=== PATIENT | male | born 1940 | race Caucasian/White ===

== ENCOUNTER 2022-07-11 15:51 | Emergency (ER) | payer OTHER, SELFPAY ==
[2022-07-11 16:14] VITALS: BP 149/92; PULSE 62; RESP 14; TEMP 36.6; O2SAT 99; BMI 31.0
--- NOTE | 2022-07-11 16:41 | CRLHL7_ITS ---
For Patients: As a result of the Cures Act, medical imaging exams and procedure reports are released immediately into your electronic medical record. You may view this report before your referring provider. If you have questions, please contact your health care provider. Indication: Fall with pain. Technique: Right shoulder 3 views. Comparison: None. Findings/Impression: Bones: Alignment is normal. No fractures or bone lesions. No sign of acute injury. Joint spaces: Arthritis is present in the glenohumeral and AC joints. Soft tissues: Unremarkable. Dictated by Gerhard Kothari MD @ 07/11/2022 5:36:35 PM (Electronically Signed)
--- NOTE | 2022-07-11 16:41 | ED_ITS ---
HPI - Head Injury General Chief complaint: Shoulder Injury/Pain Stated complaint: Fall/Shoulder Pain/Hit head Time Seen by Provider: 07/11/22 16:29 History of Present Illness HPI Narrative: 81-year-old man presentingto the emergency department after a fall where he slammed according to his spouse who accompanies him, in apparently face 1st. He seems to have some poor recollection of this but they do not think he actually passed out. Spouse saw him then slumped down against the wall. he had quite a headache and dizzy when he tried to get up. He has since taken some Tylenol and is better though sharp shoulder pain particular right shoulder remains. seems to radiate from the shoulder down to the elbow. Pain is not otherwise discretely in the elbow. he does also has some left upper arm pain but not nearly as much. Demonstrates pretty good movement of that when I inquire throwing his arm over his head. He has had a left shoulder replacement. Did also scrape his knees but no significant pain here. History of left knee replacement noted on exam. does not think he has any neck pain. he is not nauseated. I note him to sound rather congested in the face; evidently this is chronic. Teeth feel normal; admittedly has top denture plate. Underlying history of Parkinson's and 10 to shuffle about. they think he caught his foot on a rug when got up from a chair causing this fall. Not associated with any chest pain or sense of arrhythmia. Related Data Home Medications Medication Instructions Recorded Confirmed aspirin 325 mg tablet 325 mg PO DAILY 07/11/22 07/11/22 carbidopa 25 mg-levodopa 100 mg 1 tab PO TID 07/11/22 07/11/22 tablet carvedilol 12.5 mg tablet 12.5 mg PO Q12H 07/11/22 07/11/22 duloxetine 20 mg capsule,delayed 40 mg PO ONCE 07/11/22 07/11/22 release losartan 100 mg tablet 100 mg PO ONCE 07/11/22 07/11/22 lovastatin 40 mg tablet 40 mg PO ONCE 07/11/22 07/11/22 Allergies Allergy/AdvReac Type Severity Reaction Status Date / Time No Known Drug Allergies Allergy Verified 07/11/22 16:22 [facility] Medical History (Updated 07/26/22 @ 00:01 by ) Hypertension Parkinsonian syndrome Skin cancer (melanoma) Surgical History (Updated 07/11/22 @ 16:27 by Teodora Canchola RN) No significant past surgical history Social History Smoking Status: Former smoker What tobacco products do you use: cigarettes Smoking quit date/years: >15 years ago Do you use any of these nicotine containing products: None Second hand tobacco smoke exposure: No How often do you have a drink containing alcohol: never How often do you have six or more drinks on one occasion: Never AUDIT-C Alcohol total score: 0 Non-prescribed substance use: denies use Exam Narrative: Exam Narrative: pleasant. NAD. Fully alert with GCS of 15. Cranial nerves 2-12 look to be intact. He is speaking easily Though sounds congested. Breathing easily. head looks to be atraumatic. Oropharynx is with upper denture plate. Dentition looks intact. Neck is supple back is nontender until palpating around the right shoulder area. There is no tenderness to palpation about either clavicle. Surgical scar in the anterior left shoulder consistent with replacement. He has no difficulty with range of motion at this arm. A good deal of pain to palpation and movement of the right shoulder, transitioning. I do not see any sort of erythema or swelling here. Supinates and pronates the right forearm without difficulty. He has good pulses both upper extremities. Cardiovascular RRR abdomen is protuberant soft and nontender with normoactive bowel sounds. Lower extremities with trace dependent edema right maybe a little more than the left. Surgical scar on the left knee consistent with knee replacement. Light abrasions on both knees. No swelling no particular tenderness. Const: Vital Signs, click to edit/add: Vital Signs - 24 hr 07/11/22 16:14 Temperature 97.8 F Pulse Rate [Pulse Oximeter] 62 Respiratory Rate 14 Blood Pressure [Ri ght Upper Arm] 149/92 H Pulse Oximetry 99 Oxygen Delivery Me thod Room Air Documenting provider has reviewed patient's vital signs: yes Course Course Hospital Course: tolerated pain medication well dispensed arm sling Vital Signs Vital signs: Initial Vital Signs Temperature 97.8 F 07/11/22 16:14 Temperature Source Temporal Artery Scan 07/11/22 16:14 Pulse Rate 62 07/11/22 16:14 Respiratory Rate 14 07/11/22 16:14 Blood Pressure 149/92 H 07/11/22 16:14 Blood Pressure Mean 111 07/11/22 16:14 Blood Pressure Position Supine 07/11/22 16:14 Pulse Oximetry 99 07/11/22 16:14 Oxygen Delivery Method 07/11/22 16:14 Vital Signs Temperature 97.8 F 07/11/22 16:14 Pulse Rate 62 07/11/22 16:14 Respiratory Rate 14 07/11/22 16:14 Blood Pressure 149/92 H 07/11/22 16:14 Pulse Oximetry 99 07/11/22 16:14 Oxygen Delivery Method 07/11/22 16:14 Temperature 97.8 F 07/11/22 16:14 Pulse Rate 62 07/11/22 16:14 Respiratory Rate 14 07/11/22 16:14 Blood Pressure 149/92 H 07/11/22 16:14 Pulse Oximetry 99 07/11/22 16:14 Oxygen Delivery Method 07/11/22 16:14 MDM - Head Injury MDM Narrative Medical decision making narrative: by my read head CT and shoulder xray without acute abnormalities. Over-read of head CT IMPRESSION: 1. No CT evidence of acute intracranial abnormality or closed head injury. 2. Paranasal sinus disease, as above. cervical spine and shoulder with chronic changes. No acute abnormality Medical Records Attestation: I reviewed the patient's medical records. Discharge Plan Discharge Clinical Impression: Right shoulder strain, Fall Patient Disposition: Home w/ Parent or Adult Condition: Improved Additional Instructions: wear the arm sling as needed for comfort over the next couple of days. be seen if still having a good deal of discomfort in 7-10 days. The [employer] can be constipating and as discussed, fatiguing. On the days that you might take [employer], take 1-2 doses of a senna - containing product. each tablet of [employer] contains 325 mg of acetaminophen. in general you can take up to 1000 mg of acetaminophen per dose. So each tablet of [employer] can be combined with acetaminophen. in a couple of days begin some range of motion exercises with your shoulders. Prescriptions: No Action carvedilol 12.5 mg tablet 12.5 mg PO Q12H carbidopa-levodopa 25-100 mg tablet 1 tab PO TID Label Comments: TAKE 1 TABLET BY MOUTH THREE TIMES DAILY duloxetine 20 mg capsule,delayed release(DR/EC) 40 mg PO ONCE losartan 100 mg tablet 100 mg PO ONCE Label Comments: TAKE 1 TABLET BY MOUTH DAILY lovastatin 40 mg tablet 40 mg PO ONCE aspirin 325 mg tablet 325 mg PO DAILY Follow Up/Referrals: Provider,Not a Local [Primary Care Provider] - Stand Alone Forms: [facility] Info Instructions
--- NOTE | 2022-07-11 16:41 | CRLHL7_ITS ---
For Patients: As a result of the Century Cures Act, medical imaging exams and procedure reports are released immediately into your electronic medical record. You may view this report before your referring provider. If you have questions, please contact your health care provider. DATE: 07/11/2022. CLINICAL HISTORY: Trauma. TECHNIQUE: Helical CT acquisition of the cervical spine was performed. Coronal and sagittal reformations were performed and interpreted. COMPARISON: None available. FINDINGS: There is no evidence of acute displaced fracture or traumatic malalignment of the cervical spine. The facets are well aligned. No evidence of significant trauma at the craniocervical junction. Advanced cervical spondylosis with mild reversal of cervical lordosis. Multilevel degenerative disc and endplate changes with advanced loss of disc height and endplate osteophytic ridging most pronounced at C3-4 and C6-7. There is mild degenerative retrolisthesis of C3 on C4. No evidence of severe spinal canal stenosis. Uncovertebral hypertrophy and facet arthropathy results in varying degrees of multilevel foraminal narrowing. Chronic appearing compression deformity of the C6 vertebral body with very mild loss of height. The visualized prevertebral soft tissues are unremarkable. The visualized lung apices are unremarkable. IMPRESSION: 1. No acute displaced fracture or traumatic malalignment of the cervical spine. 2. Advanced cervical spondylosis with varying degrees of multilevel foraminal narrowing. Please note that all CT scans at this facility use dose modulation, iterative reconstruction, and/or weight-based dosing when appropriate to reduce radiation dose to as low as reasonably achievable. Dictated by Asif Miguel MD @ 07/11/2022 5:49:12 PM (Electronically Signed)
--- NOTE | 2022-07-11 16:49 | CRLHL7_ITS ---
For Patients: As a result of the Century Cures Act, medical imaging exams and procedure reports are released immediately into your electronic medical record. You may view this report before your referring provider. If you have questions, please contact your health care provider. DATE: 07/11/2022. CLINICAL HISTORY: Fall; struck head. TECHNIQUE: Standard helical CT image acquisition of the brain was performed. COMPARISON: None available. FINDINGS: There is no intracranial hemorrhage. No extra-axial collection, mass effect, or midline shift. Joel-white matter differentiation is preserved. Intracranial atherosclerotic disease. Age-appropriate mild generalized parenchymal volume loss with resulting prominence of cerebral sulci and the ventricular system. No displaced calvarial fracture. Thinning of the ocular lenses. Subtotal opacification of the right frontal sinus, opacification of the inferior left frontal sinus, opacification of the frontal sinus drainage pathways, and partial opacification of the bilateral ethmoid air cells. The mastoid air cells are unremarkable. The soft tissues are unremarkable. IMPRESSION: 1. No CT evidence of acute intracranial abnormality or closed head injury. 2. Paranasal sinus disease, as above. Please note that all CT scans at this facility use dose modulation, iterative reconstruction, and/or weight-based dosing when appropriate to reduce radiation dose to as low as reasonably achievable. Dictated by Asif Miguel MD @ 07/11/2022 5:41:59 PM (Electronically Signed)
[2022-07-11] MEDS: OXYCODONE 5 MG TABLET PO (16:55)
== END 2022-07-11 18:43 | disposition home or self-care (01) ==
PROVIDERS: Emergency Provider Family Medicine
DX: S43.401A Unspecified sprain of right shoulder joint, initial encounter (principal); W01.0XXA Fall on same level from slipping, tripping and stumbling without subsequent striking against object, initial encounter; Y92.019 Unspecified place in single-family (private) house as the place of occurrence of the external cause; Y93.9 Activity, unspecified; Y99.8 Other external cause status
CPT/HCPCS: 70450; 72125; 73030; 99283; 99284; A9270

== ENCOUNTER 2022-09-18 10:00 | Outpatient (RCR) | payer OTHER, SELFPAY | END 2022-11-25 10:38 | disposition home or self-care (01) | PROVIDERS: Visit Provider Psychiatry & Neurology Neurology | DX: G20 Parkinson's disease (principal); Z51.89 Encounter for other specified aftercare | CPT/HCPCS: 97110; 97162 ==

== ENCOUNTER 2022-10-20 11:00 | Outpatient (RCR) | payer OTHER, SELFPAY | END 2022-11-26 13:04 | disposition home or self-care (01) | PROVIDERS: Visit Provider Psychiatry & Neurology Neurology | DX: G20 Parkinson's disease (principal); Z51.89 Encounter for other specified aftercare | CPT/HCPCS: 97110; 97112; 97116; 97162; 97530 ==

== ENCOUNTER 2023-05-29 14:22 | Emergency (ER) | payer MEDICARE, SELFPAY ==
[2023-05-29 14:29] VITALS: BP 146/77; PULSE 61; RESP 18; O2SAT 100; BMI 30.9
--- NOTE | 2023-05-29 14:42 | CRLHL7_ITS ---
For Patients: As a result of the Cures Act, medical imaging exams and procedure reports are released immediately into your electronic medical record. You may view this report before your referring provider. If you have questions, please contact your health care provider. INDICATION: fall, landed on right side, pain in right side of abdomen and back COMPARISON: none TECHNIQUE: PA chest and right ribs. FINDINGS: Mild areas of scarring are present bilaterally. Left shoulder replacement hardware noted. There are vascular calcifications. There is no evidence of pulmonary contusion, pneumothorax or pleural effusion. The heart and pulmonary vessels are of normal size. Oblique detail views of the ribs demonstrate no evidence of fracture or intrinsic bone lesion. There is no evidence of pleural hematoma. IMPRESSION: No acute cardiopulmonary disease. No acute rib fracture. Dictated by Ranjan Lawson MD @ 05/29/2023 3:22:24 PM (Electronically Signed)
--- NOTE | 2023-05-29 15:35 | ED.GENADULT ---
HPI - General Adult General Chief complaint: Fall/Minor Trauma Stated complaint: Fell this am, R side/back pain Time Seen by Provider: 05/29/23 14:34 Source: patient Mode of arrival: ambulatory Limitations: no limitations History of Present Illness HPI narrative: 82-year-old male coming in today after falling on his right side at home several hours ago. He is concerned about right-sided pain he is having since the fall. Patient has history of Parkinson's, tripped earlier today falling onto his right side against a dresser. He is complaining of pain right at the right upper quadrant of the abdomen and lower chest area. He states it hurts to take deep breaths. He is not feeling short of breath however. He denies hitting his head or losing consciousness. He does take a daily aspirin, no other blood thinners. Related Data Home Medications Medication Instructions Recorded Confirmed aspirin 325 mg tablet 325 mg PO DAILY 07/11/22 07/11/22 carbidopa 25 mg-levodopa 100 mg 1 tab PO TID 07/11/22 07/11/22 tablet carvedilol 12.5 mg tablet 12.5 mg PO Q12H 07/11/22 07/11/22 duloxetine 20 mg capsule,delayed 40 mg PO ONCE 07/11/22 07/11/22 release losartan 100 mg tablet 100 mg PO ONCE 07/11/22 07/11/22 lovastatin 40 mg tablet 40 mg PO ONCE 07/11/22 07/11/22 Allergies Allergy/AdvReac Type Severity Reaction Status Date / Time Iodinated Contrast Media Allergy Verified 05/29/23 14:29 [id number] Reductase Allergy Verified 05/29/23 14:29 Inhibitor Review of Systems Status of ROS: Reports: 10 or more systems reviewed and unremarkable except as noted in History and below [facility] Medical History Skin cancer (melanoma) ?C43.9 - Malignant melanoma of skin, unspecified (ICD-10) Parkinsonian syndrome ?G20 - Parkinson's disease (ICD-10) Hypertension ?I10 - Essential (primary) hypertension (ICD-10) Surgical History No significant past surgical history Social History Smoking Status: Former smoker What tobacco products do you use: cigarettes Smoking quit date/years: >15 years ago Do you use any of these nicotine containing products: None Second hand tobacco smoke exposure: No How often do you have a drink containing alcohol: never How often do you have six or more drinks on one occasion: Never AUDIT-C Alcohol total score: 0 Non-prescribed substance use: denies use service: No Exam Narrative: Exam Narrative: Overweight, well-developed patient in no acute distress. Alert and oriented. Answers questions appropriately. Mood and affect are appropriate. Thoughts are goal oriented and rational. No tangential or magical thinking noted. Patient speaks in full sentences without needing to catch his breath. HEENT: Normocephalic atraumatic. Pupils are equally round reactive to light. Extraocular muscles are intact. Conjunctivae are moist without any icterus noted. Moist mucous membranes. Neck is soft. Cardiovascular: Heart is regular rate and rhythm S1 and S2 are present without any murmurs. Lungs: Clear to auscultation bilaterally no wheezes rhonchi or rales are appreciated. It is uncomfortable for him to take a deep breath. He has diffuse tenderness over the right chest lateral wall without any ecchymoses, abrasions or other evidence of trauma. Abdomen: Protuberant and soft. He appears to have some right upper quadrant discomfort with deep palpation. He has normal bowel sounds. Skin: Well perfused without any obvious rashes. Const: Vital Signs, click to edit/add: Vital Signs - 24 hr 05/29/23 14:29 05/29/23 16:22 Pulse Rate [Pulse Oximeter] 61 59 L Respiratory Rate 18 Blood Pressure [Ri ght Upper Arm] 146/77 H 141/77 H Pulse Oximetry 100 100 Oxygen Delivery Me thod Room Air Room Air Course Course Hospital Course: Rib x-ray, read by me, does not show any acute fractures of the right chest wall. Given the amount of tenderness he was having in the right upper quadrant we also did an abdominal CT that had to be done without contrast given his contrast allergy. This was unremarkable. Vital Signs Vital signs: Initial Vital Signs Temperature Source Temporal Artery Scan 05/29/23 14:29 Pulse Rate 61 05/29/23 14:29 Pulse Rhythm Regular 05/29/23 14:29 Respiratory Rate 18 05/29/23 14:29 Blood Pressure 146/77 H 05/29/23 14:29 Blood Pressure Mean 100 05/29/23 14:29 Blood Pressure Position Supine 05/29/23 14:29 Pulse Oximetry 100 05/29/23 14:29 Oxygen Delivery Method Room Air 05/29/23 14:29 Vital Signs Pulse Rate 61 05/29/23 14:29 Respiratory Rate 18 05/29/23 14:29 Blood Pressure 146/77 H 05/29/23 14:29 Pulse Oximetry 100 05/29/23 14:29 Oxygen Delivery Method Room Air 05/29/23 14:29 Pulse Rate 59 L 05/29/23 16:22 Respiratory Rate 18 05/29/23 14:29 Blood Pressure 141/77 H 05/29/23 16:22 Pulse Oximetry 100 05/29/23 16:22 Oxygen Delivery Method Room Air 05/29/23 16:22 Medical Decision Making MDM Narrative Medical decision making narrative: [age] male status post fall with right-sided chest and abdominal pain, from contusion. No findings on imaging today. We discussed symptomatic treatment reasons to return to the ER. Patient and his were in agreement with this. We discussed her living situation which the patient feels comfortable and safe in, his is in agreement with that. Imaging Data CT scan - abdomen: Attestation: I have reviewed the pertinent imaging results. Radiologist's impression: CT abdomen without contrast. COMPARISON: None. FINDINGS: Lower chest: Scattered atelectasis. Tiny hiatal hernia. Liver: Normal in size and attenuation. No suspicious masses. Gallbladder and bile ducts: No stones or inflammation. No biliary dilatation. Pancreas: Unremarkable. No mass or inflammation. Spleen: Normal in size. No masses. Adrenal glands: Normal in size. No nodules. Kidneys: Normal in size. Tiny nonobstructing left renal stone. No suspicious masses, or hydronephrosis. Visualized GI tract: Unremarkable. Normal in caliber. No sign of mass or inflammation. Normal appendix. Vasculature: Severe aortoiliac arterial calcifications. Mild infrarenal abdominal aortic aneurysm measuring up to 3.3 centimeters. Lymph nodes: No lymphadenopathy. Peritoneum/Abdominal Wall: No sign of mass or infiltration. No free air or significant free fluid. Bones: Degenerative changes. IMPRESSION: No acute intra-abdominal abnormality. X-ray ribs: Attestation: I have reviewed the pertinent imaging results. Radiologist's impression: PA chest and right ribs. FINDINGS: Mild areas of scarring are present bilaterally. Left shoulder replacement hardware noted. There are vascular calcifications. There is no evidence of pulmonary contusion, pneumothorax or pleural effusion. The heart and pulmonary vessels are of normal size. Oblique detail views of the ribs demonstrate no evidence of fracture or intrinsic bone lesion. There is no evidence of pleural hematoma. IMPRESSION: No acute cardiopulmonary disease. No acute rib fracture. Discharge Plan Discharge Clinical Impression: Abdominal contusion, Contusion of chest wall Patient Disposition: Home w/ Parent or Adult Condition: Stable Additional Instructions: Okay to use Tylenol as needed for discomfort. Okay to use heat or ice to the areas that are tender, do not apply heat or ice directly to the skin and do not use for more than 20 minutes at a time, can use multiple times per day. Expect the pain to last several days and slowly get better. If your pain is getting worse instead of better, return to the ER. Prescriptions: No Action carvedilol 12.5 mg tablet 12.5 mg PO Q12H carbidopa-levodopa 25-100 mg tablet 1 tab PO TID Patient Comments: TAKE 1 TABLET BY MOUTH THREE TIMES DAILY duloxetine 20 mg capsule,delayed release(DR/EC) 40 mg PO ONCE losartan 100 mg tablet 100 mg PO ONCE Patient Comments: TAKE 1 TABLET BY MOUTH DAILY lovastatin 40 mg tablet 40 mg PO ONCE aspirin 325 mg tablet 325 mg PO DAILY Follow Up/Referrals: Kimani Canada PA-C [Primary Care Provider] - Stand Alone Forms: [facility] Info Instructions
--- NOTE | 2023-05-29 15:37 | CRLHL7_ITS ---
For Patients: As a result of the Century Cures Act, medical imaging exams and procedure reports are released immediately into your electronic medical record. You may view this report before your referring provider. If you have questions, please contact your health care provider. INDICATION: Right upper quadrant pain. TECHNIQUE: CT abdomen without contrast. COMPARISON: None. FINDINGS: Lower chest: Scattered atelectasis. Tiny hiatal hernia. Liver: Normal in size and attenuation. No suspicious masses. Gallbladder and bile ducts: No stones or inflammation. No biliary dilatation. Pancreas: Unremarkable. No mass or inflammation. Spleen: Normal in size. No masses. Adrenal glands: Normal in size. No nodules. Kidneys: Normal in size. Tiny nonobstructing left renal stone. No suspicious masses, or hydronephrosis. Visualized GI tract: Unremarkable. Normal in caliber. No sign of mass or inflammation. Normal appendix. Vasculature: Severe aortoiliac arterial calcifications. Mild infrarenal abdominal aortic aneurysm measuring up to 3.3 centimeters. Lymph nodes: No lymphadenopathy. Peritoneum/Abdominal Wall: No sign of mass or infiltration. No free air or significant free fluid. Bones: Degenerative changes. IMPRESSION: No acute intra-abdominal abnormality. Please note that all CT scans at this facility use dose modulation, iterative reconstruction, and/or weight-based dosing when appropriate to reduce radiation dose to as low as reasonably achievable. Dictated by Peter Godoy MD @ 05/29/2023 5:03:26 PM (Electronically Signed)
--- NOTE | 2023-05-29 15:47 | ED.NURSE ---
MD ladd'melia patient taking home 1000mg Tylenol.
[2023-05-29 16:22] VITALS: BP 141/77; PULSE 59; O2SAT 100
== END 2023-05-29 17:30 | disposition home or self-care (01) ==
PROVIDERS: Emergency Provider Family Medicine; PCP Physician Assistant
DX: S30.1XXA Contusion of abdominal wall, initial encounter (principal); S20.211A Contusion of right front wall of thorax, initial encounter; W01.0XXA Fall on same level from slipping, tripping and stumbling without subsequent striking against object, initial encounter
CPT/HCPCS: 71101; 74150; 80048; 99284

== ENCOUNTER 2024-05-11 09:30 | Outpatient (RCR) | payer MEDICARE, SELFPAY | END 2024-07-29 11:30 | disposition home or self-care (01) | PROVIDERS: PCP Physician Assistant; Visit Provider Nurse Practitioner Family | DX: M54.10 Radiculopathy, site unspecified (principal); M21.371 Foot drop, right foot; Z51.89 Encounter for other specified aftercare | CPT/HCPCS: 97110; 97112; 97116; 97140; 97162 ==

== ENCOUNTER 2024-12-02 12:43 | Emergency (ER) | payer MEDICARE, BC, SELFPAY ==
--- OUTSIDE RECORDS SUMMARY | 2024-12-02 12:46 | XMS_ITS | Data Portability ---
Author Organization [place] - [facility], [employer] Address [address] [address] Assessment Encounter Date Assessment Date Assessment LastModified by Organization Details LastModified Time 10/17/2024 10/17/2024 Discussed medical conditions with patient today. For the ingrown toenail, I derbrided the symptomatic nail borders without performing an incision and drainage. I advised the patient to continue soaking the foot twice daily and to apply antibacterial ointment to the affected area. I instructed the patient to complete the current course of antibiotics (Keflex 500 mg twice daily) and to return for a follow-up in one week to reassess the condition. If there is no improvement, we may consider a more invasive procedure. For the peripheral vascular disease, I confirmed the presence of pulses using a Doppler and noted the patient's history of vascular interventions. I advised the patient to continue monitoring for any changes in swelling and to follow up with their vascular doctor as needed. I told the patient to return in one week for a follow-up appointment to reassess the ingrown toenail and overall foot condition. I also reminded the patient to continue the foot soaks and to monitor for any signs of infection or increased swelling. Patient verbalized understanding and is in agreement with the above treatment plan. Not available 10/17/2024 20:45:00 10/24/2024 10/24/2024 Discussed medical conditions with patient today. For the ingrown toenail of bilateral hallux, I discussed with the patient the option of a more aggressive approach, which involves numbing the toe and removing a portion of the nail border. However, given the improvement, I agree with patient's decision to wait and monitor the condition given clinical appearance today on exam. I advised the patient to keep an eye on the area for any signs of redness, swelling, or increased pain and to call if these symptoms occur. Debrided patient's mycotic nails without incident as documented. Recommended continued use of supportive shoegear and to monitor for injury and infection. Recommended regular follow-up to prevent complications and to manage pain due to thick, elongated nails and any callus formation. All questions answered. The patient was encouraged to call with any questions or concerns. Patient will follow up in 12 weeks for high risk foot care or sooner if needed. Educated patient on signs of systemic infection (e.g. nausea, vomiting, chills, fever, etc) and advised them to seek emergent medical attention should any arise. Patient verbalized understanding. Patient verbalized understanding and is in agreement with the above treatment plan. Not available 10/24/2024 12:12:54 Plan of Treatment Reminders Order Date Submit Date Provider Last Modified By Organization Details Last Modified Time Details Appointments PAL 15 025 10:00AM CASSANDRA FULLER DPM Not available Not available Not available Lab None record ed. Referral None record ed. Procedures None record ed. Surgeries None record ed. Imaging None record ed. Medication Orders None record ed. Patient TargetsNo targets recorded. Patient InstructionsNo instructions recorded. Reason for Referral None Reported. Procedures Surgical History Date Name Laterality Status Provider Name and Address Organization Details Recorded Time [address] Matson completed CASSANDRA FULLER DPM [address] [place], [address], [facility] 10/24/2024 12:11:[address] Huyen FULLER DPM [address] [place], [address], [facility] 10/17/2024 20:41:14 Imaging Results None recorded. Procedure Notes None recorded. Medical Equipment None Reported. Allergies Allergen ID Allergen Name Allergen Category Reaction Reaction Severity Criticality Documentation Date Start Date Code Code System Note Provider Name and Address Organization Details Recorded Time Product containin g 3-hydroxy -3-methyl glutaryl- coenzyme A reductase inhibitor (product) medicatio n Not available Not available Not available 10/17/2024 78916 009 SNOMED Yanira montaño [facility] 12:15:18 Medications Name Sig Start Date Stop Date Status Note LastModified by Organization Details LastModified Time carvedilol 12.5 mg tablet active Not Available Not Available Not Available aspirin 325 mg tablet Take 1 tablet every day by oral route. active Not Available Not Available No t Available hydrocodone 5 mg-acetamin ophen 325 mg tablet TAKE 1 TABLET BY MOUTH EVERY 4 HOURS NEEDED FOR PAIN OR CHRONIC PAIN active Not Available Not Available No t Available methylpredn isolone 32 mg tablet active Not Available Not Available No t Available lovastatin 40 mg tablet active Not Available Not Available Not Available fluorouraci l 5 % topical cream APPLY 1 APPLICATI ON TO BIOPSY SITE ON RIGHT CHURCH TWICE DAILY FOR 3 WEEKS THEN TAKE 1 WEEK BREAK THEN RESUME TWICE DAILY FOR 3 WEEKS 10/17 completed Not Available Not Available Not Available amlodipine 2.5 mg tablet active Not Available Not Available Not Available alprazolam 0.25 mg tablet active Not Available Not Available Not Available ascorbic acid (vitamin C) 500 mg tablet Take by oral route. active Not Available Not Available No t Available tamsulosin 0.4 mg capsule active Not Available Not Available Not Available cephalexin 500 mg capsule active Not Available Not Available Not Available nitroglycer in 0.[address] 1 TABLET UNDER THE TONGUE EVERY 5 MINUTES NEEDED FOR CHEST PAIN active Not Available Not Available No t Available gabapentin 300 mg capsule 10/17 completed Not Available Not Available Not Available Banophen 25 mg capsule TAKE 1 CAPSULE BY MOUTH 1 HOUR PRIOR TO PROCEDURE 10/17 completed Not Available Not Available Not Available budesonide 0.5 mg/2 mL suspension for nebulizatio n ADMINISTE R 2 ML INTO NOSTRILS TWICE DAILY RINSE MOUTH WITH WATER AFTER USE REDUCE AFTERTAST E AND INCIDENCE OF CANDIDIAS IS DO NOT SWALLOW active Not Available Not Available No t Available carbidopa 25 mg-levodopa 100 mg tablet TAKE 1 AND 1/2 TABLETS BY MOUTH THREE TIMES DAILY active Not Available Not Available No t Available losartan 100 mg tablet active Not Available Not Available Not Available pregabalin 75 mg capsule 10/17 completed Not Available Not Available Not Available acetaminoph en active Not Available Not Available Not Available codeine-gua ifenesin active Not Available Not Available Not Available Fish Oil active Not Available Not Avai lable Not Available cholecalcif micheal (vitamin D3) active Not Available Not Available Not Available diphenhydra mine (bulk) active Not Available Not Available Not Available polyethylen e glycol (bulk) active Not Available Not Available Not Available Refresh Digital active Not Available Not Available Not Available Vitals Date Recorded Body height Body mass index (BMI) Body weight Provider Name and Address Organization Details Last Updated DateTime 10/17/2024 170.18 cm 30.9 kg/m2 09777.7 g Yanira Franks [place] - [facility] 10/17/2024 12:13:55 Social History None recorded. Functional Status None recorded. Mental Status None recorded. Family History Nothing Reported. Medical History No medical history recorded. Past Encounters Encounter ID Performer Location Encounter Start Date Encounter Closed Date Diagnosis/Indication Diagnosis SNOMED-CT Code Diagnosis ICD10 Code Diagnosis Note CASSANDRA FULLER [facility] Office [address] [place] [phone] 10/17/2024 12:10:28 10/18/2024 09:38:11 Ingrowing nail 375365078 L60.0 Peripheral vascular disease 233284759 I73.89 KEYSHAWN OCAMPOFormerly [facility] Office [address] [place] [phone] 4 10/24/2024 11:01:14 10/24/2024 16:31:12 Ingrowing nail 853599468 L60.0 Peripheral vascular disease 659368436 I73.89 Onychomycosis 132406805 B35.1 Pain of to e of right foot 9469382443 10014 M79.674 Pain of to e of left foot 0939483817 32685 M79.675 Health Concerns Section Related Observation LastModified by Organization Detai ls LastModified Time None Recorded Concern Status LastModified by Organization Details LastModified Time None Recorded Advance Directives Directive None Recorded Payers Encounter Date Sequence Insurance Name Policy Number Policy Shetty Covered Member ID Shetty Member ID Guarantor Name 10/17/2024 1 [facility] (MEDICARE REPLACEMENT/A DVANTAGE - PPO) [id number] Herbie Argueta [id number] Herbie Argueta 10/24/2024 1 [facility] (MEDICARE REPLACEMENT/A DVANTAGE - PPO) [id number] Herbie Argueta [id number] Herbie Argueta Notes Date Note Type Note Provider Name and Address Organization Details Recorded Time 10/17/2024 text/html The patient presents with a complaint of an ingrown toenail on the right hallux, which started bleeding last Thursday. The patient has been soaking the toe as advised by a previous provider and has been on antibiotics since Thursday. The patient reports that the pain has decreased since the bleeding episode but remains sore. The patient has never had an ingrown toenail before and regularly gets pedicures. The patient also mentions having poor circulation and swelling in the legs, which has been more pronounced since starting the antibiotics. The patient has a history of vascular issues, including two stents in the arm and cleaned arteries in the legs, and also has Parkinson's disease. CASSANDRA FULLER, CASSANDRA [address] [place], [address], [facility] 10/17/2024 20:45:22 10/24/2024 text/html The patient presents today for ongoing management of an ingrown toenail on bilateral great toes. The patient reports that the right toenail feels better and the left inside border continues to improve. The patient notes that the pain is not as severe as before and only hurts when bumped. The patient completed a seven-day course of antibiotics as prescribed. PRIOR HISTORY:The patient presents with a complaint of an ingrown toenail on the right hallux, which started bleeding last Thursday. The patient has been soaking the toe as advised by a previous provider and has been on antibiotics since Thursday. The patient reports that the pain has decreased since the bleeding episode but remains sore. The patient has never had an ingrown toenail before and regularly gets pedicures. The patient also mentions having poor circulation and swelling in the legs, which has been more pronounced since starting the antibiotics. The patient has a history of vascular issues, including two stents in the arm and cleaned arteries in the legs, and also has Parkinson's disease. CASSANDRA FULLER, CASSANDRA [address] [place], [address], [facility] 10/24/2024 12:13:25
--- OUTSIDE RECORDS SUMMARY | 2024-12-02 12:46 | XMS_ITS | Continuity of Care Document ---
Author Organization [place] - [facility], [place] [facility] Address [address] [place] [address] [address] [place] [address] Assessment Encounter Date Assessment Date Assessment LastModified by Organization Details LastModified Time 10/24/2024 10/24/2024 Discussed medical conditions with patient [...] in agreement with the above treatment plan. [email or web address] Not available 10/24/2024 12:12:54 Plan of Treatment [...] [address] Matson completed CASSANDRA FULLER, CASSANDRA [address] [place], [address], [facility] 10/24/2024 12:11:[address] Matson completed CASSANDRA FULLER DPM [address] [place], [address], [facility] 10/17/2024 20:41:14 Imaging Results None recorded. Procedure Notes None recorded. Medical Equipment None Reported. Allergies Allergen ID Allergen Name Allergen Category Reaction Reaction Severity Criticality Documentation Date Start Date Code Code System Note Provider Name and Address Organization Details Recorded Time Product containin g 3-hydroxy -3-methyl glutaryl- coenzyme A reductase inhibitor (product) medicatio n Not available Not available Not available 10/17/2024 32975 009 SNJORGE Franks [facility] 12:15:18 Medications Name Sig Start Date [...] APPLICATI ON TO BIOPSY SITE ON RIGHT LUTHERAN TWICE DAILY FOR 3 WEEKS THEN TAKE [...] Not Available Not Available Not Available Vitals None Recorded Social History None recorded. Functional Status None recorded. Mental Status None recorded. Family History Nothing Reported. Medical History No medical history recorded. Past Encounters Encounter ID Performer Location Encounter Start Date Encounter Closed Date Diagnosis/Indication Diagnosis SNOMED-CT Code Diagnosis ICD10 Code Diagnosis Note CASSANDRA FULLER DPM [place] [facility] [address] [place] [phone] 10/17/2024 12:10:28 10/18/2024 09:38:11 Ingrowing nail 080144705 L60.0 Peripheral vascular disease 643947145 I73.89 CASSANDRA FULLER DPM [place] [facility] [address] [place] [phone] 10/24/2024 11:01:14 10/24/2024 16:31:12 Ingrowing nail 331763642 L60.0 Peripheral vascular disease 863103125 I73.89 Onychomycosis 819133302 B35.1 Pain of to e of right foot 4526805849 49078 M79.674 Pain of to e of left foot 0006544464 83336 M79.675 Health Concerns Section Related Observation LastModified by Organization Detai ls LastModified Time None Recorded Concern Status LastModified by Organization Details LastModified Time None Recorded Payers Encounter Date Sequence Insurance Name Policy Number Policy Shetty Covered Member ID Shetty Member ID Guarantor Name 10/24/2024 1 [facility] (MEDICARE REPLACEMENT/A DVANTAGE - PPO) [id number] Herbie Argueta [id number] Herbie Argueta Notes Date Note Type Note Provider Name and Address Organization Details Recorded Time 10/24/2024 text/html The patient presents today for [...] has Parkinson's disease. CASSANDRA FULLER, CASSANDRA [address] [place], [address], [facility] 10/24/2024 12:13:25
--- OUTSIDE RECORDS SUMMARY | 2024-12-02 12:46 | XMS_ITS | Data Portability ---
Author Organization [facility] - Jose Alejandro Amador, MAIN OFFICE Address [address] [place] [address] Assessment Encounter Date Assessment Date Assessment LastModified by Organization Details LastModified Time 01/08/2016 01/08/2016 Note: Physical therapy services at this facility are also supervised by Ting Perry MD, PA. Time In: 11:45 AM Time Out: 12:35 PM Modalities Start Time: Modalities End Time: Frequency of PT Visits: 3x PT Visit # of: 1 of 3 PT Re-eval due date: 03/08/16 PT Functional Limitations Reporting Section Initial Evaluation (01/08/16): 1) Current Status = R7377-KM-PU; 2) Goal Status = O1037-CU-IX (UEFI, clinical judgment) Reporting Period (date): 1) Current Status = NA; 2) Goal Status = NA Discharge (date): 1) Goal Status = NA; 2) Discharge Status = NA PRIOR LEVEL OF FUNCTION: Independent CURRENT LEVEL OF FUNCTION: Limited Problems List: Pain; Decreased flexibility/ROM ; Weakness; Limited mobility; Tension/tendern ess Assessment: PT eval done. He does have limited motion and limited strength to the LUE, along with occasional pain. Functional reach is limited (eg: reaching up to the top-of head). He can improve with a course of PT. We have read the specific instructions included in the written referral, and we will foow them. Treatment was started today. He said that he will try the PT. PT Plan of Care: Therapeutic exercise; Therapeutic activities; Manual therapy; Pt/Family education; Thermal modalities; Cold modalities; E-stim; Ultrasound; Taping PATIENT SHORT TERM GOALS: 1. Decrease pain level by 2 grades. 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 UEFI to improve to 49/80 or higher 3.Pt to be able to touch the top of his head, with left hand, independently, painfree. 4. MMT 4/5, painfree: sh flexion; sh abduction; sh ER; sh IR; elb flex; elb ext 5. Pt to have 0-2/10 pain levels with ADL's. Not available 01/08/2016 16:26:58 01/11/2016 01/11/2016 Note: Physical therapy services at this facility are also supervised by Ting Perry MD, PA. Time In: 1:00 PM Time Out: 1:55 PM Modalities Start Time: 1:45 PM Modalities End Time: 1:55 PM Frequency of PT Visits: 3x PT Visit # of: 2 of 3 PT Re-eval due date: 03/08/16 PT Functional Limitations Reporting Section Initial Evaluation (01/08/16): 1) Current Status = E6219-EU-OI; 2) Goal Status = B7135-MX-PG (UEFI, clinical judgment) Reporting Period (date): 1) Current Status = NA; 2) Goal Status = NA Discharge (date): 1) Goal Status = NA; 2) Discharge Status = NA PRIOR LEVEL OF FUNCTION: Independent CURRENT LEVEL OF FUNCTION: Limited Problems List: Pain; Decreased flexibility/ROM ; Weakness; Limited mobility; Tension/tendern ess Assessment: PT was continued today. Manual PT, exercises were done within his pain tolerance. I also taught him a HEP. PT Plan of Care: Therapeutic exercise; Therapeutic activities; Manual therapy; Pt/Family education; Thermal modalities; Cold modalities; E-stim; Ultrasound; Taping PATIENT SHORT TERM GOALS: 1. Decrease pain level by 2 grades. 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 UEFI to improve to 49/80 or higher 3.Pt to be able to touch the top of his head, with left hand, independently, painfree. 4. MMT 4/5, painfree: sh flexion; sh abduction; sh ER; sh IR; elb flex; elb ext 5. Pt to have 0-2/10 pain levels with ADL's. Not available 01/11/2016 14:51:16 01/15/2016 01/15/2016 Note: Physical therapy services at this facility are also supervised by Ting Perry MD, PA. Time In: 10:15 AM Time Out: 11:00 AM Modalities Start Time: Modalities End Time: Frequency of PT Visits: 3x PT Visit # of: 3 of 3 PT Re-eval due date: NA PT Functional Limitations Reporting Section Initial Evaluation (01/08/16): 1) Current Status = X4220-IE-CU; 2) Goal Status = K4658-AO-TS (UEFI, clinical judgment) Discharge (01/15/16): 1) Goal Status = C1266-EG-BG; 2) Discharge Status = F1917-WR-BL PRIOR LEVEL OF FUNCTION: Independent CURRENT LEVEL OF FUNCTION: Limited Problems List: Pain; Decreased flexibility/ROM ; Weakness; Limited mobility; Tension/tendern ess Assessment: PT re-eval was done today. AROM for shoulder flexion and sh ER have improved, though there is still a certain amount of limitation. Functional reach also improved. We have followed the ROM limitations, and t he exercise limitations. I have taught patient a home exercise program (HEP). We will now discharge patient from PT. LTGs were met. PT Plan of Care: Discharged from PT at this time Not available 01/15/2016 14:07:56 Plan of Treatment Reminders Order Date Submit Date Provider Last Modified By Organization Details Last Modified Time Details Appointments None recorded. Lab None recorded. Referral plan of care referral - PT plan of care is for all diagnoses listed. Thank you. 2015 016 JEANETTE Not available 6 09:50:23 Procedures None recorded. Surgeries None recorded. Imaging None recorded. Medication Orders None recorded. Patient TargetsNo targets recorded. Patient InstructionsNo instructions recorded. Reason for Referral Plan Of Care Referral for To ace shoulder replacement PT plan of care is for all diagnoses listed. Thank you. Referring Physician: Floyd Woodruff, Physical Therapy, Encounter Date: 01/08/2016 Problems Name Problem SNOMED Code Status Onset Date Resolution Date Notes Provider Name and Address Organization Details Recorded Time Total shoulder replacement Active Floyd BallesterosT. [address], [place], [address], Jose Alejandro Renee 6 14:07:56 Shoulder stiff 447242699 Active Floyd Ranjan BallesterosT. [address], [place], [address], [facility] - Jose Alejandro Borden 6 14:07:56 Muscle weakness 65718718 Active Floyd Ranjan Busch.T. [address], [place], [address], [facility] - Jose Alejandro Borden 6 14:07:56 Problem Notes None recorded. Procedures Surgical History Date Name Laterality Status Provider Name and Address Organization Details Recorded Time 01/15/20 16 [place] [address] completed Floyd BallesterosTAlexandra [address], [place], [address], Jose Alejandro Renee 01/15/2016 12:06:10 01/15/20 16 Therapeutic Procedure/Activ ities, Gait completed Floyd BallesterosTAlexandra [address], [place], [address], Jose Alejandro Renee 01/15/2016 12:06:10 01/11/20 16 [place] [address]106 completed Floyd BallesterosTAlexandra [address], [place], [address], [facility] - Jose Alejandro Borden 01/11/2016 14:46:54 01/11/20 16 Therapeutic Procedure/Activ ities, Gait completed Floyd BallesterosT. [address], [place], [address], Jose Alejandro Renee 01/11/2016 14:46:54 01/08/20 16 Initial Evaluation/Re-E valuation completed Floyd BallesterosTAlexandra [address], [place], [address], [place] [facility] - Jose Alejandro Borden 01/08/2016 13:55:09 01/08/20 16 Therapeutic Procedure/Activ ities, Gait completed Floyd Ranjan Menjivar [address], [place], [address], [place] Jose Alejandro Renee 01/08/2016 13:55:09 Imaging Results None recorded. Procedure Notes None recorded. Medical Equipment None Reported. Allergies Allergen ID Allergen Name Allergen Category Reaction Reaction Severity Criticality Documentation Date Start Date Code Code System Note Provider Name and Address Organization Details Recorded Time [id number] 2824e Zocor medicatio n Not available Not available Not available 01/11/2016 79943 3 RxNorm Sore muscl es Not Available Not Available Not Available Medications Name Sig Start Date Stop Date Status Note LastModified by Organization Details LastModified Time losartan 50 mg tablet active Not Available Not Available Not Available amoxicillin 500 mg capsule active Not Available Not Available Not Available ropinirole 1 mg tablet active Not Available Not Available Not Available felodipine ER 2.5 mg tablet,extended release 24 hr active Not Available Not Availabl e Not Available azithromycin 250 mg tablet active Not Available Not Available Not Available metoprolol tartrate 100 mg tablet active Not Available Not Availabl e Not Available benzonatate 200 mg capsule active Not Available Not Available Not Available hydrocodone 5 mg-acetaminophen 325 mg tablet active Not Available Not Availabl e Not Available lovastatin 40 mg tablet active Not Available Not Available Not Available alprazolam 0.25 mg tablet active Not Available Not Available Not Available Nitrostat 0.4 mg sublingual tablet active Not Available Not Avai lable Not Available lorazepam 1 mg tablet active Not Available Not Available Not Available Viagra 100 mg tablet active Not Available Not Available Not Available levofloxacin 500 mg tablet active Not Available Not Available Not Available methylprednisolone 4 mg tablets in a dose pack active Not Available Not Available No t Available fluticasone propionate 50 mcg/actuation nasal spray,suspension active Not Available Not Avail able Not Available loratadine 10 mg tablet active Not Available Not Available Not Available amoxicillin 875 mg-potassium clavulanate 125 mg tablet active Not Available Not Available Not Available tobramycin 0.3 %-dexamethasone 0.1 % eye drops,suspension active Not Available Not Avail able Not Available oxycodone 5 mg tablet active Not Available Not Available Not Available Senna-S 8.6 mg-50 mg tablet active Not Available Not Available No t Available ProAir HFA 90 mcg/actuation aerosol inhaler active Not Available Not Availa ble Not Available Virtussin AC 10 mg-100 mg/5 mL oral liquid active Not Available Not Available Not Available Vitals None Recorded Social History Question Answer Notes LastModified by Organizat ion Details LastModified Time Tobacco Smoking Status Former Smoker pt said quit 1985 Not Available [employer] 09/25/2020 03:15:50 What Is Your Occupation? Retired [id number] Information not available 09/25/2020 Therapeutic Exercises (1) Stretch L Sh 1) Into Sh Flexion; 2) Into Sh ER (0-15 Deg Abduct) Information not available 01/15/2016 Manual PT (1) Massage/relea se L Pect Brandon; L Pect Minor (Barral); L Posterior Axillary Fold Mm; L Lats Dorsi Information not available 01/08/2016 Physical Therapy Visit/Note Initial Evaluation Information not available 01/08/2016 Sex: Unknown Functional Status None recorded. Mental Status None recorded. Family History Nothing Reported. Medical History Condition Response Previous P.T. for this condition, if so, when. N Past Encounters Encounter ID Performer Location Encounter Start Date Encounter Closed Date Diagnosis/Indication Diagnosis SNOMED-CT Code Diagnosis ICD10 Code Diagnosis Note [id number] Floyd Woodruff P.T. MAIN OFFICE [address] [place] [address] 01/08/2016 12:32:14 01/08/2016 13:35:51 Total shoulder replacement 65707510 Z96.612 Muscle weakness 06073962 M62.81 Shoulder stiff 053390583 M25.612 [id number] Samanta Marcano MAIN OFFICE [address] [place] [address] 01/11/2016 13:51:18 01/11/2016 15:01:44 Total shoulder replacement 25630156 Z96.612 Muscle weakness 97660508 M62.81 Shoulder stiff 474779619 M25.612 [id number] Floyd Woodruff P.T. MAIN OFFICE [address] [place] [address] 01/15/2016 11:19:02 01/15/2016 12:15:07 Total shoulder replacement 81210181 Z96.612 Muscle weakness 95481077 M62.81 Shoulder stiff 710597160 M25.612 Health Concerns Section Related Observation LastModified by Organization Detai ls LastModified Time None Recorded Concern Status LastModified by Organization Details LastModified Time None Recorded Advance Directives Directive None Recorded Payers Encounter Date Sequence Insurance Name Policy Number Policy Shetty Covered Member ID Shetty Member ID Guarantor Name 01/08/2016 1 [place] [employer] Herbie T Argueta [id number] Herbie Argueta 01/08/2016 2 [place] [id number] Herbie Argueta [id number] Herbie Argueta 01/11/2016 1 [place] [employer] Herbie T Argueta [id number] Herbie Melendrezon 01/11/2016 2 [place] [id number] Herbie Argueta [id number] Herbie Argueta 01/15/2016 1 [place] [employer] Herbie T Argueta [id number] Herbie Argueta 01/15/2016 2 [place] [id number] Herbie Argueta [id number] Herbie Argueta Notes Date Note Type Note Provider Name and Address Organization Details Recorded Time 01/08/2016 text/html PT ShoulderRepor richard bypatient.Hand Dominance:right Location:left (GH-upper arm) Quality:ache; occasional Severity:pain level 4/10 (worst-7 days) Context:Pt reported chronic shoulder pain for approx 2 yrs ( before TSA surgery). Pt said that a few days ago he discontinued using the shoulder sling. Aggravating Factors:ROM; reaching up Associated Symptoms:no numbness; no tingling Pt did not c/o more than 4/10 pain (to the L GH jt) during today's exercises and manual PT. Floyd Woodruff P.T. [address], [place], [address], Jose Alejandro Renee 01/08/2016 16:26:59 01/11/2016 text/html Pt comes in toda y with 0/10 pain to L shoulder. He did not c/o pain higher than 3/10 during today's activities and exercises. Floyd Woodruff P.T. [address], [place], [address], Jose Alejandro Renee 01/11/2016 14:51:22 01/15/2016 text/html 1) Pt comes in t alistair with 0/10 pain to the left GH-upper arm area. Pain is intermittent, and the pain happens occasionally only. Worst pain today = 2/10 (during shoulder ROM tests). Floyd Woodruff P.T. [address], [place], [address], Jose Alejandro Renee 01/15/2016 14:08:40
[2024-12-02 13:00] VITALS: BP 169/72; PULSE 80; RESP 18; TEMP 36.7; O2SAT 99; BMI 30.1
[2024-12-02 13:25] LABS: Appearance Urine Cloudy (Clear); Bilirubin Urine 1+ (Negative); Blood Urine 3+ (Negative); Color Urine Red (Yellow); Glucose Urine Negative (Negative); Ketones Urine Negative (Negative); Leukocyte Esterase Urine Negative (Negative); Nitrite Urine Negative (Negative); Protein Urine 2+ (Negative); Specific Gravity Urine 1.015 (1.000-1.030); Urobilinogen Urine 0.2 (0.2-1.0)
[2024-12-02 14:08] LABS: RBC Urine >100 (0-2); WBC Urine 0-2 (0-5)
--- NOTE | 2024-12-02 14:12 | ED_ITS ---
HPI - General Adult General Chief complaint: Urogenital Problems, Male Stated complaint: Blood in catheter Time Seen by Provider: 12/02/24 12:48 History of Present Illness HPI narrative: Patient is a 84-year-old gentleman who comes in today abruptly is urinating blood. He has had a distant history of similar problems but none for many years. Takes a baby aspirin daily. He has no flank pain no nausea no vomiting no fevers no chills. He is otherwise feeling fine. He describes only minimal dysuria. UA shows numerous red cells with no other significant pathology. Related Data Home Medications ?Medication ?Instructions ?Recorded ?Confirmed aspirin 325 mg tablet 325 mg PO DAILY 07/11/22 07/11/22 carbidopa 25 mg-levodopa 100 mg 1 tab PO TID 07/11/22 07/11/22 tablet carvedilol 12.5 mg tablet 12.5 mg PO Q12H 07/11/22 07/11/22 duloxetine 20 mg capsule,delayed 40 mg PO ONCE 07/11/22 07/11/22 release losartan 100 mg tablet 100 mg PO ONCE 07/11/22 07/11/22 lovastatin 40 mg tablet 40 mg PO ONCE 07/11/22 07/11/22 Allergies Allergy/AdvReac Type Severity Reaction Status Date / Time Iodinated Contrast Media Allergy Verified 05/29/23 14:29 Vlcxomh-MAQ-YnE Reductase Allergy Verified 05/29/23 14:29 Inhibitor Review of Systems Status of ROS: Reports: 10 or more systems reviewed and unremarkable except as noted in History and below PFSH PFS Medical History Skin cancer (melanoma) ?C43.9 - Malignant melanoma of skin, unspecified (ICD-10) Parkinsonian syndrome ?G20 - Parkinson's disease (ICD-10) Hypertension ?I10 - Essential (primary) hypertension (ICD-10) Surgical History No significant past surgical history Social History Smoking Status: Former smoker What tobacco products do you use: cigarettes Smok ing quit date/years: >15 years ago Do you use any of these nicotine containing products: None Second hand tobacco smoke exposure: No How often do you have a drink containing alcohol: never How often do you have six or more drinks on one occasion: Never AUDIT-C Alcohol total score: 0 Non-prescribed substance use: denies use service: No Exam Narrative: Exam Narrative: EXAM GENERAL: Patient appears comfortable and well. EYES: No scleral icterus. LYMPH: No supraclavicular or cervical lymphadenopathy. SKIN: Visible skin seen during exam normal or with benign process only. EXT: No dependent lower extremity pedal edema. HEART: Regular rate and rhythm with no murmurs, rubs, or gallops. LUNGS: Clear to auscultation bilaterally with no crackles or wheezes. ABD: Soft, non tender, non distended. PSYCH: Good eye contact, speech is not pressured. Const: Vital Signs, click to edit/add: Vital Signs - 24 hr 12/02/24 13:00 Temperature 98.0 F Pulse Rate [Pulse Oximeter] 80 Respiratory Rate 18 Blood Pressure [Ri ght Upper Arm] 169/72 H Pulse Oximetry 99 Oxygen Delivery Me thod Room Air Course Course ED Course: Patient seen and examined. Urinalysis reviewed. Vital Signs Vital signs: Initial Vital Signs Temperature 98.0 F 12/02/24 13:00 Temperature Source Temporal Artery Scan 12/02/24 13:00 Pulse Rate 80 12/02/24 13:00 Respiratory Rate 18 12/02/24 13:00 Blood Pressure 169/72 H 12/02/24 13:00 Blood Pressure Mean 104 12/02/24 13:00 Blood Pressure Position Sitting 12/02/24 13:00 Pulse Oximetry 99 12/02/24 13:00 Oxygen Delivery Method Room Air 12/02/24 13:00 Vital Signs Temperature 98.0 F 12/02/24 13:00 Pulse Rate 80 12/02/24 13:00 Respiratory Rate 18 12/02/24 13:00 Blood Pressure 169/72 H 12/02/24 13:00 Pulse Oximetry 99 12/02/24 13:00 Oxygen Delivery Method Room Air 12/02/24 13:00 Temperature 98.0 F 12/02/24 13:00 Pulse Rate 80 12/02/24 13:00 Respiratory Rate 18 12/02/24 13:00 Blood Pressure 169/72 H 12/02/24 13:00 Pulse Oximetry 99 12/02/24 13:00 Oxygen Delivery Method Room Air 12/02/24 13:00 Medical Decision Making [facility] Narrative Medical decision making narrative: Patient is a 84-year-old gentleman who comes in urinating blood. Patient has only a distant history of similar situations. He has no other symptoms. His urination is significant for bright red color but no other significant pathology. This time I did elect to treat him with Cipro for the next 5 days. Plenty of rest plenty fluids. Would recommend follow-up with primary care next week for repeat UA possible CT of the abdomen pelvis and cystoscopy. No other changes at this time patient will hold his baby aspirin. Lab Data Labs: Lab Results 12/02/24 Range/Units 13:10 Urine Color Red A (Yellow) Urine Appearance Cloudy A (Clear) Urine pH 7.0 (5.0-8.5) Ur Specific [place] 1.015 (1.000-1.030) Urine Protein 2+ A (Negative) Urine Glucose (UA) Negative (Negative) Urine Ketones Negative (Negative) Urine Blood 3+ A (Negative) Urine Nitrite Negative (Negative) Urine Bilirubin 1+ A (Negative) Urine Urobilinogen 0.2 (0.2-1.0) Ur Leukocyte Esterase Negative (Negative) Urine RBC >100 A (0-2) Urine WBC 0-2 (0-5) Ur Squamous Epith Cells None (None-Few) Urine Bacteria None (None) Discharge Plan Discharge Clinical Impression: Hematuria Patient Disposition: Home, Self-Care Condition: Stable Instructions: Hematuria (ED) Additional Instructions: Drink plenty fluids Cipro as directed for 5 days. Follow-up with your doctor early next week to repeat urine and consider Urology consultation and CT of the abdomen and pelvis. Activity Level: No Restrictions Discharge Diet: Regular Prescriptions: No Action carvedilol 12.5 mg tablet 12.5 mg PO Q12H carbidopa-levodopa 25-100 mg tablet 1 tab PO TID Patient Comments: TAKE 1 TABLET BY MOUTH THREE TIMES DAILY duloxetine 20 mg capsule,delayed release(DR/EC) 40 mg PO ONCE losartan 100 mg tablet 100 mg PO ONCE Patient Comments: TAKE 1 TABLET BY MOUTH DAILY lovastatin 40 mg tablet 40 mg PO ONCE aspirin 325 mg tablet 325 mg PO DAILY Follow Up/Referrals: Kimani Canada PA-C [Primary Care Provider] - [facility]one [facility]
== END 2024-12-02 14:25 | disposition home or self-care (01) ==
PROVIDERS: Emergency Provider Internal Medicine; PCP Physician Assistant
DX: R31.9 Hematuria, unspecified (principal)
CPT/HCPCS: 81001; 87086; 99283; 99284

== ENCOUNTER 2025-01-14 01:49 | Emergency (ER) | payer MEDICARE, BC, SELFPAY ==
[2025-01-14 01:51] VITALS: BP 163/82; PULSE 90; RESP 18; TEMP 36.1; O2SAT 99; BMI 29.0
--- NOTE | 2025-01-14 02:37 | ED_ITS ---
HPI - General Adult General Chief complaint: Urogenital Problems, Male Stated complaint: Pain post catheter removal Time Seen by Provider: 01/14/25 02:26 Source: patient and family Mode of arrival: ambulatory Limitations: no limitations History of Present Illness HPI narrative: 84-year-old male presents the emergency department with feeling acute urinary retention. Has not been able to void except for ?a couple of dribbles? for the past few hours. Did have a Tong catheter removed about 18 hours ago at his urology follow-up. 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 Still has a stent in place. The catheter was removed without complication but he has not been able to fully empty his bladder since. He also reports he was feeling a little constipated and took a laxative and had did have a bowel movement earlier tonight, is feeling a little better with that. No fever, no blood in his urine noted, no vomiting. His legs have been a little more swollen than usual but he attributes to this to the fact that he cannot elevate his legs per recommendations from the urologist as it would make the catheter struggled to drain. Patient is bladder scanned in triage, 650 noted. Tong catheter is placed and at the time of my initial interview, about 800 mL has drained and he is feeling much better. Past medical history notable for Parkinson's disease, hypertension, hyperlipidemia. Home meds are reviewed, accurate per patient. Allergies are to contrast and statins. ROS is notable for the urinary symptoms only, otherwise denies times 12 systems today. Does have a urology follow-up already scheduled for which is 5 days from now. Related Data Home Medications ?Medication ?Instructions ?Recorded ?Confirmed aspirin 325 mg tablet 325 mg PO DAILY 07/11/22 07/11/22 carbidopa 25 mg-levodopa 100 mg 1 tab PO TID 07/11/22 07/11/22 tablet carvedilol 12.5 mg tablet 12.5 mg PO Q12H 07/11/22 07/11/22 duloxetine 20 mg capsule,delayed 40 mg PO ONCE 07/11/22 07/11/22 release losartan 100 mg tablet 100 mg PO ONCE 07/11/22 07/11/22 lovastatin 40 mg tablet 40 mg PO ONCE 07/11/22 07/11/22 Allergies Allergy/AdvReac Type Severity Reaction Status Date / Time Iodinated Contrast Media Allergy Verified 05/29/23 14:29 [id number] Reductase Allergy Verified 05/29/23 14:29 Inhibitor PFSH [facility] Medical History Skin cancer (melanoma) ?C43.9 - Malignant melanoma of skin, unspecified (ICD-10) Parkinsonian syndrome ?G20 - Parkinson's disease (ICD-10) Hypertension ?I10 - Essential (primary) hypertension (ICD-10) Surgical History No significant past surgical history Social History Smoking Status: Former smoker What tobacco products do you use: cigarettes Smoking quit date/years: >15 years ago Do you use any of these nicotine containing products: None Second hand tobacco smoke exposure: No How often do you have a drink containing alcohol: never How often do you have six or more drinks on one occasion: Never AUDIT-C Alcohol total score: 0 Non-prescribed substance use: denies use service: No Exam Const: Vital Signs, click to edit/add: Vital Signs - 24 hr 01/14/25 01:51 Temperature 97.0 F L Pulse Rate [Left P ulse Oximeter] 90 Respiratory Rate 18 Blood Pressure [Ri ght Upper Arm] 163/82 H Pulse Oximetry 99 Oxygen Delivery Me thod Room Air Documenting provider has reviewed patient's vital signs: yes Common normals: no apparent distress and alert General appearance: cooperative, co mfortable and well kempt Other: Much more comfortable by the time of my interview, after catheter patient. Was restless in triage. HENMT: Common normals: normocephalic and moist oral mucous membranes Head and scalp: normocephalic Face and sinus: normal facial exam Eye: Common normals: conjunctivae normal General eye: normal appearance of both eyes Conjunctiva: conjunctiva(e) normal Resp: Common normals: normal respiratory effort and no use of accessory muscles Effort & inspection: able to speak in complete sentences Cardio: Common normals: regular rate, regular rhythm, S1 normal heart sound, S2 normal heart sound and no murmurs Rate: regular rate Rhythm: regular rhythm Heart sounds: S1 normal and S2 normal GI: Common normals: Normal to inspection, nondistended, normoactive bowel sounds present, soft to palpation, non-tender, no hepatosplenomegaly and no masses Palpation: soft and no hepatosplenomegaly Extremity: Other: 1+ bilateral symmetric edema with no sig ns of stasis, redness or open sores Neuro: Sensorium/orientation: alert Speech: speech normal Psych: Appearance: well kempt Attitude: engaged Insight: insight good Judgement: judgment good Skin: Common normals: no rashes or lesions noted General skin exam: no rashes or lesions noted Course Course ED Course: 84-year-old male with acute urinary retention following urological surgery. F samson catheter removal trial. Tong catheter is inserted and patient has relief of symptoms. Draining well. Urinalysis sent to lab for review. Would expect blood, concern for possible infection, lab is pending. Patient counseled on care of the Tong catheter. He already has a follow-up scheduled for . Will plan to keep this appointment. Alarm symptoms reviewed like high fever, poorly draining catheter, other indications for return to the ED. patient verbalizes understanding and agreement. Written instructions provided. Vital Signs Vital signs: Initial Vital Signs Temperature 97.0 F L 01/14/25 01:51 Temperature Source Temporal Artery Scan 01/14/25 01:51 Pulse Rate 90 01/14/25 01:51 Pulse Rhythm Regular 01/14/25 01:51 Respiratory Rate 18 01/14/25 01:51 Blood Pressure 163/82 H 01/14/25 01:51 Blood Pressure Mean 109 H 01/14/25 01:51 Blood Pressure Position Sitting 01/14/25 01:51 Pulse Oximetry 99 01/14/25 01:51 Oxygen Delivery Method Room Air 01/14/25 01:51 Vital Signs Temperature 97.0 F L 01/14/25 01:51 Pulse Rate 90 01/14/25 01:51 Respiratory Rate 18 01/14/25 01:51 Blood Pressure 163/82 H 01/14/25 01:51 Pulse Oximetry 99 01/14/25 01:51 Oxygen Delivery Method Room Air 01/14/25 01:51 Temperature 97.0 F L 01/14/25 01:51 Pulse Rate 90 01/14/25 01:51 Respiratory Rate 18 01/14/25 01:51 Blood Pressure 163/82 H 01/14/25 01:51 Pulse Oximetry 99 01/14/25 01:51 Oxygen Delivery Method Room Air 01/14/25 01:51 Medical Decision Making Lab Data Lab results reviewed: Yes I reviewed the patient's lab results Lab results narrative: Urinalysis containing blood which is expected post surgery. No obvious signs of infection, but will culture urine. Labs: Lab Results 01/14/25 Range/Units 02:30 Urine Color Red A (Yellow) Urine Appearance Cloudy A (Clear) Urine pH 6.5 (5.0-8.5) Ur Specific [place] 1.015 (1.000-1.030) Urine Protein 2+ A (Negative) Urine Glucose (UA) Negative (Negative) Urine Ketones Negative (Negative) Urine Blood 3+ A (Negative) Urine Nitrite Negative (Negative) Urine Bilirubin Negative (Negative) Urine Urobilinogen 0.2 (0.2-1.0) Ur Leukocyte Esterase Trace A (Negative) Urine RBC 25-50 A (0-2) Urine WBC 5-10 A (0-5) Ur Squamous Epith Cells None (None-Few) Urine Bacteria Few A (None) Fine Granular Casts Few A (None) Discharge Plan Discharge Clinical Impression: Acute urinary retention Patient Disposition: Home w/ Parent or Adult Condition: Improved Instructions: Tong Catheter Placement and Care (ED) Additional Instructions: As we discussed, this is a common problem in men, especially after surgery. Keep your appointment for for catheter recheck and likely removal. As we reviewed, it is not ideal to sit back in a recliner with her legs up as it is difficult for the bladder to drain. You can do it for short periods of time but you need to get up and walk around for at least 10 minutes after doing so to allow the catheter to continue to drain. If you start having high fevers, difficulty with the catheter again or other alarming symptoms, please return to the emergency department or contact your urology team. Your urine does not look infected today. It does have some blood which is of course expected after surgery. We will culture the urine and call if it does grow infection. Prescriptions: No Action carvedilol 12.5 mg tablet 12.5 mg PO Q12H carbidopa-levodopa 25-100 mg tablet 1 tab PO TID Patient Comments: TAKE 1 TABLET BY MOUTH THREE TIMES DAILY duloxetine 20 mg capsule,delayed release(DR/EC) 40 mg PO ONCE losartan 100 mg tablet 100 mg PO ONCE Patient Comments: TAKE 1 TABLET BY MOUTH DAILY lovastatin 40 mg tablet 40 mg PO ONCE aspirin 325 mg tablet 325 mg PO DAILY Follow Up/Referrals: Kimani Canada PA-C [Primary Care Provider] - Stand Alone Forms: [employer] Info Instructions
[2025-01-14 02:40] LABS: Appearance Urine Cloudy (Clear); Bilirubin Urine Negative (Negative); Blood Urine 3+ (Negative); Color Urine Red (Yellow); Glucose Urine Negative (Negative); Ketones Urine Negative (Negative); Leukocyte Esterase Urine Trace (Negative); Nitrite Urine Negative (Negative); Protein Urine 2+ (Negative); Specific Gravity Urine 1.015 (1.000-1.030); Urobilinogen Urine 0.2 (0.2-1.0); pH Urine 6.5 (5.0-8.5)
[2025-01-14 02:44] LABS: Bacteria Urine Few; Fine Granular Casts Urine Few; RBC Urine 25-50 (0-2)
--- OUTSIDE RECORDS SUMMARY | 2025-01-14 02:59 | XMS_ITS | Continuity of Care Document ---
Author Organization [facility] Address [address] [place] [id number] Care Team Providers Care Clipper Operator Name Role Phone Kimani Canada P.A.-C. Primary Care Provider Source Comments Patient records contain information from all sites at [facility]. For routine questions regarding patient records, call [phone] during business hours, M-F 8:00 AM - 5:00 PM Central Time. Record requests for emergency care only can be directed to [phone] at any time.[facility] Encounters Date Type Department Care Team Description 01/14/20 25 Clinical Communication Department of Urology in [place], [place] [address] [place] [address] Marga Green M.D., M.S. 01/13/20 25 11:00 AM SPIRAL WINDER Procedure visit Department of Urology in [place], [place] [address] [place] [phone] Marques Reynolds M.D. Badger, Kelly, R.N. Mass Bladder 01/13/20 25 9:00 AM SPIRAL WINDER Procedure visit Department of Urology in [place], [place] [address] [place] [phone] Laurence Wilkins M.D. Badger, Kelly, R.N. Mass Bladder 01/11/20 25 Clinical Communication Department of Urology in [place], [place] [address] [place] [phone] Ya Sahu D.O. Med Question 01/11/20 25 11:30 AM SPIRAL WINDER Virtual Visit Division of Pain Medicine in [place], [place] [address] [place] [phone] Cooper Arevalo APRN, C.NAnh, M.S. Stenosis Spinal (Primary Dx); Spondylosis Lumbar Without Myelopathy 01/10/20 25 Refill Outpatient Procedure Center in [place], [place] [address] [place] [phone] Laurence Wilkins M.D. Med Refill 01/10/20 25 6:20 AM SPIRAL WINDER Ancillary Procedure Department of General Surgery 01/10/20 25 7:30 AM SPIRAL WINDER - 01/10/20 25 9:47 AM SPIRAL WINDER Surgery Outpatient Procedure Center in [place], [place] [address] [place] [phone] Ya Sahu D.O. CYSTOSCOPY WITH TRANSURETHRAL RESECTION LESION BLADDER 01/10/20 25 7:49 AM SPIRAL WINDER Anesthesia Event Outpatient Procedure Center in [place], [place] [address] [place] [phone] Bakari Wang APRN, [place] [place], DNAP Christofer Fall M.D. 01/10/20 25 6:16 AM SPIRAL WINDER - 01/10/20 25 11:31 AM SPIRAL WINDER Hospital Encounter Outpatient Procedure Center in [place], [place] [address] [place] [phone] Ya Sahu D.O. Mass Bladder (Primary Dx); Hematuria Discharge Disposition: Home or Self Care 01/09/20 25 Clinical Communication Division of Pain Medicine in [address] [address] Cooper Arevalo APRN, C.N.P., M.S. 01/06/20 25 Refill Division of Pain Medicine in [address] [address] Cooper Arevalo APRN, C.N.PAlexandra, M.S. Med Refill 01/05/20 25 Clinical Communication Department of Urology in [address] [address] Lorene Ramsay uro opc proc 12/29/19 2:15 PM SPIRAL WINDER Comprehensive Visit Preoperative Evaluation Center in [place], [place] [address] [place] [phone] Tylor Campa M.D., M.P.H. Harman Ratliff M.D. 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 Hematuria Discharge Disposition: Home or Self Care 12/20/19 Clinical Communication Department of Family Medicine, [facility], in [address] [phone] Kimani Canada, PMelissa. Communication (Insurance ) 12/13/19 9:30 AM SPIRAL WINDER Office Visit Division of Pain Medicine in [address] [phone] Cooper Arevalo, NAEEM, C.N.P., M.S. Stenosis Spinal (Primary Dx); Spondylosis Lumbar Without Myelopathy; Radiculopathy 12/09/19 1:00 PM SPIRAL WINDER Comprehensive Visit Department of Urology in [place], [place] [address] [place] [phone] Tylor Campa M.D., M.P.H. Mass Bladder (Primary Dx); Hematuria 12/08/19 12:45 PM SPIRAL WINDER Clinical Communication Virtual Review in [place], [place] 200 [place] [address] Pre-visit Intake 12/07/19 25 12:11 PM SPIRAL WINDER - 12/07/19 11:59 PM SPIRAL WINDER Hospital Encounter Department of Radiology in [place], [place] [address] [place] [address] Kimani Canada P.A.-C. Hematuria Discharge Disposition: Home or Self Care 12/06/19 25 Refill Department of [facility], [facility], in [place], [place] [address] [place] [address] Kimani Canada P.A.-Mookie Med Refill 12/05/19 2:59 PM SPIRAL WINDER - 12/05/19 11:59 PM SPIRAL WINDER Hospital Encounter Department of Laboratory Medicine in [address] [phone] Kimani Canada P.A.-CAlexandra Hematuria Discharge Disposition: Home or Self Care 12/05/19 2:58 PM SPIRAL WINDER Hospital Encounter Department of Laboratory Medicine in [address] [phone] Kimani Canada P.A.-CAlexandra Hematuria Discharge Disposition: Home or Self Care 12/05/19 2:30 PM SPIRAL WINDER Office Visit Department of [facility], [facility], in [address] [phone] Kimani Canada P.A.-CAlexandra Hematuria (Primary Dx); Parkinson's Disease Without Dyskinesia, Without Mention Of Fluctuations (HCC); 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); Peripheral Arterial Disease (HCC) 12/02/19 25 Clinical Communication Department of [facility], [facility], in [place], [place] [address] [place] [address] Kimani Canada P.A.-CAlexandra Rx Prior Authorization (budesonide (Pulmicort) 0.5 mg/2 mL nebulizer solution) 12/02/19 25 Nurse Triage Department of [facility], [facility], in [address] [phone] Arleth Orta M.S., R.N. Urinary Problem 11/28/19 25 Clinical Communication Pharmacy [facility] [phone] Aurora Adrian I. 11/24/19 25 Refill Department of Family Medicine, [facility], in [place], [place] [address] [place] [address] Kimani Canada P.A.-C. Med Refill 11/21/20 24 Refill Department of Family Medicine, [facility], in [place], [place] [address] [place] [address] Kimani Canada P.A.-C. Med Refill 11/21/20 24 Clinical Communication Division of Pain Medicine in [place], [place] [address] [place] [address] Cooper Arevalo APRN C.N.P., M.S. 11/18/20 24 4:00 PM SPIRAL WINDER Clinical Support [facility] in [place], [place] [address] [place] [address] Roberto Marie L.Ac. Spondylosis Lumbar Without Myelopathy; Pain Low Back Mechanical; Radiculopathy Lumbar 11/07/20 24 1:45 PM SPIRAL WINDER Clinical Support [facility] in [place], [place] [address] [place] [address] Michele Domingo, L.Ac. Spondylosis Lumbar Without Myelopathy; Pain Low Back Mechanical; Radiculopathy Lumbar 10/31/20 24 Clinical Communication Division of Pain Medicine in [place], [place] [address] [place] [address] Cooper Arevalo APRN C.N.P., M.S. 10/27/20 24 11:00 AM SPIRAL WINDER Comprehensive Visit Department of Neurology in [place], [place] [address] [place] [address] Reece Ba M.D. Parkinson's Disease Without Dyskinesia, Without Mention Of Fluctuations (HCC) 10/26/20 24 1:01 PM SPIRAL WINDER - 10/26/20 24 11:59 PM SPIRAL WINDER Hospital Encounter Department of Radiology, [facility], in [place], [place] [address] [place] [address] Cooper Arevalo APRN, C.N.P., M.S. Radiculopathy; Pain Low Back Mechanical Discharge Disposition: Home or Self Care 10/26/20 24 12:08 PM SPIRAL WINDER - 10/26/20 24 1:00 PM SPIRAL WINDER Hospital Encounter Department of Radiology, [facility], in [place], [place] [address] [place] [address] Cooper Arevalo APRN C.N.P., M.S. Radiculopathy; Pain Low Back Mechanical Discharge Disposition: Home or Self Care 10/26/20 24 11:00 AM SPIRAL WINDER Clinical Support [facility] in [place], [place] [address] [place] [address] Cooper Arevalo APRN, C.N.P., M.S. Alejo Bolden L.Ac. Pain Low Back Mechanical (Primary Dx); Spondylosis Lumbar Without Myelopathy; Radiculopathy Lumbar 10/14/20 24 2:30 PM SPIRAL WINDER Office Visit Department of Family Medicine, [facility], in [place], [place] [address] [place] [address] Marlon Perez M.D. Ingrown Nail Infected (Primary Dx) 10/14/20 24 Nurse Triage Department of Family Medicine, [facility], in [place], [place] [address] [place] [address] Aurora Rosales R.N. Toe Pain 10/12/20 24 Orders Only Division of Pain Medicine in [place], [place] [address] [place] [phone] Cooper Arevalo APRN C.N.P., M.S. Radiculopathy (Primary Dx); Pain Low Back Mechanical 10/10/20 24 7:30 AM SPIRAL WINDER Internal E-Consult Department of Neurologic Surgery in [place], [place] [address] [place] [phone] Lalit Deshpande M.D. Spinal Stenosis Lumbosacral Region (Primary Dx); Spondylosis Lumbar Without Myelopathy; Radiculopathy Lumbar 10/03/20 24 11:00 AM SPIRAL WINDER Virtual Visit Division of Pain Medicine in [place], [place] [address] [place] [phone] Cooper Arevalo APRN, C.N.P., M.S. Spinal Stenosis Lumbosacral Region (Primary Dx); Spondylosis Lumbar Without Myelopathy; Pain Low Back Mechanical; Radiculopathy Lumbar 09/29/20 24 Clinical Communication Division of Pain Medicine in [place], [place] [address] [place] [phone] Cooper Arevalo APRN, C.N.P., M.S. 09/28/20 24 3:24 PM SPIRAL WINDER - 09/28/20 24 11:59 PM SPIRAL WINDER Hospital Encounter Department of Radiology, [facility] in [place], [place] [address] [place] [phone] Cooper Arevalo APRN, C.N.P., M.S. Radiculopathy Lumbar Discharge Disposition: Home or Self Care 09/28/20 24 Orders Only Division of Pain Medicine in [place], [place] [address] [place] [phone] Cooper Arevalo APRN, C.N.P., M.S. Radiculopathy Lumbar (Primary Dx) 09/28/20 24 9:21 AM SPIRAL WINDER - 09/28/20 24 3:23 PM SPIRAL WINDER Hospital Encounter Division of Pain Medicine in [place], [place] [address] [place] [phone] Cooper Arevalo APRN, C.N.P., M.S. Radiculopathy; Spondylosis Lumbar Without Myelopathy Discharge Disposition: Home or Self Care 09/27/20 24 8:15 AM SPIRAL WINDER Office Visit Division of Pain Medicine in [place], [place] [address] [place] [phone] Cooper Arevalo APRN, C.N.P., M.S. Radiculopathy (Primary Dx); Spondylosis Lumbar Without Myelopathy; Parkinson's Disease Without Dyskinesia, Without Mention Of Fluctuations (HCC); Neuropathy Peripheral 09/05/20 Clinical Communication Division of Pain Medicine in [place], [place] [address] [place] [address] Cooper Arevalo APRN, C.Em.Jo-Ann., M.S. 08/10/20 11:41 AM CDT - 08/10/20 11:59 PM CDT Hospital Encounter Department of Laboratory Medicine in [place], [place] [address] [place] [phone] Kimani Canada P.A.-C. Palpitations Discharge Disposition: Home or Self Care 08/10/20 24 11:00 AM CDT Office Visit Department of Family Medicine, [facility], in [place], [place] [address] [place] [phone] Kimani Canada P.A.-CAlexandra Palpitations (Primary Dx); Frequency Urinary; Edema Leg; Parkinson's Disease Without Dyskinesia, Without Mention Of Fluctuations (HCC); Beat Premature Ventricular 08/03/20 24 11:00 AM CDT Office Visit Department of Urology in [place], [place] [address] [place] [phone] Nicki Bui P.A.-C. Benign Prostatic Hyperplasia Without Obstruction (Primary Dx) 08/03/20 24 10:15 AM CDT Procedure visit Department of Urology in [place], [place] [address] [place] [address] Nicki Bui P.A.-C. Michelle Mar, R.N. Benign Prostatic Hyperplasia Hypertrophy With Obstruction (Primary Dx); Benign Prostatic Hyperplasia Without Obstruction 07/29/20 24 Orders Only Department of Family Medicine, [facility], in [place], [place] [address] [place] [address] Jaquan Ann P.A.-C., P.A. 09/04/20 24 1:54 PM CDT - 07/27/20 24 11:59 PM CDT Hospital Encounter Department of Laboratory Medicine in [place], [place] [facility] [address] [place] [address] Edith Gomez APRN, C.N.P. Frequency Urinary Discharge Disposition: Home or Self Care 07/27/20 24 4:00 PM CDT Office Visit Department of Family Medicine, [facility], in [place], [place] [address] [place] [address] Edith Gomez APRN, C.N.P. Frequency Urinary (Primary Dx) 07/27/20 24 Nurse Triage Department of [facility], [facility], in [address] [phone] Violet Bone RChristy Urinary Frequency; Leg Swelling 07/07/20 24 8:00 AM CDT Virtual Visit Division of Pain Medicine in [address] [address] Cooper Arevalo APRN, C.N.P., M.S. Radiculopathy (Primary Dx) 07/06/20 24 3:30 PM CDT Clinical Communication Virtual Review in [place], [place] 200 [place] [address] Pre-visit Intake 07/05/20 24 Refill Department of [facility], in [address] [address] Kimani Canada PAlexandraA.-C. Med Refill 06/30/20 24 Orders Only Department of [facility], [facility], in [address] [address] Kimani Canada P.A.-C. 06/29/20 24 Orders Only Department of [facility], [facility], in [address] [address] Kimani Canada P.A.-C. 06/22/20 11:15 AM CDT Nurse Only Department of Family Medicine, [facility], in [place], [place] [address] [place] [address] Kimani Canada P.A.-C. Johnson, Clair J, R.N. Medicare Annual Wellness Visit Subsequent 06/22/20 11:00 AM CDT Comprehensive Visit Department of Family Medicine, [facility], in [place], [place] [address] [place] [address] Kimani Canada P.A.-C. 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); Encounter For Screening For Cardiovascular Disorders Discharge Disposition: Home or Self Care 06/15/20 10:22 AM CDT - 06/15/20 11:59 PM CDT Hospital Encounter Division of Pain Medicine in [place], [place] [address] [place] [address] Cooper Arevalo APRN C.N.P., M.S. Radiculopathy Discharge Disposition: Home or Self Care 06/13/20 8:00 AM CDT Virtual Visit Division of Pain Medicine in [place], [place] [address] [place] [address] Cooper Arevalo APRN, C.N.P., M.S. Radiculopathy (Primary Dx) 06/07/20 24 11:40 AM CDT Comprehensive Visit Division of Vascular and Endovascular Surgery in [place], [place] [address] [place] [phone] Malik Lopez M.D., M.S. Pain Hip Bilateral 06/02/20 24 Clinical Communication Department of Vascular Medicine in [place], [place] [address] [place] [phone] Hiro Platt P.A.-C. Results 05/31/20 24 1:52 PM CDT - 05/31/20 24 11:59 PM CDT Hospital Encounter Department of Vascular Medicine in [place], [place] [address] [place] [phone] Hiro Platt P.A.-C. Pain Hip Bilateral Discharge Disposition: Home or Self Care 05/25/20 24 Refill Department of Family Medicine, [facility], in [address] [phone] Kimani Canada P.A.-C. Med Refill 05/24/20 24 1:00 PM CDT Office Visit Department of Vascular Medicine in [address] [address] Hiro Platt P.A.-C. Pain Hip Bilateral (Primary Dx); Peripheral Arterial Disease (HCC) 05/17/20 24 Documentation Department of Vascular Medicine in [address] [address] Ranjan Rock M.D. 05/17/20 24 Clinical Communication Department of Vascular Medicine in [place], [place] [address] [place] [phone] Hiro Platt P.A.-C. Appt Request 05/17/20 24 Clinical Communication Division of Pain Medicine in [place], [place] [address] [place] [phone] Cooper Arevalo, NAEEM, C.N.P., M.S. 05/17/20 24 Orders Only Division of Pain Medicine in [place], [place] [address] [place] [phone] Cooper Arevalo APRN, C.N.P., M.S. 05/17/20 24 1:00 PM CDT Office Visit Department of Dermatology in [place], [place] [address] [place] [phone] Ailyn López P.A.-C., M.S. Squamous Cell Carcinoma In Situ Discharge Disposition: Home or Self Care 05/16/20 24 2:53 PM CDT - 05/16/20 24 11:59 PM CDT Hospital Encounter Department of Radiology, [facility], in [place], [place] [address] [place] [phone] Cooper Arevalo APRN, C.N.P., M.S. Pain Sacral; Pain Hip Bilateral Discharge Disposition: Home or Self Care 05/16/20 24 2:00 PM CDT Office Visit Division of Pain Medicine in [place], [place] [address] [place] [phone] Cooper Arevalo APRN, C.N.P., M.S. Pain Sacral (Primary Dx); Pain Hip Bilateral 05/06/20 Clinical Communication Department of Dermatology in [place], [place] [address] [place] [phone] Denisha Fritz R.N. 05/04/20 24 Orders Only Department of Dermatology in [place], [place] [address] [place] [phone] Mindy Sidhu M.D. Squamous Cell Carcinoma In Situ (Primary Dx) 04/29/20 24 Ancillary Procedure Department of Dermatology 04/29/20 24 1:40 PM CDT Office Visit Department of Dermatology in [place], [place] [address] [place] [phone] Mindy Sidhu M.D. Dermatoheliosis (Primary Dx); Personal History Of Other Malignant Neoplasm Of Skin; Tumor Skin Uncertain Behavior; Keratosis Actinic Discharge Disposition: Home or Self Care 04/11/20 24 Nurse Triage Department of Family Medicine, [facility], in [address] [address] Loyda Saravia R.N. Med Question 04/11/20 24 Clinical Communication Department of Family Medicine, [facility], in [address] [address] Kimani Canada P.A.-C. Med Question (Magnesium Supplements) 03/28/20 24 2:30 PM CDT Office Visit Department of Sleep Medicine in [place], [place] [address] [place] [address] Adelina Meraz APRN, C.N.P., D.N.P., M.S.N. Apnea Sleep Obstructive (Primary Dx); Obesity Body Mass Index 30-39.9 Adult; 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) 03/24/20 24 2:17 PM CDT - 03/24/20 24 11:59 PM CDT Hospital Encounter Division of Pain Medicine in [address] [address] Cooper Arevalo APRN, C.N.P., M.S. Pain Sacral Discharge Disposition: Home or Self Care 03/18/20 24 Refill Department of Family Medicine, [facility], in [address] [address] Kimani Canada P.A.-CAlexandra Med Refill 03/11/20 24 Clinical Communication Division of Pain Medicine in [place], [place] [address] [place] [phone] Cooper Arevalo APRN C.N.P., M.S. [facility] 03/07/20 24 8:00 AM CDT Virtual Visit Division of Pain Medicine in [place], [place] [address] [place] [phone] Cooper Arevalo APRN, C.N.P., M.S. Spondylosis Lumbar Without Myelopathy (Primary Dx); Radiculopathy; Pain Sacral 02/12/20 24 4:45 PM CDT - 02/12/20 24 11:59 PM CDT Hospital Encounter Department of Radiology in [place], [place] [facility] [place] [phone] Victorina Lainez APRN, C.NAnh, D.N.P. Constipation Discharge Disposition: Home or Self Care 02/12/20 24 4:30 PM CDT Office Visit Department of Family Medicine, [facility], in [place], [place] [address] [place] [phone] Victorina Lainez APRN, C.N.Favian, D.N.P. Bowel Habit Change (Primary Dx); Incontinence Fecal 02/12/20 Nurse Triage Department of Family Medicine, [facility], in [place], [place] [address] [place] [address] Mitchell Beverly RDivya. Fecal Incontinence 01/14/20 24 9:26 AM SPIRAL WINDER - 01/14/20 24 11:59 PM SPIRAL WINDER Hospital Encounter Division of Pain Medicine in [place], [place] [address] [place] [phone] Cooper Arevalo APRN, C.N.P., M.S. Spondylosis Lumbar Without Myelopathy Discharge Disposition: Home or Self Care 01/11/20 24 8:30 AM SPIRAL WINDER Clinical Communication Division of Pain Medicine in [place], [place] [address] [place] [phone] 01/09/20 24 Refill Department of Neurology in [place], [place] [address] [place] [address] Reece Ba M.D. Med Refill 01/08/20 24 12:18 PM SPIRAL WINDER - 01/08/20 24 11:59 PM SPIRAL WINDER Hospital Encounter Division of Pain Medicine in [place], [place] [address] [place] [phone] Cooper Arevalo APRN C.N.P., M.S. Spondylosis Lumbar Without Myelopathy Discharge Disposition: Home or Self Care 01/07/20 24 10:00 AM SPIRAL WINDER Clinical Communication Division of Pain Medicine in [place], [place] [address] [place] [address] 01/06/20 24 7:23 AM SPIRAL WINDER - 01/06/20 24 11:59 PM SPIRAL WINDER Hospital Encounter Division of Pain Medicine in [place], [place] [address] [place] [phone] Cooper Arevalo APRN, C.N.P., M.S. Spondylosis Lumbar Without Myelopathy Discharge Disposition: Home or Self Care 01/04/20 24 Clinical Communication Division of Pain Medicine in [place], [place] [address] [place] [address] Cooper Arevalo APRN, C.N.P., M.S. 12/31/19 24 12:45 PM SPIRAL WINDER Virtual Visit Division of Pain Medicine in [place], [place] [address] [place] [phone] Cooper Arevalo APRN, C.N.P., M.S. Spondylosis Lumbar Without Myelopathy (Primary Dx); Radiculopathy 12/24/19 24 10:24 AM SPIRAL WINDER - 12/24/19 24 11:59 PM SPIRAL WINDER Hospital Encounter Department of Laboratory Medicine in [address] [address] Kimani Canada P.A.-C. Diarrhea Discharge Disposition: Home or Self Care 12/24/19 24 10:23 AM SPIRAL WINDER Hospital Encounter Department of Laboratory Medicine in [address] [phone] Kimani Canada, P.A.-C. 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); Diarrhea Discharge Disposition: Home or Self Care 12/24/19 24 10:00 AM SPIRAL WINDER Office Visit Department of Family Medicine, [facility], in [address] [address] Kimani Canada, P.A.-C. Parkinson's Disease Without Dyskinesia, Without Mention Of Fluctuations (HCC) (Primary Dx); 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); Peripheral Arterial Disease (HCC); Diarrhea 12/22/19 24 Clinical Communication Division of Pain Medicine in [address] [phone] Cooper Arevalo APRN, C.NAnh, M.S. Plan of Care 12/22/19 24 Clinical Communication Division of Pain Medicine in [address] [phone] Cooper Arevalo APRN, C.N.P., M.S. 12/09/19 24 12:27 PM SPIRAL WINDER - 12/09/19 24 11:59 PM SPIRAL WINDER Hospital Encounter Division of Pain Medicine in [address] [phone] Cooper Arevalo APRN, C.N.Jo-Ann., M.S. Radiculopathy Discharge Disposition: Home or Self Care 12/09/19 24 9:00 AM SPIRAL WINDER Office Visit Division of Pain Medicine in [address] [phone] Cooper Arevalo APRN, C.N.P., M.S. Foot Drop Right (Primary Dx); Radiculopathy 12/08/19 24 12:15 PM SPIRAL WINDER Clinical Communication Virtual Review in [address] [phone] Pre-visit Intake 12/07/19 Clinical Communication Department of Family Medicine, [facility], in [address] [phone] Adelina Meraz APRN, C.N.P., D.N.P., M.S.N. DME (CP[employer] SUPPLIES) 12/03/19 24 Clinical Communication Division of Pain Medicine in [address] [phone] Cooper Arevalo APRN, C.N.P., M.S. 12/01/19 24 Clinical Communication Division of Pain Medicine in [address] [phone] Cooper Arevalo APRN C.N.P., M.S. 11/27/19 24 1:45 PM SPIRAL WINDER Education Department of Urology in [address] [phone] Mica Hernandes P.A.-C. Badger, Kelly, R.N. Dysfunction Erectile 11/09/20 23 Orders Only Department of Urology in [address] [phone] Mica Hernandes P.A.-C. Dysfunction Erectile (Primary Dx) 11/09/20 23 Clinical Communication Department of Urology in [address] [phone] Mica Hernandes P.A.-C. 11/04/20 23 1:00 PM SPIRAL WINDER Comprehensive Visit Department of Urology in [address] [phone] Mica Hernandes P.A.-C. Dysfunction Erectile 10/28/20 23 7:58 AM SPIRAL WINDER - 10/28/20 23 11:59 PM SPIRAL WINDER Hospital Encounter Department of Laboratory Medicine and Pathology, [facility] in [address] [phone] Nicki Bui P.A.-C. Dysfunction Erectile Discharge Disposition: Home or Self Care 10/28/20 23 11:20 AM SPIRAL WINDER Office Visit Department of Dermatology in [address] [phone] Pratik Haro M.D. Keratosis Actinic (Primary Dx); Screening Examination Skin Cancer Discharge Disposition: Home or Self Care 10/27/20 23 8:00 AM SPIRAL WINDER Clinical Communication Virtual Review in [address] [phone] 10/13/20 23 3:00 PM SPIRAL WINDER Virtual Visit Division of Pain Medicine in [address] [phone] Cooper Arevalo APRN, C.N.P., M.S. Spondylosis Lumbar Without Myelopathy (Primary Dx); Pain Sacral; Numbness Lower Extremity; Foot Drop Right 10/12/20 23 Refill Division of Pain Medicine in [place], [place] [address] [place] [phone] Cooper Arevalo APRN, C.N.P., M.S. Med Refill 10/08/20 23 1:30 PM SPIRAL WINDER Clinical Communication Virtual Review in [place], [place] 200 [place] [address] Pre-visit Intake 09/30/20 Orders Only Division of Pain Medicine in [place], [place] [address] [place] [phone] Cooper Arevalo APRN, C.N.P., M.S. 09/30/20 23 Refill Department of Neurology in [place], [place] [address] [place] [phone] Reece Ba M.D. Med Refill 09/30/20 23 12:24 PM SPIRAL WINDER - 09/30/20 23 11:59 PM SPIRAL WINDER Hospital Encounter Department of Laboratory Medicine in [address] [address] Kimani Canada P.A.-C. Hyponatremia Discharge Disposition: Home or Self Care 09/30/20 23 8:00 AM SPIRAL WINDER Office Visit Department of Neurology in [place], [place] [address] [place] [phone] Reece Ba M.D. Parkinsonism Unspecified (HCC) (Primary Dx) 09/29/20 23 8:58 AM SPIRAL WINDER - 09/29/20 23 11:59 PM SPIRAL WINDER Hospital Encounter Department of Radiology, [facility], in [address] [phone] Hiro Platt P.A.-C. Follow Up Examination Status Post Surgery; Peripheral Arterial Disease (HCC) Discharge Disposition: Home or Self Care 09/29/20 23 1:00 PM SPIRAL WINDER Office Visit Department of Vascular Medicine in [place], [place] [address] [place] [address] Hiro Platt P.A.-C. Follow Up Examination Status Post Surgery (Primary Dx); Peripheral Arterial Disease (HCC) 09/29/20 23 7:43 AM SPIRAL WINDER - 09/29/20 23 8:57 AM SPIRAL WINDER Hospital Encounter Department of Vascular Medicine in [place], [place] [address] [place] [address] Hiro Platt P.A.-C. Follow Up Examination Status Post Surgery; Peripheral Arterial Disease (HCC) Discharge Disposition: Home or Self Care 09/24/20 23 Orders Only Department of Vascular Medicine in [place], [place] [address] [place] [address] Hiro Platt P.A.-C. Follow Up Examination Status Post Surgery (Primary Dx); Peripheral Arterial Disease (HCC) 09/23/20 23 Orders Only Department of Family Medicine, [facility], in [address] [phone] Kimani Canada P.A.-C. Hyponatremia (Primary Dx) 09/23/20 23 2:06 PM CDT - 09/23/20 23 11:59 PM CDT Hospital Encounter Department of Laboratory Medicine in [address] [phone] Kimani Canada P.A.-C. Cramp Leg; Screening Examination For Thyroid Disorder Discharge Disposition: Home or Self Care 09/23/20 23 Clinical Communication Department of [facility], [facility], in [address] [phone] Kimani Canada P.A.-C. 09/23/20 23 1:30 PM CDT Office Visit Department of [facility], in [address] [phone] Kimani Canada P.A.-C. Cramp Leg (Primary Dx); Peripheral Arterial Disease (HCC); Screening Examination For Thyroid Disorder 09/11/20 23 10:50 AM CDT Immunization Department of Family Medicine, [facility], in [place], [place] [address] [place] [address] 09/04/20 2:30 PM CDT Procedure visit Division of Pain Medicine in [place], [place] [address] [place] [phone] Tere Hernandez M.D. Spondylosis Lumbar Without Myelopathy; Pain Sacral 08/28/20 23 Refill Division of Pain Medicine in [place], [place] [address] [place] [phone] Cooper Arevalo APRN C.N.P., M.S. Med Refill 08/04/20 8:30 AM CDT Office Visit Division of Pain Medicine in [place], [place] [address] [place] [phone] Cooper Arevalo APRN, C.N.P., M.S. 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 07/31/20 Clinical Communication Department of Neurology in [place], [place] [address] [place] [phone] Reece Ba M.D. 07/30/20 23 11:04 AM CDT - 07/30/20 11:59 PM CDT Hospital Encounter Department of Radiology, [facility], in [place], [place] [address] [place] [phone] Cooper Arevalo APRN C.N.P., M.S. Radiculopathy; Spondylosis Lumbar Without Myelopathy Discharge Disposition: Home or Self Care 07/30/20 10:40 AM CDT Comprehensive Visit Department of Dermatology in [place], [place] [address] [place] [phone] Natalia, Mitchell E, M.D. Keratosis Actinic (Primary Dx); Personal History Of Other Malignant Neoplasm Of Skin; Dermatoheliosis Discharge Disposition: Home or Self Care 07/30/20 23 9:30 AM CDT Comprehensive Visit Department of Urology in [address] [address] Nicki Bui P.A.-C. Dysfunction Erectile (Primary Dx); Keratosis Actinic; Benign Prostatic Hyperplasia Without Obstruction 07/25/20 23 Refill Division of Pain Medicine in [address] [address] Cooper Arevalo APRN C.N.P., M.S. Med Refill 07/25/20 23 Refill Division of Pain Medicine in [address] [address] Cooper Arevalo APRN, C.N.P., M.S. Med Refill 07/21/20 23 Clinical Communication Division of Pain Medicine in [address] [address] Cooper Arevalo APRN, C.N.P., M.S. 07/13/20 23 10:00 AM CDT Virtual Visit Division of Pain Medicine in [address] [address] Cooper Arevalo APRN, C.N.P., M.S. 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 Radiculopathy (Primary Dx); Spondylosis Lumbar Without Myelopathy 06/19/20 23 Clinical Communication Department of [facility], [facility], in [address] [address] Kimani Canada P.A.-C. 06/19/20 11:42 AM CDT - 06/19/20 11:59 PM CDT Hospital Encounter Department of Laboratory Medicine in [address] [address] Kimani Canada P.A.-CAlexandra 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); Encounter For Screening For Cardiovascular Disorders; Other Polyuria; Screening Examination Prostate Cancer Discharge Disposition: Home or Self Care 06/19/20 11:42 AM CDT - 06/19/20 11:59 PM CDT Hospital Encounter Department of Laboratory Medicine in [address] [address] Kimani Canada P.A.-C. 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 Radiculopathy (Primary Dx) 06/03/20 Clinical Communication Division of Pain Medicine in [place], [place] [address] [place] [address] Cooper Arevalo APRN, C.N.P., M.S. Pre-visit Intake 07/06/20 23 Refill Department of Family Medicine, [facility], in [place], [place] [address] [place] [address] Kimani Canada P.A.-C. Med Refill 05/28/20 4:00 PM CDT Office Visit Department of Vascular Medicine in [place], [place] [address] [place] [phone] Hiro Platt P.A.-C. Follow Up Examination Status Post Surgery (Primary Dx); Peripheral Arterial Disease (HCC) 05/28/20 12:44 PM CDT - 05/28/20 11:59 PM CDT Hospital Encounter Department of Vascular Medicine in [place], [place] [address] [place] [phone] Arleth Bullock APRN, C.N.PAlexandra, M.S. Peripheral Arterial Disease (HCC); Follow Up Exam Discharge Disposition: Home or Self Care 05/28/20 10:55 AM CDT - 05/28/20 12:43 PM CDT Hospital Encounter Department of Radiology, [facility], in [place], [place] [address] [place] [phone] Arleth Bullock APRN, C.NAnh, M.S. Peripheral Arterial Disease (HCC); Follow Up Exam Discharge Disposition: Home or Self Care 05/28/20 10:54 AM CDT Hospital Encounter Department of Radiology, [facility], in [place], [place] [address] [place] [phone] Arleth Bullock APRN, C.N.P., M.S. Peripheral Arterial Disease (HCC); Follow Up Exam Discharge Disposition: Home or Self Care 05/21/20 23 12:43 PM CDT - 05/21/20 11:59 PM CDT Hospital Encounter Division of Pain Medicine in [place], [place] [address] [place] [phone] Cooper Arevalo APRN C.N.P., M.S. Radiculopathy Discharge Disposition: Home or Self Care 05/14/20 23 11:00 AM CDT Office Visit Department of Neurology in [place], [place] [address] [place] [address] Alka Mathias M.D., M.P.H. Parkinson Disease (HCC) (Primary Dx) 05/11/20 Clinical Communication Division of Pain Medicine in [place], [place] [address] [place] [address] Cooper Arevalo APRN C.N.P., M.S. 05/06/20 2:00 PM CDT Office Visit Department of Family [facility], [facility], in [place], [place] [address] [place] [address] Kimani Canada, PMelissa. Dayami Clinton R.N. Annual Medicare Examination Return (Primary Dx) 05/01/20 9:11 AM CDT - 05/01/20 11:59 PM CDT Hospital Encounter Department of Neurology in [place], [place] [address] [place] [phone] Cooper Arevalo APRN C.N.P., M.S. Radiculopathy Lumbosacral; Pain Low Back Unspecified Discharge Disposition: Home or Self Care 05/01/20 23 7:38 AM CDT - 05/01/20 23 9:10 AM CDT Hospital Encounter Department of Radiology, [facility] in [place], [place] [address] [place] [address] Cooper Arevalo APRN, C.N.P., M.S. Pain Low Back Unspecified Discharge Disposition: Home or Self Care 04/08/20 23 Orders Only [facility] Kimani Canada P.A.-C. 03/31/20 Clinical Communication Division of Pain Medicine in [place], [place] [address] [place] [address] Cooper Arevalo APRN, C.N.P., M.S. 03/30/20 23 Refill Department of Family Medicine, [facility], in [address] [address] Marlon Perez M.D. Med Refill 03/30/20 23 Refill Department of Neurology in [address] [address] Reece Ba M.D. Med Refill 03/24/20 23 10:30 AM CDT Office Visit Division of Pain Medicine in [address] [address] Cooper Arevalo APRN C.N.P., M.S. Radiculopathy Lumbosacral (Primary Dx); Pain Low Back Unspecified; Numbness Lower Extremity 03/23/20 23 8:15 AM CDT Clinical Communication Virtual Review in [address] [phone] Pre-visit Intake 11/06/20 Refill Department of Family Medicine, [facility], in [address] [address] Kimani Canada P.A.-C. Med Refill 11/06/20 22 1:00 PM SPIRAL WINDER Office Visit Department of Neurology in [address] [address] Alka Mathias M.D., M.P.H. Apnea Sleep Obstructive (Primary Dx) 10/21/20 22 1:00 PM SPIRAL WINDER Ancillary Procedure Department of Gastroenterology 10/21/20 22 11:37 AM SPIRAL WINDER - 10/21/20 22 11:59 PM SPIRAL WINDER Hospital Encounter Division of Gastroenterology in [address] [address] Kimani Canada P.A.-C. Polyp Colon Discharge Disposition: Home or Self Care 10/14/20 22 Refill Division of Pain Medicine in [address] [address] Cooper Arevalo APRN, C.N.P., M.S. Med Refill 10/10/20 22 Clinical Communication Department of Sleep Medicine in [place], [place] [address] [place] [address] Alka Mathias M.D., M.P.H. 10/06/20 22 10:15 AM SPIRAL WINDER Office Visit Department of Neurology in [address] [address] Alka Mathias M.D., M.P.H. Tremor Parkinson's (HCC) (Primary Dx); Apnea Sleep Obstructive 10/03/20 Clinical Communication Department of [facility], [facility], in [address] [address] Kimani Canada P.A.-C. 09/24/20 22 Refill Department of [facility], [facility], in [address] [phone] Luiza Marie M.H.S.A., R.N. Med Refill 09/19/20 22 10:50 AM CDT Immunization Department of [facility], [facility], in [address] [address] Kimani Canada P.A.-C. 09/05/20 Clinical Communication Department of [facility], [facility], in [address] [phone] Kimani Canada P.A.-C. Colonoscopy order 09/03/20 22 1:30 PM CDT Office Visit Division of Pain Medicine in [place], [place] [address] [place] [address] Cooper Arevalo APRN, Taya.N.Jo-Ann., M.S. Radiculopathy Lumbosacral (Primary Dx) 08/21/20 22 2:30 PM CDT Office Visit Department of Cardiovascular Diseases in [place], [place] [address] [address] Óscar Danielson, NAEEM, C.N.P. Atherosclerotic Heart Disease Of [place] Coronary Artery Without Angina Pectoris (Primary Dx); Beat Premature Ventricular; Apnea Sleep Obstructive; 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); Peripheral Arterial Disease (HCC); Parkinson Disease (HCC) 08/18/20 22 2:15 PM CDT - 08/18/20 22 11:59 PM CDT Hospital Encounter Department of Laboratory Medicine in [place], [place] [address] [place] [phone] Miguel Burrell M.D. Cardiomyopathy Ischemic Discharge Disposition: Home or Self Care 07/21/20 Clinical Communication Department of General Surgery in [place], [place] [address] [place] [phone] Robert Ibrahim M.D. 07/15/20 22 2:48 PM CDT - 07/15/20 22 11:59 PM CDT Hospital Encounter Department of Laboratory Medicine in [address] [address] Marlon Perez M.D. Hypernatremia Discharge Disposition: Home or Self Care 07/15/20 22 3:45 PM CDT Comprehensive Visit Department of Neurology in [address] [address] Alka Mathias M.D., M.P.H. Stenosis Spinal (Primary Dx); Disturbance Sleep; Tremor Parkinson's (HCC); Tremor; Apnea Sleep Obstructive; Radiculopathy 07/10/20 22 Refill Department of [facility], [facility], in [address] [address] Kimani Canada P.A.-C. Med Refill 07/09/20 22 Clinical Communication Department of Family [facility], [facility], in [address] [address] Kimani Canada P.A.-CAlexandra 07/07/20 22 3:00 PM CDT Virtual Visit Division of Pain Medicine in [place], [place] [address] [place] [address] Cooper Arevalo APRN, C.N.P., M.S. Spondylosis Lumbar Without Myelopathy; Radiculopathy 07/04/20 Refill Department of Family Medicine, [facility], in [address] [address] Kimani Canada P.A.-CAlexandra Med Refill 07/04/20 22 Orders Only [facility] Kimani Canada P.A.-C. 07/02/20 Refill Department of Neurology in [address] [address] Alka Mathias M.D., M.P.H. Med Refill 07/01/20 10:28 AM CDT - 07/01/20 11:59 PM CDT Hospital Encounter Department of Laboratory Medicine in [address] [address] Marlon Perez M.D. Fatigue Discharge Disposition: Home or Self Care 07/01/20 10:00 AM CDT Office Visit Department of Family [facility], [facility], in [address] [address] Marlon Perez M.D. Fatigue (Primary Dx); Disturbance Sleep; Parkinson Disease (HCC); Hypertensive Heart Disease Without Heart Failure; Hypernatremia 06/30/20 Refill Department of Neurology in [address] [address] Alka Mathias M.D., M.P.H. Med Refill 06/19/20 22 Clinical Communication Department of General Surgery in [place], [place] [address] [place] [address] Robert Ibrahim M.D. 06/16/20 22 Clinical Communication Division of Pain Medicine in [place], [place] [address] [place] [phone] Cooper Arevalo APRN, C.N.P., M.S. Treatment Questions 06/04/20 Orders Only Division of Community Internal Medicine, [facility] in [place], [place] [address] [place] [phone] Gerhard Orosco M.D. 06/04/20 22 Clinical Communication Department of Family Medicine, [facility], in [address] [address] Kimani Canada P.A.-C. Medication Problem 06/03/20 Clinical Communication Department of Spine in [address] [address] Adry Duong, Photo Tube Assembler reminder phone call (Patient contacted for a reminder call to complete 3-month follow-up PROMIS-CAT questionnaires. This is to collect Spine PROs prior to questionnaires expiring off their [facility] Patient Portal.) 05/27/20 11:00 AM CDT Virtual Visit Division of Pain Medicine in [place], [place] [address] [place] [phone] Cooper Arevalo APRN, C.N.P., M.S. Radiculopathy 05/16/20 22 11:00 AM CDT Hospital Encounter Department of Radiology, [facility] in [place], [place] [address] [place] [phone] Hiro Platt P.A.-C. Follow Up Examination Status Post Surgery; Peripheral Arterial Disease (HCC) Discharge Disposition: Home or Self Care 05/16/20 22 11:00 AM CDT - 05/16/20 22 11:59 PM CDT Hospital Encounter Department of Radiology, [facility], in [place], [place] [address] [place] [phone] Hiro Platt P.A.-C. Follow Up Examination Status Post Surgery; Peripheral Arterial Disease (HCC) Discharge Disposition: Home or Self Care 05/16/20 22 9:31 AM CDT - 05/16/20 22 10:59 AM CDT Hospital Encounter Department of Vascular Medicine in [place], [place] [address] [place] [phone] Hiro Platt P.A.-C. Follow Up Examination Status Post Surgery; Peripheral Arterial Disease (HCC) Discharge Disposition: Home or Self Care 05/16/20 22 2:30 PM CDT Office Visit Department of Vascular Medicine in [place], [place] [address] [place] [phone] Arleth Bullock APRN, C.N.P., M.S. Peripheral Arterial Disease (HCC) (Primary Dx); Follow Up Exam 05/14/20 22 1:00 PM CDT Comprehensive Visit Department of Neurology in [address] [address] Alka Mathias M.D., M.P.H. Apnea Sleep Obstructive (Primary Dx) 05/13/20 22 11:00 AM CDT Virtual Visit Division of Pain Medicine in [address] [address] Cooper Arevalo APRN, C.N.P., M.S. Radiculopathy 05/05/20 22 8:45 AM CDT Office Visit Department of Neurology in [address] [address] Alka Mathias M.D., M.P.H. Tremor (Primary Dx); Tremor Parkinson's (HCC); Apnea Sleep Obstructive 04/23/20 22 12:15 AM CDT Ancillary Procedure Department of Dermatology 04/23/20 22 12:10 AM CDT Ancillary Procedure Department of Dermatology 04/23/20 22 12:05 AM CDT Ancillary Procedure Department of Dermatology 04/23/20 22 Ancillary Procedure Department of Dermatology 04/23/20 22 8:00 AM CDT Procedure visit Department of Dermatology in [place], [place] [address] [place] [phone] Medhat Ray M.D. 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 Encounter For Preprocedural Laboratory Examination (COVID-19); Contact With And (Suspected) Exposure To COVID-19 04/18/20 10:30 AM CDT Office Visit Department of Family Medicine, [facility], in [place], [place] [address] [place] [address] Kimani Canada, P.A.-CAlexandra Beat Premature Ventricular (Primary Dx); Hyponatremia 04/17/20 Clinical Communication Department of Dermatology in [place], [place] [address] [place] [address] Eden Ballard, Raquel 04/16/20 9:15 AM CDT Office Visit Department of Cardiovascular Diseases in [place], [place] [address] [place] [address] Miguel Burrell M.D. Beat Premature Ventricular (Primary Dx); Cardiomyopathy Ischemic 04/16/20 22 7:33 AM CDT - 04/16/20 22 11:59 PM CDT Hospital Encounter Department of Cardiovascular Diseases in [place], [place] [address] [place] [address] Miguel Burrell M.D. Cardiomyopathy Ischemic Discharge Disposition: Home or Self Care 04/15/20 22 7:45 AM CDT - 04/15/20 22 11:59 PM CDT Hospital Encounter Department of Laboratory Medicine in [place], [place] [address] [place] [address] Kimani Canada, P.A.-C. 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); Hyponatremia; Hypercholesterolemia Discharge Disposition: Home or Self Care 04/14/20 22 2:30 PM CDT Virtual Visit Division of Pain Medicine in [place], [place] [address] [place] [address] Cooper Arevalo APRN, C.N.P., M.S. Pain Low Back Mechanical 03/31/20 22 Refill Department of Family Medicine, [facility], in [place], [place] [address] [place] [address] Kimani Canada P.A.AureliaC. Med Refill 03/27/20 22 1:30 PM CDT Virtual Visit Division of Pain Medicine in [place], [place] [address] [place] [address] Cooper Arevalo APRN, C.N.P., M.S. Pain Low Back Mechanical 03/19/20 22 Orders Only Department of Family Medicine, [facility], in [place], [place] [address] [place] [phone] Wes Mathias M.D. 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 Tumor Ear Skin Uncertain Behavior (Primary Dx); Lesion Skin; Cancer Skin Squamous Cell Personal History 03/03/20 22 10:00 AM CDT Office Visit Department of Family Medicine, [facility], in [place], [place] [address] [place] [address] RoethKimani falcon P.A.-C. Lesion Skin (Primary Dx); Tremor Parkinson's (HCC); 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); Peripheral Arterial Disease (HCC); Beat Premature Ventricular; Rhinitis Allergic 02/29/20 Clinical Communication Department of Cardiovascular Diseases in [address] [address] Miguel Burrell M.D. 02/29/20 Clinical Communication Department of Family Medicine, [facility], in [address] [address] Kimani Canada P.A.-C. Post Hospital Follow-up 02/27/20 22 2:23 PM CDT - 02/27/20 22 6:50 PM CDT Emergency [facility] [place] [facility] [address] [place] [phone] Ranjan Cheema M.D. Abnormal Electrocardiogram (Primary Dx) Discharge Disposition: Home or Self Care 02/27/20 22 Intake [facility] 02/27/20 22 12:22 PM CDT - 02/27/20 22 2:22 PM CDT Hospital Encounter Division of Pain Medicine in [address] [address] Cooper Arevalo APRN C.N.P., M.S. Pain Low Back Unspecified Discharge Disposition: Home or Self Care 02/27/20 22 11:00 AM CDT Office Visit Division of Pain Medicine in [address] [address] Cooper Arevalo APRN, C.N.P., M.S. Stenosis Spinal; Spondylosis Lumbar Without Myelopathy; Radiculopathy 10/28/20 21 9:21 AM SPIRAL WINDER - 10/28/20 21 1:21 PM SPIRAL WINDER Hospital Encounter Department of Laboratory Medicine in [address] [address] Gerhard Orosco M.D. Hyponatremia Discharge Disposition: Home or Self Care 10/28/20 21 1:22 PM SPIRAL WINDER - 10/28/20 21 11:59 PM SPIRAL WINDER Hospital Encounter Division of Pain Medicine in [place], [place] [address] [place] [address] Raffi Britton P.A.-C., M.S. Pain Low Back Unspecified Discharge Disposition: Home or Self Care 10/25/20 21 Orders Only Division of [facility] Internal Medicine, [facility] in [place], [place] [address] [place] [address] Gerhard Orosco M.D. Hyponatremia (Primary Dx) 10/25/20 21 7:44 AM SPIRAL WINDER - 10/25/20 21 11:59 PM SPIRAL WINDER Hospital Encounter Department of Laboratory Medicine in [address] [address] Gerhard Orosco M.D. Hyponatremia Discharge Disposition: Home or Self Care 10/25/20 21 7:43 AM SPIRAL WINDER Hospital Encounter Department of Laboratory Medicine in [address] [address] Gerhard Orosco M.D. Hyponatremia Discharge Disposition: Home or Self Care 10/24/20 21 1:40 PM SPIRAL WINDER - 10/24/20 21 11:59 PM SPIRAL WINDER Hospital Encounter Department of Laboratory Medicine in [address] [address] Gerhard Orosco M.D. Hyponatremia Discharge Disposition: Home or Self Care 10/24/20 21 12:45 PM SPIRAL WINDER Telemedicine Video Medicine Department in [address] [address] Gerhard Orosco M.D. Apnea Sleep Obstructive (Primary Dx); Hyponatremia; 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); Tremor Parkinson's (HCC) 10/22/20 21 Refill Department of Family Medicine, [facility], in [address] [address] Kimani Canada P.A.-C. Med Refill 10/18/20 21 Refill Department of Family Medicine, [facility], in [place], [place] [address] [place] [address] Kimani Canada P.A.-C. Med Refill 10/16/20 11:00 AM SPIRAL WINDER Office Visit Department of Family Medicine, [facility], in [place], [place] [address] [place] [address] Kimani Canada P.A.-C. 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 Hypertensive Heart Disease Without Heart Failure Discharge Disposition: Home or Self Care 10/10/20 10:26 AM SPIRAL WINDER - 10/10/20 11:59 PM SPIRAL WINDER Hospital Encounter Division of Pain Medicine in [place], [place] [address] [place] [address] Bambi Britton P.A.-C., M.S. Radiculopathy Lumbosacral Discharge Disposition: Home or Self Care 10/10/20 9:00 AM SPIRAL WINDER Office Visit Division of Pain Medicine in [place], [place] [address] [place] [phone] Raffi Britton P.A.-C., M.S. Pain Low Back Unspecified (Primary Dx); Radiculopathy Lumbosacral; Stenosis Spinal; Tremor Parkinson's (HCC); Pain Buttock 10/04/20 Clinical Communication Division of Pain Medicine in [place], [place] [address] [place] [phone] Raffi Britton P.A.-C., M.S. upcoming JANNET 09/26/20 21 9:30 AM CDT Immunization Department of Family Medicine, [facility], in [place], [place] [address] [place] [phone] 08/27/20 21 External Outreach Department of Family [facility], [facility] in [place], [place] [address] [place] [phone] Elie Crain D.O. Contact With And (Suspected) Exposure To COVID-19 (Primary Dx) Discharge Disposition: Home or Self Care 08/27/20 21 2:50 PM CDT Admin Visit Department of Family [facility], [facility] in [place], [place] [address] [place] [phone] 08/27/20 21 Clinical Communication Division of [facility] Internal Medicine, [facility] in [place], [place] [address] [place] [address] Veronica Avila R.N. COVID Nurse Line 08/19/20 21 Orders Only [facility] Josey Amaro M.D. 08/12/20 21 11:00 AM CDT Virtual Visit Division of Pain Medicine in [place], [place] [address] [place] [address] Cooper Arevalo APRN, C.N.P., M.S. Pain Low Back Mechanical 08/09/20 21 Clinical Communication Division of Pain Medicine in [place], [place] [address] [place] [address] Cooper Arevalo APRN C.N.P., M.S. 07/31/20 21 7:45 AM CDT Office Visit Department of Cardiovascular Diseases in [place], [place] [address] [place] [address] Miguel Burrell M.D. Cardiomyopathy Ischemic (Primary Dx) 07/30/20 21 Clinical Communication Department of Otorhinolaryngology in [place], [place] [address] [place] [address] Marcio Rodriguez M.D. 07/24/20 21 9:27 AM CDT - 07/24/20 21 11:59 PM CDT Hospital Encounter Department of Cardiovascular Diseases in [address] [address] Miguel Burrell M.D. Hypertensive Heart Disease Without Heart Failure; Dyspnea On Exertion Discharge Disposition: Home or Self Care 07/18/20 21 Orders Only Department of Neurology in [address] [address] Alka Mathias M.D., M.P.H. Apnea Sleep Obstructive (Primary Dx) 07/18/20 21 12:30 PM CDT - 07/18/20 21 11:59 PM CDT Hospital Encounter Division of Pain Medicine in [place], [place] [address] [place] [phone] Cooper Arevalo APRN, C.N.P., M.S. Pain Low Back Mechanical Discharge Disposition: Home or Self Care 07/17/20 21 1:30 PM CDT Office Visit Division of Pain Medicine in [place], [place] [address] [place] [address] Cooper Arevalo APRN C.N.P., M.S. Pain Low Back Mechanical 07/02/20 21 Refill Department of Otorhinolaryngology in [place], [place] [address] [place] [address] Sari Whiting M.D. Med Refill 07/02/20 21 Refill Department of Otorhinolaryngology in [place], [place] [address] [place] [address] Marcio Rodriguez M.D. Med Refill 07/01/20 21 Refill Department of Family Medicine, [facility], in [address] [address] Gill Wise R.N. Med Refill 06/24/20 21 Clinical Communication Division of Pain Medicine in [place], [place] [address] [place] [phone] Raffi Britton P.A.-C., M.S. 06/04/20 10:15 AM CDT Office Visit Department of Neurology in [place], [place] [address] [place] [address] Alka Mathias M.D., M.P.H. Tremor Parkinson's (HCC) (Primary Dx) 05/16/20 9:12 AM CDT - 05/16/20 11:59 PM CDT Hospital Encounter Department of Radiology, [place], [place] [address] [place] [address] Hiro Platt P.A.-C. Follow Up Examination Status Post Surgery; Peripheral Arterial Disease (HCC) Discharge Disposition: Home or Self Care 05/16/20 9:12 AM CDT - 05/16/20 11:59 PM CDT Hospital Encounter Department of Radiology, [facility] in [place], [place] [address] [place] [phone] Hiro Platt P.A.-Mookie Follow Up Examination Status Post Surgery; Peripheral Arterial Disease (HCC) Discharge Disposition: Home or Self Care 05/16/20 1:00 PM CDT Office Visit Department of Vascular Medicine in [place], [place] [address] [place] [phone] Hiro Platt P.A.-CAlexandra Follow Up Examination Status Post Surgery (Primary Dx); Peripheral Arterial Disease (HCC) 05/14/20 21 10:14 AM CDT - 05/14/20 21 3:00 PM CDT Hospital Encounter Department of Vascular Medicine in [place], [place] [address] [place] [phone] Hiro Platt P.A.-Mookie Follow Up Examination Status Post Surgery; Peripheral Arterial Disease (HCC) Discharge Disposition: Home or Self Care 05/14/20 21 3:01 PM CDT - 05/14/20 21 11:59 PM CDT Hospital Encounter Division of Pain Medicine in [place], [place] [address] [place] [phone] Cooper Arevalo APRN CAlexandraN.P., M.S. Stenosis Spinal Discharge Disposition: Home or Self Care 05/14/20 1:00 PM CDT Office Visit Division of Pain Medicine in [place], [place] [address] [place] [address] Raffi Britton P.A.-C., M.S. Radiculopathy Lumbosacral (Primary Dx); Stenosis Spinal; Peripheral Arterial Disease (HCC); Tremor Parkinson's (HCC); Anxiety 05/03/20 Clinical Communication Department of [facility], [facility], in [place], [place] [address] [place] [address] Gill Wise R.N. Results 05/01/20 11:00 AM CDT Office Visit Department of [facility], [place], [place] [address] [place] [address] Kimani Canada P.A.-C. 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 COVID Inquiry 04/18/20 21 Refill Department of [facility] Medicine, [facility], in [address] [address] Gill Wise R.N. Med Refill 04/17/20 21 Refill Department of Cardiovascular Diseases in [address] [address] Miguel Burrell M.D. Med Refill 04/17/20 21 10:30 AM CDT Comprehensive Visit Department of Cardiovascular Diseases in [address] [address] Miguel Burrell M.D. 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 04/15/20 1:25 PM CDT - 04/15/20 11:59 PM CDT Hospital Encounter Department of Radiology in [address] [address] Gill Wise, R.N. 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 Injections 04/10/20 21 10:45 AM CDT Nurse Only Department of Family Medicine, [facility], in [address] [address] Gill Wise R.N. Walker, Lori A L.P.N. Nurse Visit (BP check) 04/05/20 21 10:45 AM CDT Nurse Only Department of Family Medicine, [facility], in [address] [place] [address] Gill Wise R.N. Bailey, Jennifer L LAlexandraP.N. Nurse Visit (BP check) 04/01/20 21 1:00 PM CDT Nurse Only Department of [facility], in [address] [place] [address] Yariel Teresa L.P.N. Nurse Visit (B/P check, states medications was changed two weeks ago.) 03/28/20 21 Clinical Communication Department of [facility], in [address] [place] [address] Gill Wise R.N. BP Checks 03/27/20 21 4:00 PM CDT Nurse Only Department of [facility], in [address] [place] [address] Kimani Canada, PAlexandraALaura Guerra, R.NAlexandra 03/27/20 21 Clinical Communication Department of [facility], in [address] [address] Gill Wise, R.N. Medication Problem (high blood pressure) 03/25/20 21 2:00 PM CDT Office Visit Department of [facility], in [address] [place] [address] Gill Wise, R.N. 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 COVID Inquiry 03/07/20 21 Refill Department of [facility], in [place], [place] [address] [place] [address] Gill Wise R.N. Med Refill 03/07/20 21 Clinical Communication Department of [facility], in [place], [place] [address] [place] [address] Gill Wise R.N. Med Refill 03/06/20 21 10:30 AM CDT Nurse Only Department of [facility], in [place], [place] [address] [place] [address] Gill Wise R.N. Hunt, Susan K, L.P.N. Blood Pressure Check 02/27/20 21 Clinical Communication Department of [facility], in [address] [place] [address] Kimani Canada P.A.-C. COVID Inquiry 02/27/20 21 Refill Department of [facility], in [address] [place] [address] Gill Wise R.N. Med Refill 02/27/20 21 Clinical Communication Department of [facility], in [address] [place] [address] Gill Wise R.N. 02/27/20 21 Clinical Communication Department of Sleep Medicine in [place], [place] [address] [place] [address] Alka Mathias M.D., M.P.H. 02/27/20 21 Refill Department of Neurology in [place], [place] [address] [place] [address] Alka Mathias M.D., M.P.H. Med Refill 02/27/20 21 8:30 AM CDT Comprehensive Visit Department of Neurology in [address] [address] Alka Mathias M.D., M.P.H. Tremor Parkinson's (HCC) (Primary Dx); Tremor Resting; History Of Falling 02/26/20 21 2:03 PM CDT - 02/26/20 21 11:59 PM CDT Hospital Encounter Department of Laboratory Medicine in [address] [address] Gill Wise, R.N. 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 COVID Inquiry 02/26/20 21 1:30 PM CDT Office Visit Department of [facility], in [address] [address] Gill Wise, R.N. 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 02/14/20 21 10:30 AM CDT Nurse Only Department of [facility], in [address] [address] Tracy Santiago APRN, C.N.P., R.N. Yariel Teresa, L.P.N. Nurse Visit (B/P recheck.) 02/07/20 21 Refill Department of Family Medicine, [facility], in [place], [place] [address] [place] [phone] Tracy Santiago APRN, C.N.PAlexandra, R.N. Med Refill 02/07/20 2:00 PM CDT Office Visit Department of [facility], in [place], [place] [address] [place] [address] Tracy Santiago APRN, C.N.P., R.N. Hypertensive Heart Disease Without Heart Failure (Primary Dx); Edema Lower Extremity 02/07/20 Nurse Triage Department of Family Medicine, [facility], in [place], [place] [address] [place] [address] Carlene Newell, RAlexandraN. Leg Swelling; COVID Nurse Line 01/30/20 Ancillary Procedure Department of Dermatology 01/30/20 11:20 AM SPIRAL WINDER Comprehensive Visit Department of Dermatology in [place], [place] [address] [place] [address] Siena Cho APRN, C.N.P., D.N.P. Lesion Skin Face (Primary Dx); Keratosis Actinic 01/29/20 Clinical Communication Division of Pain Medicine in [place], [place] [address] [place] [address] Cooper Arevalo APRN C.N.PAlexandra, M.S. Injections (Follow-up) 01/25/20 21 10:50 AM SPIRAL WINDER Ancillary Procedure Department of Family Medicine 01/25/20 10:40 AM SPIRAL WINDER Ancillary Procedure Department of Family Medicine 01/25/20 21 Clinical Communication Department of Family [facility], [facility], in [place], [place] [address] [place] [phone] Kimani Canada P.A.-C. COVID Inquiry 01/25/20 21 10:30 AM SPIRAL WINDER Office Visit Department of Family [facility], [facility], in [place], [place] [address] [place] [address] Gill Wise R.N. Lesion Skin Face (Primary Dx); Keratosis Actinic; Tremor Resting 01/14/20 21 Clinical Communication Department of [facility], [facility], in [address] [place] [address] Gill Wise R.N. Med Question 01/10/20 21 Orders Only Department of [facility], [facility], in [address] [place] [address] Gill Wise R.NAlexandra Cellulitis Face (Primary Dx) 01/10/20 21 Clinical Communication Department of [facility], [facility], in [address] [place] [address] Gill Wise R.N. Communication 01/10/20 21 Clinical Communication Department of [facility], [facility], in [address] [place] [address] Kimani Canada P.A.-C. Communication 01/07/20 21 Orders Only [facility] Josey Peña M.D. 12/28/19 21 Clinical Communication Department of [facility], [facility], in [address] [address] Gill Wise RAlexandraN. 12/28/19 21 12:08 PM SPIRAL WINDER - 12/28/19 21 11:59 PM SPIRAL WINDER Hospital Encounter Department of Laboratory Medicine in [address] [address] Gill Wise, R.N. Hypertensive Heart Disease Without Heart Failure Discharge Disposition: Home or Self Care 12/28/19 21 11:00 AM SPIRAL WINDER Office Visit Department of [facility], in [address] [address] Gill Wise R.N. Cellulitis Face (Primary Dx); Hypertensive Heart Disease Without Heart Failure 12/14/19 Clinical Communication Department of Family [facility], [facility], in [place], [place] [address] [place] [address] rTacy Santiago APRN, C.N.P., R.N. 12/13/19 Documentation Division of Pain Medicine in [place], [place] [address] [place] [address] Pretty Benson M.D. 12/13/19 Orders Only Division of Pain Medicine in [place], [place] [address] [place] [address] Pretty Benson M.D. Radiculopathy Lumbar (Primary Dx); Pain Low Back 12/13/19 12:28 PM SPIRAL WINDER - 12/13/19 11:59 PM SPIRAL WINDER Hospital Encounter Division of Pain Medicine in [place], [place] [address] [place] [address] Cooper Arevalo APRN, C.N.P., M.S. Radiculopathy Lumbar; Pain Low Back Discharge Disposition: Home or Self Care 12/13/19 11:00 AM SPIRAL WINDER Internal E-Consult Division of Allergic Diseases in [place], [place] [address] [place] [phone] Nando Deras M.D. Allergy Drug Personal History 12/05/19 3:30 PM SPIRAL WINDER Virtual Visit Division of Pain Medicine in [place], [place] [address] [place] [address] Cooper Arevalo APRN, C.N.P., M.S. Stenosis Spinal; Pain Low Back 12/04/19 9:30 AM SPIRAL WINDER Office Visit Department of [facility], [facility], in [place], [place] [address] [place] [address] Tracy Santiago APRN, C.N.P., R.N. Infection Staphylococcus Aureus (Primary Dx) 12/04/19 Nurse Triage Department of Family Medicine, [facility], in [place], [place] [address] [place] [address] Monica Martin R.N. Triage; COVID Nurse Line; Rash 12/03/19 12:45 PM SPIRAL WINDER - 12/03/19 11:59 PM SPIRAL WINDER Hospital Encounter Department of Radiology, [facility] in [place], [place] [address] [place] [address] Cooper Arevalo APRN, C.N.P., M.S. Pain Low Back Discharge Disposition: Home or Self Care 12/03/19 9:00 AM SPIRAL WINDER Comprehensive Visit Division of Pain Medicine in [place], [place] [address] [place] [address] Cooper Arevalo APRN, C.N.P., M.S. 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; Pain Low Back; Stenosis Spinal 11/07/20 3:00 PM SPIRAL WINDER Office Visit Department of Vascular Medicine in [place], [place] [address] [place] [address] Hiro Platt P.A.-CAlexandra Follow Up Examination Status Post Surgery (Primary Dx); Peripheral Arterial Disease (HCC) 11/07/20 12:14 PM SPIRAL WINDER - 11/07/20 11:59 PM SPIRAL WINDER Hospital Encounter Department of Radiology, [facility] in [place], [place] [address] [place] [address] Hiro Platt P.A.-CAlexandra Follow Up Examination Status Post Surgery; 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); Peripheral Vascular Disease (HCC) Discharge Disposition: Home or Self Care 11/01/20 Clinical Communication Division of Pain Medicine in [place], [place] [address] [place] [address] Prescheduling, Provider COVID Inquiry 10/29/20 8:52 AM SPIRAL WINDER - 10/29/20 11:59 PM SPIRAL WINDER Hospital Encounter Department of Radiology in [place], [place] [address] [place] [address] Kimani Canada P.A.-C. Discharge Disposition: Home or Self Care 10/29/20 8:00 AM SPIRAL WINDER Comprehensive Visit Department of [facility], [facility], in [address] [address] Kimani Canada P.A.-C. 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 Hypertensive Heart Disease Without Heart Failure; Beat Premature Ventricular Discharge Disposition: Home or Self Care 10/22/20 Refill Department of [facility], in [address] [address] Kimani Canada P.A.-C. Med Refill 10/22/20 Clinical Communication Department of [facility], [facility], in [address] [address] Kimani Canada P.A.-C. 10/17/20 8:39 AM SPIRAL WINDER - 10/17/20 11:59 PM SPIRAL WINDER Hospital Encounter Department of Cardiovascular Diseases in [address] [address] Kimani Canada P.A.-C. Hypertensive Heart Disease Without Heart Failure; Beat Premature Ventricular Discharge Disposition: Home or Self Care 10/10/20 10:00 AM SPIRAL WINDER Ancillary Procedure Department of [facility] [facility], in [address] [address] Kimani Canada P.A.-C. Hypertensive Heart Disease Without Heart Failure; Beat Premature Ventricular 10/10/20 8:30 AM SPIRAL WINDER Office Visit Department of [facility], [facility], in [address] [address] Kimani Canada P.A.-C. Hypertensive Heart Disease Without Heart Failure (Primary Dx); Beat Premature Ventricular 10/05/20 Clinical Communication Department of [facility], [facility], in [address] [address] Kimani Canada P.A.-C. COVID Inquiry 10/04/20 3:00 PM SPIRAL WINDER Office Visit Department of [facility], in [address] [address] Esteban Rincon P.A.-C., P.AAlexandra Hypertensive Heart Disease Without Heart Failure (Primary Dx); Irregular Heartbeat 10/04/20 Nurse Triage Department of [facility], in [address] [address] Khari Clinton Jr., R.N. Triage; COVID Nurse Line; Hypertension 09/25/20 Refill Department of [facility], in [address] [address] Kimani Canada P.A.-C. Med Refill 09/24/20 8:00 AM SPIRAL WINDER Office Visit Department of [facility], in [address] [address] Kimani Canada P.A.-C. Peripheral Arterial Disease (HCC) (Primary Dx); Neuropathy; Hypertensive Heart Disease Without Heart Failure 09/13/20 Clinical Communication Department of Vascular Medicine in [place], [place] [address] [place] [address] Hiro Platt P.A.-C. Appointment 09/06/20 11:20 AM CDT Immunization Department of [facility], in [place], [place] [address] [place] [address] Need Vaccine Immunization Influenza 08/09/20 10:05 AM CDT Ancillary Procedure Department of Otorhinolaryngology 08/09/20 10:00 AM CDT Office Visit Department of Otorhinolaryngology in [place], [place] [address] [place] [phone] Marcio Rodriguez M.D. Rhinosinusitis Chronic (Primary Dx); Drip Post Nasal 07/17/20 Refill Department of [facility], in [place], [place] [address] [place] [address] Chanel Osorio M.D. Med Refill 07/13/20 Clinical Communication Department of Otorhinolaryngology in [place], [place] [address] [place] [phone] Marcio Rodriguez M.D. 06/05/20 2:15 PM CDT Ancillary Procedure Department of Otorhinolaryngology 06/05/20 2:15 PM CDT Comprehensive Visit Department of Otorhinolaryngology in [place], [place] [address] [place] [phone] Marcio Rodriguez M.D. Apnea Sleep Obstructive (Primary Dx); Rhinosinusitis Chronic; Peripheral Arterial Disease (HCC); Coronary Artery Disease Without Angina Pectoris; Drip Post Nasal 06/04/20 Clinical Communication Department of Otorhinolaryngology in [place], [place] [address] [place] [phone] Marcio Rodriguez M.D. 06/01/20 9:29 AM CDT - 06/01/20 11:59 PM CDT Hospital Encounter Department of Radiology, [facility], in [place], [place] [address] [place] [phone] Edith Ramos M.B.BAlexandraS. Rhinosinusitis Chronic Discharge Disposition: Home or Self Care 05/31/20 10:30 AM CDT Office Visit Department of Family Medicine, [facility], in [address] [address] Kimani Canada P.A.-C. 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 05/09/20 12:06 PM CDT - 05/09/20 11:59 PM CDT Hospital Encounter Department of Radiology, [facility] in [address] [address] Edith Ramos M.B.B.S. Abnormal Computed Tomography Chest Discharge Disposition: Home or Self Care 05/09/20 3:00 PM CDT Office Visit Division of Pulmonary Medicine in [address] [address] Edith Ramos M.B.B.S. Mass Lung (Primary Dx); Rhinosinusitis Chronic 05/08/20 4:00 PM CDT Office Visit Department of Vascular Medicine in [place], [place] [address] [place] [phone] Hiro Platt P.A.-C. Follow Up Examination Status Post Surgery (Primary Dx); 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); Peripheral Vascular Disease (HCC); Endarterectomy Carotid Status Post 05/08/20 12:30 PM CDT - 05/08/20 11:59 PM CDT Hospital Encounter Department of Vascular Medicine in [place], [place] [address] [place] [phone] Hiro Platt P.A.-C. Endarterectomy Carotid Status Post; Follow Up Examination Status Post Surgery; 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); Peripheral Vascular Disease (HCC) Discharge Disposition: Home or Self Care 05/08/20 10:23 AM CDT - 05/08/20 12:29 PM CDT Hospital Encounter Department of Radiology, [facility], in [place], [place] [address] [place] [phone] Hiro Platt P.A.-C. Endarterectomy Carotid Status Post; Follow Up Examination Status Post Surgery; 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); Peripheral Vascular Disease (HCC) Discharge Disposition: Home or Self Care 04/30/20 Orders Only Division of Pulmonary Medicine in [place], [place] [address] [place] [phone] Edith Ramos M.B.B.S. Abnormal Computed Tomography Chest (Primary Dx); Cough Chronic 04/30/20 Clinical Communication Division of Pulmonary Medicine in [place], [place] [address] [place] [phone] Edith Ramos M.B.B.S. Pre-visit Testing Orders (orders) 04/27/20 Clinical Communication Division of Pulmonary Medicine in [place], [place] [address] [place] [phone] Edith Ramos M.B.B.S. COVID Nurse Line 04/20/20 Clinical Communication Department of [facility], [facility], in [place], [place] [address] [place] [address] Chanel Osorio M.D. 04/19/20 Clinical Communication Department of Vascular Medicine in [place], [place] [address] [place] [phone] Hiro Platt P.A.-C. COVID screening 04/19/20 Clinical Communication Department of [facility], [facility], in [place], [place] [address] [place] [address] Chanel Osorio M.D. Cpap Follow-up (needs new order, leaking and not working correctly) 04/13/20 Refill Department of Family Medicine, [facility], in [place], [place] [address] [place] [address] Chanel Osorio M.D. Med Refill 12/23/19 Clinical Communication Division of Pulmonary Medicine in [place], [place] [address] [place] [phone] Edith Ramos M.B.B.S. Previsit Preparation 11/29/19 Documentation [facility] [address] [place] [phone] Edith Ramos M.B.B.S. 11/29/[address] [facility] [address] [place] [phone] Edith Ramos M.B.B.S. Nodule Pulmonary (Primary Dx) 11/29/19 Clinical Communication Division of Pulmonary Medicine in [place], [place] [address] [place] [phone] Edith Ramos M.B.B.S. 11/28/19 20 2:21 PM SPIRAL WINDER - 11/28/19 20 4:19 PM SPIRAL WINDER Hospital Encounter Department of Radiology, [facility] in [place], [place] [address] [place] [phone] Edith Ramos M.B.B.S. Swelling Leg Discharge Disposition: Home or Self Care 11/28/19 20 4:20 PM SPIRAL WINDER - 11/28/19 20 11:59 PM SPIRAL WINDER Hospital Encounter Department of Radiology, [facility], in [place], [place] [address] [place] [phone] Edith Ramos M.B.B.S. Abnormal Computed Tomography Chest Discharge Disposition: Home or Self Care 11/25/19 20 2:35 PM SPIRAL WINDER Ancillary Procedure Department of Radiology in [place], [place] [address] [place] [phone] Edith Ramos M.B.B.SAlexandra Abnormal Computed Tomography Chest 11/25/19 20 2:30 PM SPIRAL WINDER Comprehensive Visit Division of Pulmonary Medicine in [place], [place] [address] [place] [address] Edith Ramos M.B.B.SAlexandra Abnormal Computed Tomography Chest (Primary Dx); Cough Chronic; Swelling Leg 11/11/20 19 Orders Only Department of Otorhinolaryngology in [address] [address] Danielle Christianson P.A.-C. 11/09/20 19 Clinical Communication Department of Otorhinolaryngology in [place], [place] [address] [place] [phone] Danielle Christianson P.A.-C. Med Question 10/26/20 19 8:00 AM SPIRAL WINDER Office Visit Department of Family Medicine, [facility], in [address] [address] Chanel Osorio M.D. Cough (Primary Dx) 10/23/20 19 Refill Department of Family Medicine, [facility], in [place], [place] [address] [place] [address] Chanel Osorio M.D. Med Refill 10/21/20 19 Clinical Communication Department of Family Medicine, [facility], in [place], [place] [address] [place] [address] Chanel Osorio M.D. 10/21/20 19 Clinical Communication Department of Otorhinolaryngology in [place], [place] [address] [address] Danielle Christianson P.A.-CAlexandra 10/21/20 19 7:00 AM SPIRAL WINDER Internal E-Consult Division of Pulmonary Medicine in [place], [place] [address] [place] [address] Zach Pearl M.D. Cough Chronic; Abnormal Computed Tomography Chest 10/19/20 19 Orders Only Department of Family Medicine, [facility], in [place], [place] [address] [place] [address] Chanel Osorio M.D. Cough Chronic (Primary Dx); Abnormal Computed Tomography Chest 10/19/20 19 9:30 AM SPIRAL WINDER Diagnostic Division of Pulmonary Medicine in [place], [place] [address] [place] [address] Chanel Osorio M.D. Cough Chronic 10/17/20 19 Clinical Communication Department of [facility], [facility], in [place], [place] [address] [place] [address] Chanel Osorio M.D. 10/17/20 19 9:09 AM SPIRAL WINDER - 10/17/20 19 11:59 PM SPIRAL WINDER Hospital Encounter Department of Radiology in [place], [place] [address] [place] [address] Chanel Osorio M.D. Cough Chronic Discharge Disposition: Home or Self Care 10/14/20 19 Orders Only Department of [facility], [facility], in [place], [place] [address] [place] [address] Chanel Osorio M.D. Cough Chronic (Primary Dx) 10/13/20 19 Orders Only Department of Family Medicine, [facility], in [place], [place] [address] [place] [address] Chanel Osorio M.D. Cough Chronic (Primary Dx); Abnormal Computed Tomography Chest 10/13/20 19 Clinical Communication Department of [facility], [facility], in [place], [place] [address] [place] [address] Chanel Osorio M.D. test questions 10/13/20 19 Orders Only Department of [facility], in [address] [place] [address] Chanel Osorio M.D. Cough Chronic (Primary Dx); Abnormal Computed Tomography Chest 10/10/20 19 Orders Only Department of [facility], in [address] [place] [address] Chanel Osorio M.D. Cough (Primary Dx); Abnormal Computed Tomography Chest 09/28/20 19 12:30 PM SPIRAL WINDER Office Visit Department of Otorhinolaryngology in [address] [place] [address] Danielle Christianson, P.A.-CAlexandra Cough Chronic (Primary Dx); Drip Post Nasal; Sinusitis Chronic 09/27/20 19 Clinical Communication Department of [facility], in [address] [place] [address] Results 09/26/20 Clinical Communication Department of Otorhinolaryngology in [place] [address] [place] [address] Danielle Christianson, P.A.-C. 09/20/20 19 Orders Only Department of [facility], in [address] [place] [address] Chanel Osorio M.D. Cough Chronic (Primary Dx) 09/20/20 19 Clinical Communication Department of [facility], in [address] [place] [address] Chanel Osorio M.D. creatine lab order needed today before CT tomorrow 09/19/20 19 Clinical Communication Department of Family Medicine, [facility], in [place], [place] [address] [place] [address] Chanel Osorio M.D. FYI Only 09/19/20 Clinical Communication Department of [facility], [facility], in [place], [place] [address] [place] [address] Danielle Christianson P.A.-C. Diagnosis 09/19/20 9:30 AM CDT Comprehensive Visit Department of Otorhinolaryngology in [address] [address] Danielle Christianson P.A.-C. Drip Post Nasal (Primary Dx); Cough Chronic 09/07/20 Clinical Communication Department of [facility], in [place], [place] [address] [place] [address] Chanel Osorio M.D. 09/05/20 19 Clinical Communication Department of [facility], in [address] [address] Chanel Osorio M.D. 09/05/20 19 10:00 AM CDT Office Visit Department of [facility], in [address] [address] Chanel Osorio M.D. Cough Chronic (Primary Dx) 08/25/20 19 2:00 PM CDT Office Visit Department of [facility], in [address] [place] [address] Chanel Osorio M.D. Dizziness (Primary Dx); Drip Post Nasal 08/22/20 19 Clinical Communication Department of [facility], in [address] [place] [address] Chanel Osorio M.D. 07/27/20 19 Refill Department of [facility], [facility], in [address] [place] [address] Chanel Osorio M.D. Med Refill 07/06/20 19 Orders Only Department of [facility], [facility], in [address] [place] [address] Chanel Osorio M.D. 06/28/20 19 Clinical Communication Department of [facility], [facility], in [place], [place] [address] [place] [address] Chanel Osorio M.D. Medication questions 06/23/20 19 Clinical Communication Department of [facility], [facility], in [address] [place] [address] Chanel Osorio M.D. Med Question 06/22/20 19 9:45 AM CDT Office Visit Department of [facility], in [address] [place] [address] Chanel Osorio M.D. Cough Chronic (Primary Dx) 05/31/20 19 Clinical Communication Department of [facility], [facility], in [place], [place] [address] [place] [address] Chanel Osorio M.D. 05/31/20 19 9:51 AM CDT - 05/31/20 19 11:59 PM CDT Hospital Encounter Department of Radiology in [address] [place] [address] Chanel Osorio M.D. Cough Discharge Disposition: Home or Self Care 05/31/20 19 9:15 AM CDT Office Visit Department of [facility], [facility], [place], [place] [address] [place] [address] Chanel Osorio M.D. Cough (Primary Dx) 05/09/20 19 3:00 PM CDT Office Visit Department of Family Medicine, [facility], [place], [place] [address] [place] [address] Edwin Prajapati M.B.B.S., M.D. Sinusitis (Primary Dx) 05/04/20 19 Nurse Triage Department of [facility], [facility], in [place], [place] [address] [place] [address] Tere Herman R.N. 04/26/20 19 Refill Department of [facility], [facility], [place], [place] [address] [place] [address] Chanel Osorio M.D. Med Refill 02/26/20 19 10:15 AM CDT Ancillary Procedure Department of Vascular 02/26/20 19 7:48 AM CDT - 02/26/20 19 8:59 AM CDT Hospital Encounter Department of Radiology, [place], [place] [address] [place] [address] Hiro Platt P.A.-CAlexandra Follow Up Surgery Exam; Endarterectomy Carotid Status Post; Peripheral Arterial Disease (HCC); 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) Discharge Disposition: Home or Self Care 02/26/20 19 7:48 AM CDT - 02/26/20 19 8:59 AM CDT Hospital Encounter Department of Radiology, [place], [place] [address] [place] [address] Hiro Platt P.A.-C. Endarterectomy Carotid Status Post; 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); Peripheral Arterial Disease (HCC); Follow Up Surgery Exam Discharge Disposition: Home or Self Care 02/26/20 19 9:00 AM CDT - 02/26/20 11:59 PM CDT Hospital Encounter Department of Vascular Medicine in [place], [place] [address] [place] [phone] Malik Lopez M.D., M.S. Peripheral Arterial Disease (HCC); Follow Up Surgery Exam Discharge Disposition: Home or Self Care 02/26/20 19 3:00 PM CDT Office Visit Department of Vascular Medicine in [place], [place] [address] [place] [address] Hiro Platt P.A.-Taya. Endarterectomy Carotid Status Post (Primary Dx); Follow Up Examination Status Post Surgery; 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); Peripheral Vascular Disease (HCC) 02/26/20 6:58 AM CDT - 02/26/20 7:47 AM CDT Hospital Encounter Department of Laboratory Medicine and Pathology, [facility] in [place], [place] [address] [place] [phone] Hiro Platt P.A.-C. Other Specified Postprocedural States; 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); Encounter For Follow Up Examination After Completed Treatment For Conditions Other Than Malignant Neoplasm; Peripheral Vascular Disease (HCC) Discharge Disposition: Home or Self Care 02/23/20 Clinical Communication Department of Internal Medicine in [place], [place] [address] [place] [phone] Adelina Meraz APRN, C.N.P., D.N.P., M.S.N. 02/16/20 Clinical Communication Department of Family Medicine, [facility], in [place], [place] [address] [phone] Chanel Osorio M.D. 02/15/20 19 Refill Department of Family Medicine, [facility], in [address] [address] Chanel Osorio M.D. Med Refill 01/19/20 19 Clinical Communication Department of Vascular Medicine in [place], [place] [address] [place] [address] Hiro Platt P.A.-C. [place] 11/19/20 18 Refill Department of Family Medicine, [facility], in [place], [place] [address] [place] [address] Chanel Osorio M.D. Med Refill 11/17/20 18 9:15 AM SPIRAL WINDER Comprehensive Visit Department of Family Medicine, [facility], in [place], [place] [address] [place] [address] Chanel Osorio M.D. Hypertension Essential Primary (Primary Dx); Screening Examination Diabetes Mellitus; Hyperlipidemia; 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); Abrasion Foot Initial Left; Anxiety; General Medical Examination Adult 10/05/20 18 Abstract Department of Family Medicine in [place], [place] [address] [place] [phone] Provider, Historical 09/15/20 18 10:45 AM CDT Office Visit Department of Family Medicine, [facility], in [address] [address] Shannon Araiza, RChristy Annual Medicare Examination Return (Primary Dx) 09/14/20 18 Clinical Communication Department of [facility] in [address] [address] Laura Martinez, R.N. Medicare Annual Wellness Visit 09/14/20 18 10:30 AM CDT Office Visit Department of Otorhinolaryngology in [place], [place] [address] [place] [address] Brayan Gregorio M.D. Lesion Skin Ear (Primary Dx); Mass Ear Right; Follow Up Examination Postoperative Visit 09/07/20 18 Clinical Communication Department of Internal Medicine in [place], [place] [address] [address] Brayan Gregorio M.D. 09/07/20 18 Clinical Communication Department of Vascular Medicine in [place], [place] [address] [place] [address] Hiro Platt P.A.-C. return appt 09/01/20 18 Clinical Communication Department of Otorhinolaryngology in [place], [place] [address] [place] [address] Brayan Gregorio M.D. SURGERY DATE 09/01/20 18 11:50 AM CDT Ancillary Procedure Department of Otorhinolaryngology 09/01/20 18 1:45 PM CDT Comprehensive Visit Department of Otorhinolaryngology in [place], [place] [address] [place] [phone] Brayan Gregorio M.D. Mass Ear Right (Primary Dx); Lesion Skin Ear 08/27/20 18 2:30 PM CDT Office Visit Department of Family Medicine, [facility], in [place], [place] [address] [place] [address] Chanel Osorio M.D. Lesion Skin Ear (Primary Dx); Need Vaccine Immunization Influenza 08/05/20 18 Clinical Communication Department of Internal Medicine in [place], [place] [address] [place] [phone] Chanel Osorio M.D. 08/04/20 18 Clinical Communication Department of Family Medicine, [facility], in [place], [place] [address] [address] Chanel Osorio M.D. Med Question 07/28/20 18 Orders Only Department of Spine in [place], [place] [address] [place] [address] Rell Flores M.D. 07/23/20 18 Orders Only Department of Family Medicine, [facility], in [place], [place] [address] [facility] [place] [address] Chanel Osorio M.D. Radiculopathy Cervical (Primary Dx); Abnormal Findings On Diagnostic Imaging Of Other Parts Of Musculoskeletal System 07/23/20 18 Clinical Communication Department of Family Medicine, [facility], in [place], [place] [address] [address] Chanel Osorio M.D. 07/19/20 18 Nurse Triage Department of Family Medicine, [facility], in [place], [place] [address] [place] [phone] Dia Barrera, R.NAlexandra 07/08/20 18 Orders Only Department of Family Medicine, [facility], in [place], [place] [address] [place] [address] Chanel Osorio M.D. 07/08/20 18 Clinical Communication Department of Family [facility], [facility], in [place], [place] [address] [address] Chanel Osorio M.D. Pain Control 07/08/20 18 Nurse Triage Department of Family Medicine in [place], [place] [address] [place] [address] Irasema Forte, R.N. 07/06/20 18 10:28 AM CDT - 07/06/20 18 11:59 PM CDT Hospital Encounter Department of Radiology in [place], [place] [address] [facility] [place] [address] Chanel Osorio M.D. Pain Neck Discharge Disposition: Home or Self Care 07/06/20 18 9:15 AM CDT Office Visit Department of Family Medicine, [facility], in [place], [place] [address] [facility] [place] [address] Chanel Osorio M.D. Pain Neck (Primary Dx) 06/28/20 18 Clinical Communication Division of Pain Medicine in [place], [place] [address] [place] [address] Cooper Arevalo APRN C.NConnie., M.S. 05/11/20 18 11:39 AM CDT - 05/11/20 18 11:59 PM CDT Hospital Encounter Department of Radiology in [address] [address] Chanel Osorio M.D. Pain Ankle Left Discharge Disposition: Home or Self Care 05/11/20 18 10:30 AM CDT Office Visit Department of Family Medicine, [facility], in [address] [address] Chanel Osorio M.D. Pain Ankle Left (Primary Dx); Follow Up Exam 04/29/20 18 Orders Only Department of Family Medicine, [facility], in [place], [place] [address] [place] [address] Chanel Osorio M.D. 04/29/20 18 Orders Only Department of Family Medicine, [facility], in [address] [address] Chanel Osorio M.D. 04/29/20 18 Clinical Communication Department of Pediatrics in [place], [place] [address] [place] [address] Flor Negron CAlexandraMAlexandraAAlexandra 04/29/20 18 Clinical Communication Department of Family Medicine, [facility], in [address] [address] Chanel Osorio M.D. 04/29/20 18 Refill Department of Family Medicine, [facility], in [place], [place] [address] [place] [address] Chanel Osorio M.D. Med Refill 04/27/20 18 11:15 AM CDT Office Visit Department of [facility], in [place], [place] [address] [place] [address] Chanel Osorio M.D. Insufficiency Venous (Primary Dx); Keratosis Actinic 03/17/20 18 - 03/17/20 18 11:59 PM CDT Hospital Encounter HX NO MAPPING 03/12/20 18 Orders Only Division of Vascular and Endovascular Surgery in [address] [phone] Malik Lopez M.D., M.S. Other Specified Postprocedural States; 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); Encounter For Follow Up Examination After Completed Treatment For Conditions Other Than Malignant Neoplasm; Peripheral Vascular Disease (HCC) 01/29/20 18 Refill Department of [facility], in [address] [phone] Chanel Osorio M.D. Med Refill 12/03/19 18 - 12/03/19 18 11:59 PM SPIRAL WINDER Hospital Encounter HX NO MAPPING 12/03/19 18 10:35 AM SPIRAL WINDER Telemedicine Department of Anesthesiology 11/30/19 18 Clinical Communication Department of [facility], in [address] [phone] Emma Beck LAlexandraP.N. Communication 11/29/19 18 Orders Only Department of [facility], in [address] [phone] Chanel Osorio M.D. 11/26/19 18 Orders Only Department of [facility], in [address] [phone] Chanel Osorio M.D. Lumbago With Sciatica Left Side (Primary Dx) 11/25/19 18 Clinical Communication Department of Family Medicine, [facility], in [place], [place] [address] [place] [address], [place] [phone] Chanel Osorio M.D. Communication 11/20/20 17 1:45 PM SPIRAL WINDER Office Visit Department of Family Medicine, [facility], in [place], [place] [address] [place] [address] Chanel Osorio M.D. Pain Back Lumbar (Primary Dx); Anxiety; Coronary Artery Disease [place] 11/19/20 17 Clinical Communication Department of [facility], [facility], in [address] [place] [address] Chanel Osorio M.D. Hip & leg pain 11/17/20 17 4:30 PM SPIRAL WINDER Office Visit Department of [facility], in [address] [place] [address] Tracy Santiago, NAEEM, C.N.P., R.N. Lumbago With Sciatica Left Side (Primary Dx) 10/28/20 17 9:10 AM SPIRAL WINDER Telemedicine Department of Vascular 10/26/20 17 11:30 AM SPIRAL WINDER Office Visit Department of Family [facility], in [address] [place] [address] Edwin Prajapati M.B.B.S., Riley. Neuroma Baker's Left (Primary Dx) 10/20/20 17 Orders Only Department of Urology in [place], [place] [address] [place] [address], [place] [address] Violet Marie L.P.N. 10/20/20 17 2:00 PM SPIRAL WINDER Office Visit Department of Urology in [place], [place] [address] [place] [phone] Laverne Kaiser APRN, C.N.P. Urgency Urinary (Primary Dx); Balanitis Klarissa 10/13/20 17 Abstract Department of Family Medicine, [facility], in [place], [place] [address] [place] [phone] Provider, Historical 09/21/20 17 Orders Only Department of [facility] in [place], [place] [address] [place] [address] Rogelio-Chanel Duke M.D. Hypercholesterolemia Familial 09/11/20 17 9:40 AM CDT - 09/11/20 17 11:59 PM CDT Hospital Encounter HX [facility]BCV FAMILYPRA ehisabel-Chanel Duke M.D. 07/17/20 17 9:35 AM CDT - 07/17/20 17 11:59 PM CDT Hospital Encounter HX [facility]BCV FAMILYPRA ehbrodt-Chanel Duke M.D. 07/09/20 17 6:06 AM CDT - 07/10/20 17 4:56 PM CDT Hospital Encounter HX RST VERONICA LEAHY 5E 07/08/20 17 11:02 AM CDT - 07/08/20 17 11:59 PM CDT Hospital Encounter HX NO MAPPING Dee Smith APRN, C.N.P. 07/08/20 17 - 07/08/20 17 11:59 PM CDT Hospital Encounter HX NO MAPPING 06/25/20 17 12:13 PM CDT - 06/25/20 17 11:59 PM CDT Hospital Encounter HX [facility] HOLLISINA FBOP Timothy Garcia M.D. 06/17/20 17 12:52 PM CDT - 06/17/20 17 11:59 PM CDT Hospital Encounter [facility]X [facility] Laverne Kaiser APRN, C.N.P. 05/25/20 17 12:30 PM CDT Telemedicine Department of Vascular 05/21/20 17 1:32 PM CDT - 05/21/20 17 11:59 PM CDT Hospital Encounter HX [facility] SURGEON Timothy Garcia M.D. 05/19/20 17 1:00 PM CDT - 05/19/20 17 11:59 PM CDT Hospital Encounter [facility]X [facility] Shay Carreon M.D. 05/15/20 17 3:53 AM CDT - 05/15/20 17 11:59 PM CDT Hospital Encounter HX NO MAPPING Timothy Garcia M.D. 05/15/20 17 10:48 AM CDT - 05/15/20 17 11:59 PM CDT Hospital Encounter HX [facility] SURGEON Timothy Garcai M.D. 05/04/20 17 1:20 PM CDT - 05/04/20 17 11:59 PM CDT Hospital Encounter HX [facility] SURGEON Timothy Garcia M.D. 04/22/20 17 10:19 AM CDT - 04/22/20 17 11:59 PM CDT Hospital Encounter HX FBCV FAMILYPRA [place] Chanel marlow M.D. 04/16/20 17 2:01 PM CDT - 04/16/20 17 11:59 PM CDT Hospital Encounter HX [facility] FBCV SURGEON Timothy Garcia M.D. 04/08/20 17 11:06 AM CDT - 04/08/20 17 11:59 PM CDT Hospital Encounter HX FBCV FAMILYPRA ehbrodt-Gle Chanel marlow M.D. 04/06/20 17 10:00 AM CDT - 04/06/20 17 11:59 PM CDT Hospital Encounter HX [facility] HSP-CT OP Rogelio-Chanel Duke M.D. 04/02/20 17 12:32 PM CDT - 04/02/20 17 11:59 PM CDT Hospital Encounter HX [facility] FBCV SURGEON Timothy Garcia M.D. 04/02/20 17 11:04 AM CDT - 04/02/20 17 11:59 PM CDT Hospital Encounter HX NO MAPPING Timothy Garcia M.D. 03/30/20 17 9:03 AM CDT - 03/30/20 17 11:59 PM CDT Hospital Encounter HX FBCV FAMILYPRA [place] Chanel marlow M.D. 03/26/20 17 9:36 AM CDT - 03/26/20 17 11:59 PM CDT Hospital Encounter HX FBCV FAMILYPRA [place] Chanel marlow M.D. 03/16/20 17 3:43 PM CDT - 03/16/20 17 11:59 PM CDT Hospital Encounter HX FBCV FAMILYPRA [place] Chanel marlow M.D. 09/12/20 16 12:51 PM CDT - 09/12/20 16 11:59 PM CDT Hospital Encounter HX [facility] FBHB FAMILYPRA [place] Chanel marlow M.D. 07/31/20 16 12:02 PM CDT - 07/31/20 16 11:59 PM CDT Hospital Encounter HX [facility] INTERNMED Adelina Meraz APRN, C.N.P., D.N.P., M.S.N. 07/08/20 16 - 07/08/20 16 11:59 PM CDT Hospital Encounter HX NO MAPPING 06/30/20 16 11:00 AM CDT - 06/30/20 16 11:59 PM CDT Hospital Encounter HX [facility] UROLOGY Laverne Kaiser APRN, C.N.P. 06/26/20 16 9:51 AM CDT - 06/26/20 16 11:59 PM CDT Hospital Encounter HX [facility] FBHB FAMILYPRA [place] Chanel marlow M.D. 06/24/20 16 8:05 AM CDT - 06/24/20 16 11:59 PM CDT Hospital Encounter HX [facility] FBHB LAB ehbrodt-Chanel Duke M.D. 06/13/20 16 9:04 AM CDT - 06/13/20 16 11:59 PM CDT Hospital Encounter HX [facility] FBHB FAMILYPRA Fruehbrodt-Chanel Duke M.D. 05/30/20 16 - 05/30/20 16 11:59 PM CDT Hospital Encounter HX NO MAPPING 05/09/20 16 - 05/09/20 16 11:59 PM CDT Hospital Encounter HX NO MAPPING 11/27/19 16 5:31 AM SPIRAL WINDER - 11/28/19 16 2:01 PM SPIRAL WINDER Hospital Encounter HX RST UNIT 8-2 ORTHOPEDICS 11/26/19 16 8:40 PM SPIRAL WINDER - 11/26/19 16 11:59 PM SPIRAL WINDER Hospital Encounter HX NO MAPPING Edwin Chen P 10/22/20 15 9:26 AM SPIRAL WINDER - 10/22/20 15 11:59 PM SPIRAL WINDER Hospital Encounter HX [facility] FB[facility] FAMILYPRA MyrTracy hickman, PALLIATIVE CARE COORDINATOR, C.N.P., R.N. 10/05/20 15 11:45 AM SPIRAL WINDER - 10/05/20 15 11:59 PM SPIRAL WINDER Hospital Encounter [facility]X [facility] URGENTCAR Sukhwinder Akbar M.D. 07/05/20 15 - 07/05/20 15 11:59 PM CDT Hospital Encounter HX NO MAPPING 07/04/20 15 9:01 AM CDT - 07/04/20 15 11:59 PM CDT Hospital Encounter HX [facility] FBHB FAMILYPRA ehbrodt-Gle Chanel marlow M.D. 05/17/20 15 8:22 AM CDT - 05/17/20 15 11:59 PM CDT Hospital Encounter HX [facility] FB[facility] LAB Alka Cervantes M.D. 05/16/20 15 9:33 AM CDT - 05/16/20 15 11:59 PM CDT Hospital Encounter HX [facility] CARDIOLOG Alka Cervantes M.D. 05/01/20 15 - 05/01/20 15 11:59 PM CDT Hospital Encounter HX NO MAPPING 04/10/20 15 1:37 PM CDT - 04/10/20 15 11:59 PM CDT Hospital Encounter HX [facility] FB[facility] FAMILYPRA [place] Chanel marlow M.D. 04/06/20 15 10:28 AM CDT - 04/06/20 15 11:59 PM CDT Hospital Encounter HX [facility] MRI Rogelio-Chanel Duke M.D. 03/26/20 15 11:26 AM CDT - 03/26/20 15 11:59 PM CDT Hospital Encounter HX [facility] FBHB FAMILYPRA [place] Chanel marlow M.D. 03/20/20 15 8:11 AM CDT - 03/20/20 15 11:59 PM CDT Hospital Encounter HX [facility] ULTRASOUN ehbrodt-Gle Chanel marlow M.D. 02/27/20 15 10:46 AM CDT - 02/27/20 15 11:59 PM CDT Hospital Encounter HX [facility] FBHB FAMILYPRA [place] Chanel marlow M.D. 02/17/20 15 10:19 AM CDT - 02/17/20 15 11:59 PM CDT Hospital Encounter HX [facility] FAMILYPRA Alvaro Begum M.D. 11/03/20 14 9:40 AM SPIRAL WINDER - 11/03/20 14 11:59 PM SPIRAL WINDER Hospital Encounter HX [facility] F[facility]V Desean Moffett M.D. 11/01/20 14 1:33 PM SPIRAL WINDER - 11/01/20 14 11:59 PM SPIRAL WINDER Hospital Encounter HX [facility] FBHB FAMILYPRA [place] Chanel marlow M.D. 08/29/20 14 11:49 AM CDT - 08/29/20 14 11:59 PM CDT Hospital Encounter HX [facility] SPEC NURS Rogelio-Chanel Duke M.D. 06/29/20 14 2:53 PM CDT - 06/29/20 14 11:59 PM CDT Hospital Encounter HX [facility] FBCV PMTDesean Valle M.D. 06/14/20 14 9:11 AM CDT - 06/14/20 14 11:59 PM CDT Hospital Encounter HX [facility] FAMILYPRA Tracy Santiago, NAEEM, C.N.P., R.N. 06/14/20 14 6:58 AM CDT - 06/14/20 14 11:59 PM CDT Hospital Encounter HX [facility] FBHB LAB ehbrodt-Gle Chanel marlow M.D. 06/02/20 14 10:12 AM CDT - 06/02/20 14 11:59 PM CDT Hospital Encounter HX [facility]HB FAMILYPRA [place] Chanel marlow M.D. 05/01/20 14 1:59 PM CDT - 05/01/20 14 11:59 PM CDT Hospital Encounter HX [facility] SURGEON Timothy Garcia M.D. 04/26/20 14 1:48 PM CDT - 04/26/20 14 11:59 PM CDT Hospital Encounter HX NO MAPPING Timothy Garcia M.D. 04/21/20 14 10:14 AM CDT - 04/21/20 14 11:59 PM CDT Hospital Encounter HX [facility] FBCV SURGEON Timothy Garcia M.D. 04/11/20 14 1:14 PM CDT - 04/11/20 14 11:59 PM CDT Hospital Encounter HX [facility] FBCV SURGEON Timothy Garcia M.D. 03/13/20 14 2:02 PM CDT - 03/13/20 14 11:59 PM CDT Hospital Encounter HX [facility] FAMILYPRA [place] Chanel marlow M.D. 02/28/20 14 6:53 AM CDT - 02/28/20 14 11:59 PM CDT Hospital Encounter HX [facility] ULTRASOUN Provider, Historical 02/28/20 14 10:53 AM CDT - 02/28/20 14 11:59 PM CDT Hospital Encounter [facility]X [facility] PULM Timmy Horowitz M.D., Ph.D. 02/28/20 14 8:45 AM CDT - 02/28/20 14 11:59 PM CDT Hospital Encounter HX [facility] SURGERY Reece Paige M.D. 10/31/20 13 11:08 AM SPIRAL WINDER - 10/31/20 13 11:59 PM SPIRAL WINDER Hospital Encounter HX [facility] FBHB FAMILYPRA [place] Chanel marlow M.D. 10/24/20 13 10:03 AM SPIRAL WINDER - 10/24/20 13 11:59 PM SPIRAL WINDER Hospital Encounter HX [facility]HB FAMILYPRA [place] Chanel marlow M.D. 10/18/20 13 11:23 AM SPIRAL WINDER - 10/18/20 13 11:59 PM SPIRAL WINDER Hospital Encounter HX [facility] FAMILYPRA Fr[place]dt[place] kotainski, Chanel, M.D. 10/11/20 13 6:16 AM SPIRAL WINDER - 10/13/20 13 11:25 AM SPIRAL WINDER Hospital Encounter HX RST VERONICA LEAHY 5E 10/06/20 13 3:45 PM SPIRAL WINDER - 10/06/20 13 11:59 PM SPIRAL WINDER Hospital Encounter HX [facility] NURSE ONL Chanel Osorio M.D. 09/08/20 13 9:30 AM CDT - 09/08/20 13 11:59 PM CDT Hospital Encounter HX [facility] CARDIOLOG Alka Cervantes M.D. 08/22/20 13 8:13 AM CDT - 08/22/20 13 11:59 PM CDT Hospital Encounter HX [facility] FBHB FRANCISCO Mercado-Chanel Duke M.D. 05/05/20 13 10:55 AM CDT - 05/05/20 13 11:59 PM CDT Hospital Encounter HX [facility] Nando Natarajan M.D. 04/28/20 13 7:04 AM CDT - 04/28/20 13 11:59 PM CDT Hospital Encounter HX [facility] LAB 1 Nando Quinones M.D. 03/29/20 13 9:05 AM CDT - 03/29/20 13 11:59 PM CDT Hospital Encounter HX [facility] LACC FAMILY NC Nando Sargent M.D. 03/07/20 13 9:53 AM CDT - 03/07/20 13 11:59 PM CDT Hospital Encounter HX [facility] ULTRASOUN Provider, Historical 03/07/20 13 10:48 AM CDT - 03/07/20 13 11:59 PM CDT Hospital Encounter HX [facility] Reece Ruth M.D. 03/01/20 13 8:54 AM CDT - 03/01/20 13 11:59 PM CDT Hospital Encounter HX [facility] Nando Natarajan M.D. 01/27/20 13 10:14 AM SPIRAL WINDER - 01/27/20 13 11:59 PM SPIRAL WINDER Hospital Encounter HX [facility] L[facility] Timmy Briceño M.D., Ph.D. 11/01/20 12 9:10 AM SPIRAL WINDER - 11/01/20 12 11:59 PM SPIRAL WINDER Hospital Encounter HX [facility] FAMHLTHCL Nando Quinones M.D. 10/12/20 12 3:17 AM SPIRAL WINDER - 10/12/20 12 7:57 AM SPIRAL WINDER Hospital Encounter HX [facility] EUCC Alex Lemos M.D. 09/06/20 12 10:30 AM CDT - 09/06/20 12 11:59 PM CDT Hospital Encounter [facility]X [facility] SURGERY Reece Paige M.D. 09/06/20 12 9:31 AM CDT - 09/06/20 12 11:59 PM CDT Hospital Encounter HX [facility] ULTRASOUN Provider, Historical 09/06/20 12 8:55 AM CDT - 09/06/20 12 11:59 PM CDT Hospital Encounter HX [facility] CARDIOLOG Tiffany Florez, C.N.P., A.P.N.P. 07/22/20 12 2:10 PM CDT - 07/22/20 12 11:59 PM CDT Hospital Encounter HX [facility] LASK SURGERY Reece Paige M.D. 07/13/20 12 5:51 AM CDT - 07/14/20 12 11:20 AM CDT Hospital Encounter HX [facility] ICU/CCU Reece Paige M.D. 06/28/20 12 2:38 PM CDT - 06/28/20 12 11:59 PM CDT Hospital Encounter HX [facility] LASK SURGERY Reece Paige M.D. 06/10/20 12 11:00 AM CDT - 06/10/20 12 11:59 PM CDT Hospital Encounter HX [facility] LASF CT Provider, Historical 06/08/20 12 4:21 AM CDT - 06/08/20 12 5:35 AM CDT Hospital Encounter HX [facility] EUCC Jw Calvillo M.D. 06/02/20 12 8:19 AM CDT - 06/02/20 12 11:59 PM CDT Hospital Encounter HX [facility] LASK SURGERY Reece Paige M.D. 05/24/20 12 10:30 AM CDT - 05/24/20 12 11:59 PM CDT Hospital Encounter HX [facility] L[facility] FAMHLTHCL Merfeld, Nando, M.D. 05/21/20 12 10:35 AM CDT - 05/21/20 12 11:59 PM CDT Hospital Encounter HX [facility] Nando Natarajan M.D. 05/17/20 12 6:47 AM CDT - 05/17/20 12 11:59 PM CDT Hospital Encounter HX [facility] ULTRASOUN Nando Quinones M.D. 05/04/20 12 2:35 PM CDT - 05/04/20 12 11:59 PM CDT Hospital Encounter HX [facility] ARINAMark Nando Mims M.D. 04/28/20 12 7:42 AM CDT - 04/28/20 12 11:59 PM CDT Hospital Encounter HX [facility] Nando Hardwick M.D. 04/15/20 12 10:03 AM CDT - 04/15/20 12 11:59 PM CDT Hospital Encounter HX [facility] LACC FAMILY ME Nando Sargent M.D. 04/02/20 12 10:14 AM CDT - 04/02/20 12 11:59 PM CDT Hospital Encounter HX [facility] PT Chikis Reid P.TAlexandra, MPT 03/26/20 12 9:49 AM CDT - 03/26/20 12 11:59 PM CDT Hospital Encounter HX [facility] PT Chikis Reid P.TAlexandra, MPT 03/10/20 12 7:46 AM CDT - 03/10/20 12 11:59 PM CDT Hospital Encounter HX [facility] SERENITY Nando iMms M.D. 02/09/20 12 12:40 PM CDT - 02/09/20 12 11:59 PM CDT Hospital Encounter HX [facility] Ronn Ventura, P.A.-Taya. 02/09/20 12 10:12 AM CDT - 02/09/20 12 11:59 PM CDT Hospital Encounter HX [facility] L[facility] Vasu Galvez M.D. 02/06/20 12 11:12 AM CDT - 02/06/20 12 11:59 PM CDT Hospital Encounter HX [facility] MELISAR Vasu Galloway M.D. 02/06/20 12 10:07 AM CDT - 02/06/20 12 11:59 PM CDT Hospital Encounter HX [facility] PMTR Elmira Villegas, PARKING LOT LABORER, A.P.N.P., M.S.N. 02/06/20 12 11:06 AM CDT - 02/06/20 12 11:59 PM CDT Hospital Encounter HX [facility] XRAY Vasu Galloway M.D. 02/05/20 12 7:05 AM CDT - 02/05/20 12 11:59 PM CDT Hospital Encounter [facility]X [facility] MRI Nando Quinones M.D. 02/03/20 12 2:21 PM CDT - 02/03/20 12 11:59 PM CDT Hospital Encounter HX [facility] MALGORZATAMOSHECL Nando Quinones M.D. 11/11/20 11 2:31 PM SPIRAL WINDER - 11/11/20 11 11:59 PM SPIRAL WINDER Hospital Encounter HX [facility] Timmy Briceño M.D., Ph.D. 11/10/20 11 10:06 AM SPIRAL WINDER - 11/10/20 11 11:59 PM SPIRAL WINDER Hospital Encounter HX [facility] FAMHLTHCL Lul Soni M.D. 10/09/20 11 9:04 AM SPIRAL WINDER - 10/09/20 11 11:59 PM SPIRAL WINDER Hospital Encounter HX [facility] LACC FAMILY ME Nando Sargent M.D. 09/09/20 11 2:41 PM CDT Hospital Encounter HX [facility] CARDIOLOG Tiffany Florez C.N.PAlexandra, A.P.N.P. 07/21/20 11 9:06 AM CDT - 07/21/20 11 11:59 PM CDT Hospital Encounter HX [facility] Nando Mims M.D. 07/18/20 11 8:19 AM CDT - 07/18/20 11 11:59 PM CDT Hospital Encounter HX [facility] LAB 2 Tiffany Florez C.N.Jo-Ann., A.P.N.P. 05/30/20 11 8:19 AM CDT - 05/30/20 11 11:59 PM CDT Hospital Encounter HX [facility] CARDCATH Cagin, Alvaro R, D.O. 05/28/20 11 2:58 PM CDT - 05/28/20 11 11:59 PM CDT Hospital Encounter HX [facility] Tiffany Hernández C.N.P., A.P.N.P. 05/28/20 11 1:14 PM CDT - 05/28/20 11 11:59 PM CDT Hospital Encounter HX [facility] CARDIOLOG Tiffany Florez C.N.P., A.P.N.P. 05/27/20 11 7:16 AM CDT - 05/27/20 11 11:59 PM CDT Hospital Encounter HX [facility] Nando Santiago M.D. 05/21/20 11 3:37 PM CDT - 05/21/20 11 11:59 PM CDT Hospital Encounter HX [facility] Nando Natarajan M.D. 05/19/20 11 9:35 AM CDT - 05/19/20 11 11:59 PM CDT Hospital Encounter HX [facility] Nando Mims M.D. 05/19/20 11 8:37 AM CDT - 05/19/20 11 11:59 PM CDT Hospital Encounter [facility]X [facility] Peggy Vidales M.D. 02/22/20 11 9:04 PM CDT - 02/22/20 11 11:44 PM CDT Hospital Encounter HX [facility] Jw Layton M.D. 01/25/20 11 1:59 PM SPIRAL WINDER - 01/25/20 11 11:59 PM SPIRAL WINDER Hospital Encounter HX [facility] Angelica Sanchez M.D. 01/24/20 11 2:18 PM SPIRAL WINDER - 01/24/20 11 11:59 PM SPIRAL WINDER Hospital Encounter HX [facility] MARTITAJigna Mcdowell PT, P.T. 01/22/20 11 11:49 AM SPIRAL WINDER - 01/22/20 11 11:59 PM SPIRAL WINDER Hospital Encounter HX [facility] Ade Rudolph M.D. 01/20/20 11 9:40 AM SPIRAL WINDER - 01/20/20 11 11:59 PM SPIRAL WINDER Hospital Encounter HX [facility] VIKTOR Angelica Chen M.D. 11/11/20 10 10:44 AM SPIRAL WINDER - 11/11/20 10 11:59 PM SPIRAL WINDER Hospital Encounter HX [facility] Chantal Pradhan M.D. 11/06/20 10 1:37 PM SPIRAL WINDER - 11/06/20 10 11:59 PM SPIRAL WINDER Hospital Encounter HX [facility] XRAY Nando Quinones M.D. 11/06/20 10 12:55 PM SPIRAL WINDER - 11/06/20 10 11:59 PM SPIRAL WINDER Hospital Encounter HX [facility] L[facility] MALGORZATAANTONIONando Eubanks M.D. 10/30/20 10 9:05 AM SPIRAL WINDER - 10/30/20 10 11:59 PM SPIRAL WINDER Hospital Encounter HX [facility] LAB 2 Nando Quinones M.D. 10/21/20 10 10:38 AM SPIRAL WINDER - 10/21/20 10 11:59 PM SPIRAL WINDER Hospital Encounter HX [facility] Nando Mims M.D. 09/16/20 10 12:10 PM CDT - 09/16/20 10 8:15 PM CDT Hospital Encounter HX [facility] LASF 3 SURGICAL Peter Willis M.D. 09/13/20 10 10:40 AM CDT - 09/13/20 10 11:59 PM CDT Hospital Encounter HX [facility] Chantal Pradhan M.D. 09/04/20 10 9:48 AM CDT - 09/04/20 10 11:59 PM CDT Hospital Encounter HX [facility] SURGERY Peter Willis M.D. 08/19/20 10 10:09 AM CDT - 08/19/20 10 11:59 PM CDT Hospital Encounter HX [facility] Nando Mims M.D. 07/24/20 10 10:04 AM CDT - 07/24/20 10 11:59 PM CDT Hospital Encounter HX [facility] SURGERY Peter Willis M.D. 07/17/20 10 9:24 AM CDT - 07/17/20 10 11:59 PM CDT Hospital Encounter HX [facility] LAB 2 Nando Quinones M.D. 07/16/20 10 8:50 AM CDT - 07/16/20 10 11:59 PM CDT Hospital Encounter HX [facility] LACC FAMILY ME Nando Sargent M.D. 07/16/20 10 8:13 PM CDT - 07/16/20 10 11:59 PM CDT Hospital Encounter [facility]X [facility] SLEEP LAB Chantal Sun M.D. 07/11/20 10 9:24 AM CDT - 07/11/20 10 11:59 PM CDT Hospital Encounter HX [facility] PULM Chantal Sun M.D. 07/08/20 10 11:04 AM CDT - 07/08/20 10 11:59 PM CDT Hospital Encounter HX [facility] Nando Mims M.D. 06/03/20 10 12:39 PM CDT - 06/03/20 10 11:59 PM CDT Hospital Encounter HX [facility] CVSERVICE Nando Quinones M.D. 05/29/20 10 1:05 PM CDT - 05/29/20 10 11:59 PM CDT Hospital Encounter HX [facility] Nando Mims M.D. 02/14/20 10 9:16 AM CDT - 02/14/20 10 11:59 PM CDT Hospital Encounter [facility]X [facility] SURGERY Peter Willis M.D. 01/18/20 10 10:21 AM SPIRAL WINDER - 01/18/20 10 11:59 PM SPIRAL WINDER Hospital Encounter HX [facility] ULTRASOUN Peter Willis M.D. 01/02/20 10 9:51 AM SPIRAL WINDER - 01/02/20 10 11:59 PM SPIRAL WINDER Hospital Encounter [facility]X [facility] CARDIOLOG Seven Reinoso M.D. 01/02/20 10 10:37 AM SPIRAL WINDER - 01/02/20 10 11:59 PM SPIRAL WINDER Hospital Encounter HX [facility] L[facility] SURGERY Peter Willis M.D. 12/24/19 10 10:27 AM SPIRAL WINDER - 12/24/19 10 11:59 PM SPIRAL WINDER Hospital Encounter HX [facility] LASK Nando Berry M.D. 11/08/20 09 10:54 AM SPIRAL WINDER - 11/08/20 09 11:59 PM SPIRAL WINDER Hospital Encounter HX [facility] MRI Nando Quinones M.D. 11/05/20 09 9:03 AM SPIRAL WINDER - 11/05/20 09 11:59 PM SPIRAL WINDER Hospital Encounter HX [facility] Nando Natarajan M.D. 10/24/20 09 9:11 AM SPIRAL WINDER - 10/24/20 09 11:59 PM SPIRAL WINDER Hospital Encounter HX [facility] LAB 2 Nando Quinones M.D. 10/05/20 09 9:14 AM SPIRAL WINDER - 10/05/20 09 11:59 PM SPIRAL WINDER Hospital Encounter HX [facility] Nando Natarajan M.D. 08/13/20 09 9:33 AM CDT - 08/13/20 09 11:59 PM CDT Hospital Encounter HX [facility] Reece Cano M.D. 08/09/20 09 11:08 AM CDT - 08/09/20 09 11:59 PM CDT Hospital Encounter [facility] Nando Natarajan M.D. 08/02/20 09 9:05 AM CDT - 08/02/20 09 11:59 PM CDT Hospital Encounter [facility] Reece Cano M.D. 08/02/20 09 7:36 AM CDT - 08/02/20 09 11:59 PM CDT Hospital Encounter [facility] Colt Gutierrez M.D. 07/10/20 09 10:20 AM CDT - 07/10/20 09 11:59 PM CDT Hospital Encounter [facility] Nando Natarajan M.D. 06/21/20 09 10:28 AM CDT - 06/21/20 09 11:59 PM CDT Hospital Encounter [facility] Tommy Mulligan, FavianTMunira 06/20/20 09 1:58 PM CDT - 06/20/20 09 11:59 PM CDT Hospital Encounter [facility] Nando Berry M.D. 06/18/20 09 8:40 AM CDT - 06/18/20 09 11:59 PM CDT Hospital Encounter [facility] Reece Cano M.D. 06/18/20 09 10:37 AM CDT - 06/18/20 09 11:59 PM CDT Hospital Encounter [facility] Tommy Sidhu, P.T.A. 06/15/20 09 10:37 AM CDT - 06/15/20 09 11:59 PM CDT Hospital Encounter [facility] Tommy Sidhu, P.T.A. 06/12/20 09 10:07 AM CDT - 06/12/20 09 11:59 PM CDT Hospital Encounter [facility] Tommy Sidhu, P.T.A. 06/06/20 09 9:50 AM CDT - 06/06/20 09 11:59 PM CDT Hospital Encounter [facility] Michele Parham, P.T. 06/04/20 09 11:16 AM CDT - 06/04/20 09 11:59 PM CDT Hospital Encounter [facility] Nando Mims M.D. 06/04/20 09 9:45 AM CDT - 06/04/20 09 11:59 PM CDT Hospital Encounter [facility] Tommy Sidhu, P.T.A. 05/30/20 09 10:49 AM CDT - 05/30/20 09 11:59 PM CDT Hospital Encounter [facility] Michele Parham, P.T. 05/28/20 09 10:47 AM CDT - 05/28/20 09 11:59 PM CDT Hospital Encounter [facility]X [facility] LASMichele West PT, P.T. 05/25/20 09 9:52 AM CDT - 05/25/20 09 11:59 PM CDT Hospital Encounter [facility] Michele Schmitz, P.T. 05/22/20 09 11:15 AM CDT - 05/22/20 09 11:59 PM CDT Hospital Encounter [facility]X [facility] LASTommy Rodrigues PT, P.T.A. 05/21/20 09 11:08 AM CDT - 05/21/20 09 11:59 PM CDT Hospital Encounter [facility] Nando Berry M.D. 05/21/20 09 3:46 PM CDT - 05/21/20 09 11:59 PM CDT Hospital Encounter [facility] FAMHLTHCL Leela Guthrie M.D. 05/17/20 09 11:43 AM CDT - 05/17/20 09 11:59 PM CDT Hospital Encounter [facility] Tommy Sidhu P.T.A. 05/15/20 09 9:10 AM CDT - 05/15/20 09 11:59 PM CDT Hospital Encounter [facility] Ijeoma Lazo P.T. 05/08/20 09 8:30 AM CDT - 05/12/20 09 10:00 AM CDT Hospital Encounter [facility] SURGICAL Nando Collins M.D. 04/30/20 09 8:03 AM CDT - 04/30/20 09 9:53 AM CDT Hospital Encounter [facility] EUCC Ranjan Montes M.D. 04/24/20 09 9:02 AM CDT - 04/24/20 09 11:59 PM CDT Hospital Encounter HX NO MAPPING Nando uQinones M.D. 04/23/20 09 9:17 AM CDT - 04/23/20 09 11:59 PM CDT Hospital Encounter [facility] Nando Mims M.D. 04/23/20 09 11:07 AM CDT - 04/23/20 09 11:59 PM CDT Hospital Encounter [facility] Nando Hermosillo M.D. 03/14/20 09 Hospital Encounter [facility] ORTHO Nando Collins M.D. 02/29/20 09 12:54 PM CDT Hospital Encounter [facility] ENDOSCOPY Ranjan Platt M.D. 02/21/20 09 10:19 AM CDT Hospital Encounter [facility] Nando Hermosillo M.D. 02/21/20 09 Hospital Encounter [facility] Nando Mims M.D. 12/01/19 09 Hospital Encounter [facility] C[facility] Tiffany Florez, C.N.P., A.P.N.P. 12/01/19 09 Hospital Encounter [facility] VIKTOR Nando Quinones M.D. 10/03/20 08 Hospital Encounter [facility] PODIATRY Pratik Plaza D.P.M. 10/02/20 08 Hospital Encounter [facility] FAMHLTHCL Nando Quinones M.D. 09/06/20 08 Hospital Encounter [facility] SURGERY Peter Willis M.D. 09/05/20 08 9:38 AM CDT Hospital Encounter [facility] XRPeter Ordonez M.D. 04/18/20 08 Hospital Encounter [facility] FAMHLTHCL Nando Quinones M.D. 04/05/20 08 Hospital Encounter [facility] Peter Willis M.D. 03/27/20 08 9:59 AM CDT Hospital Encounter [facility] XRNando Jnasen M.D. 03/16/20 08 Hospital Encounter [facility] FAMJONNYTHCL Nando Quinones M.D. 02/14/20 08 Hospital Encounter [facility] FAMHLTHCL Nando Quinones M.D. 01/12/20 08 Hospital Encounter [facility] ENT Kiley Smith, P.A. 12/28/19 08 Hospital Encounter [facility] FAMHLTHCL Nando Quinones M.D. 12/10/19 08 Hospital Encounter [facility] Tiffany Florez C.N.PAlexandra, A.P.N.P. 12/03/19 08 Hospital Encounter [facility] Ranjan Mcdermott M.D. 12/01/19 08 Hospital Encounter [facility] Shashank Sandoval M.D. 11/09/20 07 7:21 AM SPIRAL [facility]INDER - 11/09/20 07 5:10 PM SPIRAL WINDER Hospital Encounter [facility]/CCU Seven Reinoso M.D. 11/02/20 07 Hospital Encounter [facility] Tiffany Florez C.N.P., A.P.N.P. 10/25/20 07 7:16 AM SPIRAL WINDER Hospital Encounter [facility] CVSERVNando Martinez, M.D. 10/22/20 07 9:56 AM SPIRAL WINDER Hospital Encounter [facility] CVSERVNando Martinez M.D. 09/07/20 07 Hospital Encounter [facility] Nando Quinones M.D. 09/07/20 07 Hospital Encounter [facility] Peter Willis M.D. 09/03/20 07 10:16 AM CDT Hospital Encounter [facility] XRAY Peter Willis M.D. 08/18/20 07 Hospital Encounter [facility] Gladys Duong APRN C.N.PAlexandra 08/13/20 07 Hospital Encounter [facility] Carlene Guo C.N.P., A.P.N.P., F.N.P., R.N. 06/30/20 07 Hospital Encounter [facility] Peter Willis M.D. 06/02/20 07 7:27 AM CDT - 06/02/20 07 5:45 PM CDT Hospital Encounter [facility] 7 MEDICAL Peter Willis M.D. 05/19/20 07 Hospital Encounter [facility] Ade Herrera M.D. 05/14/20 07 5:13 PM CDT Hospital Encounter [facility] EUC Cuba Mcintosh M.D. 05/05/20 07 Hospital Encounter [facility] Peter Willis M.D. 05/03/20 07 4:17 PM CDT Hospital Encounter [facility] XRAY Peter Willis M.D. 03/02/20 07 10:08 AM CDT Hospital Encounter [facility] XRAY Peter Willis M.D. 02/18/20 07 Hospital Encounter [facility] Peter Willis M.D. 02/06/20 07 Hospital Encounter [facility] Rosario Doherty M.D. 01/06/20 07 Hospital Encounter [facility] Shashank Sandoval M.D. 11/27/19 07 Hospital Encounter [facility] Nando Quinones M.D. 11/20/20 06 Hospital Encounter [facility] Cuba Mayes M.D. 11/09/20 06 Hospital Encounter [facility] Ranjan Mcdermott M.D. 11/05/20 06 Hospital Encounter [facility] Ranjan Mcdermott M.D. 09/15/20 06 Hospital Encounter [facility] Shashank Sandoval M.D. 08/26/20 06 Hospital Encounter [facility] Ade Herrera M.D. 06/10/20 06 Hospital Encounter [facility] Torie-Ting Gao D.P.M. 05/22/20 06 Hospital Encounter [facility] Cuba Mayes M.D. 05/06/20 06 Hospital Encounter [facility] SkPeter krueger M.D. 05/04/20 06 Hospital Encounter [facility] Ade Herrera M.D. 04/30/20 06 8:26 AM CDT Hospital Encounter [facility] Alvaro Del Rosario D.O. 03/30/20 06 Hospital Encounter [facility] Shashank Sandoval M.D. 03/23/20 06 7:00 AM CDT Hospital Encounter [facility] CVSERVICE Provider, Historical 01/22/20 06 7:00 AM SPIRAL WINDER - 03/16/20 06 7:00 AM CDT Hospital Encounter [facility] CVSERVICE Provider, Historical 03/04/20 06 Hospital Encounter [facility] Shashank Sandoval M.D. 01/19/20 06 9:00 AM SP[facility]ER Hospital Encounter [facility] CVSERVICE Xuan Meraz M.D. 01/16/20 06 Hospital Encounter [facility] Ranjan Mcdermott M.D. 11/28/19 06 9:22 AM SPIRAL WINDER - 01/16/20 06 9:22 AM SPIRAL WINDER Hospital Encounter [facility] CVSERVICE Provider, Historical 12/29/19 06 Hospital Encounter [facility] Alvaro Ruiz D.O. 12/19/19 06 Hospital Encounter [facility] SUR[facility] Provider, Historical 12/11/19 06 9:47 AM SP[facility]AL [facility]ER Hospital Encounter [facility] Xuan Duarte M.D. 12/03/19 06 Hospital Encounter [facility] MENTALMoses Schrader Psy.D., L.P. 11/28/19 06 Hospital Encounter [facility] Ranjan Mcdermott M.D. 11/20/20 05 11:09 PM SPIRAL WINDER - 11/22/20 05 12:36 PM SP[facility]AL WINDER Hospital Encounter [facility]/CCU Ade Herrera M.D. 11/11/20 05 Hospital Encounter [facility] Roya Tran P.Emily.-C., P.A. 10/13/20 05 Hospital Encounter HX NO MAPPING Jared Hobson M.D. 07/20/20 05 - 07/20/20 05 11:59 PM CDT Hospital Encounter HX NO MAPPING 05/19/20 05 Hospital Encounter [facility]X [facility] Roya Tran P.Emily.-C., P.A. 01/31/20 05 - 01/31/20 05 11:59 PM SPIRAL WINDER Hospital Encounter HX NO MAPPING 11/29/19 04 Hospital Encounter [facility]X [facility] Roya Tran, P.A.-C., P.A. 05/09/20 03 Hospital Encounter [facility]X [facility] Roya Tran P.A.-C., P.A. 10/15/20 02 5:05 PM SPIRAL WINDER - 10/18/20 02 12:42 PM SPIRAL WINDER Hospital Encounter HX RST GRANT 4C 10/15/20 02 - 10/15/20 02 11:59 PM SPIRAL WINDER Hospital Encounter HX NO MAPPING 03/08/20 02 Hospital Encounter [facility]X [facility] Roya Tran P.Emily.-C., P.A. 01/07/20 02 Hospital Encounter [facility]X [facility] Roya Tran P.A.-C., P.A. 03/23/20 8:32 PM CDT - 03/24/20 11:59 AM CDT Hospital Encounter HX RST EMERGENCY TRAUMA UNI 11/30/19 Hospital Encounter [facility]X [facility] N[facility] Orellana M.D. Allergies Active Allergy Reactions Criticality Noted Date Comments Atorvastatin Other (see comments) 05/08/2009 Lisinopril Other (see comments) 05/08/2009 Simvastatin Other (see comments),Myalgia 05/08/2009 Iodinated Contrast Media Rash 07/07/2017 on face- been doing medrol before use Fcssswy-Tci-Rev Reductase Inhibitors Myalgia 10/26/2013 Statins-muscle aches Adhesive Tape-Silicones Rash 09/02/2018 Pollen Extracts Other (see comments) High 02/26/2022 Cough, plugged nose, watery eyes from seasonal allergies per patient report Medications acetaminophen (for_TYLENOL) 500 mg tablet Take 1,000 mg by mouth as needed. 04/18/20 [address] Active aspirin [address] tablet Take 1 tablet by mouth daily with breakfast. 07/27/20 13 Active multivitamin capsule Take 1 tablet by mouth daily. 07/13/20 17 Active omega-3 fatty acids 300 mg capsule Take by mouth daily. Active ascorbic acid, vitamin C, (VITAMIN C) 500 mg tablet Take 500 mg by mouth daily. Active cholecalcifero l, vitamin D3, 25 mcg (1,000 Unit) tablet Take 25 mcg by mouth daily. Active DME CPAPIndication s:Apnea Sleep Obstructive DME Order 1 each 11 07/18/20 21 Active polyethylene glycol (MIRALAX) 17 gram powder packet Take 17 g by mouth as needed for constipation. Dissolve each 17 g dose in 240 mLs (8 ounces) of beverage. Active codeine-guaiFE Nesin (ROBITUSSIN-AC ) 10-100 mg/5 mL liquid As needed Active carboxymethylc i-buxduqjb-gaq ysorbate 80 (Refresh Digital) 0.5-1-0.5 % ophthalmic solution Administer 1 drop into both eyes 2 (two) times a day as needed. Active ALPRAZolam (XANAX) 0.25 mg tablet Take 1 tablet (0.25 mg total) by mouth 2 (two) times a day as needed for anxiety. 15 tablet 03/18/20 24 Active nitroglycerin (Nitrostat) 0.[address] 1 tablet (0.4 mg total) under the tongue every 5 (five) minutes as needed for chest pain. 25 tablet 06/22/20 24 Active amLODIPine (Norvasc) 2.5 mg tablet Take 1 tablet (2.5 mg total) by mouth daily. 90 tablet 3 06/22/20 24 Active losartan (Cozaar) 100 mg tablet Take 1 tablet (100 mg total) by mouth daily. 90 tablet 3 06/22/20 24 025 Active carvediloL (Coreg) 12.5 mg tablet Take 1 tablet (12.5 mg total) by mouth 2 (two) times a day with meals. 180 tablet 3 06/22/20 24 Active lovastatin (Mevacor) 40 mg tablet Take 1 tablet (40 mg total) by mouth daily. 90 tablet 3 06/22/20 24 025 Active tamsulosin (Flomax) 0.4 mg 24 hr capsule Take 1 capsule (0.4 mg total) by mouth daily. 90 capsule 3 06/22/20 24 Active diphenhydrAMIN E (BenadryL) 25 mg capsule 1 hour prior to pain procedure 1 capsule 09/27/20 24 Active carbidopa-levo dopa (Sinemet) 25-100 mg per tablet Take 1 tablet by mouth 3 (three) times a day. 270 tablet 3 10/27/20 24 Active ciprofloxacin (Cipro) 500 mg tablet Take 500 mg by mouth 2 (two) times a day before morning and evening meals. Active budesonide (Pulmicort) 0.5 mg/2 mL nebulizer solution ADMINISTER 2 ML INTO NOSTRILS TWICE DAILY RINSE MOUTH WITH WATER AFTER USE REDUCE AFTERTASTE AND INCIDENCE OF CANDIDIASIS DO NOT SWALLOW. Code R09.81 nasal congestion and R05.9 cough 360 mL 12/05/19 25 Active fluticasone propionate (Flonase) 50 mcg/actuation nasal spray Administer 2 sprays into each nostril daily. 16 g 11 12/28/19 25 Active trospium (Sanctura) 20 mg tablet TAKE 1 TABLET(20 MG) BY MOUTH TWICE DAILY NEEDED FOR BLADDER SPASMS 180 tablet 2 01/11/20 25 Active oxyCODONE (Roxicodone) 5 mg immediate release tabletIndicati ons:Chronic Pain/Nonacute Pain Take 1 tablet (5 mg total) by mouth at bedtime as needed for pain Indication: Chronic Pain/Nonacute Pain. 30 tablet 01/16/20 25 025 Active HYDROcodone-ac etaminophen ([place]) 5-325 mg per tabletIndicati ons:Chronic Pain/Nonacute Pain Take 1 tablet by mouth every 4 (four) hours as needed for pain Indication: Chronic Pain/Nonacute Pain. 30 tablet 09/27/20 24 025 Discontinued oxyCODONE (Roxicodone) 5 mg immediate release tabletIndicati ons:Chronic Pain/Nonacute Pain Take 0.5-1 tablets (2.5-5 mg total) by mouth at bedtime as needed for pain Indication: Chronic Pain/Nonacute Pain. 15 tablet 12/13/19 25 025 Discontinued(R eorder) oxyCODONE (Roxicodone) 5 mg immediate release tabletIndicati ons:Chronic Pain/Nonacute Pain Take 0.5-1 tablets (2.5-5 mg total) by mouth at bedtime as needed for pain Indication: Chronic Pain/Nonacute Pain. 7 tablet 12/28/19 25 025 Discontinued(R eorder) oxyCODONE (Roxicodone) 5 mg immediate release tabletIndicati ons:Chronic Pain/Nonacute Pain Take 0.5-1 tablets (2.5-5 mg total) by mouth at bedtime as needed for pain for up to 8 days Indication: Chronic Pain/Nonacute Pain. 8 tablet 01/09/20 25 025 Discontinued(R eorder) trospium (Sanctura) 20 mg tablet Take 1 tablet (20 mg total) by mouth 2 (two) times a day as needed (As needed for bladder spasms). 60 tablet 01/10/20 25 025 Discontinued Hospital, Clinic, or Other Facility Administered Medication Ordered Dose Route Frequency Start Date End Date Status Lactated Ringer'sIndications:Spondylo sis Lumbar Without Myelopathy 20 mL/hr IV Continuous 01/14/2024 Active Active Problems Patient Care Coordination No te Formatting of this note migh t be different from the original. JUANA on file for: spouse malissa herrera Cell #: [phone] JUANA good for life time unless patients revokes Problem Noted Date Diagnosed Date Stenosis Spinal 12/13/2024 Hematuria 12/09/2024 Mass Bladder 12/09/2024 Obesity Body Mass Index 30-39.9 Adult 03/28/2024 Parkinson's Disease Without Dyskinesia, Without Mention Of Fluctuations 12/24/2023 Tremor 05/05/2022 Beat Premature Ventricular 04/18/2022 Spondylosis Lumbar Without Myelopathy 02/26/2022 Pain Low Back Mechanical 10/10/2021 Radiculopathy 05/14/2021 Hypercholesterolemia 06/13/2016 Apnea Sleep Obstructive 06/13/2016 Overview (10/24/2021): -CPAP Peripheral Arterial Disease 04/12/2015 Spinal Stenosis Lumbosacral Region 04/10/2015 Anxiety 10/16/2014 Cancer Skin Squamous Cell Personal History 04/21 Overview (03/12/2022): Invasive SCC (Squamous Cell Carcinoma), left scalp. Wide excision performed with negative margins on frozen section by Dr. Timothy Garcia in [place], [place]. 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 09/28/2013 DJD (OA) Knee NOS 05/08/2009 Atherosclerotic Heart Diseas e Of [place] Coronary Artery Without Angina Pectoris 04/23/2009 Hypertensive Heart Disease With Heart Failure Resolved Problems Problem Noted Date Diagnosed Date Resolved Date Pain Buttock 10/10/2021 10/16/2021 Parkinsonism Unspecified 02/26/202111/2023 History Of Falling 02/06/2021 Follow Up Examination Status Post Surgery 02/25/2019 03/28/2024 Pain Back Lumbar 11/23/2017 05/31/2020 Endarterectomy Carotid Status Post 05/25/2017 05/31/2020 Urinary Tract Infection (UTI)/Bacteriuria NOS 03/30/20 17 10/29/2020 Overview (12/22/2022): Diagnosis Maintenance Updates Drug Induced Erectile Dysfunction 06/30/2016 05/31/2020 Abdominal Aortic Aneurysm Wi thout Rupture Unspecified 04/12/2015 05/31/2020 Malignant Neoplasm Of Scalp Squamous Cell 04/21/2014 05/31/2020 Appendectomy Status Post 04/11/201407/2020 Stenosis Carotid Artery 06/30/2012 1205/2020 Arthroplasty Total Knee Repl acement Status Post 12/22/2009 05/31/2020 Arthroplasty Total Knee Repl acement Status Post Left 10/10/2009 05/31/2020 Restless Leg Syndrome 06/05/20092019 Peripheral Vascular Disease 04/23/2009 05/31/2020 Overview (04/14/2017): Peripheral vascular disease NOS Osteoarthritis 04/23/2009 05/31/2020 Hypertension 10/23/2003 05/31/2020 Coronary Artery Disease With out Angina Pectoris 10/23/2003 10/29/2020 Immunizations Immunization Administration Dates Next Due H1N1 All Forms 11/05/2009 HZV (ZOSTAVAX) 05/04/2012 HepB Adult 04/03/2005,12/17/2004,10/31/2004 Influenza Split 10/22/2015, 4,09/23/2003,2000 Influenza high dose QV(65 ye ars or older) (PF) 09/11/2023,09/19/2022,09/26/2021,2019 Influenza, Seasonal, Injectable 10/01/20 12,09/15/2011,09/10/2009,2007,09/07/2007,09/15/2006,09/23/2004,1 11/23/2002,08/23/2001 Influenza, Unspecified 09/11/2017,2015,08/29/2014,2012,10/01/2012,09/15/2011,10/21/2010,1 ,10/02/2008,09/07/2007, 006 PCV13 07/04/2015 PPSV23 09/15/2006,10/23/2003 RSV: respiratory syncytial v irus (AREXVY) recombinant vaccine 09/20/2024 RZV (SHINGRIX) 10/11/2022, 1,04/01/2021(Deferr ed: Patient Refused) SARS-COV-2 (COVID-19) - PFIZ ER (Discontinued)(12 years or older) 01/19/2021,12/29/2020 SARS-COV-2 (COVID-19) - PFIZ ER BIVALENT TS(Discontinued)(12 YEARS OR OLDER) 05/06/2023(Deferred: Patient decision),09/19/2022 SARS-COV-2 (COVID-19) - PFIZ ER TS(Discontinued)(12 years or older) 03/03/2022 SARS-COV-2 (COVID-19),NON-US,Unspecified(HISTORI JO) 08/05/2024,09/11/2023 Td (Adult), adsorbed 10/23/2003,08/16/1992 Td, (Adult) Unspecified 08/16/1992 Tdap 05/06/2023(Deferred: Patient decision),05/04/2012,10/23/2003 influenza trivalent high dos e (HD)(PF) 08/05/2024,09/05/2019,08/27/2018,2016 Family History Medical History Relation Name Comments Obesity, Unspecified Daughter Shelia Coronary artery disease Father Abhay Peripheral vascular disease Father Abhay Brain cancer Half-Brother Sukhdeep Cancer Half-Brother Sukhdeep Colon cancer Half-Sister Christy Coronary artery disease Mother Angela Foley hardening of the arteries Paternal Grandmother Stroke Sister Violet Heart disease Son 1 Eusebio Heart valve disorder Son 1 Eusebio Hypertension Son 2 Elroy No Known Problems Son 3 Milo Relation Name Status Comments Daughter Gerrisamantha Alive Father Abhay Half-Brother Sukhdeep Half-Sister Christy Alive Mother Bhumi Paternal Grandmother Sister Violet Alive Son 1 Eusebio Alive Son 2 Elroy Alive Son 3 Milo Alive Social History Smoking Status as of 01/14/2025 Tobacco Use Types Packs/Day Years Used Date Smoking Tobacco: Never Assessed [facility] Utilities Answer Date Recorded In the past 12 months has e electric, gas, oil, or water [employer] threatened to shut off services in your home? No 03/26/2024 Humiliation, Afraid, Rape, and Kick questionnair e Answer Date Recorded Within the last year, have y ou been afraid of your partner or ex-partner? No 05/06/2023 Within the last year, have y ou been humiliated or emotionally abused in other ways by your partner or ex-partner? No Within the last year, have y ou been kicked, hit, slapped, or otherwise physically hurt by your partner or ex-partner? No 05/06/2023 Within the last year, have y ou been raped or forced to have any kind of sexual activity by your partner or ex-partner? No 05/06/2023 Social Connection and Isolat ion Panel [NHANES] Answer Date Recorded In a typical week, how many times do you talk on the phone with family, friends, or neighbors? More than three times a week 03/20/2023 How often do you get togethe r with friends or relatives? More than three times a week 03/20/2023 How often do you attend chur or latter day services? More than 4 times per year 03/20/2023 Do you belong to any clubs o r organizations such as samaritan groups, unions, fraternal or athletic groups, or school groups? Yes 03/20/2023 How often do you attend meet ings of the clubs or organizations you belong to? 1 to 4 times per year 03/20/2023 Are you , , di vorced, , never , or living with a partner? 03/20/2023 AUDIT-C Answer Date Recorded Q1: How often do you have a drink containing alc ohol? Never 03/20/2023 Average Number of Drinks Not on file 023 Frequency of Binge Drinking Not on file 02/22 Overall Financial Resource Strain (CARDIA) Answe r Date Recorded How hard is it for you to pa y for the very basics like food, housing, medical care, and heating? Not hard at all 05/06/2023 PHQ-2 Answer Date Recorded PHQ-2 Score 0 06/22/2024 [facility] - Occupational Stress Questionnaire Answer Date Recorded Do you feel stress - tense, restless, nervous, or anxious, or unable to sleep at night because your mind is troubled all the time - these days? To some extent 03/20/2023 Exercise Vital Sign Answer Date Recorde d On average, how many days pe r week do you engage in moderate to strenuous exercise (like a brisk walk)? 0 days 03/26/2024 On average, how many minutes do you engage in exercise at this level? 0 min 03/26/2024 Hunger Vital Sign Answer Date Recorded Within the past 12 months, y ou worried that your food would run out before you got the money to buy more. Never true 03/26/20 24 Within the past 12 months, t he food you bought just didn't last and you didn't have money to get more. Never true 03/26/2024 PRAPARE - Transportation Answer Date Re corded In the past 12 months, has l ack of transportation kept you from medical appointments or from getting medications? No 02/2024 In the past 12 months, has l ack of transportation kept you from meetings, work, or from getting things needed for daily living? No 03/26/2024 Nutrition Answer Date Recorded On average, how many serving s of fruits and vegetables do you eat per day (serving size is equal to 1 cup or approximately the size of a tennis ball)? 3-5 03/26/2024 Dental Answer Date Recorded Dental: Regular Dentist Yes 11/22/20 Employment Answer Date Recorded Employment status Retired 03/26/2024 Housing Stability Answer Date Recorded What is your living situation today? I have a [facility] place to live 03/26/2024 Education Answer Date Recorded What is the highest level of school you have completed or the highest degree you have received? 11th grade 05/01/2021 Sex and Gender Information Value Date Recorded Sex Assigned at Male 08/20/2021 9:04 AM CDT Legal Sex Male 12:46 AM SPIRAL W[facility]ER Gender Identity Not on file Sexual Orientation Not on file Last Filed Vital Signs Vital Sign Reading Time Taken Comments Blood Pressure 141/59 01/10/2025 11:00 AM SPIRAL WINDER Pulse 94 01/10/2025 11:10 AM SPIRAL WINDER Temperature 36.5 C (97.7 F) 01/10/2025 9:37 AM SPIRAL WINDER Respiratory Rate 14 01/10/2025 11:10 AM SPIRAL WINDER Oxygen Saturation 60% 01/10/2025 11:10 AM SPIRAL WINDER Inhaled Oxygen Concentration - - Weight 86.2 kg (190 lb) 12/29/2024 2:08 PM SPIRAL WINDER Height 172.7 cm (5' 8) 12/29/2024 2:08 PM SPIRAL WINDER Body Mass Index 28.89 12/29/2024 2:08 PM SPIRAL WINDER Plan of Treatment Upcoming Encounters Date Type Department Care Team (Late st Contact Info) Description 01/19/2025 9:00 AM SPIRAL WINDER Procedure visit Department of Urology in [place], [place] [address] [place] [phone] Laurence Wilkins M.D. [address] [place] [phone] 02/14/2025 10:00 AM CDT Comprehensive Visit Department of Neurologic Surgery in [place], [place] [address] [place] [address] [phone] Lalit Deshpande M.D. [address] [place] [phone] 02/14/2025 11:00 AM CDT Office Visit Division of Pain Medicine in [place], [place] [address] [place] [address] [phone] Cooper Arevalo, NAEEM, C.N.P., M.S. [address] [place] [phone] 06/23/2025 8:10 AM CDT Appointment Department of Laboratory Medicine in [place], [place] [address] [place] [phone] Kimani Canada, P.A.-C. [address] [place] [phone] 06/26/2025 10:00 AM CDT Office Visit Department of Family Medicine, [facility], in [place], [place] [address] [place] [phone] Kimani Canada, P.A.-C. [address] [place] [phone] Medical Devices Implanted Type Area Meter Reading Clerk Device Identifier Shelf Expiration Date Model / Serial / Lot Conversions - Default Historical Implant Device Implanted:12/2014 (Quantity not on file) Cardiac Stent Description:Device Status Te xt - Cardiac. Conversions - Default Historical Implant Device Implanted:12/2014 (Quantity not on file) Knee Implant Left: Knee Description:Body Location - Knee L. Device Status Text - Knee Imp. Patch Pericardial Supple 8x14 - [place] [id number] Implanted:Qty: 1 on 10/11/2013 Mesh or Patch Other/Legacy - See Implant Description Synovis Description:Device Manufactu rer - Synovis. Body Location - Vascular. Device Status Text - [id number]. Patch Vasc Bovine.08cm X 8cm - [place] [id number] Implanted:Qty: 1 on 07/09/2017 Mesh or Patch Other/Legacy - See Implant Description Synovis Description:Device Manufactu rer - Synovis. Body Location - Other. Vascular. Device Status Text - [id number]. Cement Bone Small - [place] [id number] Implanted:Qty: 1 on 11/27/2015 Misc Other [place] Description:Device Manufactu rer - [place] Radha.. Device Status Text - [id number]. Ocular (Eye) Implant- 015 Implanted:12/2014 (Quantity not on file) Ocular (Eye) Implant Bilateral: Eye Description:cataract Bio Versadial Taper Adptr - [place] [id number] Implanted:Qty: 1 on 11/27/2015 Shoulder Implant Other/Legacy - See Implant Description BioMet Description:Device Manufactu rer - [employer]omet [employer]. Body Location - Other. Left. Device Status Text - [id number]. Bio. Comp Micro Stem 12mm - [place] [id number] Implanted:Qty: 1 on 11/27/2015 Shoulder Implant Other/Legacy - See Implant Description BioMet Description:Device Manufactu rer - [employer]. Body Location - Other. Left. Device Status Text - [id number]. Biomet-Glenoid Hybrid 4mm Large - [place] [id number] Implanted:Qty: 1 on 11/27/2015 Shoulder Implant Other/Legacy - See Implant Description BioMet Description:Device Manufactu rer - Biomet Inc. Body Location - Other. Left. Device Status Text - [id number]. Bio Versadial [id number] Hh - [place] [id number] Implanted:Qty: 1 on 11/27/2015 Shoulder Implant Other/Legacy - See Implant Description BioMet Description:Device Manufactu rer - [employer]. Body Location - Other. Left. Device Status Text - [id number]. Biomet-Post Glenoid Hybrid - [place] [id number] Implanted:Qty: 1 on 11/27/2015 Shoulder Implant Other/Legacy - See Implant Description BioMet Description:Device Manufactu rer - Biomet Inc. Body Location - Other. Left. Device Status Text - [id number]. Stnt Uret 2pigtl Prc 4.8fx24 - [id number] Implanted:Qty: 1 on 01/10/2025 by Lluvia Melissa M.B., B.Ch. at [facility] Ureteral Stent Left: Ureter [employer] [id number] 07/04/2027 [id number] / / [id number] Conversions - Default Historical Implant Device Implanted:12/2014 (Quantity not on file) Vascular Graft Description:Device Status Te xt - VascGraft. Stent Protege Gps 10 X 60 X120 - [place] [id number] Implanted:Qty: 1 on 07/09/2017 Vascular Graft Other/Legacy - See Implant Description ev3 Description:Device Manufactu rer - EV3. Body Location - Other. Vascular. Device Status Text - [id number]. Conversions - Default Historical Implant Device Implanted:12/2014 (Quantity not on file) Vascular Stent Other/Legacy - See Implant Description Description:Device Status Te xt - Vascular. Procedures Procedure Name Priority Date/Time Associated Diagnosis Comments FL FLUORO LESS THAN 1 HOUR RAD - Routine (most inpatients and all outpatients) 01/10/2025 9:25 AM [facility]AL [facility]ER SURGICAL PATHOLOGY Routine 01/10/2025 8:15 AM SP[facility]AL [facility]ER Hematuria LDA ANE ENDOTRACHEAL AIRWAY Routine 01/10/2025 7:59 AM SP[facility]AL W[facility]ER CYSTOURETHROSCOPY WITH PLACEMENT URETERAL STENT 01/10/2025 7:33 AM SP[facility]AL WINDER Hematuria Special Needs Katheryn primary. RETROGRADE PYELOGRAM 01/10/2025 7:33 AM SPIRAL WINDER Hematuria Special Needs Katheryn primary. CYSTOSCOPY WITH TRANSURETHRAL RESECTION LESION BLADDER 01/10/2025 7:33 AM SPIRAL WINDER Hematuria Special Needs [facility]atheryn primary. SURGERY IMAGE EXAM Routine 01/10/2025 6:20 AM SPIRAL [employer]ER URINALYSIS WITH MICROSCOPIC Routine 12/27/2024 10:00 AM SPIRAL W[employer]ER Hematuria BACTERIAL CULTURE, AEROBIC + SUSC, URINE Routine 12/27/2024 10:00 AM SPIRAL [employer]ER Hematuria MR ABDOMEN PELVIS UROGRAM WITHOUT AND WITH IV CONTRAST RAD - Routine (most inpatients and all outpatients) 12/07/2024 1:50 PM SP[employer]AL [employer]ER Hematuria CREATININE WITH EGFR, S/P Routine 12/05/2024 3:14 PM SP[employer]AL W[employer]ER Hematuria CYTOLOGY NON-WARD MAID (SCHEDULED) Routine 12/05/2024 3:00 PM SP[employer]AL [employer]ER Hematuria URINALYSIS WITH MICROSCOPIC Routine 12/05/2024 3:00 PM SP[employer]AL [employer]ER Hematuria BACTERIAL CULTURE, AEROBIC + SUSC, URINE Routine 12/05/2024 3:00 PM [employer] Hematuria BMD BONE DENSITY SPINE HIPS RAD - Routine (most inpatients and all outpatients) 10/26/2024 1:58 PM [employer]ER Radiculopathy Pain Low Back Mechanical DX LUMBAR SPINE 4+ VIEWS RAD - Routine (most inpatients and all outpatients) 10/26/2024 12:48 PM [employer]ER Radiculopathy Pain Low Back Mechanical MR LUMBAR SPINE WITHOUT IV CONTRAST RAD - Routine (most inpatients and all outpatients) 09/28/2024 4:27 PM [employer]AL [employer]ER Radiculopathy Lumbar ECG Routine 08/10/2024 11:50 AM CDT Palpitations URO UROFLOW Routine 08/03/2024 10:15 AM CDT Benign Prostatic Hyperplasia Without Obstruction NT-PRO B-TYPE NATRIURETIC PEPTIDE (BNP), S Routine 07/27/2024 2:03 PM CDT Frequency Urinary HEMOGLOBIN A1C, B Routine 07/27/2024 2:03 PM CDT Frequency Urinary BASIC METABOLIC PANEL, S/P Routine 07/27/2024 2:03 PM CDT Frequency Urinary URINALYSIS WITH MICROSCOPIC Routine 07/27/2024 1:06 PM CDT Frequency Urinary BACTERIAL CULTURE, AEROBIC + SUSC, URINE Routine 07/27/2024 1:06 PM CDT Frequency Urinary COMPREHENSIVE METABOLIC PANEL, S/P Routine 06/22/2024 8:00 AM CDT 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) Encounter For Screening For Cardiovascular Disorders LIPID PANEL, S Routine 06/22/2024 8:00 AM CDT 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) Encounter For Screening For Cardiovascular Disorders FL LUMBAR SPINE INTERLAMINAR EPIDURAL INJECTION RAD - Routine (most inpatients and all outpatients) 06/15/2024 11:40 AM CDT Radiculopathy LOWER EXTREMITY ARTERIAL (VARGAS) - TCPO2 (WOUND) Routine 05/31/2024 4:09 PM CDT Pain Hip Bilateral DX HIPS AND PELVIS BILATERAL 3-4 VIEWS RAD - Routine (most inpatients and all outpatients) 05/16/2024 3:28 PM CDT Pain Sacral Pain Hip Bilateral DERMATOPATHOLOGY Routine 04/29/2024 1:46 PM CDT DERMATOLOGY IMAGE EXAM Routine 12:00 AM CDT FL SACROILIAC JOINT INJECTION BILATERAL RAD - Routine (most inpatients and all outpatients) 03/24/2024 3:14 PM CDT Pain Sacral DX ABDOMEN 1 VIEW RAD - Routine (most inpatients and all outpatients) 02/12/2024 5:34 PM CDT Constipation FL LUMBAR SPINE RADIOFREQUENCY DENERVATION Routine 01/14/2024 11:04 AM [employer] Spondylosis Lumbar Without Myelopathy FL LUMBAR SPINE MEDIAL BRANCH NERVE BLOCK INJECTION Routine 01/08/2024 1:33 PM [employer] Spondylosis Lumbar Without Myelopathy FL LUMBAR SPINE MEDIAL BRANCH NERVE BLOCK INJECTION Routine 01/06/2024 8:58 AM [employer] Spondylosis Lumbar Without Myelopathy GI PATHOGEN PANEL, PCR, F Routine 12/24/2023 1:15 PM [employer]ER Diarrhea CBC WITH DIFFERENTIAL, B Routine 024 10:43 AM [employer] 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) Diarrhea BASIC METABOLIC PANEL, S/P Routine 12/24/2023 10:43 AM [employer] 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) Diarrhea FL LUMBAR SPINE INTERLAMINAR EPIDURAL INJECTION RAD - Routine (most inpatients and all outpatients) 12/09/2023 3:02 PM SP[employer]ER Radiculopathy GLUCOSE, FASTING, S/P Routine 10/28/2023 8:23 AM [employer] Dysfunction Erectile LIPID PANEL, S Routine 10/28/2023 8:22 AM [employer] Dysfunction Erectile TESTOSTERONE, TOT AND FR, S Routine 10/28/2023 8:22 AM [employer] Dysfunction Erectile CBC WITHOUT DIFFERENTIAL, B Routine 10/28/2023 8:22 AM [employer] Dysfunction Erectile BASIC METABOLIC PANEL, S/P Routine 09/30/2023 12:33 PM SPIRAL [employer]ER Hyponatremia CT ABD PELVIS ANGIO AND LOWER EXT RUNOFF BILAT WITH IV CONTRAST RAD - Routine (most inpatients and all outpatients) 09/29/2023 11:14 AM [employer]AL [employer]ER Follow Up Examination Status Post Surgery Peripheral Arterial Disease (HCC) LOWER EXTREMITY ARTERIAL - STANDARD PROTOCOL Routine 09/29/2023 8:55 AM [employer]AL [employer]ER Follow Up Examination Status Post Surgery Peripheral Arterial Disease (HCC) [place] ORGANIC ACID 1 QUANT 2 Routine 09/23/2023 2:17 PM CDT THYROID-STIMULATING HORMONE-SENSITIVE (S-TSH) Routine 09/23/2023 2:17 PM CDT Screening Examination For Thyroid Disorder PERNICIOUS ANEMIA CASCADE, S Routine 09/23/2023 2:17 PM CDT Cramp Leg BASIC METABOLIC PANEL, S/P Routine 09/23/2023 2:17 PM CDT Cramp Leg CBC WITH DIFFERENTIAL, B Routine 023 2:17 PM CDT Cramp Leg PM SOFT TISSUE INJECTION Routine 023 2:30 PM CDT Spondylosis Lumbar Without Myelopathy Pain Sacral DX LUMBAR SPINE 2-3 VIEWS RAD - Routine (most inpatients and all outpatients) 07/30/2023 11:35 AM CDT Radiculopathy Spondylosis Lumbar Without Myelopathy PROSTATE-SPECIFIC AG (PSA) DIAGNOSTIC, S Routine 06/19/2023 12:12 PM CDT Other Polyuria Screening Examination Prostate Cancer LIPID PANEL, S Routine 06/19/2023 12:12 PM CDT 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) Encounter For Screening For Cardiovascular Disorders COMPREHENSIVE METABOLIC PANEL, S/P Routine 06/19/2023 12:12 PM CDT 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) Encounter For Screening For Cardiovascular Disorders URINALYSIS WITH MICROSCOPIC IF INDICATED, U Routine 06/19/2023 12:06 PM CDT Other Polyuria Screening Examination Prostate Cancer BACTERIAL CULTURE, AEROBIC + SUSC, URINE Routine 06/19/2023 12:06 PM CDT Other Polyuria Screening Examination Prostate Cancer LOWER EXTREMITY ARTERIAL (VARGAS) - EXERCISE (CLAUDICATION) Routine 05/28/2023 2:44 PM CDT Peripheral Arterial Disease (HCC) Follow Up Exam US LOWER EXTREMITY ARTERIES BILATERAL RAD - Routine (most inpatients and all outpatients) 05/28/2023 12:37 PM CDT Peripheral Arterial Disease (HCC) Follow Up Exam US AORTA ILIAC ARTERIES BILATERAL WITH DOPPLER RAD - Routine (most inpatients and all outpatients) 05/28/2023 12:06 PM CDT Peripheral Arterial Disease (HCC) Follow Up Exam FL LUMBAR SPINE INTERLAMINAR EPIDURAL INJECTION RAD - Routine (most inpatients and all outpatients) 05/21/2023 1:29 PM CDT Radiculopathy EMG Routine 05/01/2023 9:11 AM CDT Radiculopathy Lumbosacral Pain Low Back Unspecified MR LUMBAR SPINE WITHOUT IV CONTRAST RAD - Routine (most inpatients and all outpatients) 05/01/2023 8:49 AM CDT Pain Low Back Unspecified GASTROENTEROLOGY IMAGE EXAM Routine 10/21/2022 1:00 PM [employer] COLONOSCOPY Routine 10/21/2022 12:57 PM [employer] Polyp Colon COLONOSCOPY Routine 10/21/2022 12:57 PM [employer] Polyp Colon ECG Routine 08/18/2022 2:36 PM CDT Cardiomyopathy Ischemic BASIC METABOLIC PANEL, S/P Routine 07/15/2022 2:52 PM CDT Hypernatremia THYROID-STIMULATING HORMONE-SENSITIVE (S-TSH) Routine 07/01/2022 10:45 AM CDT Fatigue COMPREHENSIVE METABOLIC PANEL, S/P Routine 07/01/2022 10:45 AM CDT Fatigue CBC WITH DIFFERENTIAL, B Routine 022 10:45 AM CDT Fatigue US AORTA ILIAC ARTERIES BILATERAL WITH DOPPLER RAD - Routine (most inpatients and all outpatients) 05/16/2022 1:11 PM CDT Follow Up Examination Status Post Surgery Peripheral Arterial Disease (HCC) US LOWER EXTREMITY ARTERY GRAFT BILATERAL RAD - Routine (most inpatients and all outpatients) 05/16/2022 1:05 PM CDT Follow Up Examination Status Post Surgery Peripheral Arterial Disease (HCC) LOWER EXTREMITY ARTERIAL (VARGAS) - EXERCISE (CLAUDICATION) Routine 05/16/2022 11:32 AM CDT Follow Up Examination Status Post Surgery Peripheral Arterial Disease (HCC) ECG Routine 05/16/2022 9:26 AM CDT Follow Up Examination Status Post Surgery Peripheral Arterial Disease (HCC) DERMATOLOGY IMAGE EXAM Routine 2 12:15 AM CDT DERMATOLOGY IMAGE EXAM Routine 2 12:10 AM CDT DERMATOLOGY IMAGE EXAM Routine 2 12:05 AM CDT DERMATOLOGY IMAGE EXAM Routine 2 12:00 AM CDT SARS CORONAVIRUS-2 RNA, V STAT 04/18/2022 12:32 PM CDT Encounter For Preprocedural Laboratory Examination (COVID-19) Contact With And (Suspected) Exposure To COVID-19 (TTE) 2D ECHO DOPPLER COLOR Routine 04/16/2022 8:16 AM CDT Cardiomyopathy Ischemic LIPID PANEL, S Routine 04/15/2022 7:58 AM CDT 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) Hyponatremia Hypercholesterolemia COMPREHENSIVE METABOLIC PANEL, S/P Routine 04/15/2022 7:58 AM CDT 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) Hyponatremia Hypercholesterolemia HOLTER MONITOR - IN CLINIC ASSOCIATE PROFESSOR OF LITERACY Routine 03/19/2022 8:53 AM CDT Beat Premature Ventricular DERMATOPATHOLOGY CONSULT Routine 022 4:00 PM CDT Tumor Ear Skin Uncertain Behavior DERMATOLOGY IMAGE EXAM Routine 3:45 PM CDT TROPONIN T, 2H/6H, 5TH GEN, P Timed 02/26/2022 6:00 PM CDT DX CHEST PORTABLE 1 VIEW RAD - Semiurgent (Fast; most ED patients; some inpatients) 02/26/2022 3:14 PM CDT TROPONIN T, BASELINE, 5TH GEN, P STAT 02/26/2022 3:10 PM CDT BASIC METABOLIC PANEL, S/P STAT 02/26/2022 3:10 PM CDT CBC WITH DIFFERENTIAL, B STAT 022 3:10 PM CDT NT-PRO B-TYPE NATRIURETIC PEPTIDE (BNP), S STAT 02/26/2022 3:10 PM CDT PROTHROMBIN TIME (PT), P STAT 022 3:10 PM CDT ECG STAT 02/26/2022 2:29 PM CDT FL SACROILIAC JOINT INJECTION BILATERAL RAD - Routine (most inpatients and all outpatients) 02/26/2022 1:28 PM CDT Pain Low Back Unspecified FL SACROILIAC JOINT INJECTION BILATERAL RAD - Routine (most inpatients and all outpatients) 10/28/2021 2:42 PM [employer] Pain Low Back Unspecified CORTISOL, S Routine 10/28/2021 9:37 AM [employer]ER Hyponatremia THYROID FUNCTION CASCADE, S Routine 10/28/2021 9:37 AM [employer] Hyponatremia GLUCOSE, FASTING, S/P Routine 10/25/2021 7:52 AM [employer] Hyponatremia LIPID PANEL, S Routine 10/25/2021 7:52 AM [employer] Hyponatremia SODIUM, S/P Routine 10/25/2021 7:52 AM [employer] Hyponatremia SODIUM, RANDOM, U Routine 10/25/2021 7:50 AM [employer]ER Hyponatremia OSMOLALITY, U Routine 10/25/2021 7:50 AM [employer] Hyponatremia ECG Routine 10/24/2021 1:49 PM [employer] Hyponatremia BASIC METABOLIC PANEL, S/P Routine 10/15/2021 10:45 AM [employer] Hypertensive Heart Disease Without Heart Failure FL LUMBAR SPINE INTERLAMINAR EPIDURAL INJECTION RAD - Routine (most inpatients and all outpatients) 10/10/2021 11:51 AM [employer] Radiculopathy Lumbosacral SARS CORONAVIRUS-2 RNA, V Routine 08/27/2021 2:27 PM CDT Contact With And (Suspected) Exposure To COVID-19 (TTE) 2D LIMITED WITH COLOR AND LIMITED DOPPLER Routine 07/24/2021 10:37 AM CDT Hypertensive Heart Disease Without Heart Failure Dyspnea On Exertion FL SACROILIAC JOINT INJECTION BILATERAL RAD - Routine (most inpatients and all outpatients) 07/18/2021 1:52 PM CDT Pain Low Back Mechanical US AORTA ILIAC ARTERIES BILATERAL WITH DOPPLER RAD - Routine (most inpatients and all outpatients) 05/16/2021 10:55 AM CDT Follow Up Examination Status Post Surgery Peripheral Arterial Disease (HCC) US CAROTID BILATERAL RAD - Routine (most inpatients and all outpatients) 05/16/2021 10:55 AM CDT Follow Up Examination Status Post Surgery Peripheral Arterial Disease (HCC) ECG Routine 05/16/2021 9:02 AM CDT Follow Up Examination Status Post Surgery Peripheral Arterial Disease (HCC) FL LUMBAR SPINE INTERLAMINAR EPIDURAL INJECTION RAD - Routine (most inpatients and all outpatients) 05/14/2021 3:44 PM CDT 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 Routine 05/14/2021 12:17 PM CDT Follow Up Examination Status Post Surgery Peripheral Arterial Disease (HCC) RENIN ACTIVITY, P Routine 04/29/2021 8:28 AM CDT Hypertensive Heart Disease Without Heart Failure ALDOSTERONE, P Routine 04/29/2021 8:28 AM CDT 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 HEMOGLOBIN A1C, B Routine 04/29/2021 8:28 AM CDT Hyponatremia Hypercholesterolemia Hypertensive Heart Disease Without Heart Failure Screening Examination Diabetes Mellitus Screening Examination Prostate Cancer PROSTATE-SPECIFIC AG (PSA) DIAGNOSTIC, S Routine 04/29/2021 8:28 AM CDT Hyponatremia Hypercholesterolemia Hypertensive Heart Disease Without Heart Failure Screening Examination Diabetes Mellitus Screening Examination Prostate Cancer LIPID PANEL, S Routine 04/29/2021 8:28 AM CDT Hyponatremia Hypercholesterolemia Hypertensive Heart Disease Without Heart Failure Screening Examination Diabetes Mellitus Screening Examination Prostate Cancer COMPREHENSIVE METABOLIC PANEL, S/P Routine 04/29/2021 8:28 AM CDT Hyponatremia Hypercholesterolemia Hypertensive Heart Disease Without Heart Failure Screening Examination Diabetes Mellitus Screening Examination Prostate Cancer US KIDNEYS WITH RENAL ARTERY DOPPLER RAD - Routine (most inpatients and all outpatients) 04/15/2021 2:10 PM CDT 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 Hypertensive Heart Disease Without Heart Failure BASIC METABOLIC PANEL, S/P Routine 02/25/2021 2:11 PM CDT 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 Edema Lower Extremity DERMATOLOGY IMAGE EXAM Routine 12:00 AM [employer] FAMILY MEDICINE IMAGE EXAM Routine 01/24/2021 10:50 AM [employer] FAMILY MEDICINE IMAGE EXAM Routine 01/24/2021 10:38 AM [employer]AL [employer]ER ECG Routine 12/28/2020 12:17 PM [employer]ER Hypertensive Heart Disease Without Heart Failure FL LUMBAR SPINE INTERLAMINAR EPIDURAL INJECTION RAD - Routine (most inpatients and all outpatients) 12/13/2020 1:42 PM SP[employer]ER Radiculopathy Lumbar Pain Low Back MR LUMBAR SPINE WITHOUT IV CONTRAST RAD - Routine (most inpatients and all outpatients) 12/03/2020 2:54 PM [employer]ER Pain Low Back US AORTA ILIAC ARTERIES BILATERAL WITH DOPPLER RAD - Routine (most inpatients and all outpatients) 11/07/2020 1:24 PM SP[employer]AL [employer]ER Follow Up Examination Status Post Surgery 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) Peripheral Vascular Disease (HCC) DX CHEST AP OR PA AND LATERAL 2 VIEWS RAD - Routine (most inpatients and all outpatients) 10/29/2020 9:06 AM SP[employer]ER Nodule Pulmonary BASIC METABOLIC PANEL, S/P Routine 10/24/2020 9:19 AM [employer]ER Hypertensive Heart Disease Without Heart Failure Beat Premature Ventricular (TTE) 2D ECHO DOPPLER COLOR Routine 10/17/2020 9:37 AM [employer]ER Hypertensive Heart Disease Without Heart Failure Beat Premature Ventricular HOLTER MONITOR - IN CLINIC ASSOCIATE PROFESSOR OF LITERACY Routine 10/10/2020 9:59 AM [employer]ER Hypertensive Heart Disease Without Heart Failure Beat Premature Ventricular ECG Routine 10/04/2020 3:56 PM SP[employer]AL W[employer]ER Irregular Heartbeat T4 (THYROXINE), FREE, S Routine 10/04/20 3:52 PM SP[employer]AL W[employer]ER Hypertensive Heart Disease Without Heart Failure THYROID-STIMULATING HORMONE-SENSITIVE (S-TSH) Routine 10/04/2020 3:52 PM SP[employer]AL W[employer]ER Hypertensive Heart Disease Without Heart Failure BASIC METABOLIC PANEL, S/P Routine 10/04/2020 3:52 PM SP[employer]AL W[employer]ER Hypertensive Heart Disease Without Heart Failure CBC WITH DIFFERENTIAL, B Routine 020 3:52 PM [employer]AL W[employer]ER Hypertensive Heart Disease Without Heart Failure OTORHINOLARYNGOLOGY IMAGE EXAM Routine 08/09/2020 10:05 AM CDT SARS CORONAVIRUS-2, PCR Routine 08/07/20 12:37 PM CDT Encounter For Screening For Other Viral Diseases (COVID-19) OTORHINOLARYNGOLOGY IMAGE EXAM Routine 06/05/2020 2:15 PM CDT SARS CORONAVIRUS-2, PCR Routine 06/01/20 11:09 AM CDT Rhinosinusitis Chronic CT SINUSES WITHOUT IV CONTRAST RAD - Routine (most inpatients and all outpatients) 06/01/2020 9:43 AM CDT Rhinosinusitis Chronic SARS-COV-2 IGG AB, SERUM Routine 9:14 AM CDT Rhinosinusitis Chronic PROSTATE-SPECIFIC AG (PSA) DIAGNOSTIC, S Routine 05/31/2020 11:29 AM CDT Screening Examination Diabetes Mellitus 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) Hypercholesterolemia Screening Examination Prostate Cancer LIPID PANEL, S Routine 05/31/2020 11:29 AM CDT Screening Examination Diabetes Mellitus 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) Hypercholesterolemia Screening Examination Prostate Cancer HEMOGLOBIN A1C, B Routine 05/31/2020 11:29 AM CDT Screening Examination Diabetes Mellitus 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) Hypercholesterolemia Screening Examination Prostate Cancer COMPREHENSIVE METABOLIC PANEL, S/P Routine 05/31/2020 11:29 AM CDT Screening Examination Diabetes Mellitus 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) Hypercholesterolemia Screening Examination Prostate Cancer PULMONARY FUNCTION TESTS Routine 020 1:[address] Cough Chronic [address] CHEST WITHOUT IV CONTRAST RAD - Routine (most inpatients and all outpatients) 05/09/2020 12:51 PM CDT Abnormal Computed Tomography Chest LOWER EXTREMITY ARTERIAL (VARGAS) - EXERCISE (CLAUDICATION) Routine 05/08/2020 2:07 PM CDT Endarterectomy Carotid Status Post Follow Up Examination Status Post Surgery 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) Peripheral Vascular Disease (HCC) US AORTA ILIAC ARTERIES BILATERAL WITH DOPPLER RAD - Routine (most inpatients and all outpatients) 05/08/2020 12:36 PM CDT Endarterectomy Carotid Status Post Follow Up Examination Status Post Surgery 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) Peripheral Vascular Disease (HCC) ECG Routine 05/08/2020 9:38 AM CDT Endarterectomy Carotid Status Post Follow Up Examination Status Post Surgery 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) Peripheral Vascular Disease (HCC) SARS CORONAVIRUS-2, PCR Routine 05/07/20 20 3:25 PM CDT Encounter For Screening For Other Viral Diseases (COVID-19) SARS-COV-2 IGG AB, SERUM Routine 020 3:04 PM CDT Encounter For Screening For Other Viral Diseases (COVID-19) CT CHEST WITHOUT IV CONTRAST RAD - Routine (most inpatients and all outpatients) 11/28/2019 4:39 PM [employer]AL W[employer]ER Abnormal Computed Tomography Chest US LOWER EXTREMITY VEINS BILATERAL RAD - Routine (most inpatients and all outpatients) 11/28/2019 4:00 PM [employer]ER Swelling Leg INTERPRETATION OF OUTSIDE CT CHEST RAD - Routine (most inpatients and all outpatients) 11/25/2019 2:34 PM SP[employer]AL W[employer]ER Abnormal Computed Tomography Chest COCCIDIOIDES AB SCREEN W/REFLEX, S Routine 10/26/2019 9:07 AM SPIRAL W[employer]ER Cough HISTOPLASMA AB Routine 10/26/2019 9:07 AM SP[employer]AL W[employer]ER Cough BLASTOMYCES AB, EIA Routine 10/26/2019 9:07 AM SPIRAL W[employer]ER Cough EXHALED NITRIC OXIDE Routine 10/19/2019 9:12 AM [employer]AL W[employer]ER Cough Chronic DX CHEST AP OR PA AND LATERAL 2 VIEWS RAD - Routine (most inpatients and all outpatients) 10/17/2019 9:27 AM SP[employer]AL W[employer]ER Cough Chronic OUTSIDE NM PET Routine 10/06/2019 10:05 AM SPIR[employer] W[employer]ER OUTSIDE CT BODY Routine 09/21/2019 10:[address] NEURO Routine 09/21/2019 9:50 AM CDT DX CHEST AP OR PA AND LATERAL 2 VIEWS RAD - Routine (most inpatients and all outpatients) 05/31/2019 12:23 PM CDT Cough LOWER EXTREMITY ARTERIAL (VARGAS) - EXERCISE (CLAUDICATION) Routine 02/25/2019 11:02 AM CDT Peripheral Arterial Disease (HCC) Follow Up Surgery Exam VASCULAR IMAGE EXAM Routine 02/25/2019 10:15 AM CDT US CAROTID BILATERAL RAD - Routine (most inpatients and all outpatients) 02/25/2019 9:25 AM CDT Endarterectomy Carotid Status Post 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) Peripheral Arterial Disease (HCC) Follow Up Surgery Exam US AORTA ILIAC ARTERIES BILATERAL WITH DOPPLER RAD - Routine (most inpatients and all outpatients) 02/25/2019 9:25 AM CDT Follow Up Surgery Exam Endarterectomy Carotid Status Post Peripheral Arterial Disease (HCC) 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) LIPID PANEL, S Routine 02/25/2019 7:41 AM CDT Encounter For Follow Up Examination After Completed Treatment For Conditions Other Than Malignant Neoplasm Other Specified Postprocedural States Peripheral Vascular Disease (HCC) 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) GLUCOSE, FASTING, S/P Routine 02/25/2019 7:41 AM CDT 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) Encounter For Follow Up Examination After Completed Treatment For Conditions Other Than Malignant Neoplasm Peripheral Vascular Disease (HCC) Other Specified Postprocedural States ASPARTATE AMINOTRANSFERASE (AST), S/P Routine 02/25/2019 7:41 AM CDT 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) Encounter For Follow Up Examination After Completed Treatment For Conditions Other Than Malignant Neoplasm Peripheral Vascular Disease (HCC) Other Specified Postprocedural States CREATININE WITH EGFR, S/P Routine 02/25/2019 7:41 AM CDT Peripheral Vascular Disease (HCC) Other Specified Postprocedural States 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) Encounter For Follow Up Examination After Completed Treatment For Conditions Other Than Malignant Neoplasm SODIUM, S/P Routine 02/25/2019 7:41 AM CDT Encounter For Follow Up Examination After Completed Treatment For Conditions Other Than Malignant Neoplasm Peripheral Vascular Disease (HCC) Other Specified Postprocedural States 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) POTASSIUM, S/P Routine 02/25/2019 7:41 AM CDT Other Specified Postprocedural States 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) Encounter For Follow Up Examination After Completed Treatment For Conditions Other Than Malignant Neoplasm Peripheral Vascular Disease (HCC) BASIC METABOLIC PANEL, S/P Routine 11/17/2018 10:18 AM [employer]ER Hypertension Essential Primary Screening Examination Diabetes Mellitus LIPID PANEL, S Routine 11/17/2018 10:18 AM [employer]AL [employer]ER Hyperlipidemia 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) OTORHINOLARYNGOLOGY IMAGE EXAM Routine 09/01/2018 11:50 AM CDT DX CERVICAL SPINE 2-3 VIEWS RAD - Routine (most inpatients and all outpatients) 07/06/2018 10:48 AM CDT Pain Neck DX ANKLE LEFT 3+ VIEWS RAD - Routine (most inpatients and all outpatients) 05/11/2018 11:54 AM CDT Pain Ankle Left ANESTHESIOLOGY IMAGE EXAM Routine 12/03/2017 10:35 AM [employer]AL W[employer]ER MR LUMBAR SPINE WITHOUT IV CONTRAST Routine 12/02/2017 1:55 PM [employer] W[employer]ER DX SHOULDER UNILATERAL 2+ VIEWS Routine 11/11/2017 8:55 AM [employer] W[employer]ER VASCULAR IMAGE EXAM Routine 10/28/2017 9:10 AM [employer]ER ARTERIAL LOWER EXTREMITY Routine 017 9:08 AM SP[employer]AL W[employer]ER US AORTA Routine 10/28/2017 8:51 AM [employer]ER URINALYSIS WITH MICROSCOPIC IF INDICATED, U Routine 10/20/2017 2:27 PM SP[employer]AL W[employer]ER Urgency Urinary BACTERIAL CULTURE, AEROBIC + SUSC, URINE Routine 10/20/2017 2:27 PM [employer]AL W[employer]ER Urgency Urinary ELECTROLYTE (CHEM 4) PANEL, S/P Routine 07/10/2017 4:45 AM CDT CBC WITHOUT DIFFERENTIAL, B Routine 07/10/2017 4:45 AM CDT V&IRAD VASCULAR & INTERVENTION Routine 07/09/2017 2:20 PM CDT ECG Routine 07/09/2017 12:46 PM CDT CARDIAC BIOMARKER PANEL, S Routine 07/09/2017 12:42 PM CDT GLUCOSE POCT, B Routine 07/09/2017 12:34 PM CDT ACT, POCT, B Routine 07/09/2017 11:08 AM CDT ACT, POCT, B Routine 07/09/2017 10:31 AM CDT ACT, POCT, B Routine 07/09/2017 9:57 AM CDT ACT, POCT, B Routine 07/09/2017 9:49 AM CDT ACT, POCT, B Routine 07/09/2017 9:44 AM CDT ACT, POCT, B Routine 07/09/2017 9:39 AM CDT ANTIBODY SCREEN, B Routine 07/09/2017 7:05 AM CDT ABORH, RBC Routine 07/09/2017 7:05 AM CDT ECHOCARDIOLOGY IMAGE EXAM Routine 07/08/2017 12:48 PM CDT ECHO STRESS Routine 07/08/2017 12:32 PM CDT ECG Routine 07/07/2017 7:50 AM CDT SODIUM, S/P Routine 07/07/2017 6:58 AM CDT ASPARTATE AMINOTRANSFERASE (AST), S/P Routine 07/07/2017 6:58 AM CDT CREATININE WITH EGFR, S/P Routine 07/07/2017 6:58 AM CDT POTASSIUM, S/P Routine 07/07/2017 6:58 AM CDT LIPID PANEL, S Routine 07/07/2017 6:58 AM CDT GLUCOSE, FASTING, S/P Routine 07/07/2017 6:58 AM CDT CBC WITH DIFFERENTIAL, B Routine 6:58 AM CDT SURGICAL PATHOLOGY Routine 06/25/2017 12:[address] ABD PELVIS ANGIO AND LOWER EXT RUNOFF BILAT WITH IV CONTRAST Routine 05/29/2017 10:58 AM CDT CREATININE WITH EGFR, S/P Routine 05/29/2017 8:01 AM CDT VASCULAR IMAGE EXAM Routine 05/25/2017 12:30 PM CDT ARTERIAL LOWER EXTREMITY Routine 017 12:27 PM CDT US AORTA Routine 05/25/2017 11:10 AM CDT US CAROTID Routine 05/25/2017 11:04 AM CDT OUTSIDE PHOTO Routine 05/19/2017 12:00 AM CDT SURGICAL PATHOLOGY Routine 05/15/2017 1:11 PM CDT BASIC METABOLIC PANEL, S/P Routine 04/22/2017 11:[address] UROGRAM WITH IV CONTRAST Routine 04/06/2017 10:55 AM CDT SURGICAL PATHOLOGY Routine 04/02/2017 3:15 PM CDT HEMOGLOBIN A1C, B Routine 03/26/2017 11:32 AM CDT GLUCOSE, P Routine 03/26/2017 11:32 AM CDT ANESTHESIOLOGY IMAGE EXAM Routine 07/08/2016 11:15 AM CDT PROSTATE-SPECIFIC AG (PSA) SCRN, S Routine 06/24/2016 8:13 AM CDT ASPARTATE AMINOTRANSFERASE (AST), S/P Routine 06/24/2016 8:13 AM CDT LIPID PANEL, S Routine 06/24/2016 8:13 AM CDT BASIC METABOLIC PANEL, S/P Routine 06/24/2016 8:13 AM CDT ANESTHESIOLOGY IMAGE EXAM Routine 05/30/2016 2:30 PM CDT ANESTHESIOLOGY IMAGE EXAM Routine 05/09/2016 2:50 PM CDT ARTERIAL LOWER EXTREMITY Routine 016 2:31 PM CDT VASCULAR IMAGE EXAM Routine 04/11/2016 2:31 PM CDT US AORTA Routine 04/11/2016 12:28 PM CDT US CAROTID Routine 04/11/2016 11:50 AM CDT CBC WITHOUT DIFFERENTIAL, B Routine 11/28/2015 4:39 AM SP[facility]AL [facility]INDER DX SHOULDER UNILATERAL 1 VIEW Routine 11/27/2015 9:42 AM SP[facility]AL [facility]ER ECG Routine 11/26/2015 1:[address] UPPER EXTREMITY WITHOUT IV CONTRAST Routine 11/26/2015 11:[address] 3D REQUIRING INDEPENDENT WORKSTATION Routine 11/26/2015 10:59 AM SPIRAL WINDER ABORH, RBC Routine 11/26/2015 10:43 AM SP[facility]AL [facility]ER ANTIBODY SCREEN, B Routine 11/26/2015 10:43 AM SPIRAL [facility]ER CBC WITH DIFFERENTIAL, B Routine 016 9:53 AM SPIRAL [facility]ER CREATININE WITH EGFR, S/P Routine 11/26/2015 9:53 AM SPIRAL [facility]INDER DX SHOULDER UNILATERAL 2+ VIEWS Routine 11/26/2015 7:32 AM SPIRAL WINDER DX RIBS LEFT 2 VIEWS WITH CHEST POSTEROANTERIOR 1 VIEW Routine 10/05/2015 12:24 PM SPIRAL W[facility]ER DX SHOULDER UNILATERAL 2+ VIEWS Routine 09/24/2015 8:23 AM SP[facility]AL [facility]ER ANESTHESIOLOGY IMAGE EXAM Routine 07/05/2015 9:50 AM CDT PHYSICAL MEDICINE AND REHAB IMAGE EXAM Routine 05/28/2015 2:21 PM CDT DX HIP UNILATERAL 2+ VIEWS Routine 05/28/2015 12:26 PM CDT CBC WITHOUT DIFFERENTIAL, B Routine 05/17/2015 8:27 AM CDT GLUCOSE, P Routine 05/17/2015 8:27 AM CDT THYROID-STIMULATING HORMONE-SENSITIVE (S-TSH) Routine 05/17/2015 8:27 AM CDT LIPID PANEL, S Routine 05/17/2015 8:27 AM CDT HEMOGLOBIN A1C, B Routine 05/17/2015 8:27 AM CDT CREATININE WITH EGFR, S/P Routine 05/17/2015 8:27 AM CDT ASPARTATE AMINOTRANSFERASE (AST), S/P Routine 05/17/2015 8:27 AM CDT POTASSIUM, S/P Routine 05/17/2015 8:27 AM CDT SODIUM, S/P Routine 05/17/2015 8:27 AM CDT TFE INJECTION PROCEDURE LUMBAR Routine 05/01/2015 2:40 PM CDT ARTERIAL LOWER EXTREMITY Routine 015 10:40 AM CDT VASCULAR IMAGE EXAM Routine 04/11/2015 10:40 AM CDT MR LUMBAR SPINE WITHOUT IV CONTRAST Routine 04/06/2015 11:07 AM CDT OUTSIDE US NEURO Routine 03/20/2015 8:20 AM CDT US CAROTID BILATERAL Routine 03/20/2015 8:20 AM CDT ARTERIAL LOWER EXTREMITY Routine 014 1:01 PM CDT VASCULAR IMAGE EXAM Routine 06/27/2014 12:59 PM CDT ECG Routine 06/27/2014 9:49 AM CDT AUTOMATED DIFFERENTIAL, B Routine 06/14/2014 6:59 AM CDT CBC WITH DIFFERENTIAL, B Routine 014 6:59 AM CDT PROSTATE-SPECIFIC AG (PSA) SCRN, S Routine 06/14/2014 6:59 AM CDT ASPARTATE AMINOTRANSFERASE (AST), S/P Routine 06/14/2014 6:59 AM CDT LIPID PANEL, S Routine 06/14/2014 6:59 AM CDT BASIC METABOLIC PANEL, S/P Routine 06/14/2014 6:59 AM CDT DX SHOULDER LEFT 2+ VIEWS Routine 06/02/2014 11:17 AM CDT SURGICAL PATHOLOGY Routine 04/26/2014 12:00 AM CDT DERMATOPATHOLOGY CONSULT Routine 014 2:20 PM CDT LAB SURG PATH,LEVEL IV PRO AND TECH Routine 04/11/2014 2:20 PM CDT SURGICAL PATHOLOGY Routine 04/11/2014 12:00 AM CDT US CAROTID BILATERAL Routine 02/27/2014 7:13 AM CDT VASCULAR IMAGE EXAM Routine 11/17/2013 8:31 AM [facility]ER ARTERIAL LOWER EXTREMITY Routine 013 8:27 AM [facility]AL [facility]ER BACTERIAL CULTURE, AEROBIC Routine 10/24/2013 11:38 AM [facility]AL [facility]ER MICROSCOPIC MANUAL Routine 10/12/2013 9:00 PM [facility]ER URINALYSIS WITH MICROSCOPIC Routine 10/12/2013 9:00 [address] [facility] GR[address] ST, U Routine 10/12/2013 9:00 PM SPIRAL [facility]ER ARTERIAL LOWER EXTREMITY Routine 013 12:31 PM SP[facility]AL [facility]ER VASCULAR IMAGE EXAM Routine 10/12/2013 11:15 AM SP[facility]AL [facility]ER MAGNESIUM, S Routine 10/12/2013 4:16 AM [facility]ER ELECTROLYTE (CHEM 4) PANEL, S/P Routine 10/12/2013 4:16 AM SPIRAL [facility]ER CBC WITHOUT DIFFERENTIAL, B Routine 10/12/2013 4:16 AM SPIRAL [facility]ER CREATININE WITH EGFR, S/P Routine 10/11/2013 5:27 PM SP[facility]AL [facility]ER POTASSIUM, S/P Routine 10/11/2013 5:27 PM SPIRAL [facility]ER CBC WITH DIFFERENTIAL, B Routine 013 5:27 PM SP[facility]AL [facility]ER ECG Routine 10/11/2013 1:51 PM SP[facility]AL [facility]ER CARDIAC BIOMARKER PANEL, S Routine 10/11/2013 1:50 PM SPIRAL W[facility]ER ACT, POCT, B Routine 10/11/2013 11:58 AM SPIRAL [facility]ER ACT, POCT, B Routine 10/11/2013 11:38 AM SPIRAL [facility]ER ACT, POCT, B Routine 10/11/2013 11:12 AM SPIRAL [facility]ER ACT, POCT, B Routine 10/11/2013 10:47 AM SPIRAL [facility]ER ACT, POCT, B Routine 10/11/2013 10:17 AM SPIRAL [facility]ER GLUCOSE POCT, B Routine 10/11/2013 10:17 AM SPIRAL [facility]ER ACT, POCT, B Routine 10/11/2013 9:25 AM SPIRAL W[facility]ER DX CHEST AP OR PA AND LATERAL 2 VIEWS Routine 10/03/2013 5:35 PM SPIRAL [facility]ER SODIUM, S/P Routine 10/03/2013 5:26 PM SPIRAL [facility]ER POTASSIUM, S/P Routine 10/03/2013 5:26 PM SPIRAL [facility]ER CBC WITH DIFFERENTIAL, B Routine 5:[address] ABD PELVIS ANGIO AND LOWER EXT RUNOFF BILAT WITH IV CONTRAST Routine 10/03/2013 9:01 AM SPIRAL [facility]ER CREATININE WITH EGFR, S/P Routine 10/03/2013 7:41 AM SPIRAL [facility]ER ARTERIAL LOWER EXTREMITY Routine 9:50 AM SP[facility]ER VASCULAR IMAGE EXAM Routine 09/28/2013 9:47 AM SPIRAL [facility]ER ECG Routine 09/28/2013 8:48 AM [facility]AL [facility]ER LIPID PANEL, S Routine 04/28/2013 7:14 AM CDT COMPREHENSIVE METABOLIC PANEL, S/P Routine 04/28/2013 7:14 AM CDT US CAROTID BILATERAL Routine 03/07/2013 10:09 AM CDT TROPONIN T, 5TH GEN, P Routine 2 6:58 AM [facility]AL [facility]ER DX CHEST AP OR PA AND LATERAL 2 VIEWS Routine 10/12/2012 4:03 AM SP[facility]AL [facility]ER BASIC METABOLIC PANEL (BMP), POCT, B Routine 10/12/2012 3:33 AM SPIRAL [facility]ER TROPONIN I CTNL, POCT, B Routine 012 3:31 AM SPIRAL [facility]ER CBC WITH DIFFERENTIAL, B Routine 012 3:30 AM SP[facility]AL [facility]ER CREATINE KINASE (CK), S Routine 10/12/20 12 3:30 AM SPIRAL [facility]ER CREATINE KINASE (CK) MB ISOENZYME, S Routine 10/12/2012 3:30 AM SPIRAL [facility]ER TROPONIN T, 5TH GEN, P Routine 2 3:30 AM [facility]AL [facility]ER COMPREHENSIVE METABOLIC PANEL, S/P Routine 10/12/2012 3:30 AM SPIRAL [facility]ER ECG Routine 10/12/2012 3:25 AM SPIRAL [facility]ER US CAROTID BILATERAL Routine 09/06/2012 9:54 AM CDT CBC WITH DIFFERENTIAL, B Routine 012 4:17 AM CDT BASIC METABOLIC PANEL, S/P Routine 07/14/2012 4:17 AM CDT MRSA/STAPHYLOCOCCUS AUREUS, NASAL, BY PCR Routine 07/13/2012 1:55 PM CDT SURGICAL PATHOLOGY Routine 07/13/2012 10:16 AM CDT HX [facility] Routine 07/13/2012 9:53 AM CDT ACTIVATED CLOTTING TIME, B Routine 07/13/2012 9:29 AM CDT US CAROTID LIMITED INTRAOPERATIVE Routine 07/13/2012 8:58 AM CDT ACTIVATED CLOTTING TIME, B Routine 07/13/2012 8:51 AM CDT ACTIVATED CLOTTING TIME, B Routine 07/13/2012 8:22 AM CDT ACTIVATED CLOTTING TIME, B Routine 07/13/2012 7:[address] NECK ANGIOGRAM WITH IV CONTRAST Routine 06/10/2012 11:20 AM CDT DX ABDOMEN SUPINE WITH UPRIGHT OR DECUBITUS 2 VIEWS Routine 06/08/2012 5:00 AM CDT DX CHEST 1 VIEW Routine 06/08/2012 4:47 AM CDT TROPONIN I CTNL, POCT, B Routine 012 4:34 AM CDT CBC WITH DIFFERENTIAL, B Routine 012 4:31 AM CDT ACTIVATED PARTIAL THROMBOPLASTIN TIME (APTT), P Routine 06/08/2012 4:31 AM CDT PROTHROMBIN TIME (PT), P Routine 012 4:31 AM CDT CREATINE KINASE (CK), S Routine 06/08/20 12 4:31 AM CDT COMPREHENSIVE METABOLIC PANEL, S/P Routine 06/08/2012 4:31 AM CDT CREATINE KINASE (CK) MB ISOENZYME, S Routine 06/08/2012 4:31 AM CDT TROPONIN T, 5TH GEN, P Routine 2 4:31 AM CDT ECG Routine 06/08/2012 4:30 AM CDT CREATININE WITH EGFR, S/P Routine 06/02/2012 9:25 AM CDT BUN (BLOOD UREA NITROGEN), S/P Routine 06/02/2012 9:25 AM CDT US CAROTID BILATERAL Routine 05/17/2012 7:47 AM CDT US AORTA Routine 05/17/2012 7:18 AM CDT LIPID PANEL, S Routine 04/28/2012 7:50 AM CDT COMPREHENSIVE METABOLIC PANEL, S/P Routine 04/28/2012 7:50 AM CDT PROSTATE-SPECIFIC AG (PSA) SCRN, S Routine 04/28/2012 7:50 AM CDT URINALYSIS, ROUTINE Routine 04/15/2012 10:20 AM CDT DX LUMBAR SPINE 2-3 VIEWS Routine 02/09/2012 1:46 PM CDT RADIOLOGY IMAGE EXAM Routine 02/09/2012 10:38 AM CDT RADIOLOGY IMAGE EXAM Routine 02/06/2012 11:29 AM CDT MR LUMBAR SPINE WITHOUT IV CONTRAST Routine 02/05/2012 7:40 AM CDT RADIOLOGY IMAGE EXAM Routine 05/30/2011 9:37 AM CDT CARDIAC CATHETERIZATION Routine 05/30/20 11 12:00 AM CDT ECG Routine 05/28/2011 3:02 PM CDT ECHOCARDIOGRAM Routine 05/27/2011 8:47 AM CDT ECHO STRESS Routine 05/27/2011 8:47 AM CDT RADIOLOGY IMAGE EXAM Routine 05/27/2011 8:12 AM CDT ECHO STRESS Routine 05/27/2011 8:08 AM CDT US GALLBLADDER AND OR BILIARY DUCTS Routine 02/21/2011 10:40 PM CDT DX ABDOMEN SUPINE AND UPRIGHT 2 VIEWS Routine 02/21/2011 9:55 PM CDT ECG Routine 02/21/2011 9:48 PM CDT US CAROTID BILATERAL Routine 01/21/2011 12:03 PM [facility]AL [facility]ER ECG Routine 01/20/2011 10:39 AM [facility]AL [facility]ER DX FOOT RIGHT 3+ VIEWS Routine 0 1:24 PM SPIRAL [facility]ER V&IRAD ART LOWER EXT Routine 09/16/2010 3:29 PM CDT OUTSIDE US Routine 01/18/2010 10:28 AM SPIRAL [facility]ER US LOWER EXTREMITY ARTERIES BILATERAL Routine 01/18/2010 10:28 AM SPIRAL [facility]ER DX KNEE LEFT 1 VIEW Routine 12/24/2009 10:35 AM SPIRAL [facility]ER MR LUMBAR SPINE WITHOUT IV CONTRAST Routine 11/08/2009 11:21 AM SP[facility]AL [facility]ER SURGICAL PATHOLOGY Routine 08/02/2009 10:56 AM CDT SURGICAL PATHOLOGY Routine 08/02/2009 12:00 AM CDT SURGICAL PATHOLOGY Routine 08/02/2009 12:00 AM CDT DX KNEE LEFT 1 VIEW Routine 06/20/2009 2:15 PM CDT DX CHEST AP OR PA AND LATERAL 2 VIEWS Routine 05/10/2009 6:55 PM CDT SURGICAL PATHOLOGY Routine 05/08/2009 2:20 PM CDT DX KNEE LEFT 1 VIEW Routine 05/08/2009 1:48 PM CDT ABORH, RBC Routine 05/08/2009 8:45 AM CDT ANTIBODY SCREEN, B Routine 05/08/2009 8:45 AM CDT DX CHEST AP OR PA AND LATERAL 2 VIEWS Routine 04/23/2009 11:01 AM CDT ECG Routine 04/23/2009 9:40 AM CDT SURGICAL PATHOLOGY Routine 02/28/2009 9:06 AM CDT DX KNEE LEFT 1 VIEW Routine 02/20/2009 9:31 AM CDT OUTSIDE US Routine 09/05/2008 11:20 AM CDT US LOWER EXTREMITY ARTERIES BILATERAL Routine 09/05/2008 11:20 AM CDT US CAROTID BILATERAL Routine 03/27/2008 10:09 AM CDT RADIOLOGY IMAGE EXAM Routine 11/09/2007 9:32 AM [facility]AL [facility]ER DX CHEST AP OR PA AND LATERAL 2 VIEWS Routine 11/03/2007 10:49 AM SPIRAL [facility]ER NM CARDIAC PERFUSION REST AND STRESS SPECT Routine 10/25/2007 7:22 AM SP[facility]AL [facility]ER OUTSIDE US Routine 09/03/2007 11:26 AM CDT US LOWER EXTREMITY ARTERIES BILATERAL Routine 09/03/2007 11:26 AM CDT DX SHOULDER RIGHT 2+ VIEWS Routine 08/16/2007 10:09 AM CDT IR STENT PLACEMENT Routine 06/02/2007 12:29 PM CDT OUTSIDE IR VASCULAR Routine 06/02/2007 9:09 AM CDT IR ANGIOGRAM EXTREMITY BILATERAL Routine 06/02/2007 9:09 AM CDT RADIOLOGY IMAGE EXAM Routine 05/14/2007 5:55 PM CDT DX SPINE 1 VIEW Routine 05/14/2007 5:[address] HEAD WITHOUT IV CONTRAST Routine 05/14/2007 5:39 PM CDT DX ANKLE LEFT 3+ VIEWS Routine 7 5:31 PM CDT DX CERVICAL SPINE 2-3 VIEWS Routine 05/14/2007 5:[address] PELVIS ANGIOGRAM AND LOWER EXT RUNOFF BILAT WITH IV CONTRAST Routine 05/03/2007 6:28 PM CDT MR LUMBAR SPINE WITHOUT IV CONTRAST Routine 05/03/2007 5:15 PM CDT OUTSIDE US Routine 03/02/2007 11:25 AM CDT US UPPER EXTREMITY ARTERIES BILATERAL Routine 03/02/2007 11:25 AM CDT RADIOLOGY IMAGE EXAM Routine 04/30/2006 9:24 AM CDT RADIOLOGY IMAGE EXAM Routine 11/20/2005 8:53 PM [facility]ER ECG Routine 07/20/2005 7:39 PM CDT DX CHEST AP OR PA AND LATERAL 2 VIEWS Routine 07/20/2005 6:36 PM CDT US ABDOMEN LIMITED Routine 02/11/2005 8:59 AM SP[facility]AL [facility]ER FL COLON SINGLE CONTRAST Routine 005 2:[address] HEAD WITHOUT IV CONTRAST Routine 01/28/2005 10:43 AM SP[facility]AL [facility]ER ECG Routine 01/28/2005 9:45 AM SP[facility]AL [facility]ER DX LUMBAR SPINE 2-3 VIEWS Routine 05/09/2004 2:26 PM CDT DX SHOULDER UNILATERAL 2+ VIEWS Routine 12/22/2003 12:54 PM SP[facility]AL [facility]ER DX CERVICAL SPINE 2-3 VIEWS Routine 12/22/2003 12:53 PM SP[facility]AL [facility]ER DX CHEST AP OR PA AND LATERAL 2 VIEWS Routine 10/23/2003 1:26 PM SPIRAL [facility]ER ECG Routine 10/23/2003 1:14 PM SP[facility]AL [facility]ER DX SHOULDER UNILATERAL 2+ VIEWS Routine 09/14/2003 1:37 PM CDT CARDIOLOGY IMAGE EXAM Routine 10/17/2002 2:40 PM SP[facility]AL [facility]ER ECG Routine 10/17/2002 6:53 AM [facility]AL [facility]ER CARDIAC CATHETERIZATION REPORT TEXT Routine 10/17/2002 12:00 AM SP[facility]AL [facility]ER ECG Routine 10/16/2002 8:46 AM SP[facility]AL [facility]ER ECG Routine 10/15/2002 11:25 PM SPIRAL [facility]ER ECG Routine 10/15/2002 3:47 PM SPIRAL WINDER DX CHEST AP OR PA AND LATERAL 2 VIEWS Routine 10/15/2002 9:51 AM SPIRAL [facility]ER ECG Routine 10/15/2002 9:23 AM SP[facility]AL [facility]ER HXGENERAL PATHOLOGY REPORT Routine 07/12/2002 9:17 AM CDT CYTOLOGY Routine 07/06/2002 8:33 AM CDT DX PEDIATRIC EXCRETORY UROGRAM Routine 06/28/2002 10:27 AM CDT DX CHEST AP OR PA AND LATERAL 2 VIEWS Routine 06/16/2002 11:12 AM CDT ECG Routine 06/16/2002 11:08 AM CDT CARDIOLOGY IMAGE EXAM Routine 07/13/2001 9:26 AM CDT CARDIAC CATHETERIZATION REPORT TEXT Routine 07/13/2001 12:00 AM CDT NM CARDIAC PERFUSION REST AND STRESS SPECT Routine 07/08/2001 1:32 PM CDT DX CHEST AP OR PA AND LATERAL 2 VIEWS Routine 07/08/2001 7:28 AM CDT ECG Routine 07/01/2001 3:18 PM CDT DX CERVICAL SPINE 2-3 VIEWS Routine 07/01/2001 3:16 PM CDT PULMONARY FUNCTION TESTS Routine 001 8:29 AM CDT ECG Routine 03/24/2001 6:36 AM CDT DX CHEST PORTABLE 1 VIEW Routine 001 7:58 PM CDT ECG Routine 03/23/2001 7:28 PM CDT DX CHEST AP OR PA AND LATERAL 2 VIEWS Routine 03/10/2001 1:44 PM CDT US PROSTATE TRANSRECTAL Routine 01/28/20 00 9:36 AM SP[facility]AL W[facility]ER FL COLON SINGLE CONTRAST Routine 000 1:16 PM SPIRAL [facility]ER US ABDOMEN LIMITED Routine 01/03/2000 2:47 PM SPIRAL [facility]ER DX CHEST AP OR PA AND LATERAL 2 VIEWS Routine 01/03/2000 1:15 PM SPIRAL [facility]ER ECG Routine 01/03/2000 1:14 PM SPIRAL [facility]ER Results * FL Fluoro Less Than 1 Hour (01/10/2025 9:25 AM SPIRAL [facility]INDER) Narrative [id number] - 01/10/2025 9:26 AM SPIRAL [facility]INDER This exam does not require a radiologist review or interpretation. Please refer to the patient's medical record on this date for clinical details. Ya NIETO FLUOROSCOPY PROCEDURES Final Result Performing Organization Address City/State/[facility] Co de Phone Number [id number] NA * Surgical Pathology (01/10/2025 8:15 AM SPIRAL WINDER) Only the most recent of12 resultswithin the time period is included. 01/11/2025 11:39 AM SPIRAL WINDER DTL Report electronically signed by Malorie Haro M.D., Ph.D. I verify that I have examined all relevant slides/materials for the specimen(s) and rendered or confirmed the diagnosis. 01/11/2025 11:39 AM SPIRAL WINDER DTL Gross Description Received in formalin, labeled with the patient's name, medical record number, and designated bladder tumor is an 11.8 gram, 5 x 4.7 x 0.9 cm aggregate of pink-aly papillary soft tissue admixed with yellow-aly fibrous material, submitted entirely in cassettes A1-A5. Grossed by [email or web address]. 01/11/2025 11:39 AM SPIRAL WINDER DTL Interpretation FINAL DIAGNOSIS Urinary bladder, tumor, transurethral resection: Noninvasive high-grade papillary urothelial carcinoma. Muscularis propria is present and uninvolved. Digital imaging was used in the diagnostic assessment of this case. 01/11/2025 11:39 AM SPIRAL WINDER DTL Tissue (Bladder) 01/10/2025 8:15 AM SPIRAL WINDER Ya Sahu D.O. LAB SURG PATH ORDERABLES Fi nal Result Performing Organization Address [facility] de Phone Number [facility] [address] [place] [address], [facility] DTL [address] [place] [address] * LDA ANE ENDOTRACHEAL AIRWAY (01/10/2025 7:59 AM SPIRAL WINDER) Narrative Bakari Wang, PALLIATIVE CARE COORDINATOR, STATE GAME WARDEN, DNAP - 01/10/2025 7:59 AM SPIRAL WINDER Bakari Wang, PALLIATIVE CARE COORDINATOR, STATE GAME WARDEN, DNAP 01/10/2025 8:03 AM Airway Date/Time: 01/10/2025 7:59 AM Performed by: Bakari Wang, PALLIATIVE CARE COORDINATOR, STATE GAME WARDEN, DNAP Authorized by: Bakari Wang APRN, THU, DNAP Patient location during procedure: OR / Procedure Area PROCEDURE DETAILS: Mask difficulty assessment: easy mask Final airway type: video laryngoscope Laryngeal Manipulation: no Final best view of glottic structures - Cormack/Lehane Score: grade 1 ETT location: oral VL device: glide scope Harper scope blade size: 4 Tube size: 7.5 ETT distance at teeth/gum: 24 Oral tube type: standard ETT Cuffed: yes Leak Test Performed: no Airway confirmation: bilateral breath sounds, positive ETCO2 and bilateral chest rise Other previous techniques attempted: none PRE PROCEDURE DETAILS: Pre evaluation for airway management: procedure Urgency: elective Preoxygenation: bag valve mask SEDATION / ANESTHESIA Anesthesia method: anesthesia POST PROCEDURE DETAILS: Procedure outcome: successful Bakari Wang APRN, THU, DNAP ANESTHESIA OR DERABLES Final Result * Urol-Surgery Image Exam (01/10/2025 6:20 AM SPIRAL WINDER) 01/10/2025 6:20 AM SPIRAL WINDER Narrative IIMS - 01/10/2025 9:39 AM SPIRAL WINDER This order has been created and auto-finalized to support the import of images acquired without order. The clinical documentation to support these images can be found on the encounter that produced images. Provider Not In System IMG NON RAD IMAGING PROCE DURES Final Result Performing Organization Address [facility] de Phone Number IIOH NA * Bacterial Culture, Aerobic + Susceptibility, Urine (12/27/2024 10:00 AM SPIRAL WINDER) Only the most recent of5 resultswithin the time period is included. Urine Culture No growth after 1 day of incubation. 12/28/2024 12:27 PM SPIRAL WINDER MKTO Urine (Urine, Midstream) 12/27/2024 10:00 AM SPIRAL WINDER 12/27/2024 6:56 PM SPIRAL WINDER Comment:Specimen Source Site : Urine Tylor Campa M.D., M.P.H. LAB MICROBIOLOGY - GENERA L ORDERABLES Final Result Performing Organization Address City/[facility] Co de Phone Number [facility] [address] [place] [address], [place] MKTO [facility] [place] [address] [place] [address] * (ABNORMAL) Urinalysis, with Microscopic: Urine, Midstream (12/27/2024 10:00 AM SPIRAL WINDER) Only the most recent of4 resultswithin the time period is included. Source Urine, Urine, Midstream 12/27/2024 10:08 AM SPIRAL WINDER FB60 Clarity Clear Clear 12/27/2024 10:10 AM SPIRAL WINDER FB60 Color Yellow 12/27/2024 10:10 AM SPIRAL WINDER FB60 Comment: ----REFERENCE VALUE---- Colorless Yellow Urvashi Blood Trace(A) Negative 12/27/2024 10:10 AM SPIRAL WINDER FB60 Nitrite Negative Negative 12/27/2024 10:10 AM SPIRAL WINDER FB60 Leukocyte Esterase Negative Negative 12/27/2024 10:10 AM SPIRAL WINDER FB60 Protein 100(A) mg/dL 12/27/2024 10:10 AM SPIRAL WINDER FB60 Comment: ----REFERENCE VALUE---- Negative Trace Glucose Negative Negative mg/dL 12/27/2024 10:10 AM SPIRAL WINDER FB60 Ketones, QI(U) Negative Negative mg/dL 12/27/2024 10:10 AM SPIRAL WINDER FB60 Bilirubin Negative Negative 12/27/2024 10:10 AM SPIRAL WINDER FB60 pH 6.5 5.0 - 8.0 12/27/2024 10:10 AM SPIRAL WINDER FB60 Specific [place] 1.020 1.001 - 1.035 12/27/2024 10:10 AM SPIRAL WINDER FB60 Urobilinogen 0.2 0.2 - 1.0 mg/dL 12/27/2024 10:10 AM SPIRAL WINDER FB60 White Blood Cells Occ-3 /hpf 12/27/2024 10:44 AM SPIRAL WINDER FB60 Comment: ----REFERENCE VALUE---- Males: 0-3 Females: 0-10 Unknown: 0-10 Red Blood Cells Occ-2 0 - 2 /hpf 10:44 AM SPIRAL WINDER FB60 Squamous Cells Occ-3 /hpf 12/27/2024 10:44 AM SPIRAL WINDER FB60 Urine (Urine, Midstream) 12/27/2024 10:00 AM SPIRAL WINDER 12/27/2024 10:07 AM SPIRAL WINDER us Tylor Campa M.D., M.P.H. LAB URINE ORDERABLES Merlyn hook Result [facility] [address] [place] [address], [facility] FB60 [facility] [place] [address] [place] [address] * MR Abdomen Pelvis Urogram without and with IV Contrast (12/07/2024 1:50 PM SPIRAL WINDER) Anatomical Region Laterality Modality Abdomen, Pelvis, Abdominal R ST LOS, Abdominal ARZ LOS, Abdominal FLA LOS N/A Magnetic Resonance Impressions 12/07/2024 3:09 PM SPIRAL WINDER 1. Exophytic enhancing mass along the left posterior bladder wall measuring up to 3.3 cm compatible with urothelial carcinoma. The mass abuts the left ureterovesicular junction without hydronephrosis or evidence of extension along the left distal ureter. Enhancement of the adjacent left lateral wall suggest bladder wall invasion. 2. No evidence of metastatic disease in the abdomen or pelvis. 3. No suspicious urothelial finding in the upper tracts. 4. No suspicious renal lesion. Narrative 12/07/2024 3:09 PM SPIRAL WINDER EXAM: MR ABDOMEN PELVIS UROGRAM WITHOUT AND WITH IV CONTRAST COMPARISON:CT abdomen pelvis 09/29/2023 FINDINGS: No suspicious renal or ureteral lesion. No hydronephrosis. Endophytic enhancing mass along the left posterior bladder measures approximately 2.5 cm AP by 2.9 cm transverse by 3.3 cm craniocaudal. The mass abuts the left ureterovesicular junction. No left hydronephrosis or extension along the distal left ureter. There is enhancement of the adjacent left bladder wall (series 13 image 95). No pelvic lymphadenopathy. Small large bowel normal in caliber. Lumbar spondylosis better demonstrated on prior lumbar spine MRI. Colonic diverticulosis without diverticulitis. No abdominal or pelvic lymphadenopathy. Susceptibility from iliac arterial stents noted. Callus at atherosclerosis and ectasia of the abdominal aorta measuring up to 2.9 cm. Procedure Note Juice Garcia M.D. - 12/07/2024 EXAM: MR ABDOMEN PELVIS UROGRAM WITHOUT AND WITH IV CONTRAST COMPARISON:CT abdomen pelvis 09/29/2023 FINDINGS: No suspicious renal or ureteral lesion. No hydronephrosis. Endophytic enhancing mass along the left posterior bladder measuresapproximately 2.5 cm AP by 2.9 cm transverse by 3.3 cm craniocaudal. Themass abuts the left ureterovesicular junction. No left hydronephrosis orextension along the distal left ureter. There is enhancement of the adjacent left bladder wall (series 13 image95). No pelvic lymphadenopathy. Small large bowel normal in caliber. Lumbar spondylosis betterdemonstrated on prior lumbar spine MRI. Colonic diverticulosis withoutdiverticulitis. No abdominal or pelvic lymphadenopathy. Susceptibilityfrom iliac arterial stents noted. Callus at atherosclerosis and ectasia of the abdominal aorta measuring up to 2.9cm. IMPRESSION: 1. Exophytic enhancing mass along the left posterior bladder wallmeasuring up to 3.3 cm compatible with urothelial carcinoma. The massabuts the left ureterovesicular junction without hydronephrosis orevidence of extension along the left distal ureter. Enhancement of the adjacent left lateral wall suggest bladder wallinvasion. 2. No evidence of metastatic disease in the abdomen or pelvis. 3. No suspicious urothelial finding in the upper tracts. 4. No suspicious renal lesion. us Kimani BallesterosAYumiC. IMG MRI PROCEDURES Fin al Result * Creatinine with Estimated GFR (12/05/2024 3:14 PM [facility]) Only the most recent of9 resultswithin the time period is included. Creatinine 0.75 0.74 - 1.35 mg/dL 12/05/2024 6:12 PM [facility] Estimated GFR (eGFR) 90 >=60 mL/min/BSA 12/05/2024 6:12 PM [facility] Comment: Estimated GFR calculated using the 2020 CKD_EPI creatinine equation. Blood (Blood, Venous) 12/05/2024 3:14 PM [facility] 12/05/2024 5:51 PM [facility] us Kimani L Nancie P.A.-C. LAB BLOOD ADD-ON Final Result [facility] [address] [place] [address], [place] [facility] [place] [address] [place] [address] * Cytology Non-[facility] (Scheduled) (12/05/2024 3:00 PM [facility]) 12/06/2024 9:49 AM [facility] Fixative yes 12/06/2024 9:49 AM [facility] Report electronically signed by Jayson Whipple MD I verify that I have examined all relevant slides/materi als for the specimen(s) and rendered or confirmed the diagnosis. 12/06/2024 9:49 AM [facility] Gross Description Received 60 ml of clear, hutchinson yellow alcohol fixed fluid. 12/06/2024 9:49 AM SPIRAL WINDER [facility] Collection Procedure voided 12/06/2024 9:49 AM SPIRAL WINDER [facility] Source A. Urine, Midstream, voided 12/06/2024 9:49 AM SP[facility]AL [facility]ER [facility] Clinical History hematuria 12/06/19 9:49 AM SPIRAL W[facility]ER [facility] Interpretation A. Urine, Midstream, voided (cytospin): Negative for High-Grade Urothelial Carcinoma. 12/06/2024 9:49 AM SPIRAL WINDER [facility] Urine 12/05/2024 3:00 PM SPIRAL WINDER 12/06/2024 7:14 AM SPIRAL WINDER us Kimani Canada P.A.-C. LAB SURG PATH ORDERABL ES Final Result [facility] [address] [place] [address], [place] [facility] [address] [address] * BMD Bone Density Spine Hips (10/26/2024 1:58 PM SPIRAL WINDER) Anatomical Region Laterality Modality Hip, Lumbar Spine, Nuclear M edicine RST LOS, Musculoskeletal ARZ LOS, Muskuloskeletal FLA LOS N/A Radio graphic Imaging Impressions 10/26/2024 2:01 PM SPIRAL WINDER Normal bone mineral density. Narrative 10/26/2024 2:01 PM SPIRAL WINDER EXAM: BMD BONE DENSITY SPINE HIPS Bone Mineral Density (BMD) analysis performed on Connexity iDXA with serial number [id number]. FINDINGS: Left Hip: Femur Neck: BMD = 1.042 g/cm2 T-score = 0.0 Z-score = 1.1 Total Hip: BMD = 1.085 g/cm2 T-score = 0.6 Z-score = 0.9 Right Hip: Femur Neck: BMD = 1.011 g/cm2 T-score = -0.2 Z-score = 0.9 Total Hip: BMD = 1.070 g/cm2 T-score = 0.5 Z-score = 0.8 Please note: A more comprehensive DXA report, including images and graphs, is available in QREADS. In the absence of other causes of low BMD or demonstrated skeletal fragility, osteoporosis may be diagnosed in post-menopausal women and men at or above age 50 when the T-score is at or below -2.5 as defined by the WHO. Low bone density is present at T-scores between -1 and -2.5. The diagnosis in pre-menopausal women and men < age 50 can be based on low bone density or evidence of skeletal fragility in the appropriate clinical setting. Today's spine scan is considered non-diagnostic according to ISCD Guidelines. Patient does not meet ISCD guidelines for FRAX calculations. (T-score) Procedure Note Jaquan Pablo M.D. - 10/26/2024 EXAM: BMD BONE DENSITY SPINE HIPS Bone Mineral Density (BMD) analysis performed on Connexity iDXA with serialnumber [id number]. FINDINGS: Left Hip: Femur Neck: BMD = 1.042 g/cm2 T-score = 0.0 Z-score = 1.1 Total Hip: BMD = 1.085 g/cm2 T-score = 0.6 Z-score = 0.9 Right Hip: Femur Neck: BMD = 1.011 g/cm2 T-score = -0.2 Z-score = 0.9 Total Hip: BMD = 1.070 g/cm2 T-score = 0.5 Z-score = 0.8 Please note: A more comprehensive DXA report, including images and graphs,is available in QREADS. In the absence of other causes of low BMD or demonstrated skeletalfragility, osteoporosis may be diagnosed in post-menopausal women and menat or above age 50 when the T-score is at or below -2.5 as defined by theWHO. Low bone density is present at T-scores between -1 and -2.5. The diagnosis in pre-menopausal women andmen < age 50 can be based on low bone density or evidence of skeletalfragility in the appropriate clinical setting. Today's spine scan is considered non-diagnostic according to ISCDGuidelines. Patient does not meet ISCD guidelines for FRAX calculations. (T-score) IMPRESSION: Normal bone mineral density. Cooper Arevalo APRN, C.N.P., M.S. IMG DXA PROCEDURE S Final Result * DX Lumbar Spine 4+ Views (10/26/2024 12:48 PM SPIRAL WINDER) Anatomical Region Laterality Modality Lumbar Spine, Musculoskeleta l RST LOS, Neuroradiology ARZ LOS, Muskuloskeletal FLA LOS N/A Digital Radiography Impressions 10/26/2024 1:05 PM SPIRAL WINDER Thoracolumbar curve. Multilevel lumbar degenerative disk disease with associated hypertrophic changes, facet arthropathy and low grade subluxations. No instability on flexion and extension. Degenerative changes both sacroiliac joints. Vascular calcification and ectasia. Bilateral iliac stents. Narrative 10/26/2024 1:05 PM SPIRAL WINDER EXAM: DX LUMBAR SPINE 4+ VIEWS Procedure Note Emerson Barrera M.D. - 10/26/2024 EXAM: DX LUMBAR SPINE 4+ VIEWS IMPRESSION: Thoracolumbar curve. Multilevel lumbar degenerative disk disease withassociated hypertrophic changes, facet arthropathy and low gradesubluxations. No instability on flexion and extension. Degenerativechanges both sacroiliac joints. Vascular calcification and ectasia. Bilateral iliac stents. CooperMookie Craft APRNN.Favian, M.S. IMG DIAGNOSTIC IM AGING PROCEDURES Final Result * MR Lumbar Spine without IV Contrast (09/28/2024 4:27 PM SPIRAL WINDER) Only the most recent of8 resultswithin the time period is included. Anatomical Region Laterality Modality Lumbar Spine, Neuroradiology RST LOS, Neuroradiology ARZ LOS, Neuroradiology FLA LOS N/A Magnetic Resonance Impressions 09/29/2024 8:10 AM SPIRAL WINDER 1. New presumed gas and fluid/saline within the intrathecal sac at lower lumbar levels as described, presumably related to recent procedure. 2. Interval progression of spinal canal narrowing at L4-L5, now moderate to advanced, although evaluation at this level is mildly limited due to the intrathecal fluid/gas; this may overestimate the appearance of cauda equina clumping. 3. Multilevel neural foraminal narrowing, most marked at L3-L4 on the right, L4- L5 on the right, and L5-S1 bilaterally as described. Narrative 09/29/2024 8:10 AM SPIRAL WINDER EXAM: MR LUMBAR SPINE WITHOUT IV CONTRAST COMPARISON: MRI lumbar spine 05/01/2023. Standing plain films lumbar spine 07/30/2023. FINDINGS: Patient underwent an attempted lumbar transforaminal and interlaminar injection on 09/28/2024 without satisfactory access of the epidural space per report. 5 lumbar type vertebral bodies. Congenitally narrow lumbar spinal canal. Mild left convex lumbar curve. Grade 1 anterolisthesis L3 on L4 and L4 on L5. Slight retrolisthesis L1 on L2. Since the prior exam, multiple new areas of low signal within the thecal sac at the L3-L5 levels, most compatible with gas introduced from the recent attempted epidural injection. Focal clumping of cauda equina nerve roots at L4- L5 and L5-S1 likely represents displacement due to fluid/saline introduced during the attempted procedure earlier today. Conus medullaris is unremarkable. Level by level findings are as follows: L1-L2: Disc bulge and facet arthropathy result in mild spinal canal narrowing, moderate left neural foraminal narrowing, and mild right neural foraminal narrowing. L2-L3: Disc bulge and facet arthropathy result in moderate spinal canal narrowing and moderate bilateral neural foraminal narrowing. L3-L4: Disc bulge with a small superimposed right paracentral disc extrusion and facet arthropathy result in moderate spinal canal narrowing and bilateral subarticular narrowing. These findings in conjunction with disc height loss result in moderate to advanced right and moderate left neural foraminal narrowing. L4-L5: Disc bulge and facet arthropathy result in moderate to advanced spinal canal narrowing, which has progressed since the prior exam. Displacement of cauda equina nerve roots with intrathecal fluid. Right facet joint effusion has mildly increased. A disc bulge, facet arthropathy, disc height loss result in advanced right and moderate left neural foraminal narrowing. L5-S1: Disc bulge and facet arthropathy result in mild spinal canal narrowing. Displacement of cauda equina nerve roots with intrathecal fluid. Advanced left and moderate to advanced right neural foraminal narrowing. Bilateral facet joint effusions have increased. Type I degenerative endplate change. Procedure Note Lm Garcia M.D. - 09/29/2024 EXAM: MR LUMBAR SPINE WITHOUT IV CONTRAST COMPARISON: MRI lumbar spine 05/01/2023. Standing plain films lumbar spine07/30/2023. FINDINGS: Patient underwent an attempted lumbar transforaminal andinterlaminar injection on 09/28/2024 without satisfactory access of theepidural space per report. 5 lumbar type vertebral bodies. Congenitally narrow lumbar spinal canal.Mild left convex lumbar curve. Grade 1 anterolisthesis L3 on L4 and L4 onL5. Slight retrolisthesis L1 on L2. Since the prior exam, multiple newareas of low signal within the thecal sac at the L3-L5 levels, most compatible with gas introduced fromthe recent attempted epidural injection. Focal clumping of cauda equinanerve roots at L4-L5 and L5-S1 likely represents displacement due tofluid/saline introduced during the attempted procedure earlier today. Conus medullaris is unremarkable. Level by level findings are as follows: L1-L2: Disc bulge and facet arthropathy result in mild spinal canalnarrowing, moderate left neural foraminal narrowing, and mild right neuralforaminal narrowing. L2-L3: Disc bulge and facet arthropathy result in moderate spinal canalnarrowing and moderate bilateral neural foraminal narrowing. L3-L4: Disc bulge with a small superimposed right paracentral discextrusion and facet arthropathy result in moderate spinal canal narrowingand bilateral subarticular narrowing. These findings in conjunction withdisc height loss result in moderate to advanced right and moderate left neural foraminal narrowing. L4-L5: Disc bulge and facet arthropathy result in moderate to advancedspinal canal narrowing, which has progressed since the prior exam.Displacement of cauda equina nerve roots with intrathecal fluid. Rightfacet joint effusion has mildly increased. A disc bulge, facet arthropathy, disc height loss result in advanced rightand moderate left neural foraminal narrowing. L5-S1: Disc bulge and facet arthropathy result in mild spinal canalnarrowing. Displacement of cauda equina nerve roots with intrathecalfluid. Advanced left and moderate to advanced right neural foraminalnarrowing. Bilateral facet joint effusions have increased. Type I degenerative endplate change. IMPRESSION: 1. New presumed gas and fluid/saline within the intrathecal sac at lowerlumbar levels as described, presumably related to recent procedure. 2. Interval progression of spinal canal narrowing at L4-L5, now moderateto advanced, although evaluation at this level is mildly limited due tothe intrathecal fluid/gas; this may overestimate the appearance of caudaequina clumping. 3. Multilevel neural foraminal narrowing, most marked at L3-L4 on theright, L4- L5 on the right, and L5-S1 bilaterally as described. Cooper Arevalo APRN, C.N.P., M.S. IMG MRI PROCEDURE S Final Result * FL Lumbar Spine Interlaminar Epidural Injection (09/28/2024 10:49 AM SPIRAL WINDER) Only the most recent of7 resultswithin the time period is included. Cooper Arevalo APRN, C.N.P., M.S. IMG FLUOROSCOPY P ROCEDURES Final Result * ECG 12 Lead (08/10/2024 11:50 AM CDT) Only the most recent of34 resultswithin the time period is included. Ventricular Rate ECG/Min 66 BPM MUSE W[place] Interval 180 ms MUSE QRSD Interval 100 ms MUSE QT Interval 400 ms MUSE QTC Interval 419 ms MUSE P [place] 63 degrees MUSE R [place] 60 degrees MUSE T Wave [place] -56 degrees MUSE 08/10/2024 11:5 0 AM CDT 08/10/2024 12:43 PM CDT Impressions MUSE - 08/10/2024 12:43 PM CDT Sinus rhythm Premature ventricular complexes T wave abnormality, consider inferior ischemia Cannot rule out Inferior infarct When compared with ECG of 18-Aug-2022 14:36, Premature ventricular complexes are now present Criteria for Inferior infarct is now present Reviewed by DIPIKA Mccallum Narrative Procedure Note Gilberto Polk M.B.B.S. - 08/10/2024 IMPRESSION: Sinus rhythm Premature ventricular complexes T wave abnormality, consider inferior ischemia Cannot rule out Inferior infarct When compared with ECG of 18-Aug-2022 14:36, Premature ventricular complexes are now present Criteria for Inferior infarct is now present Reviewed by DIPIKA Mccallum us Kimani Canada P.A.-C. ECG ORDERABLES Final Result MUSE NA * URO Uroflow (08/03/2024 10:15 AM CDT) Narrative Edwin Nickerson M.D. - 08/03/2024 10:15 AM CDT Edwin Nickerson M.D. 08/04/2024 8:36 AM Reason for visit: UROFLOW The patient is here for a complex uroflow via calibrated electronic equipment and residual urine checked by ultrasound. 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 us Nicki Bui P.A.-C. UROLOGY ORDERABLES Final Result * NT-Pro B-Type Natriuretic Peptide (BNP) (07/27/2024 2:03 PM CDT) Only the most recent of2 resultswithin the time period is included. NT-Pro BNP 160 <=540 pg/mL 07/27/2024 3:03 PM CDT [facility] Comment: NT-proBNP values less than 300 pg/mL have a 99% negative predictive value for excluding acute congestive heart failure. A cutoff of 1200 pg/mL for patients with an eGFR<60 yields a diagnostic sensitivity and specificity of 89% and 72% for acute congestive heart failure. A diagnostic NT-proBNP cutoff of 1800 pg/mL has been suggested in adults over 75 years of age in the absence of renal failure. Blood (Blood, Venous) 07/27/2024 2:03 PM CDT 07/27/2024 2:22 PM CDT Edith Gomez APRN, C.N.P. LAB BLOOD ADD-ON Merlyn l Result [facility] [address] [place] [address], [facility] [place] [address] [place] [address] * (ABNORMAL) Hemoglobin A1c (07/27/2024 2:03 PM CDT) Only the most recent of5 resultswithin the time period is included. Hemoglobin A1c, B 6.2(H) 4.2 - 5.6 % 07/27/2024 2:40 PM CDT [facility] Comment: Hemoglobin A1c values of 5.7-6.4 percent indicate an increased risk for developing diabetes mellitus. In diabetic patients, HbA1c goals should be discussed with healthcare provider. Blood (Blood, Venous) 07/27/2024 2:03 PM CDT 07/27/2024 2:22 PM CDT us Edith Gomez APRN, C.N.P. LAB BLOOD ADD-ON Merlyn l Result [facility] [address] [place] [address], [place] [facility] [place] [address] [place] [address] * (ABNORMAL) Basic Metabolic Panel (07/27/2024 2:03 PM CDT) Only the most recent of15 resultswithin the time period is included. Potassium, P 4.6 3.6 - 5.2 mmol/L 07/27/2024 2:55 PM CDT [facility] Sodium, P 134(L) 135 - 145 mmol/L 07/27/2024 2:55 PM CDT [facility] Chloride, P 97(L) 98 - 107 mmol/L 07/27/2024 2:55 PM CDT [facility] Bicarbonate, P 25 22 - 29 mmol/L 07/27/2024 2:55 PM CDT [facility] Anion Gap, P 12 7 - 15 07/27/2024 2:55 PM CDT [facility] BUN (Blood Urea Nitrogen), P 16 8 - 24 mg/dL 07/27/2024 2:55 PM CDT [facility] Creatinine 0.83 0.74 - 1.35 mg/dL 07/27/2024 2:55 PM CDT [facility] Estimated GFR (eGFR) 87 >=60 mL/min/BSA 07/27/2024 2:55 PM CDT [facility] Comment: Estimated GFR calculated using the 2020 CKD_EPI creatinine equation. Calcium, Total, P 9.9 8.8 - 10.2 mg/dL 07/27/2024 2:55 PM CDT [facility] Glucose, P 94 70 - 140 mg/dL 07/27/2024 2:55 PM CDT [facility] Blood (Blood, Venous) 07/27/2024 2:03 PM CDT 07/27/2024 2:22 PM CDT us Edith Gomez APRN, C.N.P. LAB BLOOD ADD-ON Merlyn hook Result [facility] [address] [place] [address], [place] [facility] [place] [address] [place] [address] * Lipid Panel (06/22/2024 8:00 AM CDT) Only the most recent of15 resultswithin the time period is included. Triglycerides 105 mg/dL 06/22/2024 1:37 PM CDT [facility] Comment: ----REFERENCE VALUE---- Normal: <150 mg/dL Borderline High: 150-199 mg/dL High: 200-499 mg/dL Very High: > or =500 mg/dL Cholesterol, Total 118 mg/dL 2023 1:37 PM CDT [facility] Comment: ----REFERENCE VALUE---- Desirable: < 200 mg/dL Borderline High: 200 - 239 mg/dL High: > or = 240 mg/dL Cholesterol, LDL, Calculated 47 mg/dL 06/22/2024 1:37 PM CDT [facility] Comment: ----REFERENCE VALUE---- Desirable: <100 mg/dL Above Desirable: 100-129 mg/dL Borderline High: 130-159 mg/dL High: 160-189 mg/dL Very High: >=190 mg/dL ----ADDITIONAL INFORMATION---- LDL cholesterol calculated using the Thomas/NIH equation. Cholesterol, HDL 52 >=40 mg/dL 06/22/20 1:37 PM CDT [facility] Cholesterol, Non-HDL, Calculated 66 mg/dL 06/22/2024 1:37 PM CDT [facility] Comment: ----REFERENCE VALUE---- Desirable: <130 mg/dL Above Desirable: 130-159 mg/dL Borderline High: 160-189 mg/dL High: 190-219 mg/dL Very High: > or =220 mg/dL Fasting (8 HR or more) Yes 06/22/2024 8:00 AM CDT [facility] Blood (Blood, Venous) 06/22/2024 8:00 AM CDT 06/22/2024 1:01 PM CDT us Kimani Canada P.A.-C. LAB BLOOD ADD-ON Final Result [facility] [address] [place] [address], [facility] [place] [address] [place] [address] * (ABNORMAL) Comprehensive Metabolic Panel (06/22/2024 8:00 AM CDT) Only the most recent of10 resultswithin the time period is included. Potassium, P 4.4 3.6 - 5.2 mmol/L 06/22/2024 1:37 PM CDT [facility] Sodium, P 136 135 - 145 mmol/L 06/22/2024 1:37 PM CDT [facility] Chloride, P 102 98 - 107 mmol/L 06/22/2024 1:37 PM CDT [facility] Bicarbonate, P 24 22 - 29 mmol/L 06/22/2024 1:37 PM CDT [facility] Anion Gap, P 10 7 - 15 06/22/2024 1:37 PM CDT [facility] BUN (Blood Urea Nitrogen), P 14 8 - 24 mg/dL 06/22/2024 1:37 PM CDT [facility] Creatinine 0.82 0.74 - 1.35 mg/dL 06/22/2024 1:37 PM CDT [facility] Estimated GFR (eGFR) 88 >=60 mL/min/BS A 06/22/2024 1:37 PM CDT [facility] Comment: Estimated GFR calculated using the 2020 CKD_EPI creatinine equation. Calcium, Total, P 8.7(L) 8.8 - 10.2 mg/dL 06/22/2024 1:37 PM CDT [facility] Glucose, P 131 70 - 140 mg/dL 06/22/2024 1:37 PM CDT [facility] Protein, Total, P 6.3 6.3 - 7.9 g/dL 06/22/2024 1:37 PM CDT [facility] Albumin, P 3.9 3.5 - 5.0 g/dL 06/22/2024 1:37 PM CDT [facility] Aspartate Aminotransferase (AST), P 24 8 - 48 U/L 06/22/2024 1:37 PM CDT [facility] Alkaline Phosphatase, P 40 40 - 129 U/L 06/22/2024 1:37 PM CDT [facility] Alanine Aminotransferase (ALT), P 7 7 - 55 U/L 06/22/2024 1:37 PM CDT [facility] Bilirubin, Total, P 1.2 0.0 - 1.2 mg/dL 06/22/2024 1:37 PM CDT [facility] Blood (Blood, Venous) 06/22/2024 8:00 AM CDT 06/22/2024 1:01 PM CDT us Kimani Canada P.A.-C. LAB BLOOD ADD-ON Final Result [facility] [address] [place] [address], [facility] [place] [address] [place] [address] * Lower Extremity Arterial (VARGAS) - TCPO2 (Wound) (05/31/2024 4:09 PM CDT) Anatomical Region Laterality Modality Other 05/31/2024 2:15 PM CDT Narrative 05/31/2024 4:23 PM CDT Bilateral: TcPO2: Values as noted. General: Patient exercised at reduced speed of 1.0 mph (10% grade) for 3'21 (94 yards). Onset of symptoms at 1'45 (47 yards). TcP02 Exercise Study terminated due to lower extremity symptoms. Conclusions: Buttock-calf TcPO2s exercise study No lower extremity reduction in TcPO2s with exercise. No evidence of exercise-induced ischemia in either limb. See study of 05/28/2023 for arterial hemodynamics. Procedure Note Austin Swift M.D. - 05/31/2024 Bilateral: TcPO2: Values as noted. General: Patient exercised at reduced speed of 1.0 mph (10% grade) for3'21 (94 yards). Onset of symptoms at 1'45 (47 yards). [id number] Study terminated due to lower extremity symptoms. Conclusions: Buttock-calf TcPO2s exercise study No lower extremityreduction in TcPO2s with exercise. No evidence of exercise-inducedischemia in either limb. See study of 05/28/2023 for arterialhemodynamics. us Hiro Platt P.A.-C. 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 Vascular stents. Vascular calcifications. Narrative 05/16/2024 4:02 PM CDT EXAM: DX HIPS AND PELVIS BILATERAL 3-4 VIEWS Procedure Note Pratik Coleman M.D. - 05/16/2024 EXAM: DX HIPS AND PELVIS BILATERAL 3-4 VIEWS IMPRESSION: Mild degenerative arthritis bilateral hip joints. Advanced degenerativearthritis of the lumbar spine. Moderate degenerative arthritis bilateralSI joints. Vascular stents. Vascular calcifications. Cooper Arevalo APRN C.N.P., M.S. IMG DIAGNOSTIC IM AGING PROCEDURES Final Result * Dermatopathology (04/29/2024 1:46 PM CDT) 05/04/2024 9:07 AM CDT CHANTAL Participated in the Interpretation Tushar Henderson M.D.-Pathology Fellow 05/04/2024 9:07 AM CDT CHANTAL Report electronically signed by Pratik Swann M.D. 05/04/2024 9:07 AM CDT JENNIFER Gross Description Received in formalin labeled with patient's name, medical record number, and right jainism is a 1.0 x 1.0 x 0.1 cm pale aly skin shavebiopsy. There is a 0.8 x 0.8 x 0.3 cm aly-brown, firm, raised, keratotic lesion irregular borders encompassing nearly the entire skinsurface. The specimen is trisected and submitted entirely in cassette A1. Grossed by LMB. 05/04/2024 9:07 AM CDT PDRM Interpretation FINAL DIAGNOSIS A. 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 Digital imaging was used in the diagnostic assessment of this case. 05/04/2024 9:07 AM CDT PDRM Skin (Right Mandaen) 04/29/2024 1:45 PM CDT us Mindy Sidhu M.D. LAB PATH DERM ORDERABLES Final Result Performing Organization Address [facility] Co de Phone Number [facility] [address] [place] [address], [facility] PDRM [address] [place] [address] * scalp, right temporal 6-Dermatology Image Exam (04/29/2024 12:00 AM CDT) Only the most recent of7 resultswithin the time period is included. Narrative [facility] - 04/29/2024 3:27 PM CDT This order has been created and auto-finalized to support the import of images acquired without order. The clinical documentation to support these images can be found on the encounter that produced images. us Provider Not In System IMG NON RAD IMAGING PROCE DURES Final Result Performing Organization Address [facility] Co de Phone Number IIMS NA * FL SACROILIAC JOINT INJECTION BILATERAL (03/24/2024 3:14 PM CDT) Only the most recent of4 resultswithin the time period is included. Narrative Nigel Geiger M.D. - 03/24/2024 3:30 PM CDT Nigel Geiger M.D. 03/24/2024 3:16 PM FL Sacroiliac Joint Injection Bilateral Performed by: Nigel Geiger M.D. Authorized by: Cooper Arevalo APRN, C.N.P., M.S. Care team members present 1. Cary Cho L.P.N. 2. Nando Mota D.O. 3. Ranjan Garcia M.D. PROCEDURE SUMMARY Indications: Sacroiliac Joint Pain Pre-procedural pain: 4/10 Post-procedural pain: 0/10 Site: sacral Sacral: sacroiliac joint Sacroiliac joint: bilateral Needle or RF cannula: Spinal Needle size: 22 G Needle length: 3.5 in Patient position: prone IMAGING Fluoroscopic image guidance used to localize target, identify at risk structures, and dynamically used to direct therapy to the target. Image(s) acquired and saved. INJECTED MEDICATIONS The injected medication(s) listed was divided equally between the identified injection location(s) Total volume of injectate (mL): 6 Total steroid in injectate (mg): 6 5 mL ROPivacaine (PF) 5 mg/mL (0.5 %) 6 mg betamethasone acetate & sodium phosphate 6 mg/mL 0.2 mL gadobutrol 10 mmol/10 mL (1 mmol/mL) PROCEDURE DETAILS Sacroiliac joint - sacral: Using fluoroscopy, the inferior portion of the sacroiliac joint(s) was identified and marked on the skin. Using fluoroscopic guidance, a spinal needle was advanced into the joint. Proper needle positioning was confirmed using multiple fluoroscopic views. After negative aspiration, contrast was injected, showing intraarticular spread of contrast without any evidence of intravascular uptake. A injectate was injected slowly and incrementally into the aforementioned joint(s). Following each injection, the needle was withdrawn slightly and flushed with local anesthetic as it was withdrawn from the skin. The patient tolerated the procedure well and there were no apparent complications. After appropriate observation, the patient was dismissed in good condition under their own power. CONSENT Consent obtained: written (Risks, benefits and alternatives were discussed and a written Informed Consent was obtained. Please see Informed Consent form for further details.) [employer]IV[employer]AL [employer] All relevant documentation and testing were reviewed and available. All required blood products, implants, devices and or special equipment were made available as applicable. Pre-procedure verification was conducted and the correct site was marked if required. A fire risk assessment was done as applicable. The procedural time-out to verify correct patient, correct side/site, and procedure was conducted prior to performing the procedure and confirmed in a procedural pause. PRE-PROCEDURE DETAILS Procedure purpose: therapeutic Appropriate hand hygiene, gown, cap, mask, protective eyewear, sterile gloves, skin preparation, sterile drape, and strict aseptic technique were utilized as applicable for the procedure: yes Site preparation: chlorhexidine SEDATION / ANESTHESIA Anesthesia method: local infiltration Local infiltrate type: lidocaine ATTESTATION STATEMENT A resident or fellow participated in the procedure, and the specialty sales consultant was present for the entire procedure. OPERATIVE NOTE INFORMATION Specimens: 0 Drains: 0 Estimated blood loss: 0 Implants: 0 us Cooper Arevalo APRN, C.N.P., M.S. IMG FLUOROSCOPY P ROCEDURES Final Result * DX Abdomen 1 View (02/12/2024 5:34 PM CDT) Anatomical Region Laterality Modality Abdomen, Abdominal RST LOS, Abdominal ARZ LOS, Abdominal FLA LOS N/A Digital Radiography Impressions 02/12/2024 5:39 PM CDT Small to moderate amount of stool in nondistended colon and rectum. No small bowel dilatation. No bowel displacement. Mild left lumbar curve and moderate multilevel degenerative changes in the lumbar spine. Bilateral iliac artery wall stents. Narrative 02/12/2024 5:39 PM CDT EXAM: DX ABDOMEN 1 VIEW Procedure Note Kamran Donahue M.D. - 02/12/2024 EXAM: DX ABDOMEN 1 VIEW IMPRESSION: Small to moderate amount of stool in nondistended colon and rectum. Nosmall bowel dilatation. No bowel displacement. Mild left lumbar curve andmoderate multilevel degenerative changes in the lumbar spine. Bilateraliliac artery wall stents. Victorina Lainez NAEEM, C.N.P., D.N.P. IMG DIAGNOSTI C IMAGING PROCEDURES Final Result * FL Lumbar Spine Radiofrequency Denervation (01/14/2024 11:04 AM SPIRAL WINDER) Narrative [facility] - 01/14/2024 11:00 AM SPIRAL WINDER Kandice Bautista M.D. 01/14/2024 11:07 AM FL Lumbar Spine Radiofrequency Denervation Performed by: Kandice Bautista M.D. Authorized by: Cooper Arevalo APRN, C.N.P., M.S. Care team members present 1. Cortney Clinton L.P.N. 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 Image(s) acquired and saved. SEDATION MEDICATIONS Midazolam (mg): 0.5. Fentanyl (mcg): 75. INJECTED MEDICATIONS The injected medication(s) listed was divided equally between the identified injection location(s) Total volume of injectate (mL): 18 Total steroid in injectate (mg): 0 12 mL BUPivacaine 0.5 % (5 mg/mL) 6 mL lidocaine 10 mg/mL (1 %) PROCEDURE DETAILS Radiofrequency ablation - lumbar (see below): Radiofrequency ablation - lumbar: Using fluoroscopy, the junction of the transverse process and superior articulating process of the appropriate levels were identified and marked. Using fluoroscopic guidance, the curved RF cannula was advanced to each target. This was confirmed using PA, lateral and oblique fluoroscopic views. Motor testing was performed at 2Hz up to 2.0 volts, and the measured tissue impedances were satisfactory. With final needle positioning, there was no evidence of radicular stimulation. Prior to lesioning, 1 ml of 2% lidocaine was injected at each site. Lesioning was performed at 85 degrees Celsius for 105 seconds. After RF treatment, each site received local anesthetic as the needles were withdrawn from the skin. The patient tolerated the procedure well and there were no apparent complications. After appropriate observation, the patient was dismissed from the clinic in good condition under their own power. ADDITIONAL PROCEDURE COMMENTS The patient tolerated the procedure well. CONSENT Consent obtained: written (Risks, benefits and alternatives were discussed and a written Informed Consent was obtained. Please see Informed Consent form for further details.) [employer] All relevant documentation and testing were reviewed and available. All required blood products, implants, devices and or special equipment were made available as applicable. Pre-procedure verification was conducted and the correct site was marked if required. A fire risk assessment was done as applicable. The procedural time-out to verify correct patient, correct side/site, and procedure was conducted prior to performing the procedure and confirmed in a procedural pause. PRE-PROCEDURE DETAILS Procedure purpose: therapeutic Appropriate hand hygiene, gown, cap, mask, protective eyewear, sterile gloves, skin preparation, sterile drape, and strict aseptic technique were utilized as applicable for the procedure: yes Site preparation: chlorhexidine SEDATION / ANESTHESIA Anesthesia method: local infiltration and moderate sedation Local infiltrate type: lidocaine I completed the presedation assessment form and supervised the sedation. Planned sedation level achieved: yes Present during sedation (intra-service time). A trained independent observer (e.g. RN) assisted with monitoring the patient's level of consciousness and physiological status throughout the procedure (see nursing documentation). ATTESTATION STATEMENT The teaching physician rule is not applicable. OPERATIVE NOTE INFORMATION Specimens: 0 Drains: 0 Estimated blood loss: 0 Implants: 0 Cooper Arevalo APRN, C.N.P., M.S. FLUORO GUIDED LOVELY N PROCEDURES Final Result [facility] NA * FL Lumbar Spine Medial Branch Nerve Block (01/08/2024 1:33 PM SPIRAL WINDER) Only the most recent of2 resultswithin the time period is included. Narrative Devon De Luna M.D., Ph.D. - 01/08/2024 1:30 PM SPIRAL WINDER Devon De Luna M.D., Ph.D. 01/08/2024 1:32 PM FL Lumbar Spine Medial Branch Nerve Block Performed by: Devon De Luna M.D., Ph.D. Authorized by: Cooper Arevalo APRN, C.N.P., M.S. Care team members present 1. Cary Cho L.P.N. 2. Kierra Mace M.D. 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 Image(s) acquired and saved. INJECTED MEDICATIONS The injected medication(s) listed was divided equally between the identified injection location(s) Total volume of injectate (mL): 3 Total steroid in injectate (mg): 0 3 mL BUPivacaine 0.5 % (5 mg/mL) 0.2 mL gadobutrol 10 mmol/10 mL (1 mmol/mL) PROCEDURE DETAILS Medial branch block - lumbar: Using fluoroscopy, the junction of the transverse process and superior articulating process of the appropriate levels were identified and marked. Using fluoroscopic guidance, a spinal needle was advanced to each target. After negative aspiration, the contrast was injected at each site. Spread of contrast approximated the region of the medial branches/dorsal ramus and there was no evidence of intravascular uptake. The patient tolerated the procedure well and there were no apparent complications. After appropriate observation, the patient was dismissed in good condition under their own power. The patient was instructed to keep a pain diary and report the results of the injection. CONSENT Consent obtained: written (Risks, benefits and alternatives were discussed and a written Informed Consent was obtained. Please see Informed Consent form for further details.) [employer] All relevant documentation and testing were reviewed and available. All required blood products, implants, devices and or special equipment were made available as applicable. Pre-procedure verification was conducted and the correct site was marked if required. A fire risk assessment was done as applicable. The procedural time-out to verify correct patient, correct side/site, and procedure was conducted prior to performing the procedure and confirmed in a procedural pause. PRE-PROCEDURE DETAILS Procedure purpose: diagnostic Appropriate hand hygiene, gown, cap, mask, protective eyewear, sterile gloves, skin preparation, sterile drape, and strict aseptic technique were utilized as applicable for the procedure: yes Site preparation: chlorhexidine SEDATION / ANESTHESIA Anesthesia method: local infiltration Local infiltrate type: lidocaine ATTESTATION STATEMENT A resident or fellow participated in the procedure, and the specialty sales consultant was present for the entire procedure. OPERATIVE NOTE INFORMATION Specimens: 0 Drains: 0 Estimated blood loss: 0 Implants: 0 Cooper Arevalo APRN, C.N.P., M.S. FLUORO GUIDED LOVELY N PROCEDURES Final Result * GI Pathogen Panel, PCR, Feces (12/24/2023 1:15 PM SPIRAL WINDER) Specimen Source STOOL 11:24 PM SPIRAL WINDER AUST Campylobacter species Negative Negative 12/24/2023 11:24 PM SPIRAL WINDER A[facility] C. difficile toxin Negative Negative 2023 11:24 PM SPIRAL WINDER [facility] Plesiomonas shigelloides Negative Negative 12/24/2023 11:24 PM SPIRAL WINDER [facility] Salmonella species Negative Negative 2023 11:24 PM SPIRAL WINDER [facility] Vibrio species Negative Negative 12/24/2023 11:24 PM SPIRAL WINDER A[facility] Vibrio cholerae Negative Negative 11:24 PM SPIRAL WINDER [facility] Yersinia species Negative Negative 12/24/19 11:24 PM SPIRAL WINDER [facility] Enteroaggregative E. coli (EAEC) Negative Negative 12/24/2023 11:24 PM SPIRAL WINDER [facility] Enteropathogenic E. coli (EPEC) Negative Negative 12/24/2023 11:24 PM SPIRAL WINDER [facility] Enterotoxigenic E. coli (ETEC) Negative Negative 12/24/2023 11:24 PM SPIRAL WINDER [facility] Shiga toxin producing E. coli Negative Negative 12/24/2023 11:24 PM SPIRAL WINDER [facility] Shigella/Enteroinvas jennifer E. coli Negative Negative 12/24/2023 11:24 PM SPIRAL WINDER [facility] Cryptosporidium species Negative Negative 12/24/2023 11:24 PM SPIRAL WINDER [facility] Cyclospora cayetanensis Negative Negative 12/24/2023 11:24 PM SPIRAL WINDER [facility] Entamoeba histolytica Negative Negative 12/24/2023 11:24 PM SPIRAL WINDER [facility] Giardia Negative Negative 12/24/2023 11:24 PM SPIRAL W[facility]ER [facility] Adenovirus F40/41 Negative Negative 024 11:24 PM SPIRAL WINDER [facility] Astrovirus Negative Negative 12/24/2023 11:24 PM SPIRAL WINDER [facility] Norovirus GI/GII Negative Negative 12/24/19 11:24 PM SPIRAL WINDER [facility] Rotavirus Ag, F Negative Negative 11:24 PM SPIRAL WINDER [facility] Sapovirus Negative Negative 12/24/2023 11:24 PM SPIRAL WINDER [facility] Comment: ----ADDITIONAL INFORMATION---- This assay is performed using the FDA-cleared FilmArray GI Panel ([employer] Stool (Stool) 12/24/2023 1:1 5 PM SPIRAL WINDER 12/24/2023 9:31 PM SPIRAL WINDER us Kimani Canada P.A.-C. LAB MICROBIOLOGY - GEN ERAL ORDERABLES Final Result [facility] [address] [place] [address], [facility] AUST [address] [place] [address] * (ABNORMAL) CBC with Differential, Blood (12/24/2023 10:43 AM SPIRAL WINDER) Only the most recent of13 resultswithin the time period is included. Hemoglobin 12.3(L) 13.2 - 16.6 g/dL 12/24/2023 11:07 AM SPIRAL WINDER FB60 Hematocrit 37.3(L) 38.3 - 48.6 % 12/24/2023 11:07 AM SPIRAL WINDER FB60 Erythrocytes 3.70(L) 4.35 - 5.65 x10(12)/L 12/24/2023 11:07 AM SPIRAL WINDER FB60 MCV 100.8(H) 78.2 - 97.9 fL 12/24/2023 11:07 AM SPIRAL WINDER FB60 RBC Distrib Width 12.9 11.8 - 14.5 % 12/24/2023 11:07 AM SPIRAL WINDER FB60 Platelet Count 174 135 - 317 x10(9)/L 12/24/2023 11:07 AM SPIRAL WINDER FB60 Leukocytes 7.3 3.4 - 9.6 x10(9)/L 12/24/2023 11:07 AM SPIRAL WINDER FB60 Neutrophils 4.77 1.56 - 6.45 x10(9)/L 12/24/2023 11:07 AM SPIRAL WINDER FB60 Lymphocytes 1.64 0.95 - 3.07 x10(9)/L 12/24/2023 11:07 AM SPIRAL WINDER FB60 Monocytes 0.71 0.26 - 0.81 x10(9)/L 12/24/2023 11:07 AM SPIRAL WINDER FB60 Eosinophils 0.18 0.03 - 0.48 x10(9)/L 12/24/2023 11:07 AM SPIRAL WINDER FB60 Basophils <0.04 0.01 - 0.08 x10(9)/L 12/24/2023 11:07 AM SPIRAL WINDER FB60 Blood (Blood, Venous) 12/24/2023 10:43 AM SPIRAL WINDER 12/24/2023 10:43 AM SPIRAL WINDER us Kimani Canada P.A.-C. LAB BLOOD ADD-ON Final Result Performing Organization Address City/[facility]/ZIP Co de Phone Number [facility] [address] [place] [address], [facility] FB60 [facility] [place] [address] [place] [address] * (ABNORMAL) Glucose, Fasting (10/28/2023 8:23 AM SPIRAL WINDER) Only the most recent of4 resultswithin the time period is included. Glucose, P 140(H) 70 - 100 mg/dL 10/28/2023 9:33 AM SPIRAL WINDER DTL Last Intake 14 hr 10/28/2023 9:03 AM SPIRAL WINDER DTL Blood (Blood, Venous) 10/28/2023 8:23 AM SPIRAL WINDER 10/28/2023 9:02 AM SPIRAL WINDER us Nicki Bui P.A.-C. LAB BLOOD NON ADD-ON Fin al Result Performing Organization Address City/[facility]/ZIP Co de Phone Number [facility] [address] [place] [address], [facility] [address] [place] [address] * (ABNORMAL) CBC without Differential (10/28/2023 8:22 AM SPIRAL WINDER) Only the most recent of5 resultswithin the time period is included. Hemoglobin 12.2(L) 13.2 - 16.6 g/dL 10/28/2023 9:41 AM SPIRAL WINDER DTL Hematocrit 37.2(L) 38.3 - 48.6 % 10/28/2023 9:41 AM SPIRAL WINDER DTL Erythrocytes 3.69(L) 4.35 - 5.65 x10(12)/L 10/28/2023 9:41 AM SPIRAL WINDER DTL MCV 100.8(H) 78.2 - 97.9 fL 10/28/2023 9:41 AM SPIRAL WINDER DTL RBC Distrib Width 14.0 11.8 - 14.5 % 10/28/2023 9:41 AM SPIRAL WINDER DTL Platelet Count 174 135 - 317 x10(9)/L 10/28/2023 9:41 AM SPIRAL WINDER DTL Leukocytes 6.0 3.4 - 9.6 x10(9)/L 10/28/2023 9:41 AM SPIRAL WINDER DTL Blood (Blood, Venous) 10/28/2023 8:22 AM SPIRAL WINDER 10/28/2023 8:48 AM SPIRAL WINDER us Nicki Bui P.A.-C. LAB BLOOD ADD-ON Final R esult [facility] [address] [place] [address], [facility] [address] [place] [address] * (ABNORMAL) Testosterone, Total and Free (10/28/2023 8:22 AM SPIRAL WINDER) Pathologist [facility] Testosterone, Free, S 11.8(H) 2.88 - 10.5 ng/dL 11/03/2023 8:53 AM SPIRAL WINDER [facility] Comment: ----ADDITIONAL INFORMATION---- This test was developed and its performance characteristics determined by [facility] in a manner consistent with CLIA requirements. This test has not been cleared or approved by the U.S. Food and Drug Administration. Testosterone, Total by Mass Spectrometry, Serum 567 240 - 950 ng/dL 10/30/2023 2:58 PM SPIRAL WINDER [facility] Comment: ----ADDITIONAL INFORMATION---- Testing performed by Liquid Chromatography-Tandem Mass Spectrometry (LC-MS/MS). This test was developed and its performance characteristics determined by [facility] in a manner consistent with CLIA requirements. This test has not been cleared or approved by the U.S. Food and Drug Administration. Blood (Blood, Venous) 10/28/2023 8:22 AM SPIRAL WINDER 10/28/2023 11:52 AM SPIRAL WINDER us Nicki Bui P.A.-C. LAB BLOOD NON ADD-ON Fin al Result [facility] [address] [place] [address] [facility] [address] [place] [address] [place] [address] * CT Abd Pelvis Angio and Lower Ext Runoff Bilat with IV Contrast (09/29/2023 11:14 AM SPIRAL WINDER) Only the most recent of3 resultswithin the time period is included. Anatomical Region Laterality Modality Abdomen, Pelvis, Cardiovascu lar RST LOS, Vascular Interventional ARZ LOS, Vascular Interventional FLA LOS, Procedural Bilateral Computed Tomography, Compute d Tomography 09/29/2023 10:4 6 AM SPIRAL WINDER Impressions 09/29/2023 11:53 AM SPIRAL WINDER New occlusion of the left anterior tibial artery within the mid calf with distal reconstitution of the ankle. Otherwise, exam largely unchanged from 05/29/2017. Similar-appearing bilateral proximal arterial disease with segmental occlusion of the right superficial femoral artery. Severe stenosis of the distal left superficial femoral artery. Unchanged focal ectasia of the infrarenal abdominal aorta measuring up to 30 mm. 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 Narrative 09/29/2023 11:53 AM SPIRAL WINDER EXAM: CT ABD PELVIS ANGIO AND LOWER EXT RUNOFF BILAT WITH IV CONTRAST Including 3D image post-processing. COMPARISON: CTA abdomen pelvis with lower extremity runoff 05/29/2017 FINDINGS: VASCULAR FINDINGS: Focal ectasia of the infrarenal abdominal aorta measuring up to 30 mm (7/338), unchanged from 05/29/2017. Otherwise, normal caliber abdominal aorta with diffuse calcified atherosclerosis. Single left renal artery mild proximal stenosis secondary atherosclerotic plaque. Two right renal arteries. The superior most accessory right renal artery supplies the superior pole is widely patent with no stenosis or aneurysm. The inferior most main right renal artery supplies the remainder of the right kidney and is is mildly stenosed at the origin secondary atherosclerotic plaque. Calcified atherosclerosis at the origin of the celiac artery resulting in moderate proximal stenosis. 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 Calcified atherosclerosis at the origin of the SHARON resulting in severe stenosis. RIGHT LOWER EXTREMITY: Postsurgical change of right iliac stent. The distal aspect of the stent within the right external iliac artery is moderately stenosed secondary to calcified atherosclerotic plaque. The remainder of the right external iliac artery is patent with scattered diffuse calcified atherosclerosis. Occlusion of the proximal right internal iliac artery secondary to calcified atherosclerotic plaque with distal reconstitution. Status post right femoral endarterectomy. The right common femoral artery is patent with no stenosis or aneurysm. The right deep femoral artery is patent with no stenosis or aneurysm. The right superficial femoral artery is moderately to severely stenosis in the mid segment secondary calcified atherosclerotic plaque with segmental occlusions. Distal reconstitution in the right popliteal artery similar appearance to 05/29/2017. The popliteal artery is patent with no stenosis or aneurysm. There is three-vessel runoff of the right lower extremity with diffuse calcified atherosclerosis of the vessels. LEFT LOWER EXTREMITY: Advanced stenosis of the distal left common iliac artery secondary to calcified atherosclerotic plaque. The left external iliac artery is patent with scattered calcified atherosclerosis. The left internal iliac artery is severely stenosed at the origin secondary to calcified atherosclerotic plaque. Status post left femoral endarterectomy. The common femoral artery is patent with no stenosis or aneurysm. The deep femoral artery is patent with no stenosis or aneurysm. The superficial femoral artery is severely stenosed distally secondary to calcified atherosclerotic plaque, similar in appearance to 05/29/2017. Moderate grade stenoses of the popliteal artery. There is two-vessel runoff to the left lower extremity via the posterior tibial and peroneal arteries. The anterior tibial artery is occluded within the mid calf with distal reconstitution at the level of the ankle, which is new from 05/29/2017. ADDITIONAL FINDINGS: Normal-appearing liver, spleen, gallbladder, pancreas, bilateral adrenal glands. Nonobstructing left midpole calyceal stone measuring up to 4 mm (7/226). Otherwise, normal-appearing bilateral kidneys, ureters, and bladder. Colonic diverticulosis. Appendectomy. Degenerative changes of the spine and bilateral hips. Mild lumbar curve. Old healed right rib fractures. Procedure Note Mando Arzola M.D. - 09/29/2023 EXAM: CT ABD PELVIS ANGIO AND LOWER EXT RUNOFF BILAT WITH IV CONTRAST Including 3D image post-processing. COMPARISON: CTA abdomen pelvis with lower extremity runoff 05/29/2017 FINDINGS: VASCULAR FINDINGS: Focal ectasia of the infrarenal abdominal aorta measuring up to 30 mm(7/338), unchanged from 05/29/2017. Otherwise, normal caliber abdominalaorta with diffuse calcified atherosclerosis. Single left renal artery mild proximal stenosis secondary atheroscleroticplaque. Two right renal arteries. The superior most accessory right renalartery supplies the superior pole is widely patent with no stenosis oraneurysm. The inferior most main right renal artery supplies the remainder of the right kidney and is ismildly stenosed at the origin secondary atherosclerotic plaque. Calcified atherosclerosis at the origin of the celiac artery resulting inmoderate proximal stenosis. Ossified atherosclerosis of the origin of theSMA resulting in severe proximal stenosis. Calcified atherosclerosis atthe origin of the SHARON resulting in severe stenosis. RIGHT LOWER EXTREMITY: Postsurgical change of right iliac stent. The distal aspect of the stentwithin the right external iliac artery is moderately stenosed secondary tocalcified atherosclerotic plaque. The remainder of the right externaliliac artery is patent with scattered diffuse calcified atherosclerosis. Occlusion of the proximalright internal iliac artery secondary to calcified atherosclerotic plaquewith distal reconstitution. Status post right femoral endarterectomy. The right common femoral arteryis patent with no stenosis or aneurysm. The right deep femoral artery ispatent with no stenosis or aneurysm. The right superficial femoral arteryis moderately to severely stenosis in the mid segment secondary calcified atherosclerotic plaquewith segmental occlusions. Distal reconstitution in the right poplitealartery similar appearance to 05/29/2017. The popliteal artery is patentwith no stenosis or aneurysm. There is three-vessel runoff of the right lower extremity with diffuse calcifiedatherosclerosis of the vessels. LEFT LOWER EXTREMITY: Advanced stenosis of the distal left common iliac artery secondary tocalcified atherosclerotic plaque. The left external iliac artery is patentwith scattered calcified atherosclerosis. The left internal iliac arteryis severely stenosed at the origin secondary to calcified atherosclerotic plaque. Status post left femoral endarterectomy. The common femoral artery ispatent with no stenosis or aneurysm. The deep femoral artery is patentwith no stenosis or aneurysm. The superficial femoral artery is severelystenosed distally secondary to calcified atherosclerotic plaque, similar in appearance to 05/29/2017. Moderategrade stenoses of the popliteal artery. There is two-vessel runoff to theleft lower extremity via the posterior tibial and peroneal arteries. Theanterior tibial artery is occluded within the mid calf with distal reconstitution at the level of the ankle,which is new from 05/29/2017. ADDITIONAL FINDINGS: Normal-appearing liver, spleen, gallbladder, pancreas, bilateral adrenalglands. Nonobstructing left midpole calyceal stone measuring up to 4 mm(7/226). Otherwise, normal-appearing bilateral kidneys, ureters, andbladder. Colonic diverticulosis. Appendectomy. Degenerative changes of the spine and bilateral hips. Mildlumbar curve. Old healed right rib fractures. IMPRESSION: New occlusion of the left anterior tibial artery within the mid calf withdistal reconstitution of the ankle. Otherwise, exam largely unchanged from05/29/2017. Similar-appearing bilateral proximal arterial disease withsegmental occlusion of the right superficial femoral artery. Severe stenosis of the distal left superficialfemoral artery. Unchanged focal ectasia of the infrarenal abdominal aortameasuring up to 30 mm. 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 us Hiro Platt P.A.-C. IMG CT PROCEDURES Final Result * LOWER EXTREMITY ARTERIAL - STANDARD PROTOCOL (09/29/2023 8:55 AM SPIRAL WINDER) Only the most recent of2 resultswithin the time period is included. Anatomical Region Laterality Modality Other 09/29/2023 8:00 AM SPIRAL WINDER Narrative 09/29/2023 8:00 AM SPIRAL WINDER Right: Doppler Waveforms: Abnormal signals starting at or above the common femoral level. Resting Index: VARGAS (PT)- Index not calculated due to poorly compressible vessel. VARGAS (DP)- Index not calculated due to poorly compressible vessel. TBI- 0.36 Left: Doppler Waveforms: Abnormal signals starting at or above the tibial/pedal level. Resting Index: VARGAS (PT)- Index not calculated due to poorly compressible vessel. VARGAS (DP)- Index not calculated due to poorly compressible vessel. TBI- 0.52 Conclusions: Ankle/brachial index not calculated due to poorly-compressible arteries. Right: Peripheral arterial disease byDoppler signals starting at the ilio- femoral level.Toe brachial index is moderately reduced. Left: Peripheral arterial disease byDoppler signals location not well determined.Toe brachial index is mildly reduced. Compared to study on 28 May 2023, theDoppler signals and toe-brachial index are similar. Poorly-compressible arteries are now present. Exercise not done due to unsteady gait/mobility difficulties. Procedure Note Himanshu Luo M.D. - 09/29/2023 Right: Doppler Waveforms: Abnormal signals starting at or above thecommon femoral level. Resting Index: VARGAS (PT)- Index not calculateddue to poorly compressible vessel. VARGAS (DP)- Index not calculated dueto poorly compressible vessel. TBI- 0.36 Left: Doppler Waveforms: Abnormal signals starting at or above thetibial/pedal level. Resting Index: VARGAS (PT)- Index not calculateddue to poorly compressible vessel. VARGAS (DP)- Index not calculated dueto poorly compressible vessel. TBI- 0.52 Conclusions: Ankle/brachial index not calculated due topoorly-compressible arteries. Right: Peripheral arterial disease byDopplersignals starting at the ilio-femoral level.Toe brachial index ismoderately reduced. Left: Peripheral arterial disease byDoppler signals location not well determined.Toe brachial index ismildly reduced. Compared to study on 28 May 2023, theDoppler signals andtoe-brachial index are similar. Poorly-compressible arteries are nowpresent. Exercise not done due to unsteady gait/mobility difficulties. us Hiro Platt P.A.-C. CV VASCULAR PROCEDURES F inal Result * Methylmalonic Acid (MMA), Quantitative, Serum (09/23/2023 2:17 PM CDT) Methylmalonic Acid, QN, S 0.14 <=0.40 nmol/mL 09/27/2023 2:18 PM SPIRAL WINDER DTL Comment: No cellular B-12 deficiency. ----ADDITIONAL INFORMATION---- This test was developed and its performance characteristics determined by [facility] in a manner consistent with CLIA requirements. This test has not been cleared or approved by the U.S. Food and Drug Administration. Blood 09/23/2023 2:17 PM CDT 09/24/2023 11:03 AM CDT us Kimani Canada P.A.-C. LAB BLOOD NON ADD-ON F inal Result Performing Organization Address [facility]/ZIP Co de Phone Number [facility] [address] [place] [address], [facility] DTL [address] [facility] [address] [place] [address] * Pernicious Anemia [place] (09/23/2023 2:17 PM CDT) Pathologist [facility] [place] Vitamin B12 Assay, S 300 180 - 914 ng/L 09/24/2023 10:15 AM CDT [facility] Comment:B-12 <400; MMA test was performed. Blood (Blood, Venous) 09/23/2023 2:17 PM CDT 09/24/2023 8:20 AM CDT us Kimani Canada P.A.-C. LAB BLOOD NON ADD-ON F inal Result Performing Organization Address [facility] Co de Phone Number [facility] [address] [place] [address] [facility] [address] [place] [address] * S-TSH (Thyroid-Stimulating Hormone - Sensitive) (09/23/2023 2:17 PM CDT) Only the most recent of4 resultswithin the time period is included. [facility] TSH, Sensitive 1.1 0.3 - 4.2 mIU/L 09/23/2023 4:46 PM CDT OW Blood (Blood, Venous) 09/23/2023 2:17 PM CDT 09/23/2023 4:46 PM CDT us Kimani Canada P.A.-C. LAB BLOOD ADD-ON Final Result Performing Organization Address City/[facility]/ZIP Co de Phone Number [facility] [address] [place] [address], [place] OWAT [facility] in [place] [address] [place] [address] * PM Soft Tissue injection US-Guided; Other; sacroiliac joint complex (PSIS + SI field); Bilateral (09/04/2023 2:30 PM CDT) Narrative Tere Hernandez M.D. - 09/04/2023 2:30 PM CDT Tere Hernandez M.D. 09/04/2023 4:13 PM PM Soft Tissue injection US-Guided; Other; sacroiliac joint complex (PSIS + SI field); Bilateral Performed by: Tere Hernandez M.D. Authorized by: Cooper Arevalo APRN, C.N.P., M.S. Care team members present 1. Siena Mora RChristy PROCEDURE SUMMARY Site: other Other position: prone Other: PSIS/SI Complex Preparation: Patient was prepped and draped in usual sterile fashion Needle size: 25 G Needle length: 2 in IMAGING Ultrasound image guidance used to localize target, identify at risk structures, and dynamically used to direct therapy to the target. Image(s) acquired and saved. Ultrasound probe (MHz): linear high-frequency Needle visualization: in-plane Fluoroscopic image guidance used to localize target, identify at risk structures, and dynamically used to direct therapy to the target. Image(s) not saved. INJECTED MEDICATIONS Total volume of injectate (mL): 10 Total steroid in injectate (mg): 40 5 mL BUPivacaine 0.5 % (5 mg/mL) 4 mL lidocaine 20 mg/mL 40 mg triamcinolone acetonide 40 mg/mL PROCEDURE DETAILS Other procedure details: The patient was brought to the procedure suite and placed in the appropriate position. Prior to the procedure, the appropriate region was examined to determine the optimal needle path. Thereafter, a needle was advanced into the intended target and after negative aspiration, the medication was injected. Following the injection, the needle was withdrawn. The patient tolerated the procedure well and there were no apparent complications. After an appropriate amount of observation, the patient was dismissed from the clinic in good condition under their own power. Complications: no apparent complications CONSENT Consent obtained: written (Risks, benefits and alternatives were discussed and a written Informed Consent was obtained. Please see Informed Consent form for further details.) UNIVERSAL PROTOCOL All relevant documentation and testing were reviewed and available. All required blood products, implants, devices and or special equipment were made available as applicable. Pre-procedure verification was conducted and the correct site was marked if required. A fire risk assessment was done as applicable. The procedural time-out to verify correct patient, correct side/site, and procedure was conducted prior to performing the procedure and confirmed in a procedural pause. PRE-PROCEDURE DETAILS Procedure purpose: therapeutic Appropriate hand hygiene, gown, cap, mask, protective eyewear, sterile gloves, skin preparation, sterile drape, and strict aseptic technique were utilized as applicable for the procedure: yes Site preparation: chlorhexidine SEDATION / ANESTHESIA Anesthesia method: none ATTESTATION STATEMENT A resident or fellow participated in the procedure, and the specialty sales consultant was present for the entire procedure. OPERATIVE NOTE INFORMATION Specimens: 0 Drains: 0 Estimated blood loss: 0 Implants: 0 us Cooper Arevalo APRN, C.N.P., M.S. PROCEDURE/MINOR S URGICAL ORDERABLES Final Result * DX Lumbar Spine 2-3 Views (07/30/2023 11:35 AM CDT) Only the most recent of3 resultswithin the time period is included. Anatomical Region Laterality Modality Lumbar Spine, Musculoskeleta l RST LOS, Neuroradiology ARZ LOS, Muskuloskeletal FLA LOS N/A Digital Radiography 07/30/2023 11:3 6 AM CDT Impressions 07/30/2023 11:37 AM CDT Lumbar scoliosis convex to the left. Advanced lumbar facet arthropathy. Moderate degenerative disk disease, greatest at the L4 interspace. Low-grade lumbar subluxations. Osteopenia. Dense arterial calcifications. Vascular stents. Arthritic changes of the hips. Surgical clips in the region of the right groin. Narrative 07/30/2023 11:37 AM CDT EXAM: DX LUMBAR SPINE 2-3 VIEWS Procedure Note Nando Whitaker M.D. - 07/30/2023 EXAM: DX LUMBAR SPINE 2-3 VIEWS IMPRESSION: Lumbar scoliosis convex to the left. Advanced lumbar facet arthropathy.Moderate degenerative disk disease, greatest at the L4 interspace. Low-grade lumbarsubluxations. Osteopenia. Dense arterial calcifications. Vascular stents. Arthritic changes of thehips. Surgical clips in the region of the right groin. us Mookie Keyes APRNNConnie., M.S. IMG DIAGNOSTIC IM AGING PROCEDURES Final Result * PSA (Prostate-Specific Antigen), Diagnostic (06/19/2023 12:12 PM CDT) Only the most recent of3 resultswithin the time period is included. Prostate-Specific Ag 0.47 <=7.2 ng/mL 06/19/2023 4:01 PM CDT OW Comment: ----ADDITIONAL INFORMATION---- The testing method is an electrochemiluminescence assay manufactured by [employer] and performed on the Modular or Fallon system. Values obtained with different assay methods or kits may be different and cannot be used interchangeably. Test results cannot be interpreted as absolute evidence for the presence or absence of malignant disease. Blood (Blood, Venous) 06/19/2023 12:12 PM CDT 06/19/2023 3:31 PM CDT us Kimani Canada P.A.-C. LAB BLOOD ADD-ON Final Result [facility] [address] [place] [address], [facility] [place] [address] [place] [address] * Urinalysis with Microscopic if Indicated (06/19/2023 12:06 PM CDT) Only the most recent of2 resultswithin the time period is included. Source Urine, Urine, Midstream 06/19/2023 12:30 PM CDT FB60 Clarity Clear Clear 06/19/2023 12:34 PM CDT FB60 Color Yellow 06/19/2023 12:34 PM CDT FB60 Comment: ----REFERENCE VALUE---- Colorless Yellow Urvashi Blood Negative Negative 06/19/2023 12:34 PM CDT FB60 Nitrite Negative Negative 06/19/2023 12:34 PM CDT FB60 Leukocyte Esterase Negative Negative 06/19/2023 12:34 PM CDT FB60 Protein Negative mg/dL 06/19/2023 12:34 PM CDT FB60 Comment: ----REFERENCE VALUE---- Negative Trace Glucose Negative Negative mg/dL 06/19/2023 12:34 PM CDT FB60 Ketones, QI(U) Negative Negative mg/dL 06/19/2023 12:34 PM CDT FB60 Bilirubin Negative Negative 06/19/2023 12:34 PM CDT FB60 pH 7.0 5.0 - 8.0 06/19/2023 12:34 PM CDT FB60 Specific [place] 1.015 1.001 - 1.035 06/19/2023 12:34 PM CDT FB60 Urobilinogen 1.0 0.2 - 1.0 mg/dL 06/19/2023 12:34 PM CDT FB60 Urine (Urine, Midstream) 06/19/2023 12:06 PM CDT 06/19/2023 12:30 PM CDT us Kimani Canada P.A.-C. LAB URINE ORDERABLES F inal Result [facility] [address] [place] [address], [facility] FB60 [place] [address] * Lower Extremity Arterial (VARGAS) - Exercise (Claudication) (05/28/2023 2:44 PM CDT) Only the most recent of4 resultswithin the time period is included. Anatomical Region Laterality Modality Other 05/28/2023 1:28 PM CDT Narrative 05/28/2023 1:28 PM CDT Right: Doppler Waveforms: Abnormal signals starting at or above the common femoral level. Resting Index: VARGAS (PT)- 0.66 VARGAS (DP)- 0.73 TBI- 0.37 Post-exercise VARGAS: 0.20 Left: Doppler Waveforms: Normal at all levels evaluated. Resting Index: VARGAS (PT)- 0.89 VARGAS (DP)- 0.78 TBI- 0.44 Post-exercise VARGAS: 0.68 Post-Exercise CF Doppler: Abnormal. General: Patient exercised at reduced speed of 1.0 mph (10% grade) for 5 minutes (142 yards). Standard protocol: 2.0 mph (10% grade) for 5 minutes (283 yards). Onset of symptoms at 2'15 (62 yards). Exercise terminated at completion of protocol. Conclusions: Right: Moderate peripheral arterial disease starting at the aortoiliac level. Left: Mild peripheral arterial disease starting at the aortoiliac level. Exercised at a reduced speed (1.0 mph), terminated at completion of protocol. Exercise ECG negative for ischemic changes. Compared to study from 05/16/2022, no change to the severity of bilateral peripheral arterial disease. Now evidence of abnormal Doppler wave signal post exercise at the left common femoral artery. Procedure Note Mega Booth M.D., M.S. - 05/28/2023 Right: Doppler Waveforms: Abnormal signals starting at or above thecommon femoral level. Resting Index: VARGAS (PT)- 0.66 VARGAS (DP)-0.73 TBI- 0.37 Post-exercise VARGAS: 0.20 Left: Doppler Waveforms: Normal at all levels evaluated. RestingIndex: VARGAS (PT)- 0.89 VARGAS (DP)- 0.78 TBI- 0.44Post-exercise VARGAS: 0.68 Post-Exercise CF Doppler: Abnormal. General: Patient exercised at reduced speed of 1.0 mph (10% grade) for 5minutes (142 yards). Standard protocol: 2.0 mph (10% grade) for 5minutes (283 yards). Onset of symptoms at 2'15 (62 yards). Exerciseterminated at completion of protocol. Conclusions: Right: Moderate peripheral arterial disease starting at theaortoiliac level. Left: Mild peripheral arterial disease starting at theaortoiliac level. Exercised at a reduced speed (1.0 mph), terminated atcompletion of protocol. Exercise ECG negative for ischemic changes. Compared to study from 05/16/2022, nochange to the severity of bilateral peripheral arterial disease. Nowevidence of abnormal Doppler wave signal post exercise at the left commonfemoral artery. Arleth Kobe HARTLEY C.N.P., M.S. CV VASCULAR PROCEDURES Final Result * US Lower Extremity Arteries Bilateral (05/28/2023 12:37 PM CDT) Only the most recent of4 resultswithin the time period is included. Anatomical Region Laterality Modality Lower Extremity, Ultrasound RST LOS, Ultrasound ARZ LOS, Ultrasound FLA LOS, Procedural Bilateral Ultrasound 05/28/2023 12:3 9 PM CDT Impressions 05/28/2023 12:59 PM CDT 1) Right proximal SFA 2 segments of stenosis and occlusion in the mid SFA. 2) 2 significant stenoses in the left SFA again noted. Narrative 05/28/2023 12:59 PM CDT EXAM: US LOWER EXTREMITY ARTERIES BILATERAL Exam performed with color and spectral Doppler analysis. COMPARISON: 05/16/22 and 11/28/19 FINDINGS: RIGHT: Common femoral and profunda femoral arteries are patent with no stenosis. Heavily calcified SFA with 2 segments of stenosis proximally and occlusion at mid thigh level. Reconstitution of the distal SFA via collaterals, with associated dampened waveform. Patent popliteal artery with now monophasic waveform. Patent posterior tibial artery at the ankle and dorsalis pedis artery in the foot with monophasic waveforms. LEFT: Common femoral and profunda femoral arteries are patent with mild atheromatous plaque and no stenosis. Moderate to severe atheromatous plaque in the SFA, with high grade stenosis proximally (302cm/sec compared to 264 cm/s previously) and second stenosis more distally in the mid to distal SFA(139cm/sec compared to 205 cm/s) consistent with moderate stenosis. More distally, the distal SFA and popliteal arteries are patent and negative for stenosis. EXTRUSION BENDER and DPA are patent with multiphasic waveforms. VARGAS's being performed in Vascular Lab today. Procedure Note Nancy Ashley M.D. - 05/28/2023 EXAM: US LOWER EXTREMITY ARTERIES BILATERAL Exam performed with color and spectral Doppler analysis. COMPARISON: 05/16/22 and 11/28/19 FINDINGS: RIGHT: Common femoral and profunda femoral arteries are patent with no stenosis.Heavily calcified SFA with 2 segments of stenosis proximally and occlusion at mid thigh level.Reconstitution of the distal SFA via collaterals, with associated dampened waveform. Patent poplitealartery with now monophasic waveform. Patent posterior tibial artery at the ankle and dorsalis pedisartery in the foot with monophasic waveforms. LEFT: Common femoral and profunda femoral arteries are patent with mildatheromatous plaque and no stenosis. Moderate to severe atheromatous plaque in the SFA, with highgrade stenosis proximally (302cm/sec compared to 264 cm/s previously) and second stenosis moredistally in the mid to distal SFA(139cm/sec compared to 205 cm/s) consistent with moderate stenosis.More distally, the distal SFA and popliteal arteries are patent and negative for stenosis. EXTRUSION BENDER and DPAare patent with multiphasic waveforms. VARGAS's being performed in Vascular Lab today. IMPRESSION: 1) Right proximal SFA 2 segments of stenosis and occlusion in the midSFA. 2) 2 significant stenoses in the left SFA again noted. Taya Roman APRN.N.Favian, M.S. IM US [facility] Final Result * US Aorta Iliac Arteries Bilateral with Doppler (05/28/2023 12:06 PM CDT) Only the most recent of6 resultswithin the time period is included. Anatomical Region Laterality Modality Abdomen, Pelvis, Ultrasound RST LOS, Ultrasound ARZ LOS, Ultrasound FLA LOS, Procedural Bilateral Ultrasound 05/28/2023 12:2 6 PM CDT Impressions 05/28/2023 2:19 PM CDT No significant interval change. Stable dilatation of the distal abdominal aorta measuring 3 cm. Patent stented bilateral common and external iliac arteries, without hemodynamically significant stenosis identified. Narrative 05/28/2023 2:19 PM CDT EXAM: US AORTA ILIAC ARTERIES BILATERAL WITH DOPPLER Exam performed with color and spectral Doppler analysis. COMPARISON: 05/16/22 and 05/16/21 FINDINGS: Stable dilatation distal abdominal aorta measuring 3 cm maximally. Right: Patent stented common iliac and external iliac arteries with no focal stenosis. Internal iliac artery is patent with no stenosis. Right common femoral and profunda femoral arteries are patent with no stenosis. SFA patent with stenosis proximally(200cm/sec). See lower extremity report. Left: Densely calcified common iliac artery with some segments difficult to image. Patent stented common iliac and external iliac arteries, without significant stenosis seen. Internal iliac artery is not seen. Common femoral and proximal profunda femoral and superficial femoral arteries are patent with no stenosis. See lower extremity report. Procedure Note Nancy Ashley M.D. - 05/28/2023 EXAM: US AORTA ILIAC ARTERIES BILATERAL WITH DOPPLER Exam performed with color and spectral Doppler analysis. COMPARISON: 05/16/22 and 05/16/21 FINDINGS: Stable dilatation distal abdominal aorta measuring 3 cm maximally. Right: Patent stented common iliac and external iliac arteries with nofocal stenosis. Internal iliac artery is patent with no stenosis. Right common femoral and profundafemoral arteries are patent with no stenosis. SFA patent with stenosis proximally(200cm/sec).See lower extremity report. Left: Densely calcified common iliac artery with some segments difficultto image. Patent stented common iliac and external iliac arteries, without significant stenosisseen. Internal iliac artery is not seen. Common femoral and proximal profundafemoral and superficial femoral arteries are patent with no stenosis. See lower extremityreport. IMPRESSION: No significant interval change. Stable dilatation of the distal abdominalaorta measuring 3 cm. Patent stented bilateral common and external iliac arteries, withouthemodynamically significant stenosis identified. Arleth Bullock APRN, C.N.P., M.S. IMG TINA MEREDITH Final Result * EMG (05/01/2023 9:11 AM CDT) 05/01/2023 9:15 AM CDT Narrative [facility] EMG - 05/01/2023 10:39 AM CDT Table formatting from the original result was not included. 01-May-2023 Electromyography Final Report Study Number: 1 EMG Dry Cans Operator: Rosalinda Miramontes . 127 or [phone] Referred by: COOPER AREVALO (127 or [phone]) Referred for: Lumbosacral radiculopathy Referral Code: 010 RX: [id number] SUMMARY: Prior to starting the procedure, the patient's identity was verified, pertinent available records were reviewed, the nature of the procedure was explained, the appropriate sites of the exam were confirmed directly with the patient, and a pre-procedure pause was performed for final verification of all of the above. Nerve conduction studies showed: (1) absent right sural sensory response, (2) reduced amplitude bilateral tibial motor response and slowed conduction velocity, (3) right peroneal-EDB motor response with reduced amplitude and slowed conduction velocity, (4) ulnar-ADM motor response with borderline slowed conduction velocity which may be normal for age, (5) right median sensory response with reduced amplitude, slowed conduction velocity and normal peak latency. No conduction block or temporal dispersion was seen. F waves were within estimates. Needle examination of the bilateral lower limbs demonstrated motor unit potentials with long duration, tall amplitude and slowed conduction velocity in the bilateral L5 myotome with mild fibrillation potentials on the left. CLINICAL INTERPRETATION: This is an abnormal study. There is electrodiagnostic evidence of bilateral L5 radiculopathies with mild active denervation on the left. 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 Mookie Miramontes (127 or [phone])/SMB NERVE CONDUCTIONS Record Rep Normal Normal Distal Normal F-Wave F-Wave Temp Nerve Type Site Stim Side Amp Amp CV CV Lat Lat Lat Est ( C) Fibular Motor EDB R 0.5 (> 2.0) 35 (> 41) 5.5 (< 6.6) 30.5 Tibial Motor AH L 2.9 (> 4.0) 34 (> 40) 5.0 (< 6.1) 29.4 Tibial Motor AH R 2.7 (> 4.0) 36 (> 40) 4.3 (< 6.1) 30.8 Sural Sensory Ankle R 1 (> 0.0) (> 40) 4.3 (< 4.5) 30.7 Ulnar Motor ADM R 12.8 (> 6.0) 51 (> 51) 3.4 (< 3.6) 32.2 27.3 29.1 Median Sensory Dig II R 12 (> 15.0) 45 (> 56) 3.5 (< 3.6) 30.0 NEEDLE EMG Ins Spont MUP Recruitment Duration Amplitude Phases Muscle Side Act Fib Fasc Normal Activ Reduced Rapid Long Short High Low % Turns Gluteus erich R NL 0 0 NL Tensor fasciae latae L INC +/- 0 + ++ + + Tensor fasciae latae R NL 0 0 + + Vastus medialis R NL 0 0 NL Gastrocnemius (medial head) R NL 0 0 NL + Tibialis anterior R NL 0 0 + + + + Peroneus tertius L INC + 0 + ++ + 15% + This interpretation has been electronically signed: Rosalinda Miramontes M.D. at 05/01/2023 10:38:56 AM CDT Procedure Note Rosalinda Miramontes M.D. - 05/01/2023 01-May-2023 Electromyography Final Report Study Number: 1 EMG Dry Cans Operator: Rosalinda Miramontes . 127 or [phone] Referred by: COOPER AREVALO (127 or [phone]) Referred for: Lumbosacral radiculopathy Referral Code: 010 RX: [id number] SUMMARY: Prior to starting the procedure, the patient's identity wasverified, pertinent available records were reviewed, the nature of the procedure was explained, theappropriate sites of the exam were confirmed directly with the patient, and a pre-procedure pausewas performed for final verification of all of the above. Nerve conduction studies showed: (1) absent right sural sensory response, (2) reduced amplitude bilateral tibial motorresponse and slowed conduction velocity, (3) right peroneal-EDB motor response with reducedamplitude and slowed conduction velocity, (4) ulnar-ADM motor response with borderline slowedconduction velocity which may be normal for age, (5) right median sensory response with reducedamplitude, slowed conduction velocity and normal peak latency. No conduction block or temporaldispersion was seen. F waves were within estimates. Needle examination of the bilateral lower limbsdemonstrated motor unit potentials with long duration, tall amplitude and slowed conductionvelocity in the bilateral L5 myotome with mild fibrillation potentials on the left. CLINICAL INTERPRETATION: This is an abnormal study. There iselectrodiagnostic evidence of bilateral L5 radiculopathies with mild active denervation on the left.There is a likely superimposed length-dependent, sensorimotor peripheral neuropathy. Mookie Miramontes ([phone] or [phone])/SMB NERVE CONDUCTIONS Record Rep Normal Normal Distal Normal F-Wave F-Wave Temp Nerve Type Site Stim Side Amp Amp CV CV Lat Lat Lat Est ( C) Fibular Motor EDB R 0.5 (> 2.0) 35 (> 41) 5.5 (< 6.6) 30.5 Tibial Motor AH L 2.9 (> 4.0) 34 (> 40) 5.0 (< 6.1) 29.4 Tibial Motor AH R 2.7 (> 4.0) 36 (> 40) 4.3 (< 6.1) 30.8 Sural Sensory Ankle R 1 (> 0.0) (> 40) 4.3 (< 4.5) 30.7 Ulnar Motor ADM R 12.8 (> 6.0) 51 (> 51) 3.4 (< 3.6) 32.2 27.3 29.1 Median Sensory Dig II R 12 (> 15.0) 45 (> 56) 3.5 (< 3.6) 30.0 NEEDLE EMG Ins Spont MUP Recruitment Duration Amplitude Phases Muscle Side Act Fib Fasc Normal Activ Reduced Rapid Long Short High Low %Turns Gluteus erich R NL 0 0 NL Tensor fasciae latae L INC +/- 0 + ++ + + Tensor fasciae latae R NL 0 0 + + Vastus medialis R NL 0 0 NL Gastrocnemius (medial head) R NL 0 0 NL + Tibialis anterior R NL 0 0 + + + + Peroneus tertius L INC + 0 + ++ + 15% + This interpretation has been electronically signed: Rosalinda Miramontes M.D. at 05/01/2023 10:38:56 AM CDT us Cooper Arevalo APRN, C.N.P., M.S. NEUROLOGY ORDERAB LES Edited Result - Final [facility] EMG * Colon, Distal Descending Colon Colonoscopy-Gastroenterology Image Exam (10/21/2022 1:00 PM SPIRAL WINDER) 10/21/2022 12:5 7 PM SPIRAL WINDER Narrative [facility] - 10/21/2022 2:47 PM SPIRAL WINDER This order has been created and auto-finalized to support the import of images acquired without order. The clinical documentation to support these images can be found on the encounter that produced images. us Provider Not In System IMG NON RAD IMAGING PROCE DURES Final Result [facility] NA * Colonoscopy (10/21/2022 12:57 PM SPIRAL WINDER) 10/21/2022 12:5 7 PM SPIRAL WINDER Impressions [facility] - 10/21/2022 2:45 PM SPIRAL WINDER Post-op Diagnoses: - Diverticulosis in the sigmoid colon, in the descending colon and in the distal descending colon. - The distal rectum and anal verge are normal on retroflexion view. - No specimens collected. Narrative [facility] - 10/21/2022 2:45 PM SPIRAL WINDER [facility] 9 GI GI Patient Name: Herbie Herrera Date of : 1940 Age: 82 Gender: Male Procedure Date: 10/21/2022 Procedure: Colonoscopy Providers: Randell Benson MD, Ruben Kahn (Fellow) Referring Provider: Kimani Canada Pre-op Diagnoses: High risk colon cancer surveillance: Personal history of colonic polyps Recommendation: - Repeat colonoscopy in 5 years for surveillance. Findings: The perianal and digital rectal examinations were normal. Multiple small and large-mouthed diverticula were found in the sigmoid colon, descending colon and distal descending colon. The exam was otherwise normal throughout the examined colon. The retroflexed view of the distal rectum and anal verge was normal and showed no anal or rectal abnormalities. Procedural Details: The patient was seen, evaluated, history reviewed, airway and heart-lung exams were performed by licensed provider and were satisfactory for planned level of sedation care. The risks, benefits and alternatives for the procedure and sedation were discussed and informed consent was obtained. A procedural pause was conducted in the presence of assisting personnel to verify the correct patient identity and procedure to be performed. Throughout the procedure, the patient's blood pressure, pulse, and oxygen saturations were monitored continuously. The Pediatric Colonoscope was introduced under direct vision through the anus and advanced to the cecum, identified by the appendiceal orifice, IC valve and transillumination. The colonoscopy was performed without difficulty. The patient tolerated the procedure well. The quality of the bowel preparation was evaluated using the BBPS ([place] Bowel Preparation Scale) with scores of: Right Colon = 3, Transverse Colon = 3 and Left Colon = 3 (entire mucosa seen well with no residual staining, small fragments of stool or opaque liquid). The total BBPS score equals 9. The entire colon was examined. The ileocecal valve, appendiceal orifice, and rectum were photographed. Estimated Blood Loss: Estimated blood loss: none. Complications: No immediate complications. Sedation: Moderate (conscious) sedation was administered by the endoscopy nurse and supervised by the endoscopist. The patient's oxygen saturation, heart rate, blood pressure and response to care were monitored. Total physician intraservice time was 73 minutes. Attending Participation: I was present and participated during the entire procedure, including non-jackson portions. Randell Benson MD 10/21/2022 2:45:08 PM This report has been signed electronically. Number of Addenda: 0 us Kimani Canada P.A.-C. GI PROCEDURE ORDERABLE S Final Result [facility] [employer] NA * US Lower Extremity Artery Graft Bilateral (05/16/2022 1:05 PM CDT) Anatomical Region Laterality Modality Lower Extremity, Ultrasound RST LOS, Ultrasound ARZ LOS, Ultrasound FLA LOS, Procedural Bilateral Ultrasound 05/16/2022 1:09 PM CDT Impressions 05/16/2022 1:30 PM CDT 1. Atheromatous right SFA, which is occluded at mid thigh, with reconstitution of distal SFA via collaterals. A proximal SFA stenosis is also seen. 2. Multifocal stenoses of atheromatous left SFA. Narrative 05/16/2022 1:30 PM CDT EXAM: US LOWER EXTREMITY ARTERY GRAFT BILATERAL Exam performed with color and spectral Doppler analysis. COMPARISON: Aortoiliac ultrasound 05/16/2021. CT 05/29/2017. FINDINGS: RIGHT: Patent nonstenotic common femoral and profunda femoral arteries. Heavily calcified SFA, with stenosis proximally, before becoming occluded at mid thigh level. Reconstitution of the distal SFA via collaterals, with associated dampened waveform. Patent popliteal artery with dampened post obstructive waveform. Patent posterior tibial artery at the ankle and dorsalis pedis artery at the foot, both with dampened waveforms. LEFT: Patent nonstenotic [employer] and profunda femoral arteries. Atheromatous calcification of the SFA, with stenosis proximally (264 cm/s) and distally (205 cm/s). Patent nonstenotic popliteal artery, with biphasic waveform. Patent posterior tibial artery at the ankle and dorsalis pedis artery at the foot, both with biphasic waveforms. VARGAS RIGHT: PT: .61 DP: .74 Abnormal (moderate) decreased VARGAS associated with abnormal ultrasound findings describe above. VARGAS LEFT: PT: .97 DP: .93 Borderline VARGAS associated with abnormal ultrasound findings as described above. Disease Severity VARGAS (rest) Non-compressible or nonreproducible >1.40 Normal 1.00 Borderline 0.99-0.90 Mild 0.80-0.89 Moderate 0.50 - 0.79 Severe <0.50 Procedure Note Pratik Capps M.B., B.Ch. - 05/16/2022 EXAM: US LOWER EXTREMITY ARTERY GRAFT BILATERAL Exam performed with color and spectral Doppler analysis. COMPARISON: Aortoiliac ultrasound 05/16/2021. CT 05/29/2017. FINDINGS: RIGHT: Patent nonstenotic common femoral and profunda femoral arteries. Heavily calcified SFA, with stenosis proximally, before becoming occludedat mid thigh level. Reconstitution of the distal SFA via collaterals, with associated dampenedwaveform. Patent popliteal artery with dampened post obstructive waveform. Patent posterior tibial artery at the ankle and dorsalis pedis artery atthe foot, both with dampened waveforms. LEFT: Patent nonstenotic [employer] and profunda femoral arteries. Atheromatous calcification of the SFA, with stenosis proximally (264 cm/s)and distally (205 cm/s). Patent nonstenotic popliteal artery, with biphasic waveform. Patent posterior tibial artery at the ankle and dorsalis pedis artery atthe foot, both with biphasic waveforms. VARGAS RIGHT: PT: .61 DP: .74 Abnormal (moderate) decreased VARGAS associated with abnormal ultrasoundfindings describe above. VARGAS LEFT: PT: .97 DP: .93 Borderline VARGAS associated with abnormal ultrasound findings asdescribed above. Disease Severity VARGAS (rest) Non-compressible or nonreproducible >1.40 Normal 1.00 Borderline 0.99-0.90 Mild 0.80-0.89 Moderate 0.50 - 0.79 Severe <0.50 IMPRESSION: 1. Atheromatous right SFA, which is occluded at mid thigh, withreconstitution of distal SFA via collaterals. A proximal SFA stenosis is also seen. 2. Multifocal stenoses of atheromatous left SFA. us Hiro Platt P.A.-C. IMG US PROCEDURES Final Result * SARS Coronavirus-2 RNA, V Asymptomatic (04/18/2022 12:32 PM CDT) Only the most recent of2 resultswithin the time period is included. SARS-CoV-2 Specimen Source Swab, Nasopharynx 04/19/2022 12:34 AM CDT [facility] SARS CoV-2 RNA, TMA Undetected Undetected 04/19/2022 12:34 AM CDT [facility] Comment: SARS-CoV-2 RNA absent. This result does not rule out COVID-19 in the patient, as the sensitivity of the test depends on the timing of the specimen collection and the quality of the specimen. Result should be correlated with patient's history and clinical presentation. ----ADDITIONAL INFORMATION---- This molecular amplification test was performed using the Aptima SARS-CoV-2 assay ([employer] on the frents System under emergency use authorization (EUA) by the U.S. Food and Drug Administration. Fact sheets for this EUA assay can be found at the following links: For Healthcare Providers: https://www.fda.gov/media/498472/download For Patients: https://www.fda.gov/media/685596/download Varies (Nasopharynx) 04/18/2022 12:32 PM CDT 04/18/2022 7:16 PM CDT us Medhat Ray M.D. LAB MICROBIOLOGY - GENERAL ORDERABLES Final Result [facility] [address] [place] [address], [facility] [place] [address] [place] [address] * (TTE) 2D ECHO DOPPLER COLOR (04/16/2022 8:16 AM CDT) Ejection Fraction 51 MC CV EIMS Mid-Ascending Aorta 37 MC CV EIMS LV End-Diastolic Diameter 54 MC CV EIMS LV End-Systolic Diameter 41 MC CV EIMS LV End-Diastolic Volume 175 MC CV EIMS LV End-Systolic Volume 85 MC CV EIMS MV E Velocity 0.80 MC CV EIMS MV A Velocity 0.90 MC CV EIMS MV E/A 0.89 MC CV EIMS MV e' Velocity Medial 0.07 MC CV EIMS MV E/e' Medial 11.40 MC CV EIMS Left ventricular stroke volume index 50 MC CV EIMS Cardiac Output 6.97 MC CV EIMS Cardiac Index 3.47 MC CV EIMS Tricuspid Annular S 0.11 MC CV EIMS RA Pressure 5 MC CV EIMS Anatomical Region Laterality Modality Echocardiography 04/16/2022 7:35 AM CDT Impressions 04/16/2022 9:19 AM CDT Echocardiogram performed per left ventricular function protocol. Last full echocardiogram performed 09/27/2020. Transthoracic outreach echo interpretation. LEFT VENTRICLE:Mildly enlarged left ventricular chamber size. Calculated 2-D biplane volumetric left ventricular ejection fraction 51%. Left ventricular cardiac index 3.47 l/min/m2. Mild generalized left ventricular hypokinesis. Indeterminate left ventricular filling pressure. RIGHT VENTRICLE:Normal right ventricular chamber size by visual estimate. Normal right ventricular systolic function. Unable to detect peak tricuspid regurgitation velocity for pulmonary artery systolic pressure calculation. ATRIA:Severely enlarged left atrial size by visual estimate. Mildly enlarged right atrial size by visual estimate. CARDIAC VALVES:No hemodynamically significant valvular heart disease. Trileaflet aortic valve. Normal aortic valve for age. No aortic valve regurgitation. Normal mitral valve for age. Mild mitral valve regurgitation. Pulmonary valve not well visualized. Trivial pulmonary valve regurgitation. Normal tricuspid valve. Trivial tricuspid valve regurgitation. OTHER ECHO FINDINGS:Normal inferior vena cava size with normal inspiratory collapse (>50%). Normal mid ascending aorta diameter of 37 mm. No intracardiac mass or thrombus, but the left atrial appendage cannot be visualized adequately with transthoracic echo to exclude thrombus in this location. No pericardial effusion. Prominent anterior epicardial fat layer. For the complete report, see the Order-Level Documents. Narrative 04/16/2022 9:19 AM CDT For the complete report, see the Order-Level Documents. Final Impressions 1. Transthoracic outreach echo interpretation. 2. Mildly enlarged left ventricular chamber size, mild generalized hypokinesis, calculated 2-D biplane volumetric ejection fraction 51%. 3. Left ventricular cardiac index 3.47 l/min/m2. 4. Indeterminate left ventricular filling pressure. The presence of an L wave in the transmitral flow could suggest increased filling pressures. 5. Normal right ventricular chamber size, normal systolic function, unable to detect peak tricuspid regurgitation velocity for pulmonary artery systolic pressure calculation. 6. No hemodynamically significant valvular heart disease. 7. No pericardial effusion. 8. Compared to the report of 07/24/2021 the following changes have occurred: slightly improved left ventricular systolic function. Side by side comparison of images performed. Procedure Note Miguel Burrell M.D. - 04/16/2022 For the complete report, see the Order-Level Documents. Final Impressions 1. Transthoracic outreach echo interpretation. 2. Mildly enlarged left ventricular chamber size, mild generalizedhypokinesis, calculated 2-D biplane volumetric ejection fraction 51%. 3. Left ventricular cardiac index 3.47 l/min/m2. 4. Indeterminate left ventricular filling pressure. The presence of an Lwave in the transmitral flow could suggest increased filling pressures. 5. Normal right ventricular chamber size, normal systolic function, unableto detect peak tricuspid regurgitation velocity for pulmonary arterysystolic pressure calculation. 6. No hemodynamically significant valvular heart disease. 7. No pericardial effusion. 8. Compared to the report of 07/24/2021 the following changes haveoccurred: slightly improved left ventricular systolic function. Side byside comparison of images performed. Findings Echocardiogram performed per left ventricular function protocol. Last fullechocardiogram performed 09/27/2020. Transthoracic outreach echointerpretation. LEFT VENTRICLE:Mildly enlarged left ventricular chamber size. Calculated2-D biplane volumetric left ventricular ejection fraction 51%. Leftventricular cardiac index 3.47 l/min/m2. Mild generalized left ventricularhypokinesis. Indeterminate left ventricular filling pressure. RIGHT VENTRICLE:Normal right ventricular chamber size by visual estimate.Normal right ventricular systolic function. Unable to detect peaktricuspid regurgitation velocity for pulmonary artery systolic pressurecalculation. ATRIA:Severely enlarged left atrial size by visual estimate. Mildlyenlarged right atrial size by visual estimate. CARDIAC VALVES:No hemodynamically significant valvular heart disease.Trileaflet aortic valve. Normal aortic valve for age. No aortic valveregurgitation. Normal mitral valve for age. Mild mitral valveregurgitation. Pulmonary valve not well visualized. Trivial pulmonaryvalve regurgitation. Normal tricuspid valve. Trivial tricuspid valveregurgitation. OTHER ECHO FINDINGS:Normal inferior vena cava size with normal inspiratorycollapse (>50%). Normal mid ascending aorta diameter of 37 mm. Nointracardiac mass or thrombus, but the left atrial appendage cannot bevisualized adequately with transthoracic echo to exclude thrombus in thislocation. No pericardial effusion. Prominent anterior epicardial fatlayer. For the complete report, see the Order-Level Documents. us Miguel Burrell M.D. CV ECHO PROCEDURES Final R esult * HOLTER MONITOR - IN CLINIC ASSOCIATE PROFESSOR OF LITERACY (03/19/2022 8:53 AM CDT) Only the most recent of2 resultswithin the time period is included. Min Heart Rate 69 bpm INFOB IONIC MOME Max Heart Rate 96 bpm INFOB IONIC MOME Mean Heart Rate 75 bpm INFOBIONIC MOME VE Total Beats 36531 count INFOB IONIC MOME VE Percent Beats 35 percent INFOBIONIC MOME SVE Total Beats 520 count INFOBIONIC MOME SVE Percent Beats less than 1 percent INFOBIONIC MOME AF Count 0 count INFOBIONIC MOME AF Duration 0 duration INFOBION IC MOME AF [place] 0 percent INFOBIONIC MOME Symptom Count 0 count INFOBI ONIC MOME 03/18/2022 11:0 5 AM CDT Narrative INFOBIONIC MOME - 03/26/2022 12:43 PM CDT [place] 1. The basic rhythm was sinus. The total analyzed time was 23h 23m. The heart rate varied from 69 to 96 bpm. The average HR was 75 bpm. 2. Premature ventricular complexes were noted singly, fused, in pairs, in bigeminy, in trigeminy, in fused trigeminy, and in three 3 beat ventricular runs with a maximum rate of 121 bpm. There were 36,271 PVCs recorded with a PVC burden of 35%. 3. Premature supraventricular complexes were noted singly and in pairs. There were 520 PACs recorded with a PAC burden of less than 1%. 4. The patient documented shortness of breath with no events with which to correlate. Edge Bonder: Nataliia Miguel Jenny Procedure Note Asael Potter M.D. - 03/26/2022 [place] 1. The basic rhythm was sinus. The total analyzed time was 23h 23m. Theheart rate varied from 69 to 96 bpm. The average HR was 75 bpm. 2. Premature ventricular complexes were noted singly, fused, in pairs, inbigeminy, in trigeminy, in fused trigeminy, and in three 3 beatventricular runs with a maximum rate of 121 bpm. There were 36,271 PVCsrecorded with a PVC burden of 35%. 3. Premature supraventricular complexes were noted singly and in pairs.There were 520 PACs recorded with a PAC burden of less than 1%. 4. The patient documented shortness of breath with no events with whichto correlate. Edge Bonder: Nataliia Miguel Jenny Kimani Canada P.A.-C. CV CARDIAC SERVICES [place] OCEDURES Final Result INFOBIONIC ELAINE NA * Dermatopathology Consult (03/12/2022 4:00 PM CDT) Only the most recent of2 resultswithin the time period is included. 03/18/2022 12:17 PM CDT PDRM Report electronically signed by Marilyn Bosch M.D. 03/18/2022 12:17 PM CDT PDRM Gross Description: Received in formalin labeled with the patient's name, medical record number, and left earlobe is a 0.7 x 0.7 x 0.1 cm pale-aly skin shave biopsy. Centrally located on the skin surface is a 0.5 x 0.5 cm white, raised, firm lesion with irregular borders. Centrally located within the lesion, at the apex, is a 0.1 x 0.1 cm aly-aldridge pigmented area with irregular borders. The specimen is bisected and submitted entirely in cassette A1. Grossed by CRISTINE. 03/18/2022 12:17 PM CDT PDRM Interpetation FINAL DIAGNOSIS A. DermPath Consult Wet Tissue; Left earlobe, Skin shave biopsy: Invasive moderately differentiated squamous cell carcinoma, involving biopsy borders 03/18/2022 12:17 PM CDT PDRM Tissue 03/12/2022 4:00 PM CDT 03/13/2022 11:42 AM CDT us Wes Mathias M.D. LAB PATH DERM ORDERABLES Final Result [facility] [address] [place] [address], [facility] [address] [place] [address] * Troponin T, 2H/6H, 5th Gen (02/26/2022 6:00 PM CDT) Troponin T, 2 hr, 5th gen 13 <=15 ng/L 02/26/2022 6:26 PM CDT [facility] 2H Delta -2 ng/L 02/26/2022 6:26 PM CDT [facility]MA 2H Delta Interp Not Changing 02/26/2022 6:26 PM CDT [facility] Troponin T, 6 hr, 5th gen CANCELED ng/L 02/26/2022 6:26 PM CDT [facility] Comment:Result canceled by anthony jenkins. Blood (Blood, Venous) 02/26/2022 6:00 PM CDT 02/26/2022 6:04 PM CDT Narrative [facility] - 02/26/2022 6:26 PM CDT Specimen Information: Specimen ID: [id number] Specimen Type: Blood Specimen Collection Start Date: 02/26/2022 6:00 PM Specimen Received Date: 02/26/2022 6:04 PM Specimen ID: [id number] Specimen Type: Blood Specimen Collection Start Date: 02/26/2022 6:25 PM Specimen Received Date: 02/26/2022 6:25 PM Elizabeth Cruz M.D., Ph.D. LAB BLOOD TROPONIN Final Result [facility] [address] [place] [address], [facility] [address] [place] [address] * DX Chest Portable 1 View (02/26/2022 3:14 PM CDT) Only the most recent of2 resultswithin the time period is included. Anatomical Region Laterality Modality Chest, Thoracic RST LOS, Tho racic ARZ LOS, Thoracic FLA LOS N/A Digital Radiography 02/26/2022 3:23 PM CDT Impressions 02/26/2022 4:15 PM CDT There is no interval change compared to the previous study. Mild cardiomegaly. Cardiac stents. Atherosclerotic intrathoracic aorta. Clear lungs. No pneumothorax or pleural effusion. Left proximal humeral hardware. Narrative 02/26/2022 4:15 PM CDT EXAM: DX CHEST PORTABLE 1 VIEW Procedure Note Jayshree Crian M.D. - 02/26/2022 EXAM: DX CHEST PORTABLE 1 VIEW IMPRESSION: There is no interval change compared to the previous study. Mildcardiomegaly. Cardiac stents. Atherosclerotic intrathoracic aorta. Clear lungs. No pneumothoraxor pleural effusion. Left proximal humeral hardware. us Ross Horne M.D. IMG DIAGNOSTIC IMAGING PROC EDURES Final Result * Troponin T, Baseline, 5th gen (02/26/2022 3:10 PM CDT) Pathologist [facility] [place] Troponin T, Baseline, 5th gen 15 <=15 ng/L 02/26/2022 5:37 PM CDT [facility] Blood (Blood, Venous) 02/26/2022 3:10 PM CDT 02/26/2022 4:31 PM CDT us Elizabeth Cruz M.D., Ph.D. LAB BLOOD TROPONIN Final Result Performing Organization Address [facility] Co de Phone Number [facility] [address] [place], [place] [address] [place] [address] [address] [place] [address] * (ABNORMAL) Prothrombin Time (PT) (02/26/2022 3:10 PM CDT) Only the most recent of2 resultswithin the time period is included. Prothrombin Time, P 13.1(H) 9.4 - 12.5 sec 02/26/2022 3:25 PM CDT [facility] INR 1.2 0.9 - 1.1 02/26/2022 3:25 PM [facility]T [facility]: ----ADDITIONAL INFORMATION---- Standard intensity warfarin therapeutic range: 2.0 to 3.0 High intensity warfarin therapeutic range: 2.5 to 3.5 Blood (Blood, Venous) 02/26/2022 3:10 PM CDT 02/26/2022 3:14 PM CDT us Ranjan Cheema M.D. LAB BLOOD ADD-ON Final Res ult Performing Organization Address [facility] Co de Phone Number [facility] [address] [place], [place] [id number] [place] [address] [address] [place] [address] * Thyroid Function [place] (10/28/2021 9:37 AM SPIRAL WINDER) TSH, Sensitive 1.5 0.3 - 4.2 mIU/L 10/28/2021 1:17 PM SPIRAL WINDER [place] Blood (Blood, Venous) 10/28/2021 9:37 AM SPIRAL WINDER 10/28/2021 12:53 PM SPIRAL WINDER us Gerhard Orosco M.D. LAB BLOOD ADD-ON Final Result Performing Organization Address City/[facility]/ZIP Co de Phone Number [facility] [address] [place] [address], [facility] [place] [address] [place] [address] * Cortisol (10/28/2021 9:37 AM SPIRAL WINDER) Cortisol AM Result 6.3 4.8 - 20 mcg/dL 10/28/2021 5:03 PM SPIRAL WINDER [facility] Comment: Biotin has been identified by the differential repairer as a potential interfering substance. Higher concentrations of biotin may be found in multivitamins, hair/nail supplements, and workout supplements. If the result does not match clinical observations, repeat testing after patient refrains from the use of supplements for at least 12 hours. Blood (Blood, Venous) 10/28/2021 9:37 AM SPIRAL WINDER 10/28/2021 4:35 PM SPIRAL WINDER Gerhard Orosco M.D. LAB BLOOD ADD-ON Final Result Performing Organization Address [facility]/ZIP Co de Phone Number [facility] [address] [place] [address], [place] [facility] [address] [place] [address] * (ABNORMAL) Sodium (10/25/2021 7:52 AM SPIRAL WINDER) Only the most recent of5 resultswithin the time period is included. Sodium, P 132(L) 135 - 145 mmol/L 10/25/2021 11:06 AM SPIRAL WINDER OW Blood (Blood, Venous) 10/25/2021 7:52 AM SPIRAL WINDER 10/25/2021 10:36 AM SPIRAL WINDER Gerhard Orosco M.D. LAB BLOOD ADD-ON Final Result Performing Organization Address City/[facility]/ZIP Co de Phone Number [facility] [address] [place] [address], [place] [facility] [place] [address] [place] [address] * Sodium, Random, Urine (10/25/2021 7:50 AM SPIRAL WINDER) Sodium, Random, U 113 mmol/L 10/25/2021 3:55 PM SPIRAL WINDER [facility] Comment: ----REFERENCE VALUE---- Random urine sodium may be interpreted in conjunction with serum sodium, using both values to calculate fractional excretion of sodium. Urine (Urine, Voided) 10/25/2021 7:50 AM SPIRAL WINDER 10/25/2021 3:47 PM SPIRAL WINDER us Gerhard Orosco M.D. LAB URINE ORDERABLES Final Res ult Performing Organization Address [facility]/ZIP Co de Phone Number [facility] [address] [place] [id number], [facility] - [address] [address] * Osmolality, Urine (10/25/2021 7:50 AM SPIRAL WINDER) Pathologist [facility] [place] Osmolality, U 483 150 - 1150 mOsm/kg 10/25/2021 4:01 PM SPIRAL WINDER AUST Urine (Urine, Voided) 10/25/2021 7:50 AM SPIRAL WINDER 10/25/2021 3:47 PM SPIRAL WINDER us Gerhard Orosco M.D. LAB URINE ORDERABLES Final Res ult Performing Organization Address [facility]/ZIP Co de Phone Number [facility] [address] [place] [address], [facility] - [address] [address] * (TTE) 2D LIMITED WITH COLOR AND LIMITED DOPPLER (07/24/2021 10:37 AM CDT) [facility] Ejection Fraction 44 MC CV EIMS Mid-Ascending Aorta 39 MC CV EIMS LV Mass Index 110 MC CV EIMS LV End-Diastolic Diameter 57 MC CV EIMS LV End-Systolic Diameter 45 MC CV EIMS MV E Velocity 0.7 MC CV EIMS MV A Velocity 0.7 MC CV EIMS MV E/A 1.00 MC CV EIMS MV e' Velocity Medial 0.06 MC CV EIMS MV E/e' Medial 11.7 MC CV EIMS Left ventricular stroke volume index 57 MC CV EIMS Cardiac Output 6.38 MC CV EIMS Cardiac Index 3.11 MC CV EIMS LV Interventricular Septal Wall Thickness 11 MC CV EIMS LV Posterior Wall Thickness 9 MC CV EIMS LV Relative Wall Thickness 32 MC CV EIMS RA Pressure 5 MC CV EIMS LA Volume Index 60 MC CV EIMS Anatomical Region Laterality Modality Echocardiography 07/24/2021 9:54 AM CDT Impressions 07/24/2021 12:39 PM CDT Transthoracic outreach echo interpretation. Echocardiogram performed per left ventricular function protocol. LEFT VENTRICLE: Mildly enlarged left ventricular chamber size. Normal left ventricular geometry. Calculated 2-D linear left ventricular ejection fraction 44 %. Mild generalized left ventricular hypokinesis. Indeterminate left ventricular filling pressure. RIGHT VENTRICLE: Normal right ventricular chamber size. Normal right ventricular systolic function. Unable to detect peak tricuspid regurgitation velocity for pulmonary artery systolic pressure calculation. ATRIA: Severely enlarged left atrial size. Left atrial volume index 60 ml/m^2. Mildly enlarged right atrial size by visual estimate. CARDIAC VALVES: Trileaflet aortic valve. Normal aortic valve for age. No aortic valve regurgitation. Normal mitral valve for age. Mild mitral valve regurgitation. Pulmonary valve not well visualized. Trivial pulmonary valve regurgitation. Normal tricuspid valve. Trivial tricuspid valve regurgitation. OTHER ECHO FINDINGS: Normal inferior vena cava size with normal inspiratory collapse (>50%). Normal mid ascending aorta diameter (diameter 39 mm at mid level). No intracardiac mass or thrombus, but the left atrial appendage cannot be visualized adequately with transthoracic echo to exclude thrombus in this location. No pericardial effusion. For the complete report, see the Order-Level Documents. Narrative 07/24/2021 12:39 PM CDT For the complete report, see the Order-Level Documents. Final Impressions 1. Mildly enlarged left ventricular chamber size, mild generalized hypokinesis, calculated 2-D linear ejection fraction 44 %. 2. Normal left ventricular geometry, indeterminate filling pressure. 3. Normal right ventricular chamber size, normal systolic function, unable to detect peak tricuspid regurgitation velocity for pulmonary artery systolic pressure calculation. 4. No hemodynamically significant valvular heart disease. 5. Normal inferior vena cava size with normal inspiratory collapse (>50%). 6. No pericardial effusion. 7. Compared to the report of 10/17/2020 the following changes have occurred: The left ventricle and left atrium measure larger today. No other clinically significant changes. Side by side comparison performed. Procedure Note Raffi Milian M.D. - 07/24/2021 For the complete report, see the Order-Level Documents. Final Impressions 1. Mildly enlarged left ventricular chamber size, mild generalizedhypokinesis, calculated 2-D linear ejection fraction 44 %. 2. Normal left ventricular geometry, indeterminate filling pressure. 3. Normal right ventricular chamber size, normal systolic function, unableto detect peak tricuspid regurgitation velocity for pulmonary artery systolic pressurecalculation. 4. No hemodynamically significant valvular heart disease. 5. Normal inferior vena cava size with normal inspiratory collapse(>50%). 6. No pericardial effusion. 7. Compared to the report of 10/17/2020 the following changes haveoccurred: The left ventricle and left atrium measure larger today. No other clinically significantchanges. Side by side comparison performed. Findings Transthoracic outreach echo interpretation. [facility]. LEFT VENTRICLE: Mildly enlarged left ventricularchamber size. Normal left ventricular geometry. Calculated 2-D linear left ventricularejection fraction 44 %. Mild generalized left ventricular hypokinesis. Indeterminate leftventricular filling pressure. RIGHT VENTRICLE: Normal right ventricular chamber size.Normal right ventricular systolic function. Unable to detect peak tricuspid regurgitation velocityfor pulmonary artery systolic pressure calculation. ATRIA: Severely enlarged left atrialsize. Left atrial volume index 60 ml/m^2. Mildly enlarged right atrial size by visual estimate.CARDIAC VALVES: Trileaflet aortic valve. Normal aortic valve for age. No aortic valveregurgitation. Normal mitral valve for age. Mild mitral valve regurgitation. Pulmonary valvenot well visualized. Trivial pulmonary valve regurgitation. Normal tricuspid valve. Trivialtricuspid valve regurgitation. OTHER ECHO FINDINGS: Normal inferior vena cava size withnormal inspiratory collapse (>50%). Normal mid ascending aorta diameter (diameter 39 mm atmid level). No intracardiac mass or thrombus, but the left atrial appendage cannot bevisualized adequately with transthoracic echo to exclude thrombus in this location. Nopericardial effusion. For the complete report, see the Order-Level Documents. us Miguel S Pessanha M.D. CV ECHO PROCEDURES Final R esult * US Carotid Bilateral (05/16/2021 10:55 AM CDT) Only the most recent of9 resultswithin the time period is included. Anatomical Region Laterality Modality Head and Neck, Ultrasound RS T LOS, Ultrasound ARZ LOS, Neuroradiology FLA LOS Bilateral Ultrasound 05/16/2021 11:0 5 AM CDT Impressions 05/16/2021 11:21 AM CDT No significant carotid artery stenosis bilaterally. Greater than 50 percent left ECA stenosis. Narrative 05/16/2021 11:21 AM CDT EXAM: US CAROTID BILATERAL Exam performed with color and spectral Doppler analysis. COMPARISON: 02/25/2019 FINDINGS: RIGHT: Mild atheromatous plaque in the carotid bifurcation. Doppler evaluation shows no evidence of significant ICA, ECA, or CCA stenosis. Normal flow direction in the vertebral artery. LEFT: Mild atheromatous plaque in the carotid bifurcation. Doppler evaluation shows no evidence of significant ICA, ECA, or CCA stenosis. Normal flow direction in the vertebral artery. VELOCITIES (cm/sec) Right CCA *psv: 71 cm/s Right ICA psv: 96 cm/s Right ICA edv: 16 cm/s Right ECA psv: 129 cm/s Right ICA/CCA: 1.3 Left CCA *psv: 79 cm/s Left ICA psv: 87 cm/s Left ICA edv: 22 cm/s Left ECA psv: 156 cm/s Left ICA/CCA: 1.1 *mid/distal (non-diseased) Measurement of a carotid stenosis, if present, is based on velocity parameters that compare the residual internal carotid luminal diameter with that of the normal distal ICA in accordance with [place] Symptomatic Carotid Endarterectomy Trial (NASCET). Procedure Note Yamile Oconnell M.D. - 05/16/2021 EXAM: US CAROTID BILATERAL Exam performed with color and spectral Doppler analysis. COMPARISON: 02/25/2019 FINDINGS: RIGHT: Mild atheromatous plaque in the carotid bifurcation. Dopplerevaluation shows no evidence of significant ICA, ECA, or CCA stenosis. Normal flow direction in the vertebral artery. LEFT: Mild atheromatous plaque in the carotid bifurcation. Dopplerevaluation shows no evidence of significant ICA, ECA, or CCA stenosis. Normal flow direction in the vertebral artery. VELOCITIES (cm/sec) Right CCA *psv: 71 cm/s Right ICA psv: 96 cm/s Right ICA edv: 16 cm/s Right ECA psv: 129 cm/s Right ICA/CCA: 1.3 Left CCA *psv: 79 cm/s Left ICA psv: 87 cm/s Left ICA edv: 22 cm/s Left ECA psv: 156 cm/s Left ICA/CCA: 1.1 *mid/distal (non-diseased) Measurement of a carotid stenosis, if present, is based on velocityparameters that compare the residual internal carotid luminal diameter with that ofthe normal distal ICA in accordance with [place] Symptomatic Carotid Endarterectomy Trial (NASCET). IMPRESSION: No significant carotid artery stenosis bilaterally. Greater than 50 percent left ECA stenosis. us Hiro Platt P.A.-C. IMG US PROCEDURES Final Result * Aldosterone (04/29/2021 8:28 AM CDT) Aldosterone, P <4.0 <=21 ng/dL 05/01/2021 9:47 PM CDT [facility] Comment: ----ADDITIONAL INFORMATION---- Reference range for patients 11 years and older is based on upright A.M. collection from subjects without sodium restrictions. This test was developed and its performance characteristics determined by [facility] in a manner consistent with CLIA requirements. This test has not been cleared or approved by the U.S. Food and Drug Administration. Blood (Blood, Venous) 04/29/2021 8:28 AM CDT 04/30/2021 9:57 AM CDT us Gill Wise R.N. LAB BLOOD NON ADD-ON Final Resu lt [facility] [address] [place] [address] [facility] Dept. of Laboratory Medicine and Pathology [address] [place] [address] * Renin Activity (04/29/2021 8:28 AM CDT) Renin Activity, P 1.8 ng/mL/h 021 3:36 PM CDT [facility] Comment: ----REFERENCE VALUE---- (Peripheral vein specimen) Na-deplete, upright: Mean: 5.9 Range: 2.9-10.8 Na-replete, upright: Mean: 1.0 Range: < or =0.6-3.0 ----ADDITIONAL INFORMATION---- Testing performed by Liquid Chromatography-Tandem Mass Spectrometry (LC-MS/MS). This test was developed and its performance characteristics determined by [facility] in a manner consistent with CLIA requirements. This test has not been cleared or approved by the U.S. Food and Drug Administration. Blood (Blood, Venous) 04/29/2021 8:28 AM CDT 04/30/2021 8:52 AM CDT us Miguel Burrell M.D. LAB BLOOD NON ADD-ON Final Result [facility] [address] [place] [address] [facility] Dept. of Laboratory Medicine and Pathology [address] [place] [address] * US Kidneys with Renal Artery Doppler (04/15/2021 2:10 PM CDT) Anatomical Region Laterality Modality Abdomen, Renal, Ultrasound R ST LOS, Ultrasound ARZ LOS, Ultrasound FLA LOS, Procedural N/A Ultrasound 04/15/2021 2:24 PM CDT Impressions 04/15/2021 3:38 PM CDT 1. No renal artery stenosis by ultrasound. 2. Borderline/elevated resistive indices on the left. Borderline resistive index at the right lower kidney. This can be seen with chronic medical renal disease. 3. No hydronephrosis. Narrative 04/15/2021 3:38 PM CDT EXAM: US KIDNEYS WITH RENAL ARTERY DOPPLER Exam performed with color and spectral Doppler analysis. COMPARISON: Limited comparison 04/30/2006 CT angiogram FINDINGS: Right kidney: Normal echogenicity and parenchymal thickness. No hydronephrosis. Right renal artery: Negative for stenosis; single vessel well seen. Left kidney: Normal echogenicity and parenchymal thickness. No hydronephrosis. Left renal artery: Negative for stenosis; single vessel well seen. Right Renal Measurements: Right renal length: 10.6 cm Right segmental artery - upper pole RI: 0.68 Right segmental artery - lower pole RI: 0.73 Right renal artery origin PSV: 69 cm/s Right renal artery prox PSV: 119 cm/s Right renal artery mid PSV: 97 cm/s Right renal artery distal PSV: 63 cm/s Left Renal Measurements: Left renal length: 11.4 cm Left segmental artery - upper pole RI: 0.80 Left segmental artery - lower pole RI: 0.77 Left renal artery origin PSV: 118 cm/s Left renal artery prox PSV: 175 cm/s Left renal artery mid PSV: 104 cm/s Left renal artery distal PSV: 88 cm/s Aorta: Normal caliber. Aorta PSV: 50 cm/s Bladder: Normal. Procedure Note Asael Trent M.D. - 04/15/2021 EXAM: US KIDNEYS WITH RENAL ARTERY DOPPLER Exam performed with color and spectral Doppler analysis. COMPARISON: Limited comparison 04/30/2006 CT angiogram FINDINGS: Right kidney: Normal echogenicity and parenchymal thickness. Nohydronephrosis. Right renal artery: Negative for stenosis; single vessel well seen. Left kidney: Normal echogenicity and parenchymal thickness. Nohydronephrosis. Left renal artery: Negative for stenosis; single vessel well seen. Right Renal Measurements: Right renal length: 10.6 cm Right segmental artery - upper pole RI: 0.68 Right segmental artery - lower pole RI: 0.73 Right renal artery origin PSV: 69 cm/s Right renal artery prox PSV: 119 cm/s Right renal artery mid PSV: 97 cm/s Right renal artery distal PSV: 63 cm/s Left Renal Measurements: Left renal length: 11.4 cm Left segmental artery - upper pole RI: 0.80 Left segmental artery - lower pole RI: 0.77 Left renal artery origin PSV: 118 cm/s Left renal artery prox PSV: 175 cm/s Left renal artery mid PSV: 104 cm/s Left renal artery distal PSV: 88 cm/s Aorta: Normal caliber. Aorta PSV: 50 cm/s Bladder: Normal. IMPRESSION: 1. No renal artery stenosis by ultrasound. 2. Borderline/elevated resistive indices on the left. Borderlineresistive index at the right lower kidney. This can be seen with chronic medicalrenal disease. 3. No hydronephrosis. us Gill Wise R.N. IMG US PROCEDURES Final Result * Face-Family Medicine Image Exam (01/24/2021 10:50 AM SPIRAL WINDER) Only the most recent of2 resultswithin the time period is included. 01/24/2021 10:4 8 AM SPIRAL WINDER Narrative [facility] - 01/24/2021 10:51 AM SPIRAL WINDER This order has been created and auto-finalized to support the import of images acquired without order. The clinical documentation to support these images can be found on the encounter that produced images. us Provider Not In System IMG NON RAD IMAGING PROCE DURES Final Result [facility] NA * DX Chest AP or PA and Lateral 2 Views (10/29/2020 9:06 AM SPIRAL WINDER) Only the most recent of15 resultswithin the time period is included. Anatomical Region Laterality Modality Chest, Thoracic RST LOS, Tho racic ARZ LOS, Thoracic FLA LOS N/A Digital Radiography 10/29/2020 9:16 AM SPIRAL WINDER Impressions 10/29/2020 9:21 AM SPIRAL WINDER No focal airspace opacities or consolidations. Normal cardiac silhouette and pulmonary vascularity. Mild scattered scarring in both lungs. Mild aortic calcification. Left shoulder arthroplasty. No significant change from 10/17/2019. Narrative 10/29/2020 9:21 AM SPIRAL WINDER EXAM: DX CHEST AP OR PA AND LATERAL 2 VIEWS Procedure Note Kaleb Sutton M.D. - 10/29/2020 EXAM: DX CHEST AP OR PA AND LATERAL 2 VIEWS IMPRESSION: No focal airspace opacities or consolidations. Normal cardiac silhouette and pulmonary vascularity. Mild scattered scarring in bothlungs. Mild aortic calcification. Left shoulder arthroplasty. No significantchange from 10/17/2019. us Kimani Koko [place] P.A.-C. IMG DIAGNOSTIC IMAGING PROCEDURES Final Result * (TTE) 2D ECHO DOPPLER COLOR (10/17/2020 9:37 AM SPIRAL WINDER) Ejection Fraction 44 MC CV EIMS Mid-Ascending Aorta 37 MC CV EIMS LV Mass Index 102 MC CV EIMS LV End-Diastolic Diameter 52 MC CV EIMS LV End-Systolic Diameter 40 MC CV EIMS MV E Velocity 0.5 MC CV EIMS MV A Velocity 0.7 MC CV EIMS MV E/A 0.71 MC CV EIMS MV e' Velocity Medial 0.07 MC CV EIMS MV e' Velocity Lateral 0.06 MC CV EIMS MV E/e' Medial 7.1 MC CV EIMS MV E/e' Lateral 8.3 MC CV EIMS Left ventricular stroke volume index 49 MC CV EIMS Cardiac Output 5.54 MC CV EIMS Cardiac Index 2.73 MC CV EIMS LV Interventricular Septal Wall Thickness 10 MC CV EIMS LV Posterior Wall Thickness 11 MC CV EIMS LV Relative Wall Thickness 42 MC CV EIMS Tricuspid Annular S 0.12 MC CV EIMS RA Pressure 5 MC CV EIMS AV mean gradient 3 MC CV EIMS Aortic valve area 3.54 MC CV EIMS Aortic Valve Dimensionless Index 0.85 MC CV EIMS LA Volume Index 37 MC CV EIMS Anatomical Region Laterality Modality Echocardiography 10/17/2020 8:49 AM SPIRAL WINDER Impressions 10/17/2020 3:17 PM SPIRAL WINDER Transthoracic outreach echo interpretation. LEFT VENTRICLE: Normal left ventricular chamber size. Normal left ventricular wall thickness. Calculated 2-D linear left ventricular ejection fraction 44 %. Mild generalized left ventricular hypokinesis. Normal left ventricular filling pressure at rest. RIGHT VENTRICLE: Normal right ventricular chamber size by visual estimate. Normal right ventricular systolic function. Unable to detect peak tricuspid regurgitation velocity for pulmonary artery systolic pressure calculation. ATRIA: Mildly enlarged left atrial size by visual estimate. Left atrial volume index 37 ml/m^2. Normal right atrial size by visual estimate. CARDIAC VALVES: No hemodynamically significant valvular heart disease. Trileaflet aortic valve. Sclerotic aortic valve. No aortic valve regurgitation. Mildly thickened mitral valve. Trivial mitral valve regurgitation. Normal pulmonary valve. Normal pulmonary valve systolic velocities. Trivial pulmonary valve regurgitation. Normal tricuspid valve. Trivial tricuspid valve regurgitation. OTHER ECHO FINDINGS: Normal inferior vena cava size with normal inspiratory collapse (>50%). Normal mid ascending aorta diameter (diameter 37 mm at mid level). Abdominal aorta incompletely visualized. Normal abdominal aorta Doppler flow pattern. No atrial level shunt by color flow imaging. No intracardiac mass or thrombus, but the left atrial appendage cannot be visualized adequately with transthoracic echo to exclude thrombus in this location. No pericardial effusion. For the complete report, see the Order-Level Documents. Narrative 10/17/2020 3:17 PM SPIRAL WINDER For the complete report, see the Order-Level Documents. Final Impressions 1. Normal left ventricular chamber size. Mild generalized hypokinesis. Calculated ejection fraction 44%. 2. Normal left ventricular filling pressure at rest. 3. Normal right ventricular chamber size by visual estimate. Normal systolic function. Unable to estimate the right ventricular systolic pressure. 4. Mildly enlarged left atrial size by visual estimate. Left atrial volume index 37 ml/m^2. 5. No hemodynamically significant valvular heart disease. 6. Normal inferior vena cava size with normal inspiratory collapse (>50%). 7. No pericardial effusion. 8. Compared to the report of 07/08/2017 the following changes have occurred: slightly decreased objectively-assessed left ventricular systolic function (similar function on subjective comparison). Side by side comparison of images performed. Procedure Note Miguel Burrell M.D. - 10/17/2020 For the complete report, see the Order-Level Documents. Final Impressions 1. Normal left ventricular chamber size. Mild generalized hypokinesis.Calculated ejection fraction 44%. 2. Normal left ventricular filling pressure at rest. 3. Normal right ventricular chamber size by visual estimate. Normalsystolic function. Unable to estimate the right ventricular systolic pressure. 4. Mildly enlarged left atrial size by visual estimate. Left atrialvolume index 37 ml/m^2. 5. No hemodynamically significant valvular heart disease. 6. Normal inferior vena cava size with normal inspiratory collapse(>50%). 7. No pericardial effusion. 8. Compared to the report of 07/08/2017 the following changes haveoccurred: slightly decreased objectively-assessed left ventricular systolic function (similar functionon subjective comparison). Side by side comparison of images performed. Findings Transthoracic outreach echo interpretation. LEFT VENTRICLE: Normal leftventricular chamber size. Normal left ventricular wall thickness. Calculated 2-D linear leftventricular ejection fraction 44 %. Mild generalized left ventricular hypokinesis. Normalleft ventricular filling pressure at rest. RIGHT VENTRICLE: Normal right ventricular chamber sizeby visual estimate. Normal right ventricular systolic function. Unable to detect peaktricuspid regurgitation velocity for pulmonary artery systolic pressure calculation. ATRIA:Mildly enlarged left atrial size by visual estimate. Left atrial volume index 37 ml/m^2.Normal right atrial size by visual estimate. CARDIAC VALVES: No hemodynamically significantvalvular heart disease. Trileaflet aortic valve. Sclerotic aortic valve. No aortic valveregurgitation. Mildly thickened mitral valve. Trivial mitral valve regurgitation. Normalpulmonary valve. Normal pulmonary valve systolic velocities. Trivial pulmonary valveregurgitation. Normal tricuspid valve. Trivial tricuspid valve regurgitation. OTHER ECHO FINDINGS:Normal inferior vena cava size with normal inspiratory collapse (>50%). Normal mid ascending aortadiameter (diameter 37 mm at mid level). Abdominal aorta incompletely visualized. Normalabdominal aorta Doppler flow pattern. No atrial level shunt by color flow imaging. Nointracardiac mass or thrombus, but the left atrial appendage cannot be visualized adequately withtransthoracic echo to exclude thrombus in this location. No pericardial effusion. For the complete report, see the Order-Level Documents. Kimani Canada P.A.-C. CV ECHO PROCEDURES [facility] al Result * T4 (Thyroxine), Free (10/04/2020 3:52 PM SPIRAL WINDER) T4 (Thyroxine), Free, P 1.0 0.9 - 1.7 ng/dL 10/04/2020 6:50 PM SPIRAL WINDER [place] Comment: Biotin has been identified by the differential repairer as a potential interfering substance. Higher concentrations of biotin may be found in multivitamins, hair/nail supplements, and workout supplements. If the result does not match clinical observations, repeat testing after patient refrains from the use of supplements for at least 12 hours. Blood (Blood, Venous) 10/04/2020 3:52 PM SPIRAL WINDER 10/04/2020 6:28 PM SPIRAL WINDER Esteban Rincon P.A.-C., P.A. LAB BLOOD ADD -ON Final Result [facility] [address] [place] [address], [place] [facility] [place] [address] [place] [address] * NOSE-Otorhinolaryngology Image Exam (08/09/2020 10:05 AM CDT) Only the most recent of3 resultswithin the time period is included. 08/09/2020 10:0 2 AM CDT Narrative [facility] - 08/09/2020 10:12 AM CDT This order has been created and auto-finalized to support the import of images acquired without order. The clinical documentation to support these images can be found on the encounter that produced images. us Provider Not In System IMG NON RAD IMAGING PROCE DURES Final Result [facility] NA * SARS Coronavirus-2, PCR Asymptomatic (08/07/2020 12:37 PM CDT) Only the most recent of3 resultswithin the time period is included. SARS Coronavirus-2 Source Swab, Oropharynx 08/08/2020 8:12 PM CDT DTL SARS Coronavirus-2, PCR Undetected Undetected 08/08/2020 8:12 PM CDT DTL Comment: SARS-CoV-2 RNA absent. This result does not rule out COVID-19 in the patient, as the sensitivity of the test depends on the timing of the specimen collection and quality of the specimen. Result should be correlated with patient's history and clinical presentation. ----ADDITIONAL INFORMATION---- This test was developed and its performance characteristics determined by [facility] in a manner consistent with CLIA requirements. Independent review by the U.S. Food and Drug Administration is pending. Visit the CDC website: https://www.cdc.gov/coronavirus/ for the most recent guidelines on Coronavirus testing. Fact Sheet for Healthcare Providers: (https://www.Batiweb.com.Syncurity/it-mmfiles/ Provider_Fact_Sheet_for_[facility]_COVID-19.pdf) Fact Sheet for Patients: ([email or web address]) Varies (Oropharynx) 08/07/2020 12:37 PM CDT 08/07/2020 2:39 PM CDT us Marcio Rodriguez M.D. LAB MICROBIOLOGY - GENERAL O RDERABLES Final Result [facility] [address] [place] [address], [place] DTL [facility][note 3] [address] [place] [address] * CT Sinuses without IV Contrast (06/01/2020 9:43 AM CDT) Anatomical Region Laterality Modality Head, Neuroradiology RST LOS , Neuroradiology ARZ LOS, Neuroradiology FLA LOS N/A Computed Tomography, Compute d Tomography 06/01/2020 10:1 7 AM CDT Impressions 06/01/2020 10:35 AM CDT Overall similar extent of moderate chronic pansinusitis. Narrative 06/01/2020 10:35 AM CDT EXAM: CT SINUSES WITHOUT IV CONTRAST COMPARISON: Sinus CT 09/21/2019. FINDINGS: Persistent, mild to moderate mucosal thickening in the maxillary sinuses. The right ostiomeatal unit is slightly more patent but remains narrowed. Persistent opacification of the left ostiomeatal unit. Minimal leftward nasal septal deviation. Juliana lamella involving the right middle turbinate. Similar appearance of moderate mucosal thickening of the inferior frontal sinuses and frontal recesses, as well as the ethmoid sinuses. Mild mucosal thickening of the sphenoid sinuses, as before, with opacified sphenoid ostia. Well-aerated bilateral mastoid air cells and middle ears. Mild right temporomandibular joint arthropathy. Procedure Note Alejo Moreno M.D. - 06/01/2020 EXAM: CT SINUSES WITHOUT IV CONTRAST COMPARISON: Sinus CT 09/21/2019. FINDINGS: Persistent, mild to moderate mucosal thickening in themaxillary sinuses. The right ostiomeatal unit is slightly more patent but remains narrowed. Persistent opacification of the left ostiomeatal unit. Minimal leftward nasal septal deviation. Juliana lamella involving the rightmiddle turbinate. Similar appearance of moderate mucosal thickening of the inferiorfrontal sinuses and frontal recesses, as well as the ethmoid sinuses. Mildmucosal thickening of the sphenoid sinuses, as before, with opacified sphenoidostia. Well-aerated bilateral mastoid air cells and middle ears. Mild right temporomandibular joint arthropathy. IMPRESSION: Overall similar extent of moderate chronic pansinusitis. Edith HebertS. IMG CT PROCEDURES Final Result * SARS Coronavirus 2 IgG Ab, Serum (06/01/2020 9:14 AM CDT) Only the most recent of2 resultswithin the time period is included. [facility] SARS-CoV-2 IgG Ab Negative Negative 020 4:06 AM CDT [facility] Comment: No IgG antibodies to SARS-CoV-2 detected. Negative results may occur in serum collected too soon following infection, or in immunosuppressed patients. Follow-up testing with a molecular test is recommended in symptomatic patients. This test should not be used to exclude active/recent COVID-19. Testing was performed using the EUROIMMUN Nejy-OHPJ-AlH-2 GODFREY (IgG), which has received Emergency Use Authorization (EUA) by the U.S. Food and Drug Administration. Fact sheets for this EUA assay can be found at the following links: Factsheet for healthcare Providers: https://www.fda.gov/media/577255/download Factsheet for healthcare Patients: https://www.fda.gov/media/419237/download Blood (Blood, Venous) 06/01/2020 9:14 AM CDT 06/01/2020 1:30 PM CDT Edith HebertS. LAB MICROBIOLOGY - BLOO D ORDERABLES Final Result [facility] [address] [place] [address] [facility] Dept. of Laboratory Medicine and Pathology [address] [place] [address] * Pulmonary Function Tests (05/09/2020 1:14 PM CDT) VC MAX POST 3.78 L 05/09/2020 3:02 PM CDT [facility] SUITE PostFVC 3.76 L 05/09/2020 3:02 PM CDT [facility] SU[facility] PostFEV1 2.87 L 05/09/2020 3:02 PM CDT [facility] SUITE FEV1/FVC POST 76.36 % 05/09/2020 3:02 PM CDT [facility] FEF 25-75 % POST 2.36 L/s 05/09/2020 3:02 PM CDT [facility] SU[facility] PEF POST 7.98 L/s 05/09/2020 3:02 PM CDT [facility] SUITE FET POST 13.24 sec 05/09/2020 3:02 PM CDT [facility] SUITE DLCO SINGLE BREATH POST 17.45 ml/(min*mm Hg) 05/09/2020 3:02 PM CDT [facility] SU[facility] Post VA SINGLE BREATH 5.94 L 05/09/2020 3:02 PM CDT [facility] SUITE VC MAX PRE 3.76 L 05/09/2020 3:02 PM CDT [facility] SUITE FVC 3.76 L 05/09/2020 3:02 PM CDT [facility] FEV1 2.75 L 05/09/2020 3:02 PM CDT [facility] SUITE FEV1/FVC 73.16 % 05/09/2020 3:02 PM CDT [facility] SUITE LSQ40-30% 1.92 L/s 05/09/2020 3:02 PM CDT [facility] SU[facility] PEF PRE 7.99 L/s 05/09/2020 3:02 PM CDT [facility] SU[facility] FET PRE 12.36 sec 05/09/2020 3:02 PM CDT [facility] SU[facility] SUBSTANCE POST NaN 05/09/2020 3:02 PM CDT [facility] SU[facility] DOSE POST NaN 05/09/2020 3:02 PM CDT [facility] SU[facility] % PRED VC MAX 109.42 % 05/09/2020 3:02 PM CDT [facility] SU[facility] FVC% 109.42 % 05/09/2020 3:02 PM CDT [facility] FEV1% 106.74 % 05/09/2020 3:02 PM CDT [facility] % PRED FEV1/FVC 96.91 % 05/09/2020 3:02 PM CDT [facility] % PRED FEF 25-75% 101.59 % 05/09/2020 3:02 PM CDT [facility] % PRED PEF 112.98 % 05/09/2020 3:02 PM CDT [facility] PRED VC MAX 3.43 L 05/09/2020 3:02 PM CDT [facility] PRED FVC 3.43 L 05/09/2020 3:02 PM CDT [facility] PRED FEV 1 2.57 L 05/09/2020 3:02 PM CDT [facility] PRED FEV1/FVC 75.49 % 05/09/2020 3:02 PM CDT [facility] PRED FEF 25-75% 1.89 L/s 05/09/2020 3:02 PM CDT [facility] PRED PEF 7.07 L/s 05/09/2020 3:02 PM CDT [facility] 05/09/2020 1:14 PM CDT Edith Cummins PFT ORDERABLES Final R esult [facility] NA * CT Chest without IV Contrast (05/09/2020 12:51 PM CDT) Only the most recent of2 resultswithin the time period is included. Anatomical Region Laterality Modality Chest, Thoracic RST LOS, Tho racic ARZ LOS, Thoracic FLA LOS N/A Computed Tomography, Compute d Tomography 05/09/2020 1:10 PM CDT Impressions 05/09/2020 1:24 PM CDT Further interval decrease in opacity within the posterior left upper lobe with only minimal residual groundglass opacity on the current study. Findings likely relate to a resolving infectious process. There has been an associated decrease in size of an AP window lymph node. Additional small pulmonary nodules are indeterminate. If clinically appropriate, follow-up imaging in one year could be obtained to assess for longer term stability of these nodules. Narrative 05/09/2020 1:24 PM CDT EXAM: CT CHEST WITHOUT IV CONTRAST COMPARISON: [facility] examination from 11/28/2019. Outside examination from 09/21/2019. Limited comparison to outside PET/CT from 10/06/2019. FINDINGS: In the interval from the prior study of 11/28/2019, further decrease in focal opacity within the posterior left upper lobe. On the current examination, only a small amount of mild residual groundglass opacity is present (series 3, circa image 303). Small pulmonary nodules bilaterally are stable, including a 4 mm left upper lobe nodule (series 3, image 306) 3 mm right upper lobe nodule (series 3, image 118) and 2 mm right lower lobe nodule (series 3, image 494). A 4 mm left lower lobe nodule (series 3, image 523) was not well demonstrated on prior studies, possibly obscured by atelectasis. Small subpleural lymph nodes within the right lung are stable. Calcified granulomas right lung. Scattered probable parenchymal scarring. Dense vascular calcification, including coronary arteries. Coronary artery stenting. A 10 mm AP window lymph node has decreased slightly in size, measuring 12 mm on the prior study. Additional small and borderline sized mediastinal and hilar lymph nodes are not definitely changed. Common origin of the innominate and left common carotid arteries (normal variant). Small hiatal hernia. Limited evaluation of the upper abdomen. Negative adrenal glands. Tiny gallstone. Postoperative changes left shoulder. Degenerative changes right shoulder and thoracic spine. Procedure Note Ranjan Ceja M.D., Ph.D. - 05/09/2020 EXAM: CT CHEST WITHOUT IV CONTRAST COMPARISON: [facility] examination from 11/28/2019. Outside examinationfrom 09/21/2019. Limited comparison to outside PET/CT from 10/06/2019. FINDINGS: In the interval from the prior study of 11/28/2019, further decrease infocal opacity within the posterior left upper lobe. On the current examination,only a small amount of mild residual groundglass opacity is present (series 3,circa image 303). Small pulmonary nodules bilaterally are stable, including a 4 mm leftupper lobe nodule (series 3, image 306) 3 mm right upper lobe nodule (series 3, ) and 2 mm right lower lobe nodule (series 3, image 494). A 4 mm left lowerlobe nodule (series 3, image 523) was not well demonstrated on prior studies, possibly obscured by atelectasis. Small subpleural lymph nodes within theright lung are stable. Calcified granulomas right lung. Scattered probableparenchymal scarring. Dense vascular calcification, including coronary arteries. Coronaryartery stenting. A 10 mm AP window lymph node has decreased slightly in size,measuring 12 mm on the prior study. Additional small and borderline sizedmediastinal and hilar lymph nodes are not definitely changed. Common origin of theinnominate and left common carotid arteries (normal variant). Small hiatal hernia. Limited evaluation of the upper abdomen. Negative adrenal glands. Tiny gallstone. Postoperative changes left shoulder. Degenerative changesright shoulder and thoracic spine. IMPRESSION: Further interval decrease in opacity within the posterior left upper lobewith only minimal residual groundglass opacity on the current study. Findingslikely relate to a resolving infectious process. There has been an associateddecrease in size of an AP window lymph node. Additional small pulmonary nodules are indeterminate. If clinicallyappropriate, follow-up imaging in one year could be obtained to assess for longerterm stability of these nodules. us Edith Cummins IMG CT PROCEDURES Final Result * US Lower Extremity Veins Bilateral (11/28/2019 4:00 PM SPIRAL WINDER) Anatomical Region Laterality Modality Lower Extremity, Ultrasound RST LOS, Ultrasound ARZ LOS, Ultrasound FLA LOS Bilateral Ultrasound 11/28/2019 4:16 PM SPIRAL WINDER Impressions 11/28/2019 5:37 PM SPIRAL WINDER 1) Negative for acute DVT. 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 3) Left SFA >75% stenosis. Narrative 11/28/2019 5:37 PM SPIRAL WINDER EXAM: US LOWER EXTREMITY VEINS BILATERAL Exam performed with color and spectral Doppler analysis. COMPARISON: None FINDINGS: The common femoral, upper deep femoral, femoral and popliteal veins are widely patent bilaterally, without thrombus. The posterior tibial, peroneal, soleal and gastrocnemius veins were segmentally visualized bilaterally and are normal where seen. The great saphenous veins bilaterally are patent and negative for thrombus. Incidentally noted, calcified atheromatous plaque in the right common femoral artery with focal >50% stenosis of the common femoral artery(velocities increase from 59 to 165cm/sec). There is also noted marked calcified atheromatous plaque in the left superficial femoral artery with focal >75% stenosis of the superficial femoral artery(velocities increase from 49 to 283cm/sec). Procedure Note Nancy Ashley M.D. - 11/28/2019 EXAM: US LOWER EXTREMITY VEINS BILATERAL Exam performed with color and spectral Doppler analysis. COMPARISON: None FINDINGS: The common femoral, upper deep femoral, femoral and poplitealveins are widely patent bilaterally, without thrombus. The posterior tibial,peroneal, soleal and gastrocnemius veins were segmentally visualized bilaterally andare normal where seen. The great saphenous veins bilaterally are patent andnegative for thrombus. Incidentally noted, calcified atheromatous plaque in the right commonfemoral artery with focal >50% stenosis of the common femoral artery(velocitiesincrease from 59 to 165cm/sec). There is also noted marked calcified atheromatousplaque in the left superficial femoral artery with focal >75% stenosis of the superficial femoral artery(velocities increase from 49 to 283cm/sec). IMPRESSION: 1) Negative for acute DVT. 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 3) Left SFA >75% stenosis. Edith Cummins IMG US PROCEDURES Final Result * Interpretation of Outside CT Chest (11/25/2019 2:34 PM SPIRAL WINDER) Anatomical Region Laterality Modality Chest, Thoracic RST LOS, Tho racic ARZ LOS, Thoracic FLA LOS, Other, Body N/A Computed Tomography 11/25/2019 3:38 PM SPIRAL WINDER Impressions 11/25/2019 3:45 PM SPIRAL WINDER 1. Irregular nodule in the left upper lobe with adjacent satellite nodularity is suggestive of granulomatous infection, but malignancy cannot be entirely excluded. Associated left hilar and mediastinal adenopathy. 2. Peribronchial vascular nodularity in the right lower lobe also has the appearance of focal infection/inflammation with associated mildly enlarged right infrahilar lymph nodes. Narrative 11/25/2019 3:45 PM SPIRAL WINDER EXAM: INTERPRETATION OF OUTSIDE CT CHEST COMPARISON: None. FINDINGS: OUTSIDE CT CHEST WITH INTRAVENOUS CONTRAST DATED 09/21/2019. There is an irregular approximately 20 x 25 mm noncalcified nodule in the left upper lobe posteriorly (series 2 image 55). This has multiple adjacent satellite nodules and some slight thickening along the adjacent left major fissure posteriorly and pleura laterally. The morphology is suggestive of a focus of granulomatous infection, although neoplasm cannot be entirely excluded. Associated mildly enlarged left hilar and mediastinal nodes greatest in the superior pole of left hilum (series 2 image 50, 10 mm millimeters) and AP window (series 2 image 49, 40 mm). There is also bronchial wall thickening with paco-bronchovascular clustered nodularity in the right lower lobe (series 2 image 91). This also has the appearance of a focal infectious or inflammatory process. A 9 mm right infrahilar node (series 2 image 66) may be reactive. Regional vascular calcifications, including the coronary arteries. Postoperative changes left shoulder. Age-related changes in the skeleton, but no aggressive osseous lesions are identified. Visualized upper abdomen including adrenal glands appears negative. Procedure Note Edwin Giles M.D. - 11/25/2019 EXAM: INTERPRETATION OF OUTSIDE CT CHEST COMPARISON: None. FINDINGS: OUTSIDE CT CHEST WITH INTRAVENOUS CONTRAST DATED 09/21/2019. There is an irregular approximately 20 x 25 mm noncalcified nodule in theleft upper lobe posteriorly (series 2 image 55). This has multiple adjacentsatellite nodules and some slight thickening along the adjacent left major fissure posteriorly and pleura laterally. The morphology is suggestive of a focusof granulomatous infection, although neoplasm cannot be entirely excluded. Associated mildly enlarged left hilar and mediastinal nodes greatest inthe superior pole of left hilum (series 2 image 50, 10 mm millimeters) and APwindow (series 2 image 49, 40 mm). There is also bronchial wall thickening with paco-bronchovascularclustered nodularity in the right lower lobe (series 2 image 91). This also hasthe appearance of a focal infectious or inflammatory process. A 9 mm right infrahilar node (series 2 image 66) may be reactive. Regional vascular calcifications, including the coronary arteries. Postoperative changes left shoulder. Age-related changes in the skeleton,but no aggressive osseous lesions are identified. Visualized upper abdomen including adrenal glands appears negative. IMPRESSION: 1. Irregular nodule in the left upper lobe with adjacent satellitenodularity is suggestive of granulomatous infection, but malignancy cannot be entirely excluded. Associated left hilar and mediastinal adenopathy. 2. Peribronchial vascular nodularity in the right lower lobe also hasthe appearance of focal infection/inflammation with associated mildly enlargedright infrahilar lymph nodes. Edith Cummins IMG CT PROCEDURES Final Result * Blastomyces Ab, EIA (10/26/2019 9:07 AM SPIRAL WINDER) Blastomyces Ab, EIA, S Negative Negative 10/27/2019 9:15 PM SPIRAL WINDER [facility] Comment: A single negative result does not exclude the diagnosis of blastomycosis. Repeat testing on a new sample in 7-14 days if clinically indicated. Blood (Blood, Venous) 10/26/2019 9:07 AM SPIRAL WINDER 10/27/2019 8:45 AM SPIRAL WINDER Chanel Samson M.D. LAB MICROBIOLOGY - BLOOD ORDERABLES Final Result [facility] [address] [place] [address] [facility] Dept. of Laboratory Medicine and Pathology [address] [place] [address] * Coccidioides Ab w/ Reflex (10/26/2019 9:07 AM SPIRAL WINDER) Coccidioides Ab Screen, S Negative Negative 10/27/2019 9:14 PM SPIRAL WINDER [facility] Comment: A single negative result does not exclude the diagnosis of coccidiomycosis. Repeat testing on a new sample in 7-14 days if clinically indicated. ----ADDITIONAL INFORMATION---- This test has been modified from the differential repairer's instructions. Its performance characteristics were determined by [facility] in a manner consistent with CLIA requirements. This test has not been cleared or approved by the U.S. Food and Drug Administration. Blood (Blood, Venous) 10/26/2019 9:07 AM SPIRAL WINDER 10/27/2019 8:45 AM SPIRAL WINDER us Chanel Samson M.D. LAB MICROBIOLOGY - BLOOD ORDERABLES Final Result Performing Organization Address City/[facility]/ZIP Co de Phone Number [facility] [address] [place] [address] [facility] Dept. of Laboratory Medicine and Pathology [address] [place] [address] * Histoplasma Ab (10/26/2019 9:07 AM SPIRAL WINDER) Histoplasma Mycelial Negative Negative 10/29/2019 4:47 PM SPIRAL WINDER [facility] Histoplasma Yeast Negative Negative 019 4:47 PM SPIRAL WINDER [facility] Histoplasma Immunodiffusion Negative Negative 10/29/2019 4:47 PM SPIRAL WINDER [facility] Comment: A negative complement fixation and immunodiffusion (CF/ID) result does not exclude the diagnosis of histoplasmosis. Repeat testing by CF/ID in 1-2 weeks if clinically indicated. Blood (Blood, Venous) 10/26/2019 9:07 AM SPIRAL WINDER 10/27/2019 7:30 AM SPIRAL WINDER us Chanel Samson M.D. LAB MICROBIOLOGY - BLOOD ORDERABLES Final Result Performing Organization Address [facility] Co de Phone Number [facility] [address] [place] [address] [facility] Dept. of Laboratory Medicine and Pathology [address] [place] [address] [place] [address] * PUL Exhaled Nitric Oxide (10/19/2019 9:12 AM SPIRAL WINDER) Exhaled NO Oral 14 MMODAL Parts per billion (ULN) 39 MMODAL ENOComment Patient takes albuterol as needed MMODAL us Chanel Samson M.D. PFT ORDERABLES Final Result Performing Organization Address City/[facility]/ZIP Co de Phone Number MMODAL NA * PET CT SKULL BASE TO MID THIGH INITIAL TREAT-Outside NM Pet (10/06/2019 10:05 AM SPIRAL WINDER) Narrative [facility] - 10/21/2019 6:10 PM SPIRAL WINDER This order has been created and auto-finalized to support the import of outside images. If available, original interpretation can be found on the Media Tab in Chart Review, in Document Viewer, or as an image in QREADS. If a re-interpretation or overread is required please follow defined workflow. us Provider Not In System IMG NM PROCEDURES Final R esult Performing Organization Address [facility] de Phone Number IIMS NA * Outside CT Body (09/21/2019 10:25 AM CDT) Narrative [facility] - 09/27/2019 11:03 AM SPIRAL WINDER This order has been created and auto-finalized to support the import of outside images. If available, original interpretation can be found on the Media Tab in Chart Review, in Document Viewer, or as an image in QREADS. If a re-interpretation or overread is required please follow defined workflow. us Provider Not In System IMG CT PROCEDURES Final R esult Performing Organization Address [facility] de Phone Number IIMS NA * CT SINUS WO-Outside CT Neuro (09/21/2019 9:50 AM CDT) Narrative [facility] - 09/27/2019 11:06 AM SPIRAL WINDER This order has been created and auto-finalized to support the import of outside images. If available, original interpretation can be found on the Media Tab in Chart Review, in Document Viewer, or as an image in QREADS. If a re-interpretation or overread is required please follow defined workflow. us Provider Not In System IMG CT PROCEDURES Final R esult Performing Organization Address [facility] de Phone Number IIMS NA * Lower Arterial-Vascular Image Exam (02/25/2019 10:15 AM CDT) Only the most recent of9 resultswithin the time period is included. 02/25/2019 10:1 3 AM CDT Narrative IIMS - 02/25/2019 10:44 AM CDT This order has been created and auto-finalized to support the import of images acquired without order. The clinical documentation to support these images can be found on the encounter that produced images. us Provider Not In System IMG NON RAD IMAGING PROCE DURES Final Result Performing Organization Address City/[facility]/ZIP Co de Phone Number IIOH NA * AST (Aspartate Aminotransferase) (02/25/2019 7:41 AM CDT) Only the most recent of5 resultswithin the time period is included. Aspartate Aminotransferase (AST), S 26 8 - 48 U/L 02/25/2019 8:53 AM CDT [facility] Blood 02/25/2019 7:41 AM CDT 02/25/2019 8:03 AM CDT us Hiro Platt P.A.-C. LAB BLOOD ADD-ON Final R esult Performing Organization Address [facility] Co de Phone Number [facility] [address] * Potassium (02/25/2019 7:41 AM CDT) Only the most recent of5 resultswithin the time period is included. Potassium, S 5.1 3.6 - 5.2 mmol/L 02/25/2019 8:53 AM CDT [facility] Blood 02/25/2019 7:41 AM CDT 02/25/2019 8:03 AM CDT us Hiro AtkinsonCAlexandra LAB BLOOD ADD-ON Final R esult Performing Organization Address City/[facility]/ZIP Co de Phone Number [facility] [address] * DX Cervical Spine 2-3 Views (07/06/2018 10:48 AM CDT) Only the most recent of4 resultswithin the time period is included. Anatomical Region Laterality Modality Cervical Spine, Musculoskeletal RST LOS N/A Computed Radiography 07/06/2018 11:2 1 AM CDT Impressions 07/06/2018 11:23 AM CDT IMPRESSION: Severe multilevel hypertrophic degenerative changes, degenerative disc disease and facet arthritis. Mild retrolisthesis of C3 on C4 and mild anterolisthesis of C4 on C5. Loss of the normal cervical lordosis. Mild chronic loss of the vertebral body heights. No obvious acute compression fracture. Narrative 07/06/2018 11:23 AM CDT EXAM: DX CERVICAL SPINE 2-3 VIEWS Procedure Note Ioana Almaraz M.D. - 07/06/2018 EXAM: DX CERVICAL SPINE 2-3 VIEWS IMPRESSION: Severe multilevel hypertrophic degenerative changes,degenerative disc disease and facet arthritis. Mild retrolisthesis of C3 on C4 andmild anterolisthesis of C4 on C5. Loss of the normal cervical lordosis. Mildchronic loss of the vertebral body heights. No obvious acute compressionfracture. Chanel Samson M.D. IMG DIAGNOSTIC I MAGING PROCEDURES Final Result * DX Ankle Left 3+ Views (05/11/2018 11:54 AM CDT) Only the most recent of2 resultswithin the time period is included. Anatomical Region Laterality Modality Lower Extremity, Ankle, Musculoskeletal [facility] Left Computed Radiography 05/11/2018 11:5 5 AM CDT Impressions 05/11/2018 11:56 AM CDT IMPRESSION: Mild/moderately prominent scattered degenerative changes left ankle. No appreciable acute osseous injury. Narrative 05/11/2018 11:56 AM CDT EXAM: DX ANKLE LEFT 3+ VIEWS COMPARISON: None FINDINGS: Slight soft tissue swelling adjacent to the distal left lower leg/ankle. Mild/moderately prominent degenerative changes of the tips of the left medial and lateral malleoli. No appreciable acute osseous injury. Scattered arterial calcifications. Procedure Note Alejo Toscano M.D. - 05/11/2018 EXAM: DX ANKLE LEFT 3+ VIEWS COMPARISON: None FINDINGS: Slight soft tissue swelling adjacent to the distal left lower leg/ankle. Mild/moderately prominent degenerative changes of the tips of the leftmedial and lateral malleoli. No appreciable acute osseous injury. Scattered arterial calcifications. IMPRESSION: Mild/moderately prominent scattered degenerative changes leftankle. No appreciable acute osseous injury. Chanel Samson M.D. IMG DIAGNOSTIC I MAGING PROCEDURES Final Result * ANESTHESIOLOGY IMAGE EXAM (12/03/2017 10:35 AM SPIRAL WINDER) Only the most recent of5 resultswithin the time period is included. 12/03/2017 10:3 3 AM SPIRAL WINDER Narrative [facility]IM[facility] - 12/03/2017 11:17 AM SPIRAL WINDER This order has been created and auto-finalized to support the import of images acquired without order. The clinical documentation to support these images can be found on the encounter that produced images. Provider Not In System IMG NON RAD IMAGING PROCE DURES Final Result [facility]IMS NA * DX Shoulder 2+ Views (11/11/2017 8:55 AM SPIRAL WINDER) Only the most recent of5 resultswithin the time period is included. Anatomical Region Laterality Modality Upper Extremity, Shoulder N/A Radiog raphic Imaging 11/11/2017 8:55 AM SPIRAL WINDER Impressions 11/11/2017 8:58 AM SPIRAL WINDER Left TSA without findings of loosening. Degenerative arthritis of the AC joint. Vascular stent and calcifications. Electronically signed by: Tarsha Perez MD [id number] 11-Nov-2017 08:58 Narrative 11/11/2017 8:58 AM SPIRAL WINDER 11-Nov-2017 08:55:00 Exam: L Shoulder 4vw INGROWTH Indications: Arthroplasty Total Shoulder Replacement (TSA) S/P NOS ORIGINAL REPORT - 11-Nov-2017 08:58:00 EXAM: Left Shoulder 4vw INGROWTH: Procedure Note Ian Perez M.D. - 02/17/2018 11-Nov-2017 08:55:00 Exam: L Shoulder 4vw INGROWTH Indications: Arthroplasty Total Shoulder Replacement (TSA) S/P NOS ORIGINAL REPORT - 11-Nov-2017 08:58:00 EXAM: Left Shoulder 4vw INGROWTH: IMPRESSION: Left TSA without findings of loosening. Degenerative arthritisof the AC joint. Vascular stent and calcifications. Electronically signed by: Tarsha Perez MD [id number] 11-Nov-2017 08:58 Levon Candelario IMG DIAGNOSTIC IMAGING PROCEDURES Final Result * Arterial Lower Extremity (10/28/2017 9:08 AM SPIRAL WINDER) Anatomical Region Laterality Modality Other 10/28/2017 9:08 AM SPIRAL WINDER Historical Provider CV CARDIAC CATH PROCEDURES F inal Result * US Aorta (10/28/2017 8:51 AM SPIRAL WINDER) Only the most recent of4 resultswithin the time period is included. Anatomical Region Laterality Modality Abdomen, Pelvis N/A Ultrasound 10/28/2017 8:51 AM SPIRAL WINDER Impressions 10/28/2017 9:02 AM SPIRAL WINDER Patent right iliac artery stents with mildly elevated flow velocities. FINDINGS: Again demonstrated is mild prominence of the distal aorta, which measures up to 3 cm in diameter. Since the prior examination, metallic stents have been placed within the right common and external iliac arteries. Doppler evaluation demonstrates mildly elevated flow velocities within the stent as compared to the proximal [place] common iliac artery (up to 137 cm/s at the distal stent endpoint, compared to 33 cm/s in the proximal [place] vessel) which could represent residual mild stenosis. The [place] distal external iliac artery and common femoral artery below the stent remain widely patent. The proximal [place] femoral artery and the proximal superficial femoral artery are also widely patent. Electronically signed by: Iain Mera M.D. [id number] 28-Oct-2017 09:02 Narrative 10/28/2017 9:02 AM SPIRAL WINDER 28-Oct-2017 08:51:00 Exam: US Aorta-IVC Doppler Limited Indications: Peripheral Arterial Disease (PAD);Follow Up F/U Exam S/P Surgery ORIGINAL REPORT - 28-Oct-2017 09:02:00 EXAM: US Aorta-IVC Limited with color and spectral Doppler analysis COMPARISON: 05/25/2017 Procedure Note Jayson Mera M.D. - 02/17/2018 28-Oct-2017 08:51:00 Exam: US Aorta-IVC Doppler Limited Indications: Peripheral Arterial Disease (PAD);Follow Up F/U Exam S/PSurgery ORIGINAL REPORT - 28-Oct-2017 09:02:00 EXAM: US Aorta-IVC Limited with color and spectral Doppler analysis COMPARISON: 05/25/2017 IMPRESSION: Patent right iliac artery stents with mildly elevated flowvelocities. FINDINGS: Again demonstrated is mild prominence of the distal aorta, which measuresup to 3 cm in diameter. Since the prior examination, metallic stents have been placed within theright common and external iliac arteries. Doppler evaluation demonstratesmildly elevated flow velocities within the stent as compared to theproximal [place] common iliac artery (up to 137 cm/s at the distal stentendpoint, compared to 33 cm/s in the proximal [place] vessel) which couldrepresent residual mild stenosis. The [place] distal external iliac artery and common femoral artery belowthe stent remain widely patent. The proximal [place] femoral artery andthe proximal superficial femoral artery are also widely patent. Electronically signed by: Iain Mera M.D. [id number] 28-Oct-2017 09:02 Malik Lopez M.D., M.S. [facility] US PROCEDURES Final Result * (ABNORMAL) Electrolyte (Chem 4) Panel (07/10/2017 4:45 AM CDT) Only the most recent of2 resultswithin the time period is included. Chloride, S 99 98 - 107 MMOL/L [facility] HX Bicarbonate, P/S 22 22 - 29 MMOL/L [facility] Creatinine 0.7(L) 0.8 - 1.3 MG/DL [facility] BUN (Blood Urea Nitrogen), S 12 8 - 24 MG/DL [facility] Sodium, S 136 135 - 145 MMOL/L [facility] Potassium, S 4.5 3.6 - 5.2 MMOL/L [facility] Anion Gap 15 7 - 15 [facility] Glucose, S 123 70 - 140 MG/DL [facility] 07/10/2017 4:45 AM CDT 07/10/2017 4:45 AM CDT us Maria Del Carmen cifuentes APRN C.N.P., D.N.P., M.S. LAB BLOOD ADD-ON Final Result [facility] [address] * V&IRAD Vascular & Intervention (07/09/2017 2:20 PM CDT) Anatomical Region Laterality Modality N/A X-Ray Angiograph y 07/09/2017 2:20 PM CDT Narrative 07/09/2017 2:29 PM CDT 09-Jul-2017 14:20:00 Exam: V&IRAD Vascular & Intervention Indications: Right Endovascular ilac stent graft (retrograde from right); Right Femoral endarterectomy, patch angioplasty/interposition graft (Proceed as indicated) ORIGINAL REPORT - 09-Jul-2017 14:29:00 V&IRAD Vascular & Intervention: Please see dictated Operative Note of same date in [facility] LastWord. Electronically signed by: Rivas Juarez MD 09-Jul-2017 14:29 Procedure Note Malik Lopez M.D. - 02/17/2018 09-Jul-2017 14:20:00 Exam: V&IRAD Vascular & Intervention Indications: Right Endovascular ilac stent graft (retrograde from right);Right Femoral endarterectomy, patch angioplasty/interposition graft (Proceed as indicated) ORIGINAL REPORT - 09-Jul-2017 14:29:00 V&IRAD Vascular & Intervention: Please see dictated Operative Note of same date in [facility] [employer]Word. Electronically signed by: Rivas Juarez MD 09-Jul-2017 14:29 us Malik Lopez M.D., M.S. IMG IR PROCEDURES Final Result * Cardiac Biomarker Panel (07/09/2017 12:42 PM CDT) Only the most recent of2 resultswithin the time period is included. Troponin T, S <0.01 <0.01 NG/ML [facility] Comment:Drawn From Arterial Line Troponin T 3H, S <0.01 <0.01 NG/ML [facility] Comment:Drawn From Arterial Line Troponin Delta 0.00 NG/ML [facility] Comment:Drawn From Arterial Line Delta Interp Not Sig [facility] Comment: Drawn From Arterial Line No significant delta observed. Troponin Delta 0.00 NG/ML [facility] Comment:Drawn From Arterial Line Troponin T 6H, S <0.01 <0.01 NG/ML [facility] Comment:Drawn From Arterial Line Delta Interp Not Sig [facility] Comment: Drawn From Arterial Line No significant delta observed. 07/09/2017 12:4 2 PM CDT 07/09/2017 12:42 PM CDT Narrative [facility] - 07/09/2017 8:17 PM CDT Drawn From Arterial Line Pratik Chang M.D. LAB BLOOD ADD-ON Final Resu lt Performing Organization Address City/[facility]/ZIP Co de Phone Number [facility] [address] * (ABNORMAL) Glucose, POCT (07/09/2017 12:34 PM CDT) Only the most recent of2 resultswithin the time period is included. Glucose, POCT, B 151(H) 70 - 140 MG/DL [facility] Sample Site, Blood Gas, POCT Venstick [facility] 07/09/2017 12:3 4 PM CDT 07/09/2017 12:34 PM CDT Historical Provider LAB POCT ORDERABLES-MANUAL F inal Result Performing Organization Address City/[facility]/ZIP Co de Phone Number [facility] [address] * (ABNORMAL) ACT (Activated Clotting Time), POCT (07/09/2017 11:08 AM CDT) Only the most recent of12 resultswithin the time period is included. Activated Clotting Time, POCT 156(H) 84 - 139 SEC [facility] 07/09/2017 11:0 8 AM CDT 07/09/2017 11:08 AM CDT [facility] Provider LAB POCT ORDERABLES - DEVICE Final Result Performing Organization Address City/[facility] Co de Phone Number [facility] [address] * ABORh, RBC (07/09/2017 7:05 AM CDT) Only the most recent of3 resultswithin the time period is included. HXABO/RH BLOOD TYPE A Pos [facility] 07/09/2017 7:05 AM CDT [facility] Provider LAB BLOOD BANK TEST ORDERABL ES Final Result Performing Organization Address [facility] Co de Phone Number [facility] [address] * Antibody Screen, RBC (07/09/2017 7:05 AM CDT) Only the most recent of3 resultswithin the time period is included. Antibody Screen Negative [facility] 07/09/2017 7:05 AM CDT [facility] Provider LAB BLOOD BANK TEST ORDERABL ES Final Result Performing Organization Address [facility] Co de Phone Number [facility] [address] * ECHOCARDIOLOGY IMAGE EXAM (07/08/2017 12:48 PM CDT) Anatomical Region Laterality Modality Other 07/08/2017 12:4 8 PM CDT Addenda Addendum by Provider, Russel Lopez on 07/08/2017 12:48 PM CDT ECHO^^^MCR DOBUT 07/08/2017 12:48:20 DOBUT Addendum by ProviderJohn M.D. on 07/08/2017 11:25 AM CDT ECHO^^^MCR DOBUT 07/08/2017 11:25:56 DOBUT Addendum by John Eller M.D. on 07/08/2017 12:48 PM CDT ECHO^^^ORA DOBUT 07/08/2017 12:48:20 DOBUT Addendum by ProviderJohn M.D. on 07/08/2017 11:25 AM CDT ECHO^^^ORA DOBUT 07/08/2017 11:25:56 DOBUT Historical Provider IMG NON RAD IMAGING PROCEDUR ES Edited Result - Final * Echo Stress (07/08/2017 12:32 PM CDT) Anatomical Region Laterality Modality Echocardiography 07/08/2017 12:3 2 PM CDT Hiro Platt P.A.-C. CV ECHO PROCEDURES Final Result * Arterial Lower Extremity (05/25/2017 12:27 PM CDT) Anatomical Region Laterality Modality Other 05/25/2017 12:2 7 PM CDT Historical Provider CV CARDIAC CATH PROCEDURES F inal Result * US Carotid (05/25/2017 11:04 AM CDT) Only the most recent of2 resultswithin the time period is included. Anatomical Region Laterality Modality Ultrasound 05/25/2017 11:0 4 AM CDT Impressions 05/25/2017 11:37 AM CDT FINDINGS: RIGHT: No significant change compared to prior. Carotid endarterectomy without complications. ICA, CCA and ECA are patent without stenosis. Vertebral artery has antegrade flow. LEFT: No significant change compared to prior. There is moderate amount of mostly soft atheromatous plaque in the CCA with no hemodynamically significant stenosis. There is moderate amount of mixed calcified and noncalcified atheromatous plaque at the carotid bifurcation. Doppler evaluation is consistent with less than 50% stenosis in the proximal ICA. No CCA or ECA stenosis. Vertebral artery has antegrade flow. VELOCITIES (cm/sec) Right CCA *psv: 59 cm/s Right ICA psv: 111 cm/s Right ICA edv: 30 cm/s Right ECA psv: 85 cm/s Right ICA/CCA: 1.9 Left CCA *psv: 69 cm/s Left ICA psv: 80 cm/s Left ICA edv: 23 cm/s Left ECA psv: 66 cm/s Left ICA/CCA: 1.2 *mid/distal (non-diseased) Measurement of a carotid stenosis, if present, is based on velocity parameters that compare the residual internal carotid luminal diameter with that of the normal distal ICA in accordance with [place] Symptomatic Carotid Endarterectomy Trial (NASCET). Electronically signed by: Hira Richards M.D. [id number] 25-May-2017 11:37 Narrative 05/25/2017 11:37 AM CDT 25-May-2017 11:04:00 Exam: US Carotid Arteries Complete Indications: Carotid Artery Disease ORIGINAL REPORT - 25-May-2017 11:37:00 EXAM: US Carotid Arteries Complete with color and spectral Doppler analysis COMPARISON: 04/11/2016 Procedure Note Verito Richards M.D. - 02/17/2018 25-May-2017 11:04:00 Exam: US Carotid Arteries Complete Indications: Carotid Artery Disease ORIGINAL REPORT - 25-May-2017 11:37:00 EXAM: US Carotid Arteries Complete with color and spectral Doppleranalysis COMPARISON: 04/11/2016 IMPRESSION: FINDINGS: RIGHT: No significant change compared to prior. Carotid endarterectomywithout complications. ICA, CCA and ECA are patent without stenosis.Vertebral artery has antegrade flow. LEFT: No significant change compared to prior. There is moderate amountof mostly soft atheromatous plaque in the CCA with no hemodynamicallysignificant stenosis. There is moderate amount of mixed calcified andnoncalcified atheromatous plaque at the carotid bifurcation. Dopplerevaluation is consistent with less than 50% stenosis in the proximal ICA.No CCA or ECA stenosis. Vertebral artery has antegrade flow. VELOCITIES (cm/sec) Right CCA *psv: 59 cm/s Right ICA psv: 111 cm/s Right ICA edv: 30 cm/s Right ECA psv: 85 cm/s Right ICA/CCA: 1.9 Left CCA *psv: 69 cm/s Left ICA psv: 80 cm/s Left ICA edv: 23 cm/s Left ECA psv: 66 cm/s Left ICA/CCA: 1.2 *mid/distal (non-diseased) Measurement of a carotid stenosis, if present, is based on velocityparameters that compare the residual internal carotid luminal diameterwith that of the normal distal ICA in accordance with [place] AmericanSymptomatic Carotid Endarterectomy Trial (NASCET). Electronically signed by: Hira Richards M.D. [id number] 25-May-2017 11:37 Malik Lopez M.D., M.S. IMG US PROCEDURES Final Result * Outside Photo (05/19/2017 12:00 AM CDT) 05/19/2017 Addenda Addendum by John Eller M.D. on 05/19/2017 12:00 AM CDT ODM^^^MCR Unspecified 05/19/2017 00:00:00 Historical Provider IMG NON RAD IMAGING PROCEDUR ES Final Result HISTORICAL [facility] IMAGING CONVERSION * CT Urogram with IV Contrast (04/06/2017 10:55 AM CDT) Anatomical Region Laterality Modality Abdomen, Pelvis Computed Tomogra phy 04/06/2017 10:5 5 AM CDT Addenda Addendum by ProviderJohn M.D. on 04/06/2017 10:55 AM CDT RAD^^^OW CT Urogram 04/06/2017 10:55:58 Impressions 04/06/2017 12:40 PM CDT 1. Left renal 4.1 mm nonobstructing calyceal stone. 2. Severe sigmoid diverticulosis. Narrative 04/06/2017 12:40 PM CDT EXAM: CT Urogram INDICATION: recurrent UTI AGE: 76 years-old COMPARISON: None. TECHNIQUE: CT urogram with IV 140 mL Omnipaque contrast. With and without contrast. FINDINGS: Right system: Right kidney and ureter have no stones. No hydronephrosis. No suspicious right kidney masses. No filling defects of renal pelvis or ureter. Left system: Left renal superior pole calyx has 4.1 mm nonobstructing stone with maximum Hounsfield units of 750.. No hydronephrosis. Small renal cyst. No suspicious left kidney masses. No filling defects of renal pelvis or ureter. Bladder: Incidental urachal remnant. Sigmoid colon has severe diverticulosis and abuts the bladder, though no colovesicular fistula is evident. Bladder is otherwise negative. Non-urogram findings: Coronary artery calcifications. Aortoiliac calcifications. Mild ectasia of infrarenal abdominal aorta at 2.8 x 2.9 cm. Small fat-containing bilateral inguinal hernias. Severe sigmoid diverticulosis without diverticulitis. Cholelithiasis. Severe degenerative lumbar spondylosis. Otherwise negative. Procedure Note Ranjan Carrasquillo M.D. / John Eller M.D. - 05/14/2017 EXAM: CT Urogram INDICATION: recurrent UTI AGE: 76 years-old COMPARISON: None. TECHNIQUE: CT urogram with IV 140 mL Omnipaque contrast. With and without contrast. FINDINGS: Right system: Right kidney and ureter have no stones. No hydronephrosis. No suspicious right kidney masses. No filling defects of renal pelvis or ureter. Left system: Left renal superior pole calyx has 4.1 mm nonobstructing stone with maximum Hounsfield units of 750.. No hydronephrosis. Small renal cyst. No suspicious left kidney masses. No filling defects of renal pelvis or ureter. Bladder: Incidental urachal remnant. Sigmoid colon has severe diverticulosis and abuts the bladder, though no colovesicular fistula is evident. Bladder is otherwise negative. Non-urogram findings: Coronary artery calcifications. Aortoiliac calcifications. Mild ectasia of infrarenal abdominal aorta at 2.8 x 2.9 cm. Small fat-containing bilateral inguinal hernias. Severe sigmoid diverticulosis without diverticulitis. Cholelithiasis. Severe degenerative lumbar spondylosis. Otherwise negative. IMPRESSION: 1. Left renal 4.1 mm nonobstructing calyceal stone. 2. Severe sigmoid diverticulosis. Kylee Acharya R.T.(R)(CT), R.T.(R) IMG CT PROCED URES Edited Result - Final * Glucose (03/26/2017 11:32 AM CDT) Only the most recent of2 resultswithin the time period is included. Glucose 112 70 - 139 MGDL POWERCHART Blood 03/26/2017 11:3 2 AM CDT Chanel Samson M.D. LAB BLOOD ADD-ON Final Result POWERCHART * PSA (Prostate-Specific Antigen) Screen (06/24/2016 8:13 AM CDT) Only the most recent of3 resultswithin the time period is included. Prostate-Specif ic Ag 0.2 0.0 - 6.5 NGML POWERCHART Blood 06/24/2016 8:13 AM CDT Chanel Samson M.D. LAB BLOOD ADD-ON Final Result POWERCHART * Arterial Lower Extremity (04/11/2016 2:31 PM CDT) Anatomical Region Laterality Modality Other 04/11/2016 2:31 PM CDT us Historical Provider CV CARDIAC CATH PROCEDURES F inal Result * DX Shoulder 1 View (11/27/2015 9:42 AM SPIRAL [employer]INDER) Anatomical Region Laterality Modality Upper Extremity, Shoulder N/A Radiog raphic Imaging 11/27/2015 9:42 AM SPIRAL WINDER Impressions 11/27/2015 9:52 AM SPIRAL WINDER Left TSA. Negative for PO purposes. 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 Electronically signed by: Sanket Barrera MD. [id number] 27-Nov-2015 09:52 Narrative 11/27/2015 9:52 AM SPIRAL WINDER 27-Nov-2015 09:42:00 Exam: L Shoulder 1vw Indications: POST OP: DJD, left shoulder arthroplasty total ORIGINAL REPORT - 27-Nov-2015 09:52:00 EXAM: Left Shoulder 1vw: Procedure Note Emerson Barrera M.D. - 02/18/2018 27-Nov-2015 09:42:00 Exam: L Shoulder 1vw Indications: POST OP: DJD, left shoulder arthroplasty total ORIGINAL REPORT - 27-Nov-2015 09:52:00 EXAM: Left Shoulder 1vw: IMPRESSION: Left TSA. Negative for PO purposes. Degenerative arthritis at theacromioclavicular joint. Electronically signed by: Sanket Barrera MD. [id number] 27-Nov-2015 09:52 Nadno Mendoza M.D. [facility] DIAGNOSTIC IMAGING PROC EDURES Final Result * CT Upper Extremity without IV Contrast (11/26/2015 11:00 AM SPIRAL WINDER) Anatomical Region Laterality Modality Upper Extremity Computed Tomogra phy 11/26/2015 11:0 0 AM SPIRAL WINDER Narrative 11/26/2015 12:23 PM SPIRAL WINDER 26-Nov-2015 11:00:00 Exam: L CT EXT UPPER wo Indications: Pain Shoulder NOS ORIGINAL REPORT - 26-Nov-2015 12:23:00 EXAM: CT EXT UPPER wo LEFT , 3D rendering with interpretation and reporting of CT requiring an independent workstation COMPARISON: CT scan of the left shoulder with axial, sagittal and coronal reformatting and 3-dimensional reconstructions performed on independent workstation. Comparison is to an x-ray from 11/26/2015. There is complete loss of joint space at the glenohumeral joint with extensive subchondral cystic change and remodeling especially of the glenoid. Prominent hypertrophic change on the inferior aspect of the humeral head. Degenerative changes at the AC joint with prominent spurring of the undersurface of the clavicle and effacement of subacromial fat on series 7 image 36. Moderate joint effusion. Electronically signed by: Ijeoma Mendoza MD [id number] 26-Nov-2015 12:23 Procedure Note Ijeoma Mendoza M.D. - 02/18/2018 26-Nov-2015 11:00:00 Exam: L CT EXT UPPER wo Indications: Pain Shoulder NOS ORIGINAL REPORT - 26-Nov-2015 12:23:00 EXAM: CT EXT UPPER wo LEFT , 3D rendering with interpretation andreporting of CT requiring an independent workstation COMPARISON: CT scan of the left shoulder with axial, sagittal and coronalreformatting and 3-dimensional reconstructions performed on independentworkstation. Comparison is to an x-ray from 11/26/2015. There is completeloss of joint space at the glenohumeral joint with extensive subchondralcystic change and remodeling especially of the glenoid. Prominenthypertrophic change on the inferior aspect of the humeral head.Degenerative changes at the AC joint with prominent spurring of theundersurface of the clavicle and effacement of subacromial fat on series 7image 36. Moderate joint effusion. Electronically signed by: Ijeoma Mendoza MD [id number] 26-Nov-2015 12:[address] PROCEDURES Final Result * CT 3D Requiring Independent Workstation (11/26/2015 10:59 AM SPIRAL WINDER) Anatomical Region Laterality Modality Abdomen, Pelvis Computed Tomogra phy 11/26/2015 10:5 9 AM SPIRAL WINDER Narrative 11/26/2015 12:23 PM SPIRAL WINDER 26-Nov-2015 10:59:00 Exam: 3D Requiring independent WS Indications: Pain Shoulder NOS ORIGINAL REPORT - 26-Nov-2015 12:23:00 EXAM: CT EXT UPPER wo LEFT , 3D rendering with interpretation and reporting of CT requiring an independent workstation COMPARISON: CT scan of the left shoulder with axial, sagittal and coronal reformatting and 3-dimensional reconstructions performed on independent workstation. Comparison is to an x-ray from 11/26/2015. There is complete loss of joint space at the glenohumeral joint with extensive subchondral cystic change and remodeling especially of the glenoid. Prominent hypertrophic change on the inferior aspect of the humeral head. Degenerative changes at the AC joint with prominent spurring of the undersurface of the clavicle and effacement of subacromial fat on series 7 image 36. Moderate joint effusion. Electronically signed by: Ijeoma Mendoza MD [id number] 26-Nov-2015 12:23 Procedure Note Ijeoma Mendoza M.D. - 02/18/2018 26-Nov-2015 10:59:00 Exam: 3D Requiring independent WS Indications: Pain Shoulder NOS ORIGINAL REPORT - 26-Nov-2015 12:23:00 EXAM: CT EXT UPPER wo LEFT , 3D rendering with interpretation andreporting of CT requiring an independent workstation COMPARISON: CT scan of the left shoulder with axial, sagittal and coronalreformatting and 3-dimensional reconstructions performed on independentworkstation. Comparison is to an x-ray from 11/26/2015. There is completeloss of joint space at the glenohumeral joint with extensive subchondralcystic change and remodeling especially of the glenoid. Prominenthypertrophic change on the inferior aspect of the humeral head.Degenerative changes at the AC joint with prominent spurring of theundersurface of the clavicle and effacement of subacromial fat on series 7image 36. Moderate joint effusion. Electronically signed by: Ijeoma Mendoza MD [id number] 26-Nov-2015 12:[address] PROCEDURES Final Result * DX Ribs Left 2 Views with Chest Posteroanterior 1 View (10/05/2015 12:24 PM SPIRAL WINDER) Anatomical Region Laterality Modality Ribs, Chest Left Radiographic Sharon ging 10/05/2015 12:2 4 PM SPIRAL WINDER Addenda Addendum by John Eller M.D. on 10/05/2015 12:24 PM SPIRAL WINDER RAD^^^OW XR Ribs Left w PA Chest 10/05/2015 12:24:22 Impressions 10/05/2015 12:34 PM SPIRAL WINDER 1. No definitive fracture seen Narrative 10/05/2015 12:34 PM SPIRAL WINDER EXAM: XR Ribs Left w/ PA Chest INDICATION: pain, possible rib fx, occasional cough COMPARISON: None. FINDINGS: Frontal view of the chest multiple views of the left ribs. Heart size normal. No infiltrate or effusion. Bones are unremarkable. Ribs appear to be intact with no specific area marked for closer review. There does appear to be degenerative change in thoracic spine and both shoulders. Procedure Note Nando Vogt M.D. / ProviderJohn M.D. - 04/02/2017 EXAM: XR Ribs Left w/ PA Chest INDICATION: pain, possible rib fx, occasional cough COMPARISON: None. FINDINGS: Frontal view of the chest multiple views of the left ribs. Heart size normal. No infiltrate or effusion. Bones are unremarkable. Ribs appear to be intact with no specific area marked for closer review. There does appear to be degenerative change in thoracic spine and both shoulders. IMPRESSION: 1. No definitive fracture seen Malissa Bishop(R) IMG DIAGNOSTIC IMAGIN G PROCEDURES Edited Result - Final * PHYSICAL MEDICINE AND REHAB IMAGE EXAM (05/28/2015 2:21 PM CDT) Anatomical Region Laterality Modality Other 05/28/2015 2:21 PM CDT Addenda Addendum by ProviderJohn M.D. 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 Pelvis and right hip otherwise negative. Advanced lower lumbar degenerative change. Advanced arterial calcification with left iliac stents. Electronically signed by: Alka Valderrama MD [id number] 28-May-2015 12:29 Narrative 05/28/2015 12:29 PM CDT 28-May-2015 12:26:00 Exam: R Hip 2vw AP/Lat Indications: Pain Hip R ORIGINAL REPORT - 28-May-2015 12:29:00 EXAM: Right Hip 2vw AP/Lat: Procedure Note Desean Valderrama M.D. 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 Pelvis and right hipotherwise negative. Advanced lower lumbar degenerative change. Advancedarterial calcification with left iliac stents. Electronically signed by: Alka Valderrama MD [id number] 28-May-2015 12:29 Griffin Lorenz M.D. IMG DIAGNOSTIC IMAGING PRO CEDURES Final Result * TFE INJECTION PROCEDURE LUMBAR (05/01/2015 2:40 PM CDT) Anatomical Region Laterality Modality X-Ray Angiograph y 05/01/2015 2:40 PM CDT Narrative 05/01/2015 2:41 PM CDT 01-May-2015 14:40:00 Exam: TFE Injection Proc Lumbar Indications: Stenosis Spinal Lumbar ORIGINAL REPORT - 01-May-2015 14:41:00 EXAM: TFE Injection Proc Lumbar PROCEDURE: Fluoroscopically-guided Right L4 Transforaminal Epidural Steroid Injection Pain Score: Pre-procedural pain was rated: 5/10 Post-procedural pain was rated: 3/10 Medications: Steroid: 10 mg dexamethasone Local anesthetic: 20 mg of 2% lidocaine TECHNIQUE/FINDINGS: The patient is a 74-year-old gentleman who is had approximately 3 months of right anterior thigh pain. There is no pain on the left. This occurs in the setting of a anterolisthesis of L4-L5 with a right sided L4 disc extrusion with cranial migration of disc material. There is also a lateral component to this extrusion. We are asked provide a right L4 transforaminal injection. Using usual sterile technique, fluoroscopic guidance, and local anesthesia, a 4.75 inch 25-gauge spinal needle was advanced into the neural foramen using infraneural approach. With final needle tip position, a small amount of iodinated contrast confirmed central epidural flow without intrathecal or intravascular uptake. A test dose of preservative free lidocaine was administered. Following 2 minutes, there were no central neurologic changes. Dexamethasone was deposited in this location. The needle was cleared with lidocaine and removed. The patient tolerated the procedure well and there were no immediate complications. PREPROCEDURE: Patient seen, evaluated, and history reviewed. Discussed risks (including, but not limited to, bleeding, infection, nerve injury, and paralysis), benefits, alternatives for procedure, and obtained informed consent. Patient understands information and questions answered. Immediately prior to starting the procedure, in the presence of the assisting personnel, procedural pause was conducted to verify correct patient identity and verification of procedure to be performed, and as applicable, correct side and site, correct patient position, availability of implants, special equipment, or special requirements, and all image and specimen identification data. The roles and responsibilities of care team members, residents, and fellows were discussed. Electronically signed by: Hira Ramos MD. [id number] 01-May-2015 14:41 Procedure Note Mando Ramos M.D. - 02/19/2018 01-May-2015 14:40:00 Exam: TFE Injection Proc Lumbar Indications: Stenosis Spinal Lumbar ORIGINAL REPORT - 01-May-2015 14:41:00 EXAM: TFE Injection Proc Lumbar PROCEDURE: Fluoroscopically-guided Right L4 Transforaminal EpiduralSteroid Injection Pain Score: Pre-procedural pain was rated: 5/10 Post-procedural pain was rated: 3/10 Medications: Steroid: 10 mg dexamethasone Local anesthetic: 20 mg of 2% lidocaine TECHNIQUE/FINDINGS: The patient is a 74-year-old gentleman who is had approximately 3 monthsof right anterior thigh pain. There is no pain on the left. This occurs inthe setting of a anterolisthesis of L4-L5 with a right sided L4 discextrusion with cranial migration of disc material. There is also a lateralcomponent to this extrusion. We are asked provide a right [id number] injection. Using usual sterile technique, fluoroscopic guidance, and localanesthesia, a 4.75 inch 25-gauge spinal needle was advanced into theneural foramen using infraneural approach. With final needle tipposition, a small amount of iodinated contrast confirmed central epiduralflow without intrathecal or intravascular uptake. A test dose ofpreservative free lidocaine was administered. Following 2 minutes, therewere no central neurologic changes. Dexamethasone was deposited in thislocation. The needle was cleared with lidocaine and removed. The patienttolerated the procedure well and there were no immediate complications. PREPROCEDURE: Patient seen, evaluated, and history reviewed. Discussedrisks (including, but not limited to, bleeding, infection, nerve injury,and paralysis), benefits, alternatives for procedure, and obtainedinformed consent. Patient understands information and questions answered.Immediately prior to starting the procedure, in the presence of theassisting personnel, procedural pause was conducted to verify correctpatient identity and verification of procedure to be performed, and asapplicable, correct side and site, correct patient position, availabilityof implants, special equipment, or special requirements, and all image andspecimen identification data. The roles and responsibilities of care teammembers, residents, and fellows were discussed. Electronically signed by: Hira Ramos MD. [id number] 01-May-2015 14:41 Griffin Lorenz M.D. IMG IR PROCEDURES Final Re sult * Arterial Lower Extremity (04/11/2015 10:40 AM CDT) Anatomical Region Laterality Modality Other 04/11/2015 10:4 0 AM CDT [facility] Provider CV CARDIAC CATH PROCEDURES F inal Result * Outside US Neuro (03/20/2015 8:20 AM CDT) 03/20/2015 8:20 AM CDT Addenda Addendum by ProviderJohn M.D. on 03/20/2015 8:20 AM CDT ODM^^^[facility] Carotid Duplex Bilat 03/20/2015 08:20:17 Historical Provider IMG US PROCEDURES Final Resu lt [facility] [address] [place] [address] * Arterial Lower Extremity (06/27/2014 1:01 PM CDT) Anatomical Region Laterality Modality Other 06/27/2014 1:01 PM CDT Historical Provider CV CARDIAC CATH PROCEDURES F inal Result * (ABNORMAL) Automated Differential (06/14/2014 6:59 AM CDT) Absolute Neutrophils 5.17 1.70 - 7.00 109L POWERCHART Lymphocytes 1.76 0.90 - 2.90 X109L POWERCHART Monocytes 0.97(H) 0.30 - 0.90 X109L POWERCHART Eosinophils 0.62(H) 0.05 - 0.50 X109L POWERCHART Absolute Basophil 0.03 0.00 - 0.30 X109L POWERCHART Blood 06/14/2014 6:59 AM CDT 06/14/2014 6:59 AM CDT Chanel Samson M.D. LAB BLOOD ADD-ON Final Result POWERCHART * DX Shoulder Left 2+ Views (06/02/2014 11:17 AM CDT) Anatomical Region Laterality Modality Upper Extremity, Shoulder Left Radiog raphic Imaging 06/02/2014 11:1 7 AM CDT Addenda Addendum by John Eller M.D. on 06/02/2014 11:17 AM CDT RAD^^^OW XR Shoulder Left 2 or more views 06/02/2014 11:17:10 Narrative 07/03/2014 10:51 AM CDT COMPARISON: None. HISTORY: 73 year old male with left shoulder pain. Findings: There is no acute left shoulder osseous abnormality. Bone mineralization is within normal limits. There is severe loss of left glenohumeral joint space with qyhu-so-vmif articulation and bony urination. Impression: 1. No acute shoulder osseous abnormality. 2. Severe left shoulder degenerative change. Addendum: COMPARISON: None. HISTORY: 73 year old male with left shoulder pain. Findings: There is no acute left shoulder osseous abnormality. Bone mineralization is within normal limits. There is severe loss of left glenohumeral joint space with yaqq-pg-opxi articulation and bony eburnation. Impression: 1. No acute shoulder osseous abnormality. 2. Severe left shoulder degenerative change. Procedure Note Esequiel Covarrubias M.D. / ProviderJohn M.D. - 04/03/2017 COMPARISON: None. HISTORY: 73 year old male with left shoulder pain. Findings: There is no acute left shoulder osseous abnormality. Bone mineralization is within normal limits. There is severe loss of left glenohumeral joint space with deff-cw-ygqm articulation and bony urination. Impression: 1. No acute shoulder osseous abnormality. 2. Severe left shoulder degenerative change. Addendum: COMPARISON: None. HISTORY: 73 year old male with left shoulder pain. Findings: There is no acute left shoulder osseous abnormality. Bone mineralization is within normal limits. There is severe loss of left glenohumeral joint space with ziou-mx-ekff articulation and bony eburnation. Impression: 1. No acute shoulder osseous abnormality. 2. Severe left shoulder degenerative change. Clinton Longoria Jr., RGerman.M.S. IMG DIAGNOSTIC IMAGING PROCEDURES Edited Result - Final * LAB SURG PATH,LEVEL IV PRO AND TECH (04/11/2014 2:20 PM CDT) HXLvl IV Surg Path-[place] Performed POWERCHART Comment: Test Performed by: [place] [address] Tool Dispatcher: Frankie Nur III, M.D. Tissue 04/11/2014 2:20 PM CDT 04/13/2014 8:15 AM CDT Historical Provider CHG LABORATORY Final Result Performing Organization Address City/[facility] Co de Phone Number POWERCHART * Arterial Lower Extremity (11/17/2013 8:27 AM SPIRAL WINDER) Anatomical Region Laterality Modality Other 11/17/2013 8:27 AM SPIRAL WINDER Austin Swift M.D. CV CARDIAC CATH PROCEDURES Fin al Result * Bacterial Culture, Aerobic (10/24/2013 11:38 AM SPIRAL WINDER) Organism Refer for ID, Aerobic Bact POWERCHART HXFinal See scanned/paper report. Test performed at [facility]. POWERCHART Wound (Abdomen) 10/24/2013 1 1:38 AM SPIRAL WINDER Chanel Samson M.D. LAB MICR OBIOLOGY - GENERAL ORDERABLES Edited Result - Final POWERCHART * (ABNORMAL) Microscopic Manual (10/12/2013 9:00 PM SPIRAL WINDER) Microscopy Abnormal [facility] Blood 3-10(A) <3 /HPF [facility] Dysmorphic RBC <25 <25 % [facility] WBC 4-10(A) 1-3 (Males); 1-10 (Females) /HPF [facility] 10/12/2013 9:00 PM SPIRAL WINDER 10/12/2013 9:00 PM SPIRAL WINDER Dee Smith APRN, C.N.P. LAB URINE ORDERABLES Fi nal Result Performing Organization Address [facility] de Phone Number [facility] [address] * Gram Stain, Urine (10/12/2013 9:00 PM SPIRAL WINDER) Gram's Stain, Screen, U Negative [facility] 10/12/2013 9:00 PM SPIRAL WINDER 10/12/2013 9:00 PM SPIRAL WINDER Dee Smith APRN, C.N.P. LAB URINE ORDERABLES Fi nal Result Performing Organization Address [facility] de Phone Number [facility] [address] * Arterial Lower Extremity (10/12/2013 12:31 PM SPIRAL WINDER) Anatomical Region Laterality Modality Other 10/12/2013 12:3 1 PM SPIRAL WINDER us Benjamin Glover, B.Ch. CV CARDIAC CATH PRO CEDURES Final Result * Magnesium (10/12/2013 4:16 AM SPIRAL WINDER) Magnesium, S 1.9 1.7 - 2.3 MG/DL [facility] 10/12/2013 4:16 AM SPIRAL WINDER 10/12/2013 4:16 AM SPIRAL WINDER Dee Smith APRN, C.N.P. LAB BLOOD ADD-ON Final Result [facility] [address] [place] [address], [facility] * Arterial Lower Extremity (09/28/2013 9:50 AM SPIRAL WINDER) Anatomical Region Laterality Modality Other 09/28/2013 9:50 AM SPIRAL WINDER us Jw Regan M.D. CV CARDIAC CATH PROCEDURE S Final Result * Troponin T (10/12/2012 6:58 AM SPIRAL WINDER) Only the most recent of3 resultswithin the time period is included. Pathologist [facility] [place] Troponin T, S <0.01 0.00 - 0.03 NGML MISYS [place] Comment:PERFORMED AT [facility], [address] [place] [address] HXTroponin T Note VALUES >0.03 HAVE BEEN SHOWN TO HAVE PROGNOSTIC VALUE. MISYS [place]CR[place] Blood 10/12/2012 6:58 AM SPIRAL WINDER Alex Lemos M.D. LAB BLOOD ADD-ON Final Result Performing Organization Address [facility] de Phone Number MISMAXIMUS [place] [address] * BMP (Basic Metabolic Panel), POCT (10/12/2012 3:33 AM SPIRAL WINDER) Pathologist [facility] [place] Hematocrit, POCT, B 43 38.8 - 50.0 MISYS [place]CROSSE HXHemoglobin IStat POC 14.6 13.5 - 17.5 GMDL MISYS [place] Blood 10/12/2012 3:33 AM SPIRAL WINDER 10/12/2012 4:38 AM SPIRAL WINDER Alex Lemos M.D. LAB POCT ORDERABLES - DEVICE Ed ited Result - Final Performing Organization Address City/[facility]/ZIP Co de Phone Number MISYS LACROSSE [address] * Troponin I, POCT (10/12/2012 3:31 AM SPIRAL WINDER) Only the most recent of2 resultswithin the time period is included. HX Troponin I POC 0.02 0.00 - 0.08 NGML [facility] [place] HXPOC Note ANALYSIS PERFORMED ON WHOLE BLOOD. UNABLE TO EVALUATE FOR HEMOLYSIS. JRYS LACROSSE Comment:PERFORMED AT [facility], [address] [place] [address] [place] [address] Blood 10/12/2012 3:31 AM SPIRAL WINDER 10/12/2012 5:09 AM SPIRAL WINDER Alex Lemos M.D. LAB POCT ORDERABLES - DEVICE Fi nal Result Performing Organization Address [facility] Co de Phone Number [facility] [address] [place] [address] * Creatine Kinase (CK) MB Isoenzyme (10/12/2012 3:30 AM SPIRAL WINDER) Only the most recent of2 resultswithin the time period is included. Pathologist [facility] [place] HXCK-MB Mass 1.9 <6.7 NGML MISMAXIMUS LACROSSE HXRelative Index 3.1 MISYS [place] Comment:PERFORMED AT [facility], [address] [place] [address] [place] [address] HXCKMB Isoenzyme Note SEE COMMENT MISYS [place]CROS[place] Comment: NORMAL:<5.0 REGARDLESS OF RELATIVE INDEX INDETERMINATE:>5.0 AND RELATIVE INDEX <4.0 ABNORMAL:>5.0 AND RELATIVE INDEX >4.0 Blood 10/12/2012 3:30 AM SPIRAL WINDER Alex Lemos M.D. LAB BLOOD ADD-ON Final Result Performing Organization Address City/[facility]/ZIP Co de Phone Number [facility] [address] [place] [address] * CK (Creatine Kinase) (10/12/2012 3:30 AM SPIRAL WINDER) Only the most recent of2 resultswithin the time period is included. Creatine Kinase (CK), S 62 35 - 232 UNITL [facility] [place] Comment: ISOENZYMES ARE NOT BEING PERFORMED PERFORMED AT [facility], [address] [place] [address] S, [place] [address] Blood 10/12/2012 3:30 AM SPIRAL WINDER Alex Lemos M.D. LAB BLOOD ADD-ON Final Result Performing Organization Address [facility] de Phone Number [facility] [address] [place] [address], [facility] * Staphylococcus Aureus PCR (07/13/2012 1:55 PM CDT) [facility] HXMRSA Screen NARES PERFORMED AT [facility], [address] [place] [address] POWERCHART HXMRSA Screen NO GROWTH OF MRSA (OXACILLIN RESISTANT STAPHYLOCOCCUS AUREUS). POWERCHART HXMRSA Screen PERFORMED AT [facility], [address] [place] [address] [place] [address] POWERCHART HXMRSA Screen FINAL 07/14/2012 POWERCHAR T Nares (Nose) 07/13/2012 1:55 PM CDT us Reece Paige M.D. LAB MICROBIOLOGY - GENERAL ORDERABLES Edited Result - Final Performing Organization Address [facility] de Phone Number POWERCHART * Historical [facility] General Labs (07/13/2012 9:53 AM CDT) [facility] FIO2 100 POWERCHART 07/13/2012 9:53 AM CDT us Historical Provider LAB HISTORICAL ORDERS Edited Result - Final Performing Organization Address [facility] de Phone Number POWERCHART * Activated Clotting Time (07/13/2012 9:29 AM CDT) Only the most recent of4 resultswithin the time period is included. [facility] HX ACT Low Range POC 170 SECONDS POWERCHART Comment SUGGESTED TARGET RANGES: POWERCHART Comment: NON-HEPARINIZED PATIENT: 89-169 SEC CARDIAC CATH/INTERVENTIONAL RADIOLOGY: 280-320 SEC VASCULAR SURGERY: 1-2 TIMES PRE-PROCEDURE ACT POST PTCI SHEATH PULL: <[address] [facility], [address] [place], [place] [address]E. [facility] [address] Blood 07/13/2012 9:29 AM CDT 07/16/2012 9:25 AM CDT us Reece Paige M.D. LAB BLOOD ADD-ON Final Resu lt POWERCHART * US Carotid Limited Intraoperative (07/13/2012 8:58 AM CDT) Anatomical Region Laterality Modality Head and Neck N/A Ultrasound 07/13/2012 8:58 AM CDT Addenda Addendum by ProviderJohn M.D. on 07/13/2012 8:58 AM CDT RAD^^^LASF US CAROTID 07/13/2012 08:58:00 Impressions 07/13/2012 9:42 AM CDT Interoperative ultrasound was used during a carotid endarterectomy. Images from the exam demonstrates patency of the carotid bulb. Transcribed by: [id number] on Jul 13 2012 10:33A Read by: VLAD AGUILLON on Jul 13 2012 10:33A Signed by: VLAD AGUILLON on Jul 13 2012 10:33A Narrative 07/13/2012 9:42 AM CDT INDICATION: CAROTID STENOSIS; ACCESSION No: [id number] DATE OF EXAM: Jul 13 2012 09:42 EXAM CODE and DESCRIPTION: F1U 8937 - US NTRAOP CAROTID/LTD RESULT: Interoperative Carotid Ultrasound Procedure Note Vlad Aguillon M.D. / ProviderJohn M.D. - 04/14/2017 INDICATION: CAROTID STENOSIS; ACCESSION No: [id number] DATE OF EXAM: Jul 13 2012 09:42 EXAM CODE and DESCRIPTION: F1U 8937 - US NTRAOP CAROTID/LTD RESULT: Interoperative Carotid Ultrasound IMPRESSION: Interoperative ultrasound was used during a carotid endarterectomy. Images from the exam demonstrates patency of the carotid bulb. Transcribed by: [id number] on Jul 13 2012 10:33A Read by: VLAD AGUILLON on Jul 13 2012 10:33A Signed by: VLAD AGUILLON on Jul 13 2012 10:33A us Vlad Aguillon M.D. [facility] US PROCEDURES Edited Resu lt - Final * CT Neck Angiogram (06/10/2012 11:20 AM CDT) Anatomical Region Laterality Modality Neck N/A Computed Tomogra phy 06/10/2012 11:2 0 AM CDT Addenda Addendum by Provider, Russel Lopez on 06/10/2012 11:20 AM CDT RAD^^^LASF CT ANGIO NECK 06/10/2012 11:20:00 Impressions 06/10/2012 11:42 AM CDT Right carotid system: Moderate calcified plaque at the bifurcation. Moderate stenosis of the proximal internal carotid artery of 60 to 70%. Left carotid system: Moderate calcified plaque at the bifurcation. Mild stenosis of the proximal internal carotid artery of approximately 20 to 30%. Vertebral arteries: The right vertebral artery is larger than the left. The right vertebral arteries patent. The left vertebral artery is very small, and in seen within the foramina on the left side from approximately C3 level superiorly, the more inferior portion of the left vertebral artery is not seen. Aortic arch: Atherosclerotic calcifications in the aortic arch. Nonvascular findings: Apices in the lungs show pleural and parenchymal scarring bilaterally. Tiny subpleural nodule apex of the right lung posteriorly measuring 3.6 mm (image 32 series 3). Guidelines for incidental pulmonary nodules are provided below. GUIDELINES FOR FOLLOW-UP of solid nodules detected incidentally at CT (newly detected indeterminate nodule in persons 35 years of age or older).# These apply to solitary pulmonary nodules or multiple pulmonary nodules. If multiple nodules are present, then the size of the largest nodule determines follow-up. NODULE SIZE (mm)* LOW-RISK PATIENT % 4 or less No further follow-up >4-6 CT at 12 mo; If unchanged, no further follow-up >6-8 CT at 6-12 mo then at 18-24 mo if no change >8 Consider immediate workup with PET, or biopsy or follow-up with CT imaging at 3, 9, and 24 mo NODULE SIZE (mm)* HIGH-RISK PATIENT + [address] at 12 mo; If unchanged, no further follow-up >4-6 CT at 6-12 mo then at 18-24 mo if no change >6-8 CT at 3-6 mo then at 9-12 and 24 mo if no change >8 Consider immediate workup with PET, or biopsy or follow-up with CT imaging at 3, 6, 12 and 24 mo *Average of length and width %Minimal or absent history of smoking and of other known risk factors +History of smoking or of other known risk factors # Nonsolid (ground-glass) or partly solid nodules may require longer follow-up to exclude indolent adenocarcinoma Transcribed by: [id number] on Jun 11 2012 5:41P Read by: DIPAK GONGORA (MORY) on Jun 11 2012 5:41P Signed by: DIPAK GONGORA (MORY) on Jun 11 2012 5:41P Narrative 06/10/2012 11:42 AM CDT INDICATION: RIGHT CAROTID STENOSIS; ACCESSION No: [id number] DATE OF EXAM: Jun 10 2012 11:42 EXAM CODE and DESCRIPTION: F1C 9981 - CT ANGIO NECK RESULT: CT scan of the neck with IV contrast for evaluation of the carotid arteries (carotid CT angiogram) 06/10/2012. Comparison to carotid ultrasound from 05/17/2012.. 3D image reconstruction performed on an independent workstation. Procedure Note Dipak Gongora M.D. / John Eller M.D. - 04/14/2017 INDICATION: RIGHT CAROTID STENOSIS; ACCESSION No: [id number] DATE OF EXAM: Jun 10 2012 11:42 EXAM CODE and DESCRIPTION: F1C 9981 - CT ANGIO NECK RESULT: CT scan of the neck with IV contrast for evaluation of the carotid arteries (carotid CT angiogram) 06/10/2012. Comparison to carotid ultrasound from 05/17/2012.. 3D image reconstruction performed on an independent workstation. IMPRESSION: Right carotid system: Moderate calcified plaque at the bifurcation. Moderate stenosis of the proximal internal carotid artery of 60 to 70%. Left carotid system: Moderate calcified plaque at the bifurcation. Mild stenosis of the proximal internal carotid artery of approximately 20 to 30%. Vertebral arteries: The right vertebral artery is larger than the left. The right vertebral arteries patent. The left vertebral artery is very small, and in seen within the foramina on the left side from approximately C3 level superiorly, the more inferior portion of the left vertebral artery is not seen. Aortic arch: Atherosclerotic calcifications in the aortic arch. Nonvascular findings: Apices in the lungs show pleural and parenchymal scarring bilaterally. Tiny subpleural nodule apex of the right lung posteriorly measuring 3.6 mm (image 32 series 3). Guidelines for incidental pulmonary nodules are provided below. GUIDELINES FOR FOLLOW-UP of solid nodules detected incidentally at CT (newly detected indeterminate nodule in persons 35 years of age or older).# These apply to solitary pulmonary nodules or multiple pulmonary nodules. If multiple nodules are present, then the size of the largest nodule determines follow-up. NODULE SIZE (mm)* LOW-RISK PATIENT % 4 or less No further follow-up >4-6 CT at 12 mo; If unchanged, no further follow-up >6-8 CT at 6-12 mo then at 18-24 mo if no change >8 Consider immediate workup with PET, or biopsy or follow-up with CT imaging at 3, 9, and 24 mo NODULE SIZE (mm)* HIGH-RISK PATIENT + [address] at 12 mo; If unchanged, no further follow-up >4-6 CT at 6-12 mo then at 18-24 mo if no change >6-8 CT at 3-6 mo then at 9-12 and 24 mo if no change >8 Consider immediate workup with PET, or biopsy or follow-up with CT imaging at 3, 6, 12 and 24 mo *Average of length and width %Minimal or absent history of smoking and of other known risk factors +History of smoking or of other known risk factors # Nonsolid (ground-glass) or partly solid nodules may require longer follow-up to exclude indolent adenocarcinoma Transcribed by: [id number] on Jun 11 2012 5:41P Read by: DIPAK GONGORA (MORY) on Jun 11 2012 5:41P Signed by: DIPAK GONGORA (MORY) on Jun 11 2012 5:41P us Dipak NIETO CT PROCEDURES Edited R esult - Final * DX Abdomen Supine with Upright or Decubitus 2 Views (06/08/2012 5:00 AM CDT) Anatomical Region Laterality Modality Abdomen Right Radiographic Sharon ging 06/08/2012 5:00 AM CDT Addenda Addendum by Provider, Russel Lopez on 06/08/2012 5:00 AM CDT RAD^^^LASF XR ABD FLAT AND UPRIGHT OR DECUB 06/08/2012 05:00:00 Impressions 06/08/2012 5:19 AM CDT Moderate amount of stool throughout the colon. No evidence of obstruction or perforation. Left iliac stent. Transcribed by: [id number] on Jun 08 2012 7:25A Read by: VLAD AGUILLON on Jun 08 2012 7:25A Signed by: VLAD AGUILLON on Jun 08 2012 7:25A Narrative 06/08/2012 5:19 AM CDT INDICATION: PAIN; ACCESSION No: [id number] DATE OF EXAM: Jun 08 2012 05:19 EXAM CODE and DESCRIPTION: F1D 5002 - XR ABD FLAT AND UPRIGHT OR DECUB RESULT: Flat and upright abdomen Procedure Note Vlad Aguillon M.D. / ProviderJohn M.D. - 04/14/2017 INDICATION: PAIN; ACCESSION No: [id number] DATE OF EXAM: Jun 08 2012 05:19 EXAM CODE and DESCRIPTION: F1D 5002 - XR ABD FLAT AND UPRIGHT OR DECUB RESULT: Flat and upright abdomen IMPRESSION: Moderate amount of stool throughout the colon. No evidence of obstruction or perforation. Left iliac stent. Transcribed by: [id number] on Jun 08 2012 7:25A Read by: VLAD AGUILLON on Jun 08 2012 7:25A Signed by: VLAD AGUILLON on Jun 08 2012 7:25A Vlad Aguillon M.D. IMG DIAGNOSTIC IMAGING PROCED URES Edited Result - Final * DX Chest 1 View (06/08/2012 4:47 AM CDT) Anatomical Region Laterality Modality Chest N/A Radiographic Sharon ging 06/08/2012 4:47 AM CDT Addenda Addendum by ProviderJohn M.D. on 06/08/2012 4:47 AM CDT RAD^^^LASF XR PORTABLE CHEST AP 06/08/2012 04:47:00 Impressions 06/08/2012 4:41 AM CDT Negative portable chest Transcribed by: [id number] on Jun 08 2012 7:25A Read by: VLAD AGUILLON on Jun 08 2012 7:25A Signed by: VLAD AGUILLON on Jun 08 2012 7:25A Narrative 06/08/2012 4:41 AM CDT INDICATION: CHEST PAIN; ACCESSION No: [id number] DATE OF EXAM: Jun 08 2012 04:41 EXAM CODE and DESCRIPTION: F1D 1000 - XR PORTABLE CHEST AP RESULT: Portable chest Procedure Note Vlad Aguillon M.D. / ProviderJohn M.D. - 04/14/2017 INDICATION: CHEST PAIN; ACCESSION No: [id number] DATE OF EXAM: Jun 08 2012 04:41 EXAM CODE and DESCRIPTION: F1D 1000 - XR PORTABLE CHEST AP RESULT: Portable chest IMPRESSION: Negative portable chest Transcribed by: [id number] on Jun 08 2012 7:25A Read by: VLAD AGUILLON on Jun 08 2012 7:25A Signed by: VLAD AGUILLON on Jun 08 2012 7:25A Vlad Aguillon M.D. IMG DIAGNOSTIC IMAGING PROCED URES Edited Result - Final * (ABNORMAL) APTT (Activated Partial Thromboplastin Time) (06/08/2012 4:31 AM CDT) Prothrombin Time, P 37.7(H) 22.2 - 34.8 SECONDS [facility] Comment:PERFORMED AT [facility], [address] [place] [address] Blood 06/08/2012 4:31 AM CDT Jw Calvillo M.D. LAB BLOOD ADD-ON Edited R esult - Final [facility] [address] * BUN (Blood Urea Nitrogen) (06/02/2012 9:25 AM CDT) BUN (Blood Urea Nitrogen), S 11 8 - 20 MGDL [facility] Comment:PERFORMED AT [facility], [address] [place] [address] [place] [address] Blood 06/02/2012 9:25 AM CDT Reece Paige M.D. LAB BLOOD ADD-ON Final Resu lt Performing Organization Address [facility] Co de Phone Number [facility] [address] [place] [address], [facility] * Urinalysis, Routine (04/15/2012 10:20 AM CDT) HXUA Spec Type CLEAN VOID MISY S [place] Comment:URINE RESULTS DO NOT WARRANT MICROSCOPIC ANALYSIS Appearance YELLOW MISYS [place] Comment:CLEAR Glucose NEGATIVE NEG MGDL [facility] [place] HXBILIRUBIN NEGATIVE NEG [facility] [place] Ketones, QL(U) NEGATIVE NEG MGDL [facility] [place] Specific [place], POCT, U 1.015 1.005 - 1.030 M[facility] [place] HXBLOOD NEGATIVE NEG [facility] [place] pH, POCT, Urine 7.0 5.0 - 8.0 MISY S [place] Protein, Ur, Dip NEGATIVE NEG MGDL MIS YS [place] Urobilinogen 0.2 0.1 - 1.0 EUDL M[facility] [place] HXNITRITE NEGATIVE NEG [facility] [place] Leukocyte Esterase NEGATIVE NEG [facility] [place] Comment:PERFORMED AT [facility], [address] [place] [id number] Urine 04/15/2012 10:2 0 AM CDT Nando Sargent M.D. LAB URINE ORDERABLES Final R esult Performing Organization Address [facility] de Phone Number [facility] [address] * PM EPIDURAL LUMBAR OR SACRAL (02/09/2012 10:38 AM CDT) Only the most recent of8 resultswithin the time period is included. Anatomical Region Laterality Modality Other 02/09/2012 10:3 8 AM CDT Historical Provider IMG NON RAD IMAGING PROCEDUR ES Final Result * Cardiac Catheterization (05/30/2011 12:00 AM CDT) Anatomical Region Laterality Modality Other 05/30/2011 us Historical Provider CV CARDIAC CATH PROCEDURES F inal Result * Echo Stress (05/27/2011 8:47 AM CDT) Anatomical Region Laterality Modality Echocardiography 05/27/2011 8:47 AM CDT us Historical Provider CV ECHO PROCEDURES Edited Re sult - Final * Echocardiogram (05/27/2011 8:47 AM CDT) Anatomical Region Laterality Modality Echocardiography 05/27/2011 8:47 AM CDT us Historical Provider CV ECHO PROCEDURES Edited Re sult - Final * Echo Stress (05/27/2011 8:08 AM CDT) Anatomical Region Laterality Modality Echocardiography 05/27/2011 8:08 AM CDT Narrative 05/27/2011 8:08 AM CDT Protocol Name: MATTHEW Time In Exercise Phase: 420 S Max Heart Rate: 117 BPM Max Predicted Heart Rate: 151 BPM Target HR Formula: (220 - Age)*85% Max. Systolic BP: 138 mmHg Max Diastolic BP: 88 mmHg Max Work Load (METS*10): 87 Diagnosis: 1. Borderline stress test. 2. 1mm ST depression inferior leads only. 3. Blunted BP response. 4. Brief episode of L sided chest discomfort in recovery only, rated 4/10 5. Average functional capacity. 6. See complete echo report. Confirmed by TIFFANY FLOREZ ([id number]) on 05/28/2011 8:32:09 AM Referred By: NANDO QUINONES Confirmed By: TIFFANY FLOREZ Procedure Note Provider, Russel Lopez - 04/21/2017 Protocol Name: MATTHEW Time In Exercise Phase: 420 S Max Heart Rate: 117 BPM Max Predicted Heart Rate: 151 BPM Target HR Formula: (220 - Age)*85% Max. Systolic BP: 138 mmHg Max Diastolic BP: 88 mmHg Max Work Load (METS*10): 87 Diagnosis: 1. Borderline stress test. 2. 1mm ST depression inferior leads only. 3. Blunted BP response. 4. Brief episode of L sided chest discomfort in recovery only, rated 4/10 5. Average functional capacity. 6. See complete echo report. Confirmed by TIFFANY FLOREZ ([id number]) on 05/28/2011 8:32:09 AM Referred By: NANDO QUINONES Confirmed By: TIFFANY FLOREZ us Tiffany Hook Vikki DamicoNAlexandraPAlexandra, CrystalNAnh CV ECHO PROCEDU RES Final Result * US Gallbladder (02/21/2011 10:40 PM CDT) Anatomical Region Laterality Modality Abdomen N/A Ultrasound 02/21/2011 10:4 0 PM CDT Addenda Addendum by John Eller M.D. on 02/21/2011 10:40 PM CDT RAD^^^LASF Abdomen 02/21/2011 22:40:00 Impressions 02/21/2011 11:06 PM CDT Possible mild fatty infiltration liver, exam otherwise unremarkable. Transcribed by: SHWETHA on Feb 22 2011 6:57A Read by: PETER HAIRSTON on Feb 22 2011 6:57A Signed by: PETER HAIRSTON on Feb 22 2011 6:57A Narrative 02/21/2011 11:06 PM CDT INDICATION: RUQ PAIN; ACCESSION No: [id number] DATE OF EXAM: Feb 21 2011 23:06 EXAM CODE and DESCRIPTION: F1U 8839 - US GALLBLADDER RESULT: Ultrasound right upper quadrant: Minimal heterogeneity to the liver which could be due to some fatty infiltration. No focal liver lesions. No bile duct dilatation. Normal appearing gallbladder with no evidence for cholelithiasis. No gallbladder wall thickening. Normal appearing right kidney. The head and body of the pancreas appear normal. The pancreatic tail is obscured by bowel gas. Patent IVC. Normal-caliber upper and mid abdominal aorta with the lower abdominal aorta obscured. Procedure Note Peter Hairston M.D. / John Eller M.D. - 04/15/2017 INDICATION: RUQ PAIN; ACCESSION No: [id number] DATE OF EXAM: Feb 21 2011 23:06 EXAM CODE and DESCRIPTION: F1U 8839 - US GALLBLADDER RESULT: Ultrasound right upper quadrant: Minimal heterogeneity to the liver which could be due to some fatty infiltration. No focal liver lesions. No bile duct dilatation. Normal appearing gallbladder with no evidence for cholelithiasis. No gallbladder wall thickening. Normal appearing right kidney. The head and body of the pancreas appear normal. The pancreatic tail is obscured by bowel gas. Patent IVC. Normal-caliber upper and mid abdominal aorta with the lower abdominal aorta obscured. IMPRESSION: Possible mild fatty infiltration liver, exam otherwise unremarkable. Transcribed by: SHWETHA on Feb 22 2011 6:57A Read by: PETER HAIRSTON on Feb 22 2011 6:57A Signed by: PETER HAIRSTON on Feb 22 2011 6:57A us Peter Hairston M.D. IMG US PROCEDURES Edited R esult - Final * DX Abdomen Supine and Upright 2 Views (02/21/2011 9:55 PM CDT) Anatomical Region Laterality Modality Abdomen Right Radiographic Sharon ging 02/21/2011 9:55 PM CDT Addenda Addendum by John Eller M.D. on 02/21/2011 9:55 PM CDT RAD^^^LASF XR ABD 2 VIEWS W/CHEST 1 VIEW 02/21/2011 21:55:00 Impressions 02/21/2011 10:18 PM CDT No acute findings. Transcribed by: SHWETHA on Feb 22 2011 7:28A Read by: PETER HAIRSTON on Feb 22 2011 7:28A Signed by: PETER HAIRSTON on Feb 22 2011 7:28A Narrative 02/21/2011 10:18 PM CDT INDICATION: EPIGASTRIC PAIN; ACCESSION No: [id number] DATE OF EXAM: Feb 21 2011 22:18 EXAM CODE and DESCRIPTION: F1D 5003 - XR ABD 2 VIEWS W/CHEST 1 VIEW RESULT: Flat and upright abdomen: Negative. Normal bowel gas pattern. No bowel distention and no prominent air-fluid levels. No opaque urinary tract stones. Left iliac artery stent. Scattered arterial calcifications. Chest: Negative. Heart size normal. Lungs clear. Procedure Note Peter Hairston M.D. / ProviderJohn M.D. - 04/15/2017 INDICATION: EPIGASTRIC PAIN; ACCESSION No: [id number] DATE OF EXAM: Feb 21 2011 22:18 EXAM CODE and DESCRIPTION: F1D 5003 - XR ABD 2 VIEWS W/CHEST 1 VIEW RESULT: Flat and upright abdomen: Negative. Normal bowel gas pattern. No bowel distention and no prominent air-fluid levels. No opaque urinary tract stones. Left iliac artery stent. Scattered arterial calcifications. Chest: Negative. Heart size normal. Lungs clear. IMPRESSION: No acute findings. Transcribed by: [id number] on Feb 22 2011 7:28A Read by: PETER HAIRSTON on Feb 22 2011 7:28A Signed by: PETER HAIRSTON on Feb 22 2011 7:28A us Peter [facility] DIAGNOSTIC IMAGING PRO CEDURES Edited Result - Final * DX Foot Right 3+ Views (11/06/2010 1:24 PM SPIRAL [facility]ER) Anatomical Region Laterality Modality Lower Extremity, Foot Right Radiograph ic Imaging 11/06/2010 1:24 PM [facility]AL [facility]ER Addenda Addendum by ProviderJohn M.D. on 11/06/2010 1:24 PM SP[facility]AL [facility]ER RAD^^^LASF rt foot 11/06/2010 13:24:00 Impressions 11/06/2010 1:56 PM SP[facility]AL [facility]ER Mild hallux valgus. No acute bony finding. Arterial calcification is present. Transcribed by: JUSTO on Nov 06 2010 2:26P Read by: GLORIA TRIVEDI on Nov 06 2010 2:26P Signed by: GLORIA TRIVEDI on Nov 06 2010 3:21P Narrative 11/06/2010 1:56 PM [facility]AL [facility]ER INDICATION: RT FOOT PAIN ACCESSION No: [id number] DATE OF EXAM: Nov 06 2010 13:56 EXAM CODE and DESCRIPTION: F1D 4053 - XR RT FOOT MIN 3 VIEWS RESULT: Right Foot (Three Views): Procedure Note Gloria Trivedi Jr., M.D. / ProviderJohn M.D. - 04/17/2017 INDICATION: RT FOOT PAIN ACCESSION No: [id number] DATE OF EXAM: Nov 06 2010 13:56 EXAM CODE and DESCRIPTION: F1D 4053 - XR RT FOOT MIN 3 VIEWS RESULT: Right Foot (Three Views): IMPRESSION: Mild hallux valgus. No acute bony finding. Arterial calcification is present. Transcribed by: [id number] on Nov 06 2010 2:26P Read by: GLORIA TRIVEDI on Nov 06 2010 2:26P Signed by: GLORIA TRIVEDI on Nov 06 2010 3:21P Gloria Trivedi Jr., M.D. [facility] DIAGNOSTIC [facility] ING PROCEDURES Edited Result - Final * V&IRAD Art Lower Ext (09/16/2010 3:29 PM CDT) Anatomical Region Laterality Modality Lower Extremity N/A X-Ray Angiograph y 09/16/2010 3:29 PM CDT Addenda Addendum by Provider, Russel Lopez on 09/16/2010 3:29 PM CDT RAD^^^LASF DSA 09/16/2010 15:29:00 Impressions 09/16/2010 3:54 PM CDT Severe proximal left common iliac stenosis as described above status post successful angioplasty and stent deployment. 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 Interval occlusion of the right SFA. Transcribed by: PATRICIA on Sep 16 2010 4:49P Read by: KARLO LARKIN on Sep 16 2010 4:49P Signed by: KARLO LARKIN on Sep 16 2010 4:49P Narrative 09/16/2010 3:54 PM CDT INDICATION: SURGERY; ACCESSION No: [id number] DATE OF EXAM: Sep 16 2010 15:54 EXAM CODE and DESCRIPTION: F1A 0014 - IR LOWER EXTREMITY RESULT: Informed consent was obtained prior to procedure.A pause prior to procedure was accomplished, verifying patient, site, and procedure. Under sterile conditions using local anesthesia an fluoroscopic guidance a right common femoral artery puncture was made and a 5 [place] sheath was introduced. Through this sheath a flush catheter was directed into the abdominal aorta and a distal abdominal aortic arteriogram and pelvic arteriogram was performed. A wire was directed over the aortic bifurcation and into the left common femoral artery. The catheter was then directed into the left external iliac artery. A stiff wire was then deployed through the catheter and the catheter and 5 [place]an sheath were removed. A guiding sheath was then directed over the aortic bifurcation into the left common iliac artery. Through this guiding sheath a 5 mm diameter 2 cm long angioplasty balloon was deployed. This was followed by a self expanding stent which was successfully deployed and subsequently balloon dilated. Diagnostic arteriography was performed through the guiding sheath. The flush catheter was then directed into the left external iliac artery and a left leg run off arteriogram was performed. The sheath was withdrawn into the right external iliac artery and a right leg runoff arteriogram was performed. There were no apparent complications. Distal aorta: Distal abdominal aortogram demonstrates a left common iliac stent in place and a severe stenosis in the left common iliac artery just proximal to the stented segment. Severe atheromatous disease is seen in a left common femoral artery. Moderate to severe atheromatous disease is seen in the right common iliac and right proximal external iliac artery. Moderate atheromatous disease is present in the right common femoral artery. No significant stenoses are identified on the right. Left leg: Moderate atheromatous disease the proximal SFA and also in the distal SFA just proximal of the abductor canal. Qatzckgi-ey-nwjeki stenoses are seen in the distal SFA and also in the proximal SFA. No significant popliteal artery stenoses are identified. The anterior tibial artery is occluded proximally and the posterior tibial artery is patent to the foot. The perineal artery is patent to the ankle and supplies some collateral refilling to the dorsalis pedis. Right leg: Moderate atheromatous disease in a common femoral artery and severe atheromatous disease in the SFA. The SFA is occluded proximally and refills about the level of the distal third of the right thigh. No significant popliteal stenoses are identified. Anterior and posterior tibial arteries are patent to the foot. There is a moderate to severe stenosis in the distal anterior tibial artery just proximal to the dorsalis pedis. Peroneal artery is patent the ankle. The severe left iliac stenosis was successfully traversed and balloon dilated with a 5 mm diameter balloon. This allowed passage of a 12 mm diameter 4 cm long self expanding stent which was then deployed across the severely stenotic left iliac artery. Following deployment the stent was expanded with a 10 mm diameter balloon. A final diagnostic arteriogram was performed and demonstrates a good cosmetic result and significantly improved blood flow. The disease in the left common femoral artery is not significantly changed when compared to the patient's previous arteriogram from 06/02/2007. The right SFA has occluded in the interim. The runoff on the right is not significantly different; however, there was better collateral refilling of the distal left anterior tibial artery on the previous arteriogram when compared to our current study. No significant change in the atheromatous disease involving the right common femoral artery compared to the previous arteriogram. Procedure Note Karlo Larkin M.D. / John Eller M.D. - 04/17/2017 INDICATION: SURGERY; ACCESSION No: [id number] DATE OF EXAM: Sep 16 2010 15:54 EXAM CODE and DESCRIPTION: F1A 0014 - IR LOWER EXTREMITY RESULT: Informed consent was obtained prior to procedure.A pause prior to procedure was accomplished, verifying patient, site, and procedure. Under sterile conditions using local anesthesia an fluoroscopic guidance a right common femoral artery puncture was made and a 5 [place]an sheath was introduced. Through this sheath a flush catheter was directed into the abdominal aorta and a distal abdominal aortic arteriogram and pelvic arteriogram was performed. A wire was directed over the aortic bifurcation and into the left common femoral artery. The catheter was then directed into the left external iliac artery. A stiff wire was then deployed through the catheter and the catheter and 5 [place]an sheath were removed. A guiding sheath was then directed over the aortic bifurcation into the left common iliac artery. Through this guiding sheath a 5 mm diameter 2 cm long angioplasty balloon was deployed. This was followed by a self expanding stent which was successfully deployed and subsequently balloon dilated. Diagnostic arteriography was performed through the guiding sheath. The flush catheter was then directed into the left external iliac artery and a left leg run off arteriogram was performed. The sheath was withdrawn into the right external iliac artery and a right leg runoff arteriogram was performed. There were no apparent complications. Distal aorta: Distal abdominal aortogram demonstrates a left common iliac stent in place and a severe stenosis in the left common iliac artery just proximal to the stented segment. Severe atheromatous disease is seen in a left common femoral artery. Moderate to severe atheromatous disease is seen in the right common iliac and right proximal external iliac artery. Moderate atheromatous disease is present in the right common femoral artery. No significant stenoses are identified on the right. Left leg: Moderate atheromatous disease the proximal SFA and also in the distal SFA just proximal of the abductor canal. Rvodwbzy-wq-jwjwyi stenoses are seen in the distal SFA and also in the proximal SFA. No significant popliteal artery stenoses are identified. The anterior tibial artery is occluded proximally and the posterior tibial artery is patent to the foot. The perineal artery is patent to the ankle and supplies some collateral refilling to the dorsalis pedis. Right leg: Moderate atheromatous disease in a common femoral artery and severe atheromatous disease in the SFA. The SFA is occluded proximally and refills about the level of the distal third of the right thigh. No significant popliteal stenoses are identified. Anterior and posterior tibial arteries are patent to the foot. There is a moderate to severe stenosis in the distal anterior tibial artery just proximal to the dorsalis pedis. Peroneal artery is patent the ankle. The severe left iliac stenosis was successfully traversed and balloon dilated with a 5 mm diameter balloon. This allowed passage of a 12 mm diameter 4 cm long self expanding stent which was then deployed across the severely stenotic left iliac artery. Following deployment the stent was expanded with a 10 mm diameter balloon. A final diagnostic arteriogram was performed and demonstrates a good cosmetic result and significantly improved blood flow. The disease in the left common femoral artery is not significantly changed when compared to the patient's previous arteriogram from 06/02/2007. The right SFA has occluded in the interim. The runoff on the right is not significantly different; however, there was better collateral refilling of the distal left anterior tibial artery on the previous arteriogram when compared to our current study. No significant change in the atheromatous disease involving the right common femoral artery compared to the previous arteriogram. IMPRESSION: Severe proximal left common iliac stenosis as described above status post successful angioplasty and stent deployment. 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 Interval occlusion of the right SFA. Transcribed by: PATRICIA on Sep 16 2010 4:49P Read by: KARLO LARKIN on Sep 16 2010 4:49P Signed by: KARLO LARKIN on Sep 16 2010 4:49P Karlo Larkin M.D. [facility] IR PROCEDURES Edited Res ult - Final * Outside US (01/18/2010 10:28 AM SP[facility]AL [facility]ER) Only the most recent of4 resultswithin the time period is included. 01/18/2010 10:2 8 AM SP[facility]AL [facility]ER Addenda Addendum by John Eller M.D. on 01/18/2010 10:28 AM SP[facility]AL [facility]ER ODM^^^MCR Lower Arterial 01/18/2010 10:28:00 Historical Provider IMG US PROCEDURES Final Resu lt [facility] [address] [place], [place] [address] * DX Knee Left 1 View (12/24/2009 10:35 AM SPIRAL WINDER) Only the most recent of4 resultswithin the time period is included. Anatomical Region Laterality Modality Lower Extremity, Knee Left Radiograph ic Imaging 12/24/2009 10:3 5 AM [facility]AL [facility]ER Addenda Addendum by John Eller M.D. on 12/24/2009 10:35 AM SPIRAL W[facility]ER RAD^^^LASF KNEE LAT 12/24/2009 10:35:00 Impressions 12/24/2009 10:44 AM SP[facility]AL [facility]ER As above. Transcribed by: [id number] on Dec 24 2009 11:20A Read by: MINDY ALONZO on Dec 24 2009 11:20A Signed by: MINDY ALONZO on Dec 24 2009 11:20A Narrative 12/24/2009 10:44 AM [facility]AL [facility]ER INDICATION: AFTERCARE, SURGERY;ROOM 7 AP, LAT ACCESSION No: [id number] DATE OF EXAM: Dec 24 2009 10:44 EXAM CODE and DESCRIPTION: FSD 4025 - XR LT KNEE 1-2 VIEWS RESULT: Comparison is made with the prior examination dated 08 May 2009. There has been prior bipolar cemented arthroplasty. The alignment is satisfactory and unchanged. Procedure Note Mindy Alonzo M.D. / John Eller M.D. - 04/23/2017 INDICATION: AFTERCARE, SURGERY;ROOM 7 AP, LAT ACCESSION No: [id number] DATE OF EXAM: Dec 24 2009 10:44 EXAM CODE and DESCRIPTION: FSD 4025 - XR LT KNEE 1-2 VIEWS RESULT: Comparison is made with the prior examination dated 08 May 2009. There has been prior bipolar cemented arthroplasty. The alignment is satisfactory and unchanged. IMPRESSION: As above. Transcribed by: TEDDY on Dec 24 2009 11:20A Read by: MINDY ALONZO on Dec 24 2009 11:20A Signed by: MINDY ALONZO on Dec 24 2009 11:20A Mindy Alonzo M.D. IMG DIAGNOSTIC IMAGING PROCE MASOUD Edited Result - Final * NM Cardiac Perfusion Rest and Stress SPECT (10/25/2007 7:22 AM [facility]AL [facility]ER) Only the most recent of2 resultswithin the time period is included. 10/25/2007 7:22 AM [facility] Addenda Addendum by John Eller M.D. on 10/25/2007 7:22 AM [facility] RAD^^^LASF User\T\Cardiology\T\One Day 10/25/2007 07:22:00 Impressions [facility] - 10/25/2007 10:47 AM SP[facility]AL [facility]ER Findings as described above which are worrisome for ischemia involving the anterolateral region of left ventricle. Narrative [facility] - 10/25/2007 10:47 AM [facility] INDICATION: ABNORMAL GXT ACCESSION No: [id number] DATE OF EXAM: Oct 25 2007 10:47 EXAM CODE and DESCRIPTION: F1N 8559 - NM MYOCARD PER MULT RESULT: Rest stress myocardial perfusion study was performed following injection at 10.1 mCi of Cardiolite IV for these rest study and 31.2 mCi of Cardiolite IV for the stress study. Cardiac SPECT imaging was performed in the usual fashion. Examination demonstrates a large area of fixed diminished perfusion in the inferior wall left ventricle. There is some diminished perfusion seen in the anterolateral region the left ventricle from the mid ventricle distally which does so show some redistribution on the rest images and is worrisome for myocardial ischemia. Some mild hypokinesis is identified the anterior wall and the left ventricular ejection fraction is diminished at 48%. Procedure Note Karlo Larkin M.D. / John Eller M.D. - 04/29/2017 INDICATION: ABNORMAL GXT ACCESSION No: [id number] DATE OF EXAM: Oct 25 2007 10:47 EXAM CODE and DESCRIPTION: F1N 8559 - NM MYOCARD PER MULT RESULT: Rest stress myocardial perfusion study was performed following injection at 10.1 mCi of Cardiolite IV for these rest study and 31.2 mCi of Cardiolite IV for the stress study. Cardiac SPECT imaging was performed in the usual fashion. Examination demonstrates a large area of fixed diminished perfusion in the inferior wall left ventricle. There is some diminished perfusion seen in the anterolateral region the left ventricle from the mid ventricle distally which does so show some redistribution on the rest images and is worrisome for myocardial ischemia. Some mild hypokinesis is identified the anterior wall and the left ventricular ejection fraction is diminished at 48%. IMPRESSION: Findings as described above which are worrisome for ischemia involving the anterolateral region of left ventricle. us Karlo Larkin M.D. IMG NM PROCEDURES Edited Res ult - Final [facility] [address] [id number] * DX Shoulder Right 2+ Views (08/16/2007 10:09 AM CDT) Anatomical Region Laterality Modality Upper Extremity, Shoulder Right Radiog raphic Imaging 08/16/2007 10:0 9 AM CDT Impressions 08/16/2007 10:09 AM CDT As above. Narrative 08/16/2007 10:09 AM CDT INDICATION: pain in rt shoulder [id number] ACCESSION No: [id number] DATE OF EXAM: Aug 16 2007 10:09 EXAM CODE and DESCRIPTION: FCD 3002 - XR RT SHOULDER MIN 2 VIEWS RESULT: Normal right shoulder. Procedure Note Mindy Alonzo M.D. - 04/29/2017 INDICATION: pain in rt shoulder [id number] ACCESSION No: [id number] DATE OF EXAM: Aug 16 2007 10:09 EXAM CODE and DESCRIPTION: FCD 3002 - XR RT SHOULDER MIN 2 VIEWS RESULT: Normal right shoulder. IMPRESSION: As above. Mindy Alonzo M.D. IMG DIAGNOSTIC IMAGING PROCE DURES Final Result * IR Stent Placement (06/02/2007 12:29 PM CDT) Anatomical Region Laterality Modality Whole body N/A X-Ray Angiograph y 06/02/2007 12:2 9 PM CDT Impressions 06/02/2007 12:29 PM CDT 1. Left common iliac artery stenosis treated with angioplasty and endovascular stenting. Excellent cosmetic results obtained. 2. Persistent moderate to marked high-grade stenosis in the left [employer]. Mild stenosis in the proximal left SFA. Moderate stenosis in the distal left SFA at the adductor canal. Continuous three-vessel runoff to left foot. 3. Mild stenosis at the junction of the right common femoral artery/SFA. Diffusely atherosclerotic right SFA with multiple areas of high grade stenoses. Continuous three-vessel runoff to the foot. Narrative 06/02/2007 12:29 PM CDT INDICATION: AORTA-ILIAC WITH RUN-OFF / POSSIBLE ANGIOPLASTY (ATTN: DR. LARKIN),* ACCESSION No: [id number] DATE OF EXAM: Jun 02 2007 12:29 EXAM CODE and DESCRIPTION: F1A 9425 - IR INTRAVASC STENT PLACEMENT RESULT: Bilateral lower extremity angiogram, left common iliac artery angioplasty and stenting dated 06/02/2007 Technique: The procedures, risks and alternatives were explained to the patient and informed written consent was obtained. The left groin was prepped and draped in the usual manner and anesthetized with local anesthesia. Attempts were made to gain access on the left common femoral artery, but this was unsuccessful. The right groin was then prepped and draped in the usual manner and anesthetized with local anesthesia. The right common femoral artery was accessed with a micropuncture needle. A tract was then progressively dilated to accommodate a 5 [place] sheath which was advanced over a guidewire and left in place in the right external iliac artery. Through the sheath, a 4 [place] flush catheter was advanced over guidewire and left in place in the distal abdominal aorta. Nonionic contrast was injected and digital subtraction series of both lower extremities was obtained. Findings: The exam demonstrates a known mild distal abdominal aortic aneurysm. If indicated, ultrasound or CTA would provide more information on the true size of the aneurysm. Left: There is a high-grade stenosis and the distal left common iliac artery. Moderate to high-grade stenosis in the left common femoral artery. Mild to moderate stenosis in the proximal left SFA. Moderate stenosis in the distal left SFA at the adductor canal. Fairly good three-vessel runoff to the left foot. Right: Diffuse nonstenotic atherosclerotic changes in the right common iliac artery and external iliac artery. Mild stenosis at the junction of the right common femoral artery/SFA. Diffusely atherosclerotic right SFA with multiple areas of high grade stenoses. Relatively normal appearing popliteal artery and trifurcation vessels Left common iliac artery angioplasty with endovascular stenting dated 06/02/2007 The left common iliac artery stenosis was crossed with a guidewire. I had a difficult time traversing a 5 [place] catheter past the left iliac artery stenosis. I then decided to predilate the left iliac artery stenosis with a 5 EXTRUSION BENDER balloon. Adverse, I cannot traverse the stenosis completely with the balloon. The balloon was left in the proximal aspect of lesion and inflated. Once this was performed, I was able to traverse the lesion with the balloon. The remainder of the stenosis was then predilated up to 5 mm. The EXTRUSION BENDER balloon catheter and 5 [place] sheath were then exchanged over guidewire for a 6 [place] guide sheath. Through the guide sheath, a 10 mm x 4 cm self expanding nitinol stent was deployed across the iliac stenosis. The stent was then dilated up to 9 mm with a EXTRUSION BENDER balloon. A follow up pelvic angiogram demonstrated excellent cosmetic results. Procedure Note Vlad Aguillon M.D. - 05/05/2017 INDICATION: AORTA-ILIAC WITH RUN-OFF / POSSIBLE ANGIOPLASTY (ATTN: DR. LARKIN),* ACCESSION No: [id number] DATE OF EXAM: Jun 02 2007 12:29 EXAM CODE and DESCRIPTION: F1A 9425 - IR INTRAVASC STENT PLACEMENT RESULT: Bilateral lower extremity angiogram, left common iliac artery angioplasty and stenting dated 06/02/2007 Technique: The procedures, risks and alternatives were explained to the patient and informed written consent was obtained. The left groin was prepped and draped in the usual manner and anesthetized with local anesthesia. Attempts were made to gain access on the left common femoral artery, but this was unsuccessful. The right groin was then prepped and draped in the usual manner and anesthetized with local anesthesia. The right common femoral artery was accessed with a micropuncture needle. A tract was then progressively dilated to accommodate a 5 [place] sheath which was advanced over a guidewire and left in place in the right external iliac artery. Through the sheath, a 4 [place] flush catheter was advanced over guidewire and left in place in the distal abdominal aorta. Nonionic contrast was injected and digital subtraction series of both lower extremities was obtained. Findings: The exam demonstrates a known mild distal abdominal aortic aneurysm. If indicated, ultrasound or CTA would provide more information on the true size of the aneurysm. Left: There is a high-grade stenosis and the distal left common iliac artery. Moderate to high-grade stenosis in the left common femoral artery. Mild to moderate stenosis in the proximal left SFA. Moderate stenosis in the distal left SFA at the adductor canal. Fairly good three-vessel runoff to the left foot. Right: Diffuse nonstenotic atherosclerotic changes in the right common iliac artery and external iliac artery. Mild stenosis at the junction of the right common femoral artery/SFA. Diffusely atherosclerotic right SFA with multiple areas of high grade stenoses. Relatively normal appearing popliteal artery and trifurcation vessels Left common iliac artery angioplasty with endovascular stenting dated 06/02/2007 The left common iliac artery stenosis was crossed with a guidewire. I had a difficult time traversing a 5 [place] catheter past the left iliac artery stenosis. I then decided to predilate the left iliac artery stenosis with a 5 EXTRUSION BENDER balloon. Adverse, I cannot traverse the stenosis completely with the balloon. The balloon was left in the proximal aspect of lesion and inflated. Once this was performed, I was able to traverse the lesion with the balloon. The remainder of the stenosis was then predilated up to 5 mm. The EXTRUSION BENDER balloon catheter and 5 [place] sheath were then exchanged over guidewire for a 6 [place] guide sheath. Through the guide sheath, a 10 mm x 4 cm self expanding nitinol stent was deployed across the iliac stenosis. The stent was then dilated up to 9 mm with a EXTRUSION BENDER balloon. A follow up pelvic angiogram demonstrated excellent cosmetic results. IMPRESSION: 1. Left common iliac artery stenosis treated with angioplasty and endovascular stenting. Excellent cosmetic results obtained. 2. Persistent moderate to marked high-grade stenosis in the left [employer]. Mild stenosis in the proximal left SFA. Moderate stenosis in the distal left SFA at the adductor canal. Continuous three-vessel runoff to left foot. 3. Mild stenosis at the junction of the right common femoral artery/SFA. Diffusely atherosclerotic right SFA with multiple areas of high grade stenoses. Continuous three-vessel runoff to the foot. Vlad Aguillon M.D. IMG IR PROCEDURES Final Resul t * Outside IR Vascular (06/02/2007 9:09 AM CDT) 06/02/2007 9:09 AM CDT Addenda Addendum by John Eller M.D. on 06/02/2007 9:09 AM CDT ODM^^^MCR Outside Digital [employer] 06/02/2007 09:09:00 [facility] Provider IMG IR PROCEDURES Final Resu lt [facility] [address] [place], [place] [id number] * IR Angiogram Extremity Bilateral (06/02/2007 9:09 AM CDT) Anatomical Region Laterality Modality Upper Extremity, Lower Extremity Bilateral X-Ray Angiography 06/02/2007 9:09 AM CDT Addenda Addendum by John Eller M.D. on 06/02/2007 9:09 AM CDT RAD^^^LASF DSA 06/02/2007 09:09:00 Impressions 06/02/2007 12:29 PM CDT 1. Left common iliac artery stenosis treated with angioplasty and endovascular stenting. Excellent cosmetic results obtained. 2. Persistent moderate to marked high-grade stenosis in the left [employer]. Mild stenosis in the proximal left SFA. Moderate stenosis in the distal left SFA at the adductor canal. Continuous three-vessel runoff to left foot. 3. Mild stenosis at the junction of the right common femoral artery/SFA. Diffusely atherosclerotic right SFA with multiple areas of high grade stenoses. Continuous three-vessel runoff to the foot. 4. Known mild AAA. If indicated, ultrasound or CTA may better evaluate the diameter of the aneurysm Narrative 06/02/2007 12:29 PM CDT INDICATION: AORTA-ILIAC WITH RUN-OFF / POSSIBLE ANGIOPLASTY (ATTN: DR. LARKIN),* ACCESSION No: [id number] DATE OF EXAM: Jun 02 2007 12:29 EXAM CODE and DESCRIPTION: F1A 9402 - IR BILAT.EXTREMITY ANGIO RESULT: Bilateral lower extremity angiogram, left common iliac artery angioplasty and stenting dated 06/02/2007 Technique: The procedures, risks and alternatives were explained to the patient and informed written consent was obtained. The left groin was prepped and draped in the usual manner and anesthetized with local anesthesia. Attempts were made to gain access on the left common femoral artery, but this was unsuccessful. The right groin was then prepped and draped in the usual manner and anesthetized with local anesthesia. The right common femoral artery was accessed with a micropuncture needle. A tract was then progressively dilated to accommodate a 5 [place] sheath which was advanced over a guidewire and left in place in the right external iliac artery. Through the sheath, a 4 [place] flush catheter was advanced over guidewire and left in place in the distal abdominal aorta. Nonionic contrast was injected and digital subtraction series of both lower extremities was obtained. Findings: The exam demonstrates a known mild distal abdominal aortic aneurysm. If indicated, ultrasound or CTA would provide more information on the true size of the aneurysm. Left: There is a high-grade stenosis in the distal left common iliac artery. Moderate to high-grade stenosis in the left common femoral artery. Mild to moderate stenosis in the proximal left SFA. Moderate stenosis in the distal left SFA at the adductor canal. Fairly good three-vessel runoff to the left foot. Right: Diffuse nonstenotic atherosclerotic changes in the right common iliac artery and external iliac artery. Mild stenosis at the junction of the right common femoral artery/SFA. Diffusely atherosclerotic right SFA with multiple areas of high grade stenoses. Relatively normal appearing popliteal artery and trifurcation vessels. Left common iliac artery angioplasty with endovascular stenting dated 06/02/2007 The left common iliac artery stenosis was crossed with a guidewire. I had a difficult time traversing a 5 [place] catheter past the left iliac artery stenosis. I then decided to predilate the left iliac artery stenosis with a 5 EXTRUSION BENDER balloon. Adverse, I cannot traverse the stenosis completely with the balloon. The balloon was left in the proximal aspect of lesion and inflated. Once this was performed, I was able to traverse the lesion with the balloon. The remainder of the stenosis was then predilated up to 5 mm. The EXTRUSION BENDER balloon catheter and 5 [place] sheath were then exchanged over guidewire for a 6 [place] guide sheath. Through the guide sheath, a 10 mm x 4 cm self expanding nitinol stent was deployed across the iliac stenosis. The stent was then dilated up to 9 mm with a EXTRUSION BENDER balloon. A follow up pelvic angiogram demonstrated excellent cosmetic results. Procedure Note Vlad Aguillon M.D. / ProviderJohn M.D. - 04/29/2017 INDICATION: AORTA-ILIAC WITH RUN-OFF / POSSIBLE ANGIOPLASTY (ATTN: DR. LARKIN),* ACCESSION No: [id number] DATE OF EXAM: Jun 02 2007 12:29 EXAM CODE and DESCRIPTION: F1A 9402 - IR BILAT.EXTREMITY ANGIO RESULT: Bilateral lower extremity angiogram, left common iliac artery angioplasty and stenting dated 06/02/2007 Technique: The procedures, risks and alternatives were explained to the patient and informed written consent was obtained. The left groin was prepped and draped in the usual manner and anesthetized with local anesthesia. Attempts were made to gain access on the left common femoral artery, but this was unsuccessful. The right groin was then prepped and draped in the usual manner and anesthetized with local anesthesia. The right common femoral artery was accessed with a micropuncture needle. A tract was then progressively dilated to accommodate a 5 [place] sheath which was advanced over a guidewire and left in place in the right external iliac artery. Through the sheath, a 4 [place] flush catheter was advanced over guidewire and left in place in the distal abdominal aorta. Nonionic contrast was injected and digital subtraction series of both lower extremities was obtained. Findings: The exam demonstrates a known mild distal abdominal aortic aneurysm. If indicated, ultrasound or CTA would provide more information on the true size of the aneurysm. Left: There is a high-grade stenosis in the distal left common iliac artery. Moderate to high-grade stenosis in the left common femoral artery. Mild to moderate stenosis in the proximal left SFA. Moderate stenosis in the distal left SFA at the adductor canal. Fairly good three-vessel runoff to the left foot. Right: Diffuse nonstenotic atherosclerotic changes in the right common iliac artery and external iliac artery. Mild stenosis at the junction of the right common femoral artery/SFA. Diffusely atherosclerotic right SFA with multiple areas of high grade stenoses. Relatively normal appearing popliteal artery and trifurcation vessels. Left common iliac artery angioplasty with endovascular stenting dated 06/02/2007 The left common iliac artery stenosis was crossed with a guidewire. I had a difficult time traversing a 5 [place] catheter past the left iliac artery stenosis. I then decided to predilate the left iliac artery stenosis with a 5 EXTRUSION BENDER balloon. Adverse, I cannot traverse the stenosis completely with the balloon. The balloon was left in the proximal aspect of lesion and inflated. Once this was performed, I was able to traverse the lesion with the balloon. The remainder of the stenosis was then predilated up to 5 mm. The EXTRUSION BENDER balloon catheter and 5 [place] sheath were then exchanged over guidewire for a 6 [place] guide sheath. Through the guide sheath, a 10 mm x 4 cm self expanding nitinol stent was deployed across the iliac stenosis. The stent was then dilated up to 9 mm with a EXTRUSION BENDER balloon. A follow up pelvic angiogram demonstrated excellent cosmetic results. IMPRESSION: 1. Left common iliac artery stenosis treated with angioplasty and endovascular stenting. Excellent cosmetic results obtained. 2. Persistent moderate to marked high-grade stenosis in the left [employer]. Mild stenosis in the proximal left SFA. Moderate stenosis in the distal left SFA at the adductor canal. Continuous three-vessel runoff to left foot. 3. Mild stenosis at the junction of the right common femoral artery/SFA. Diffusely atherosclerotic right SFA with multiple areas of high grade stenoses. Continuous three-vessel runoff to the foot. 4. Known mild AAA. If indicated, ultrasound or CTA may better evaluate the diameter of the aneurysm us Vlad GIL IR PROCEDURES Edited Resu lt - Final * Dx Spine 1 View (05/14/2007 5:53 PM CDT) Anatomical Region Laterality Modality Spine N/A Radiographic Sharon ging 05/14/2007 5:53 PM CDT Addenda Addendum by ProviderJohn M.D. on 05/14/2007 5:53 PM CDT RAD^^^LASF C.SPINE, ODONTOID 05/14/2007 17:53:00 Impressions 05/14/2007 7:06 PM CDT Negative Narrative 05/14/2007 7:06 PM CDT INDICATION: TRACTOR ACCIDENT--ANKLE PAIN,* ACCESSION No: [id number] DATE OF EXAM: May 14 2007 19:06 EXAM CODE and DESCRIPTION: F12009 - XR SPINE, SINGLE VIEW RESULT: Open-mouth view of the odontoid dated 05/14/2007 Procedure Note Vlad Aguillon M.D. / John Eller M.D. - 04/29/2017 INDICATION: TRACTOR ACCIDENT--ANKLE PAIN,* ACCESSION No: [id number] DATE OF EXAM: May 14 2007 19:06 EXAM CODE and DESCRIPTION: F1D 2009 - XR SPINE, SINGLE VIEW RESULT: Open-mouth view of the odontoid dated 05/14/2007 IMPRESSION: Negative Vlad NIETO DIAGNOSTIC IMAGING PROCED URES Edited Result - Final * CT Head without IV Contrast (05/14/2007 5:39 PM CDT) Only the most recent of2 resultswithin the time period is included. Anatomical Region Laterality Modality Head N/A Computed Tomogra phy 05/14/2007 5:39 PM CDT Addenda Addendum by John Eller M.D. on 05/14/2007 5:39 PM CDT RAD^^^LASF CT HEAD W/O CONTRAST 05/14/2007 17:39:00 Impressions 05/14/2007 5:43 PM CDT No significant intracranial pathology. Narrative 05/14/2007 5:43 PM CDT INDICATION: TRACTOR ACCIDENT--NECK PAIN,* ACCESSION No: [id number] DATE OF EXAM: May 14 2007 17:43 EXAM CODE and DESCRIPTION: [facility] 9907 - CT HEAD W/O CONTRAST RESULT: CT of the head dated 05/14/[address] examination of the head and demonstrates mild inflammatory changes in the ethmoid sinuses. The intracranial contents are otherwise negative. There is no evidence of any acute intracranial hemorrhage, mass-effect or edema. Procedure Note Vlad Aguillon M.D. / ProviderJohn M.D. - 04/29/2017 INDICATION: TRACTOR ACCIDENT--NECK PAIN,* ACCESSION No: [id number] DATE OF EXAM: May 14 2007 17:43 EXAM CODE and DESCRIPTION: [facility] 9907 - CT HEAD W/O CONTRAST RESULT: CT of the head dated 05/14/[address] examination of the head and demonstrates mild inflammatory changes in the ethmoid sinuses. The intracranial contents are otherwise negative. There is no evidence of any acute intracranial hemorrhage, mass-effect or edema. IMPRESSION: No significant intracranial pathology. Vlad Aguillon M.D. IMG CT PROCEDURES Edited Resu lt - Final * CT Pelvis Angiogram and Lower Extremity Runoff Bilateral (05/03/2007 6:28 PM CDT) Anatomical Region Laterality Modality Pelvis, Lower Extremity Bilateral Computed Tomography 05/03/2007 6:28 PM CDT Addenda Addendum by ProviderJohn M.D. on 05/03/2007 6:28 PM CDT RAD^^^LASF CT ANGIO RUNOFF 05/03/2007 18:28:00 Impressions 05/03/2007 7:01 PM CDT Extensive atherosclerotic disease in the aorta , iliac arteries and the legs bilaterally. There appears to be extensive calcified plaque as described above. There appears to the more severe disease in the right leg. Please see details above. Findings were discussed with Dr. Peter Willis. Narrative 05/03/2007 7:01 PM CDT INDICATION: CLAUDICATION ACCESSION No: [id number] DATE OF EXAM: May 03 2007 19:01 EXAM CODE and DESCRIPTION: F1C 9987 - CT ANGIO RUNOFF RESULT: CT scan of the abdomen and pelvis and the legs with CT angiography technique 05/03/2007. Study is performed with 150 cc of Omnipaque-300. Findings: There is an aneurysm of the abdominal aorta measuring 2.9 cm in maximum diameter. There is extensive calcifications in the abdominal aorta, iliac arteries, femoral arteries, and the trifurcation vessels in the legs bilaterally. There is significant area of stenosis in the right common femoral artery, that appears to be due to calcified plaque. There are multiple areas of moderate stenosis in the superficial femoral arteries bilaterally, with extensive calcified plaque in these areas. There is extensive calcified plaque throughout the trifurcation vessels in the legs bilaterally, this appears to be more severe on the right. Degree of stenosis is difficult to evaluate because of the extensive calcifications. Incidentally noted is extensive diverticulosis of the sigmoid colon, with no evidence of diverticulitis. Procedure Note Dipak Gongora M.D. / John Eller M.D. - 04/29/2017 INDICATION: CLAUDICATION ACCESSION No: [id number] DATE OF EXAM: May 03 2007 19:01 EXAM CODE and DESCRIPTION: F1C 9987 - CT ANGIO RUNOFF RESULT: CT scan of the abdomen and pelvis and the legs with CT angiography technique 05/03/2007. Study is performed with 150 cc of Omnipaque-300. Findings: There is an aneurysm of the abdominal aorta measuring 2.9 cm in maximum diameter. There is extensive calcifications in the abdominal aorta, iliac arteries, femoral arteries, and the trifurcation vessels in the legs bilaterally. There is significant area of stenosis in the right common femoral artery, that appears to be due to calcified plaque. There are multiple areas of moderate stenosis in the superficial femoral arteries bilaterally, with extensive calcified plaque in these areas. There is extensive calcified plaque throughout the trifurcation vessels in the legs bilaterally, this appears to be more severe on the right. Degree of stenosis is difficult to evaluate because of the extensive calcifications. Incidentally noted is extensive diverticulosis of the sigmoid colon, with no evidence of diverticulitis. IMPRESSION: Extensive atherosclerotic disease in the aorta , iliac arteries and the legs bilaterally. There appears to be extensive calcified plaque as described above. There appears to the more severe disease in the right leg. Please see details above. Findings were discussed with Dr. Peter Willis. Dipak Gongroa M.D. IMG CT PROCEDURES Edited R esult - Final * US Upper Extremity Arteries Bilateral (03/02/2007 11:25 AM CDT) Anatomical Region Laterality Modality Upper Extremity Bilateral Ultrasound 03/02/2007 11:2 5 AM CDT Addenda Addendum by ProviderJohn M.D. on 03/02/2007 11:25 AM CDT RAD^^^LASF Lower Arterial 03/02/2007 11:25:00 Impressions 03/02/2007 11:29 AM CDT 1. Bilateral proximal arterial stenoses are present, mild to moderate on the right, and moderately severe on the left. Segmental examinations suggests the stenoses may be at the level of the iliac artery bilaterally. 2. Compared to previous noninvasive arterial examination of November 2005, there appears to be progressive arterial stenoses. Narrative 03/02/2007 11:29 AM CDT INDICATION: LOWER EXT CLAUDICATION ACCESSION No: [id number] DATE OF EXAM: Mar 02 2007 11:29 EXAM CODE and DESCRIPTION: F1U 8879 - US SEGMENTAL BP RESULT: A resting supine arterial examination is performed. The right ankle/brachial index is 0.84 which is mildly to moderately abnormal, and the left VARGAS is 0.54 which is moderate to severely abnormal. The left toe brachial index is depressed to 0.44, and the right is decreased to 0.32. Segmental examination reveals that both high thigh pressures are depressed, on the right 30 mm below the brachial pressure, and on the left over 50 mm lower. This suggests proximal arterial disease bilaterally. The Doppler waveforms are biphasic bilaterally. Compared to the last noninvasive lower extremity examination dated 12/11/2005, there has been a significant decline in the VARGAS's bilaterally, from 1.20 at rest on the right, to the current 0.84. On the left, the decline in his from 0.72 to 0.54. This indicates progressive disease. Procedure Note Darci Jett M.D. / ProviderJohn M.D. - 04/29/2017 INDICATION: LOWER EXT CLAUDICATION ACCESSION No: [id number] DATE OF EXAM: Mar 02 2007 11:29 EXAM CODE and DESCRIPTION: F1U 8879 - US SEGMENTAL BP RESULT: A resting supine arterial examination is performed. The right ankle/brachial index is 0.84 which is mildly to moderately abnormal, and the left VARGAS is 0.54 which is moderate to severely abnormal. The left toe brachial index is depressed to 0.44, and the right is decreased to 0.32. Segmental examination reveals that both high thigh pressures are depressed, on the right 30 mm below the brachial pressure, and on the left over 50 mm lower. This suggests proximal arterial disease bilaterally. The Doppler waveforms are biphasic bilaterally. Compared to the last noninvasive lower extremity examination dated 12/11/2005, there has been a significant decline in the VARGAS's bilaterally, from 1.20 at rest on the right, to the current 0.84. On the left, the decline in his from 0.72 to 0.54. This indicates progressive disease. IMPRESSION: 1. Bilateral proximal arterial stenoses are present, mild to moderate on the right, and moderately severe on the left. Segmental examinations suggests the stenoses may be at the level of the iliac artery bilaterally. 2. Compared to previous noninvasive arterial examination of November 2005, there appears to be progressive arterial stenoses. us Darci NIETO US PROCEDURES Edited R esult - Final * US Abdomen Limited (02/11/2005 8:59 AM [facility]) Only the most recent of2 resultswithin the time period is included. Anatomical Region Laterality Modality Abdomen N/A Ultrasound 02/11/2005 8:59 AM [facility] Narrative 02/11/2005 9:41 AM [facility] 11-Feb-2005 08:59:00 Exam: US Retroperitoneal Limited Indications: aaa ORIGINAL REPORT - 11-Feb-2005 09:41:00 Ultrasound of the aorta compared to prior US 01/03/2000. No significant interval change. Again noted is an ectatic distal aorta with maximum AP and transverse diameters of 2.7cm. The ectatic changes extend for a length of approximately 7.4cm in craniocaudal dimension. Right common iliac artery measures 1.2cm and the left, 1.0cm. Electronic ultrasound images only--no films made. Ind: [id number] Electronically signed by: Sabrina Fowler M.D. [id number] 11-Feb-2005 09:41 Procedure Note Christy Fowler M.D. - 02/23/2018 11-Feb-2005 08:59:00 Exam: US Retroperitoneal Limited Indications: aaa ORIGINAL REPORT - 11-Feb-2005 09:41:00 Ultrasound of the aorta compared to prior US 01/03/2000. No significantinterval change. Again noted is an ectatic distal aorta with maximum APand transverse diameters of 2.7cm. The ectatic changes extend for a lengthof approximately 7.4cm in craniocaudal dimension. Right common iliacartery measures 1.2cm and the left, 1.0cm. Electronic ultrasound images only--no films made. Ind: [id number] Electronically signed by: Sabrina Fowler M.D. [id number] 11-Feb-2005 09:41 us Ranjan Rock M.D. IMG US PROCEDURES Final R esult * FL Colon Single Contrast (01/30/2005 2:10 PM [facility]) Only the most recent of2 resultswithin the time period is included. Anatomical Region Laterality Modality Gastro Intestinal N/A Radiographic I maging 01/30/2005 2:10 PM [facility] Narrative 01/30/2005 3:11 PM [facility] 30-Jan-2005 14:10:00 Exam: [id number] Indications: abd pain; Fluoro Time: 5.9 min. ORIGINAL REPORT - 30-Jan-2005 15:11:00 Mild/moderate sigmoid diverticulosis. Colon and terminal ileum are otherwise negative. Aortoiliac mural calcification and small distal abdominal aortic aneurysm. Recommend ultrasound abdominal aorta for further evaluation. Electronically signed by: Nando Torres M.D. [id number] 30-Jan-2005 15:11 Procedure Note Nando Torres M.D. - 02/23/2018 30-Jan-2005 14:10:00 Exam: [id number] Indications: abd pain; Fluoro Time: 5.9 min. ORIGINAL REPORT - 30-Jan-2005 15:11:00 Mild/moderate sigmoid diverticulosis. Colon and terminal ileum areotherwise negative. Aortoiliac mural calcification and small distalabdominal aortic aneurysm. Recommend ultrasound abdominal aorta forfurther evaluation. Electronically signed by: Nando Torres M.D. [phone] 30-Jan-2005 15:11 Ranjan Rock M.D. IMG FLUOROSCOPY PROCEDURE S Final Result * ca,lv (10/17/2002 2:40 PM [facility]) Only the most recent of2 resultswithin the time period is included. Anatomical Region Laterality Modality Other 10/17/2002 2:40 PM [facility] Historical Provider IMG NON RAD IMAGING PROCEDUR ES Final Result * Cardiac Catheterization Report Text (10/17/2002 12:00 AM [facility]) Anatomical Region Laterality Modality Other 10/17/2002 Narrative 10/17/2002 12:00 AM [facility] Oct 17, 2002 CATH FINAL REPORT REPORT DATE: Oct 17, 2002 START TIME: 10/17/2002 3:05:33 PM STUDY NUMBER: [id number] REFERRING MD: Rahel Kevin RESPONSIBLE MD: Bay Brown HEIGHT : 167.00 cm WEIGHT : 82.00 kg BSA : 1.91 m2 PROCEDURE TYPES: 1. Coronary Angiography 2. Left Ventricular Angiography FINAL DIAGNOSIS: 1. Mild coronary artery atherosclerosis 2. LV hypokinesis PRE-PROCEDURE ASSESSMENT Pt identified. NPO greater than 8 hrs. No H/O NPH use. The patient verbalizes understanding of the planned procedure. The goals and risks of sedation were discussed. Amanda Platt TIME DESCRIPTION 15:05 Phase: Baseline 15:05 Patient on Table 15:15 Physician Arrived 15:15 Case Start 15:15 Lidocaine SQ 100 mg 15:28 p Right Femoral Artery, sheath size (Fr): 5 15:30 Pressure Record 15:30 LV : 140/0/8, Max dP/dt = 1488, HR = 68, I 15:30 Snapshot: LV : 140/0/8 15:30 Biplane Angio 15:31 Angio: LV 15:31 Omnipaque-350 (cc's): 30 15:31 End Diastolic Volume: 162 15:31 End Systolic Volume: 70 15:31 Ejection Fraction: 57 15:31 Stroke Volume: 15:33 LV : 145/3/9, Max dP/dt = 1104, HR = 80, I 15:33 Pullback from LV to AO 15:33 AO : 145/62/92, HR = 73, I 15:33 Snapshot: Pullback from LV to AO 15:36 Left Coronary Injections 15:36 Right Coronary Injections 15:42 A/P Fluro Time (Min): 5 15:42 Lateral Fluro Time (Min): 1 15:42 Omnipaque-350 (cc's): 80 15:42 Procedure: Coronary Angiography 15:42 Procedure: Left Ventricular Angiography 15:43 ACT: 119 15:51 Case End LEFT VENTRICULOGRAPHY SUMMARY Abnormal biplane LV angiogram. The LV ejection fraction is 57%. There is mild hypokinesis of the apical septal, anterolateral and posterobasal segments. CORONARY SUMMARY Coronary artery dominance is right. The left main coronary artery is 20% obstructed by a single discrete lesion. The proximal left anterior descending is 20% obstructed by a single discrete lesion. The middle left anterior descending is 50% obstructed by a single discrete lesion. Distal segment is normal size, diseased. The first diagonal branch is 30% obstructed by a single discrete lesion. Distal segment is normal size, diseased. The proximal circumflex is 30% obstructed by diffuse disease. The distal circumflex is 50% obstructed by a single discrete lesion. Distal segment is normal size, diseased. The proximal right coronary artery is 30% obstructed by a single discrete lesion. Distal segment is normal size, diseased. Procedure Note Provider, Historical - 03/02/2018 Oct 17, 2002 CATH FINAL REPORT REPORT DATE: Oct 17, 2002 START TIME: 10/17/2002 3:05:33 PM STUDY NUMBER: [id number] REFERRING MD: Rahel Kevin RESPONSIBLE MD: Bay Brown HEIGHT : 167.00 cm WEIGHT : 82.00 kg BSA : 1.91 m2 PROCEDURE TYPES: 1. Coronary Angiography 2. Left Ventricular Angiography FINAL DIAGNOSIS: 1. Mild coronary artery atherosclerosis 2. LV hypokinesis PRE-PROCEDURE ASSESSMENT Pt identified. NPO greater than 8 hrs. No H/O NPH use. The patientverbalizes understanding of the planned procedure. The goals and risks ofsedation were discussed. Amanda Platt TIME DESCRIPTION 15:05 Phase: Baseline 15:05 Patient on Table 15:15 Physician Arrived 15:15 Case Start 15:15 Lidocaine SQ 100 mg 15:28 p Right Femoral Artery, sheath size (Fr): 5 15:30 Pressure Record 15:30 LV : 140/0/8, Max dP/dt = 1488, HR = 68, I 15:30 Snapshot: LV : 140/0/8 15:30 Biplane Angio 15:31 Angio: LV 15:31 Omnipaque-350 (cc's): 30 15:31 End Diastolic Volume: 162 15:31 End Systolic Volume: 70 15:31 Ejection Fraction: 57 15:31 Stroke Volume: 15:33 LV : 145/3/9, Max dP/dt = 1104, HR = 80, I 15:33 Pullback from LV to AO 15:33 AO : 145/62/92, HR = 73, I 15:33 Snapshot: Pullback from LV to AO 15:36 Left Coronary Injections 15:36 Right Coronary Injections 15:42 A/P Fluro Time (Min): 5 15:42 Lateral Fluro Time (Min): 1 15:42 Omnipaque-350 (cc's): 80 15:42 Procedure: Coronary Angiography 15:42 Procedure: Left Ventricular Angiography 15:43 ACT: 119 15:51 Case End LEFT VENTRICULOGRAPHY SUMMARY Abnormal biplane LV angiogram. The LV ejection fraction is 57%. There is mild hypokinesis of the apical septal, anterolateral andposterobasal segments. CORONARY SUMMARY Coronary artery dominance is right. The left main coronary artery is 20% obstructed by a single discretelesion. The proximal left anterior descending is 20% obstructed by a singlediscrete lesion. The middle left anterior descending is 50% obstructed by a single discretelesion. Distal segment is normal size, diseased. The first diagonal branch is 30% obstructed by a single discrete lesion.Distal segment is normal size, diseased. The proximal circumflex is 30% obstructed by diffuse disease. The distal circumflex is 50% obstructed by a single discrete lesion.Distal segment is normal size, diseased. The proximal right coronary artery is 30% obstructed by a single discretelesion. Distal segment is normal size, diseased. us Historical Provider CV CARDIAC CATH PROCEDURES F inal Result * Hx general Pathology Report (07/12/2002 9:17 AM CDT) 07/12/2002 9:17 AM CDT 07/12/2002 9:17 AM CDT Narrative [facility] - 07/12/2002 9:17 AM CDT [id number] General Biopsy Requested By: Siddharth Reid M.D. ([id number]) TISSUE DESCRIPTION: Right lobe prostate - ultrasound (4 fragments, 4 fragments) Left lobe prostate - ultrasound (4 fragments, 4 fragments) [id number] A1, A2, B1, B2 DIAGNOSIS: Prostate, right, needle biopsy: Benign prostatic tissue. Prostate, left, needle biopsy: Benign prostatic tissue. [id number] Carlene Linton M.D.:lls Procedure Note 02/15/2018 [id number] General Biopsy Requested By: Siddharth Reid M.D.([id number]) TISSUE DESCRIPTION: Right lobe prostate - ultrasound (4 fragments, 4 fragments) Left lobeprostate - ultrasound (4 fragments, 4 fragments) [id number] A1, A2, B1, B2 DIAGNOSIS: Prostate, right, needle biopsy: Benign prostatic tissue. Prostate, left, needle biopsy: Benign prostatic tissue. [id number] Carlene Linton M.D.:lls Siddharth Reid M.D. LAB PATHOLOGY/CYTOLOGY OR DERABLES Final Result Performing Organization Address City/State/[facility] Co de Phone Number [address] * Cytology (07/06/2002 8:33 AM CDT) 07/06/2002 8:33 AM CDT 07/06/2002 8:33 AM CDT Narrative [facility] - 07/06/2002 8:33 AM CDT [id number] Cytology - Non-gynecological Requested By: Andrea Manning M.D. ([id number]) DIAGNOSIS: Urine Cath: Negative for malignancy. [id number] Saad Gifford M.D.:tma Procedure Note 02/15/2018 [id number] Cytology - Non-gynecological Requested By: Andrea Manning M.D.([id number]) DIAGNOSIS: Urine Cath: Negative for malignancy. [id number] Saad Gifford M.D.:tma Andrea Manning M.D. LAB PATHOLOGY/CYTOLOGY ORDERABLES Final Result [facility] [address] * DX Excretory Urogram with Tomogram (06/28/2002 10:27 AM CDT) Anatomical Region Laterality Modality Abdomen, Abdominal RST LOS N/A Radio graphic Imaging 06/28/2002 10:2 7 AM CDT Narrative 06/28/2002 9:35 AM CDT 28-Jun-2002 10:27:00 Exam: -EXU & KUB w/tomos Indications: hematuria ORIGINAL REPORT - 28-Jun-2002 11:35:00 KUB with tomograms: No radiopaque urinary calculi. ExU: Kidneys, collecting systems, ureters, and bladder are normal. No post void residual. Electronically signed by: Aria Araujo MD [phone] 28-Jun-2002 11:35 Kacie Sidhu MD. [id number] 28-Jun-2002 11:35 Procedure Note Denilson Sidhu M.D. - 03/22/2018 28-Jun-2002 10:27:00 Exam: -EXU & KUB w/tomos Indications: hematuria ORIGINAL REPORT - 28-Jun-2002 11:35:00 KUB with tomograms: No radiopaque urinary calculi. ExU: Kidneys, collecting systems, ureters, and bladder are normal. No postvoid residual. Electronically signed by: Aria Araujo MD [phone] 28-Jun-2002 11:35 Kacie Sidhu MD. [id number] 11:35 Andrea Manning M.D. IMG DIAGNOSTIC IMAGING PROCEDURES Final Result * Cardiac Catheterization Report Text (07/13/2001 12:00 AM CDT) Anatomical Region Laterality Modality Other 07/13/2001 Narrative 07/13/2001 12:00 AM CDT [id number] [facility] FINAL REPORT REPORT DATE: 13Jul2001 START TIME: 13Jul2001 10:04 AM STUDY NUMBER: [id number] REFERRING MD: Peter Sequeira MD: Brayan Barron 6025 HEIGHT : 173.0 cm WEIGHT : 83.0 kg BSA : 1.97 m2 PROCEDURE TYPES: 1 Coronary and left ventricular angiograms. Intra coronary pressure. FINAL DIAGNOSIS: 1 Coronary artery atherosclerosis 2 Normal fractional flow reserve 3 Normal left ventricle PRE-PROCEDURE ASSESSMENT: 1 9:37. Pt identified. NPO > 8 hrs. NKA. No H/O NPH use. Lab results noted. The patient verbalizes understanding of the planned procedure. The goals and risks of sedation were discussed. Jude Moss. TIME HR # POSITION PRESSURE O2 PH PO2 PCO2: 10:05 55 100 mg sub-cutaneous Lidocaine 10:09 50 Sheath placement 5fr RFA 10:12 48 1 LV 132/5-13 10:13 48 Biplane angio - LV, 40 ml Isovue (0.5 ml/kg 100% conc) ONL=857 ml, ESV=71 ml, SV=94 ml, EJF=56% EDVI=83 ml/m2, ESVI=36 ml/m2, SVI=47 ml/m2 10:15 59 2 LV 137/10-18 56 2 Asc aorta 133/58 M=85 10:17 51 Coronary artery injections. 10:26 ICP 10:35 49 3 Prox 3 Distal 10:35 4 Prox 4 Distal 10:37 53 5 Saline FFR=1.1925 10:38 6 Adenosine 36mcg 6 FFR=.86 10:39 7 Adenosine 48mcg 7 FFR=.81 10:54 ACT - 254 seconds LEFT VENTRICULOGRAPHY SUMMARY: 1 Entirely normal biplane LV angiogram. The LV ejection fraction is 56%, regular beat analysis. CORONARY SUMMARY: 1 Coronary artery dominance is right. 2 The left main coronary artery is 20% obstructed by a single discrete lesion. 3 The proximal left anterior descending is 20% obstructed by a single discrete lesion. 4 The middle left anterior descending is 50% obstructed by a single discrete lesion. Distal segment is normal size, diseased. 5 The first diagonal branch is 30% obstructed by a single discrete lesion. Distal segment is normal size, diseased. 6 The proximal circumflex is 30% obstructed by diffuse disease. Distal segment is normal size, diseased. 7 The proximal right coronary artery is 30% obstructed by a single discrete lesion. Distal segment is normal size, diseased. CORONARY PRESSURE MEASUREMENT SUMMARY: 1 An intracoronary pressure measurement was performed for the assessment of an intermediate lesion of the middle left anterior descending. The fractional flow reserve was 0.81. The coronary flow status was normal. Procedure Note Provider, Historical - 03/02/2018 13Jul2001 CATH [facility] FINAL REPORT REPORT DATE: 13Jul2001 START TIME: 13Jul2001 10:04 AM STUDY NUMBER: [id number] REFERRING MD: Peter Sequeira MD: Brayan Barron6025 HEIGHT : 173.0 cm WEIGHT : 83.0 kg BSA : 1.97 m2 PROCEDURE TYPES: 1 Coronary and left ventricular angiograms. Intra coronary pressure. FINAL DIAGNOSIS: 1 Coronary artery atherosclerosis 2 Normal fractional flow reserve 3 Normal left ventricle PRE-PROCEDURE ASSESSMENT: 1 9:37. Pt identified. NPO > 8 hrs. NKA. No H/O NPH use. Labresults noted. The patient verbalizes understanding of the planned procedure. The goals and risks of sedation were discussed. Jude Moss. TIME HR # POSITION PRESSURE O2 PH [id number]: 10:05 55 100 mg sub-cutaneous Lidocaine 10:09 50 Sheath placement 5fr RFA 10:12 48 1 LV 132/5-13 10:13 48 Biplane angio - LV, 40 ml Isovue (0.5 ml/kg 100% conc) BRJ=486 ml, ESV=71 ml, SV=94 ml, EJF=56% EDVI=83 ml/m2, ESVI=36 ml/m2, SVI=47 ml/m2 10:15 59 2 LV 137/10-18 56 2 Asc aorta 133/58 M=85 10:17 51 Coronary artery injections. 10:26 ICP 10:35 49 3 Prox 3 Distal 10:35 4 Prox 4 Distal 10:37 53 5 Saline FFR=1.1925 10:38 6 Adenosine 36mcg 6 FFR=.86 10:39 7 Adenosine 48mcg 7 FFR=.81 10:54 ACT - 254 seconds LEFT VENTRICULOGRAPHY SUMMARY: 1 Entirely normal biplane LV angiogram. The LV ejection fraction is56%, regular beat analysis. CORONARY SUMMARY: 1 Coronary artery dominance is right. 2 The left main coronary artery is 20% obstructed by a singlediscrete lesion. 3 The proximal left anterior descending is 20% obstructed by a single discrete lesion. 4 The middle left anterior descending is 50% obstructed by a singlediscrete lesion. Distal segment is normal size, diseased. 5 The first diagonal branch is 30% obstructed by a single discretelesion. Distal segment is normal size, diseased. 6 The proximal circumflex is 30% obstructed by diffuse disease.Distal segment is normal size, diseased. 7 The proximal right coronary artery is 30% obstructed by a singlediscrete lesion. Distal segment is normal size, diseased. CORONARY PRESSURE MEASUREMENT SUMMARY: 1 An intracoronary pressure measurement was performed for theassessment of an intermediate lesion of the middle left anterior descending. The fractional flow reserve was 0.81. The coronary flow status wasnormal. Historical Provider CV CARDIAC CATH PROCEDURES F inal Result * Pulmonary Function Tests (04/20/2001 8:29 AM CDT) 04/20/2001 8:29 AM CDT Mando Carbone M.D. PFT ORDERABLES Final Res ult Performing Organization Address City/State/[facility] Co de Phone Number [address] * US Prostate Transrectal (01/28/2000 9:36 AM [facility]) Anatomical Region Laterality Modality Pelvis N/A Ultrasound 01/28/2000 9:36 AM [facility] Narrative 01/28/2000 10:31 AM [facility] 28-Jan-2000 09:36:00 Exam: US Transrectal Indications: asymmetric prostate gland ORIGINAL REPORT - 28-Jan-2000 10:31:00 I:[id number] Estimated volume 22cc PSA .02(nl<0.15) density Ultrasound examination of the prostate. The peripheral zone of both right and left lobes of the prostate appear normal. I see no evidence of a hypoechoic nodule in either the right or left lobe of the prostate. Both seminal vesicles appear normal. Impression: Normal prostate ultrasound. D:[id number] Electronically signed by: Nicole Cosby MD. [phone] 28-Jan-2000 10:31 Procedure Note Levon Cosby M.D. - 03/01/2018 28-Jan-2000 09:36:00 Exam: US Transrectal Indications: asymmetric prostate gland ORIGINAL REPORT - 28-Jan-2000 10:31:00 I:[id number] Estimated volume 22cc PSA .02(nl<0.15) density Ultrasound examination of the prostate. The peripheral zone of both rightand left lobes of the prostate appear normal. I see no evidence of ahypoechoic nodule in either the right or left lobe of the prostate. Bothseminal vesicles appear normal. Impression: Normal prostate ultrasound.D:[id number] Electronically signed by: Nicole Cosby MD. [phone] 28-Jan-2000 10:31 us Ranjan Rock M.D. 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 Urgency Urinary 10/20/2017 Balanitis Klarissa 10/20/2017 Neuroma Baker's Left 10/26/2017 Lumbago With Sciatica Left Side 11/17/2017 Pain Back Lumbar 11/20/2017 Anxiety 11/20/2017 Coronary Artery Disease [place] Vessel 11/20/2017 Lumbago With Sciatica Left Side 11/26/2017 Other Specified Postprocedural States 03/12/2018 Abdominal Aortic Aneurysm Without Rupture Unspecified (HCC) 03/12/2018 Encounter For Follow Up Examination After Completed Treatment For Conditions Other Than Malignant Neoplasm 03/12/2018 Peripheral Vascular Disease (HCC) 03/12/2018 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 Keratosis Actinic 04/27/2018 Pain Ankle Left 05/11/2018 Pain Ankle Left 05/11/2018 Follow Up Exam 05/11/2018 Pain Leg 06/28/2018 Pain Back Lumbar 06/28/2018 Pain Neck 07/06/2018 Pain Neck 07/06/2018 Radiculopathy Cervical 07/23/2018 Abnormal Findings On Diagnostic Imaging Of Other Parts Of Musculoskeletal System 07/23/2018 Lesion Skin Ear 08/27/2018 Need Vaccine Immunization Influenza 08/27/2018 Lesion Skin Ear 09/01/2018 Mass Ear Right 09/01/2018 Lesion Skin Ear 09/14/2018 Mass Ear Right 09/14/2018 Follow Up Examination Postoperative Visit 09/14/2018 Annual Medicare Examination Return 09/15/2018 Hypertension Essential Primary 11/17/2018 Screening Examination Diabetes Mellitus 11/17/2018 Hyperlipidemia 11/17/2018 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) 11/17/2018 Abrasion Foot Initial Left 11/17/2018 Anxiety 11/17/2018 General Medical Examination Adult 11/17/2018 Obstructive Sleep Apnea Adult 02/22/2019 Follow Up Surgery Exam 02/25/2019 Endarterectomy Carotid Status Post 02/25/2019 Peripheral Arterial Disease (HCC) 02/25/2019 Abdominal Aortic Aneurysm Without Rupture Unspecified (HCC) 02/25/2019 Endarterectomy Carotid Status Post 02/25/2019 Abdominal Aortic Aneurysm Without Rupture Unspecified (HCC) 02/25/2019 Peripheral Arterial Disease (HCC) 02/25/2019 Follow Up Surgery Exam 02/25/2019 Peripheral Arterial Disease (HCC) 02/25/2019 Follow Up Surgery Exam 02/25/2019 Endarterectomy Carotid Status Post 02/25/2019 Follow Up Examination Status Post Surgery 02/25/2019 Abdominal Aortic Aneurysm Without Rupture Unspecified (HCC) 02/25/2019 Peripheral Vascular Disease (HCC) 02/25/2019 Other Specified Postprocedural States 02/25/2019 Abdominal Aortic Aneurysm Without Rupture Unspecified (HCC) 02/25/2019 Encounter For Follow Up Examination After Completed Treatment For Conditions Other Than Malignant Neoplasm 02/25/2019 Peripheral Vascular Disease (HCC) 02/25/2019 Sinusitis 05/09/2019 Cough Unspecified Type 05/31/2019 Cough Unspecified Type 05/31/2019 Chronic Cough 06/22/2019 Dizziness 08/25/2019 Drip Post Nasal 08/25/2019 Chronic Cough 09/05/2019 Chronic Cough 09/05/2019 Chronic Cough 09/19/2019 Drip Post Nasal 09/19/2019 Chronic Cough 09/20/2019 Chronic Cough 09/28/2019 Drip Post Nasal 09/28/2019 Sinusitis Chronic 09/28/2019 Cough Unspecified Type 10/10/2019 Abnormal Computed Tomography Chest 10/10/2019 Chronic Cough 10/13/2019 Abnormal Computed Tomography Chest 10/13/2019 Chronic Cough 10/13/2019 Abnormal Computed Tomography Chest 10/13/2019 Chronic Cough 10/14/2019 Chronic Cough 10/17/2019 Chronic Cough 10/19/2019 Abnormal Computed Tomography Chest 10/19/2019 Chronic Cough 10/19/2019 Chronic Cough 10/21/2019 Abnormal Computed Tomography Chest 10/21/2019 Cough Unspecified Type 10/26/2019 Abnormal Computed Tomography Chest 11/25/2019 Chronic Cough 11/25/2019 Abnormal Computed Tomography Chest 11/25/2019 Swelling Leg 11/25/2019 Swelling Leg 11/28/2019 Abnormal Computed Tomography Chest 11/28/2019 Nodule Pulmonary 11/29/2019 Apnea Sleep Obstructive 04/19/2020 Abnormal Computed Tomography Chest 04/30/2020 Chronic Cough 04/30/2020 Follow Up Examination Status Post Surgery 05/08/2020 Abdominal Aortic Aneurysm Without Rupture Unspecified (HCC) 05/08/2020 Peripheral Vascular Disease (HCC) 05/08/2020 Endarterectomy Carotid Status Post 05/08/2020 Endarterectomy Carotid Status Post 05/08/2020 Follow Up Examination Status Post Surgery 05/08/2020 Abdominal Aortic Aneurysm Without Rupture Unspecified (HCC) 05/08/2020 Peripheral Vascular Disease (HCC) 05/08/2020 Endarterectomy Carotid Status Post 05/08/2020 Follow Up Examination Status Post Surgery 05/08/2020 Abdominal Aortic Aneurysm Without Rupture Unspecified (HCC) 05/08/2020 Peripheral Vascular Disease (HCC) 05/08/2020 Abnormal Computed Tomography Chest 05/09/2020 Rhinosinusitis Chronic 05/09/2020 Mass Lung 05/09/2020 Screening Examination Diabetes Mellitus 05/31/2020 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) 05/31/2020 Hypercholesterolemia 05/31/2020 Screening Examination Prostate Cancer 05/31/2020 Hypertensive Heart Disease Without Heart Failure 05/31/2020 Atherosclerotic Heart Disease Of [place] Coronary Artery Without Angina Pectoris 05/31/2020 Peripheral Arterial Disease (HCC) 05/31/2020 Coronary Artery Disease Without Angina Pectoris 05/31/2020 Apnea Sleep Obstructive 05/31/2020 Anxiety 05/31/2020 Keratosis Actinic 05/31/2020 Rhinosinusitis Chronic 06/01/2020 Rhinosinusitis Chronic 06/05/2020 Apnea Sleep Obstructive 06/05/2020 Peripheral Arterial Disease (HCC) 06/05/2020 Coronary Artery Disease Without Angina Pectoris 06/05/2020 Drip Post Nasal 06/05/2020 Rhinosinusitis Chronic 08/09/2020 Drip Post Nasal 08/09/2020 Need Vaccine Immunization Influenza 09/06/2020 Peripheral Arterial Disease (HCC) 09/24/2020 Neuropathy 09/24/2020 Hypertensive Heart Disease Without Heart Failure 09/24/2020 Hypertensive Heart Disease Without Heart Failure 10/04/2020 Irregular Heartbeat 10/04/2020 Hypertensive Heart Disease Without Heart Failure 10/10/2020 Beat Premature Ventricular 10/10/2020 Hypertensive Heart Disease Without Heart Failure 10/10/2020 Beat Premature Ventricular 10/10/2020 Hypertensive Heart Disease Without Heart Failure 10/17/2020 Beat Premature Ventricular 10/17/2020 Hypertensive Heart Disease Without Heart Failure 10/24/2020 Beat Premature Ventricular 10/24/2020 Hyponatremia 10/29/2020 Stenosis Spinal 10/29/2020 Hypercholesterolemia 10/29/2020 Apnea Sleep Obstructive 10/29/2020 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) 10/29/2020 Hypertensive Heart Disease Without Heart Failure 10/29/2020 Atherosclerotic Heart Disease Of [place] Coronary Artery Without Angina Pectoris 10/29/2020 Peripheral Arterial Disease (HCC) 10/29/2020 Screening Examination Diabetes Mellitus 10/29/2020 Screening Examination Prostate Cancer 10/29/2020 Nodule Pulmonary 10/29/2020 Beat Premature Ventricular 10/29/2020 Follow Up Examination Status Post Surgery 11/07/2020 Peripheral Arterial Disease (HCC) 11/07/2020 Follow Up Examination Status Post Surgery 11/07/2020 Abdominal Aortic Aneurysm Without Rupture Unspecified (HCC) 11/07/2020 Peripheral Vascular Disease (HCC) 11/07/2020 Pain Low Back Unspecified 12/03/2020 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 12/03/2020 Pain Low Back Unspecified 12/03/2020 Stenosis Spinal 12/03/2020 Allergy Drug Personal History 12/03/2020 Infection Staphylococcus Aureus 12/04/2020 Stenosis Spinal 12/05/2020 Pain Low Back Unspecified 12/05/2020 Radiculopathy Lumbar 12/13/2020 Pain Low Back Unspecified 12/13/2020 Radiculopathy Lumbar 12/13/2020 Pain Low Back Unspecified 12/13/2020 Allergy Drug Personal History 12/13/2020 Hypertensive Heart Disease Without Heart Failure 12/28/2020 Cellulitis Face 12/28/2020 Hypertensive Heart Disease Without Heart Failure 12/28/2020 Cellulitis Face 01/10/2021 Lesion Skin Face 01/24/2021 Keratosis Actinic 01/24/2021 Tremor Resting 01/24/2021 Lesion Skin Face 01/29/2021 Keratosis Actinic 01/29/2021 Hypertensive Heart Disease Without Heart Failure 02/06/2021 Hypertensive Heart Disease Without Heart Failure 02/06/2021 Edema Lower Extremity 02/06/2021 Hypertensive Heart Disease Without Heart Failure 02/13/2021 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 02/25/2021 Edema Lower Extremity 02/25/2021 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 02/25/2021 Edema Lower Extremity 02/25/2021 Tremor Resting 02/26/2021 Tremor Parkinson's (HCC) 02/26/2021 History Of Falling 02/26/2021 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 03/25/2021 Hypertensive Heart Disease Without Heart Failure 03/25/2021 Peripheral Arterial Disease (HCC) 03/25/2021 Anxiety 03/25/2021 Hypertensive Heart Disease Without Heart Failure 03/27/2021 Hypertensive Heart Disease Without Heart Failure 04/01/2021 Stenosis Spinal 04/11/2021 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 04/15/2021 Hypertensive Heart Disease Without Heart Failure 04/15/2021 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 04/17/2021 Hypertensive Heart Disease Without Heart Failure 04/17/2021 Dyspnea On Exertion 04/17/2021 Hyponatremia 04/29/2021 Hypercholesterolemia 04/29/2021 Hypertensive Heart Disease Without Heart Failure 04/29/2021 Screening Examination Diabetes Mellitus 04/29/2021 Screening Examination Prostate Cancer 04/29/2021 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 04/29/2021 Hypertensive Heart Disease Without Heart Failure 05/01/2021 Atherosclerotic Heart Disease Of [place] Coronary Artery Without Angina Pectoris 05/01/2021 Peripheral Arterial Disease (HCC) 05/01/2021 Tremor Parkinson's (HCC) 05/01/2021 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) 05/01/2021 Hypercholesterolemia 05/01/2021 Apnea Sleep Obstructive 05/01/2021 Stenosis Spinal 05/01/2021 Constipation 05/01/2021 Follow Up Examination Status Post Surgery 05/14/2021 Peripheral Arterial Disease (HCC) 05/14/2021 Stenosis Spinal 05/14/2021 Radiculopathy Lumbosacral 05/14/2021 Stenosis Spinal 05/14/2021 Peripheral Arterial Disease (HCC) 05/14/2021 Tremor Parkinson's (HCC) 05/14/2021 Anxiety 05/14/2021 Follow Up Examination Status Post Surgery 05/16/2021 Peripheral Arterial Disease (HCC) 05/16/2021 Follow Up Examination Status Post Surgery 05/16/2021 Peripheral Arterial Disease (HCC) 05/16/2021 Follow Up Examination Status Post Surgery 05/16/2021 Peripheral Arterial Disease (HCC) 05/16/2021 Tremor Parkinson's (HCC) 06/04/2021 Pain Low Back Mechanical 07/17/2021 Apnea Sleep Obstructive 07/18/2021 Pain Low Back Mechanical 07/18/2021 Hypertensive Heart Disease Without Heart Failure 07/24/2021 Dyspnea On Exertion 07/24/2021 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 Pain Low Back Mechanical 08/12/2021 Contact With And (Suspected) Exposure To COVID-19 08/27/2021 Radiculopathy Lumbosacral 10/10/2021 Pain Low Back Unspecified 10/10/2021 Radiculopathy Lumbosacral 10/10/2021 Stenosis Spinal 10/10/2021 Tremor Parkinson's (HCC) 10/10/2021 Pain Buttock 10/10/2021 Hypertensive Heart Disease Without Heart Failure 10/15/2021 Stenosis Spinal 10/16/2021 Tremor Parkinson's (HCC) 10/16/2021 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) 10/16/2021 Hyponatremia 10/16/2021 Peripheral Arterial Disease (HCC) 10/16/2021 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) 10/16/2021 Apnea Sleep Obstructive 10/16/2021 Hypercholesterolemia 10/16/2021 Atherosclerotic Heart Disease Of [place] Coronary Artery Without Angina Pectoris 10/16/2021 Hyponatremia 10/24/2021 Hyponatremia 10/24/2021 Apnea Sleep Obstructive 10/24/2021 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) 10/24/2021 Tremor Parkinson's (HCC) 10/24/2021 Hyponatremia 10/25/2021 Hyponatremia 10/25/2021 Hyponatremia 10/25/2021 Hyponatremia 10/28/2021 Pain Low Back Unspecified 10/28/2021 Abnormal Electrocardiogram 02/26/2022 Pain Low Back Unspecified 02/26/2022 Stenosis Spinal 02/26/2022 Spondylosis Lumbar Without Myelopathy 02/26/2022 Radiculopathy 02/26/2022 Lesion Skin 03/03/2022 Tremor Parkinson's (HCC) 03/03/2022 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) 03/03/2022 Peripheral Arterial Disease (HCC) 03/03/2022 Beat Premature Ventricular 03/03/2022 Rhinitis Allergic 03/03/2022 Lesion Skin 03/12/2022 Tumor Ear Skin Uncertain Behavior 03/12/2022 Cancer Skin Squamous Cell Personal History 03/12/2022 Beat Premature Ventricular 03/18/2022 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 Pain Low Back Mechanical 03/27/2022 Pain Low Back Mechanical 04/14/2022 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) 04/15/2022 Hyponatremia 04/15/2022 Hypercholesterolemia 04/15/2022 Beat Premature Ventricular 04/16/2022 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 04/16/2022 Encounter For Preprocedural Laboratory Examination (COVID-19) 04/18/2022 Contact With And (Suspected) Exposure To COVID-19 04/18/2022 Beat Premature Ventricular 04/18/2022 Hyponatremia 04/18/2022 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 Tremor 05/05/2022 Tremor Parkinson's (HCC) 05/05/2022 Apnea Sleep Obstructive 05/05/2022 Radiculopathy 05/13/2022 Apnea Sleep Obstructive 05/14/2022 Follow Up Examination Status Post Surgery 05/16/2022 Peripheral Arterial Disease (HCC) 05/16/2022 Follow Up Examination Status Post Surgery 05/16/2022 Peripheral Arterial Disease (HCC) 05/16/2022 Follow Up Examination Status Post Surgery 05/16/2022 Peripheral Arterial Disease (HCC) 05/16/2022 Peripheral Arterial Disease (HCC) 05/16/2022 Follow Up Exam 05/16/2022 Radiculopathy 05/27/2022 Fatigue 07/01/2022 Fatigue 07/01/2022 Disturbance Sleep 07/01/2022 Parkinsonism Unspecified (HCC) 07/01/2022 Hypertensive Heart Disease Without Heart Failure 07/01/2022 Hypernatremia 07/01/2022 Spondylosis Lumbar Without Myelopathy 07/07/2022 Radiculopathy 07/07/2022 Hypernatremia 07/15/2022 Disturbance Sleep 07/15/2022 Stenosis Spinal 07/15/2022 Tremor Parkinson's (HCC) 07/15/2022 Tremor 07/15/2022 Apnea Sleep Obstructive 07/15/2022 Radiculopathy 07/15/2022 Cardiomyopathy Ischemic 08/18/2022 Atherosclerotic Heart Disease Of [place] Coronary Artery Without Angina Pectoris 08/21/2022 Beat Premature Ventricular 08/21/2022 Apnea Sleep Obstructive 08/21/2022 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) 08/21/2022 Peripheral Arterial Disease (HCC) 08/21/2022 Parkinsonism Unspecified (HCC) 08/21/2022 Radiculopathy Lumbosacral 09/03/2022 Polyp Colon 09/05/2022 Tremor Parkinson's (HCC) 10/06/2022 Apnea Sleep Obstructive 10/06/2022 Polyp Colon 10/21/2022 Apnea Sleep Obstructive 11/06/2022 Radiculopathy Lumbosacral 03/24/2023 Pain Low Back Unspecified 03/24/2023 Numbness Lower Extremity 03/24/2023 Radiculopathy Lumbosacral 05/01/2023 Pain Low Back Unspecified 05/01/2023 Pain Low Back Unspecified 05/01/2023 Annual Medicare Examination Return 05/06/2023 Radiculopathy 05/11/2023 Parkinsonism Unspecified (HCC) 05/14/2023 Radiculopathy 05/21/2023 Follow Up Examination Status Post Surgery 05/28/2023 Peripheral Arterial Disease (HCC) 05/28/2023 Peripheral Arterial Disease (HCC) 05/28/2023 Follow Up Exam 05/28/2023 Peripheral Arterial Disease (HCC) 05/28/2023 Follow Up Exam 05/28/2023 Peripheral Arterial Disease (HCC) 05/28/2023 Follow Up Exam 05/28/2023 Radiculopathy 06/04/2023 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) 06/19/2023 Encounter For Screening For Cardiovascular Disorders 06/19/2023 Other Polyuria 06/19/2023 Screening Examination Prostate Cancer 06/19/2023 Other Polyuria 06/19/2023 Screening Examination Prostate Cancer 06/19/2023 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) 06/19/2023 Encounter For Screening For Cardiovascular Disorders 06/19/2023 Anxiety 06/19/2023 Apnea Sleep Obstructive 06/19/2023 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) 06/19/2023 Atherosclerotic Heart Disease Of [place] Coronary Artery Without Angina Pectoris 06/19/2023 Hypercholesterolemia 06/19/2023 Parkinsonism Unspecified (HCC) 06/19/2023 Other Polyuria 06/19/2023 Screening Examination Prostate Cancer 06/19/2023 Keratosis Actinic 06/19/2023 Benign Prostatic Hyperplasia Without Obstruction 06/19/2023 Radiculopathy 07/08/2023 Spondylosis Lumbar Without Myelopathy 07/08/2023 Spondylosis Lumbar Without Myelopathy 07/13/2023 Radiculopathy 07/30/2023 Spondylosis Lumbar Without Myelopathy 07/30/2023 Keratosis Actinic 07/30/2023 Personal History Of Other Malignant Neoplasm Of Skin 07/30/2023 Dermatoheliosis 07/30/2023 Keratosis Actinic 07/30/2023 Benign Prostatic Hyperplasia Without Obstruction 07/30/2023 Dysfunction Erectile 07/30/2023 Spondylosis Lumbar Without Myelopathy 08/04/2023 Pain Sacral 08/04/2023 Spondylosis Lumbar Without Myelopathy 09/04/2023 Pain Sacral 09/04/2023 Hyponatremia 09/23/2023 Cramp Leg 09/23/2023 Screening Examination For Thyroid Disorder 09/23/2023 Cramp Leg 09/23/2023 Peripheral Arterial Disease (HCC) 09/23/2023 Screening Examination For Thyroid Disorder 09/23/2023 Follow Up Examination Status Post Surgery 09/24/2023 Peripheral Arterial Disease (HCC) 09/24/2023 Follow Up Examination Status Post Surgery 09/29/2023 Peripheral Arterial Disease (HCC) 09/29/2023 Follow Up Examination Status Post Surgery 09/29/2023 Peripheral Arterial Disease (HCC) 09/29/2023 Follow Up Examination Status Post Surgery 09/29/2023 Peripheral Arterial Disease (HCC) 09/29/2023 Hyponatremia 09/30/2023 Parkinsonism Unspecified (HCC) 09/30/2023 Spondylosis Lumbar Without Myelopathy 10/13/2023 Pain Sacral 10/13/2023 Numbness Lower Extremity 10/13/2023 Foot Drop Right 10/13/2023 Dysfunction Erectile 10/28/2023 Keratosis Actinic 10/28/2023 Screening Examination Skin Cancer 10/28/2023 Dysfunction Erectile 11/04/2023 Dysfunction Erectile 11/09/2023 Dysfunction Erectile 11/27/2023 Radiculopathy 12/01/2023 Apnea Sleep Obstructive 12/07/2023 Radiculopathy 12/09/2023 Radiculopathy 12/09/2023 Foot Drop Right 12/09/2023 Diarrhea 12/24/2023 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) 12/24/2023 Diarrhea 12/24/2023 Parkinson's Disease Without Dyskinesia, Without Mention Of Fluctuations (HCC) 12/24/2023 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) 12/24/2023 Peripheral Arterial Disease (HCC) 12/24/2023 Diarrhea 12/24/2023 Radiculopathy 12/31/2023 Spondylosis Lumbar Without Myelopathy 12/31/2023 Spondylosis Lumbar Without Myelopathy 01/06/2024 Spondylosis Lumbar Without Myelopathy 01/08/2024 Spondylosis Lumbar Without Myelopathy 01/14/2024 Constipation 02/12/2024 Bowel Habit Change 02/12/2024 Incontinence Fecal 02/12/2024 Spondylosis Lumbar Without Myelopathy 03/07/2024 Radiculopathy 03/07/2024 Pain Sacral 03/07/2024 Pain Sacral 03/24/2024 Apnea Sleep Obstructive 03/28/2024 Obesity Body Mass Index 30-39.9 Adult 03/28/2024 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) 03/28/2024 Dermatoheliosis 04/29/2024 Personal History Of Other Malignant Neoplasm Of Skin 04/29/2024 Tumor Skin Uncertain Behavior 04/29/2024 Keratosis Actinic 04/29/2024 Squamous Cell Carcinoma In Situ 05/04/2024 Squamous Cell Carcinoma In Situ 05/06/2024 Pain Sacral 05/16/2024 Pain Hip Bilateral 05/16/2024 Pain Sacral 05/16/2024 Pain Hip Bilateral 05/16/2024 Squamous Cell Carcinoma In Situ 05/17/2024 Pain Hip Bilateral 05/24/2024 Peripheral Arterial Disease (HCC) 05/24/2024 Pain Hip Bilateral 05/31/2024 Pain Hip Bilateral 06/07/2024 Radiculopathy 06/13/2024 Radiculopathy 06/15/2024 Annual Medicare Examination Return 06/22/2024 Apnea Sleep Obstructive 06/22/2024 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) 06/22/2024 Atherosclerotic Heart Disease Of [place] Coronary Artery Without Angina Pectoris 06/22/2024 Hypercholesterolemia 06/22/2024 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) 06/22/2024 Parkinson's Disease Without Dyskinesia, Without Mention Of Fluctuations (HCC) 06/22/2024 Peripheral Arterial Disease (HCC) 06/22/2024 General Medical Examination Adult 06/22/2024 Neuropathy Peripheral 06/22/2024 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) 06/22/2024 Encounter For Screening For Cardiovascular Disorders 06/22/2024 Radiculopathy 07/07/2024 Frequency Urinary 07/27/2024 Frequency Urinary 07/27/2024 Benign Prostatic Hyperplasia Without Obstruction 08/03/2024 Benign Prostatic Hyperplasia Without Obstruction 08/03/2024 Benign Prostatic Hyperplasia Hypertrophy With Obstruction 08/03/2024 Palpitations 08/10/2024 Frequency Urinary 08/10/2024 Palpitations 08/10/2024 Edema Leg 08/10/2024 Parkinson's Disease Without Dyskinesia, Without Mention Of Fluctuations (HCC) 08/10/2024 Beat Premature Ventricular 08/10/2024 Radiculopathy 09/27/2024 Spondylosis Lumbar Without Myelopathy 09/27/2024 Parkinson's Disease Without Dyskinesia, Without Mention Of Fluctuations (HCC) 09/27/2024 Neuropathy Peripheral 09/27/2024 Radiculopathy Lumbar 09/28/2024 Radiculopathy Lumbar 09/28/2024 Radiculopathy 09/28/2024 Spondylosis Lumbar Without Myelopathy 09/28/2024 Spondylosis Lumbar Without Myelopathy 10/03/2024 Pain Low Back Mechanical 10/03/2024 Radiculopathy Lumbar 10/03/2024 Spinal Stenosis Lumbosacral Region 10/03/2024 Spinal Stenosis Lumbosacral Region 10/10/2024 Spondylosis Lumbar Without Myelopathy 10/10/2024 Radiculopathy Lumbar 10/10/2024 Radiculopathy 10/12/2024 Pain Low Back Mechanical 10/12/2024 Ingrown Nail Infected 10/14/2024 Radiculopathy 10/26/2024 Pain Low Back Mechanical 10/26/2024 Radiculopathy 10/26/2024 Pain Low Back Mechanical 10/26/2024 Spondylosis Lumbar Without Myelopathy 10/26/2024 Pain Low Back Mechanical 10/26/2024 Radiculopathy Lumbar 10/26/2024 Parkinson's Disease Without Dyskinesia, Without Mention Of Fluctuations (HCC) 10/27/2024 Spondylosis Lumbar Without Myelopathy 11/07/2024 Pain Low Back Mechanical 11/07/2024 Radiculopathy Lumbar 11/07/2024 Spondylosis Lumbar Without Myelopathy 11/18/2024 Pain Low Back Mechanical 11/18/2024 Radiculopathy Lumbar 11/18/2024 Congestion Nasal 12/02/2024 Cough Unspecified Type 12/02/2024 Hematuria 12/05/2024 Hematuria 12/05/2024 Parkinson's Disease Without Dyskinesia, Without Mention Of Fluctuations (HCC) 12/05/2024 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) 12/05/2024 Peripheral Arterial Disease (HCC) 12/05/2024 Hematuria 12/05/2024 Hematuria 12/07/2024 Hematuria 12/09/2024 Mass Bladder 12/09/2024 Stenosis Spinal 12/13/2024 Spondylosis Lumbar Without Myelopathy 12/13/2024 Radiculopathy 12/13/2024 Hematuria 12/27/2024 Hematuria 12/29/2024 Atherosclerotic Heart Disease Of [place] Coronary Artery Without Angina Pectoris 12/29/2024 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 [address] [place] [id number] PCP - General Family Medicine 05/09/20 [facility] [address] [facility] [id number] External Dentist Dentistry 06/22/24 [facility] [address] [facility] [id number] Crm Coordinator Ophthalmology 06/22/24
--- OUTSIDE RECORDS SUMMARY | 2025-01-14 02:59 | XMS_ITS | Encounter Summary ---
Author Organization [facility] Address [address] [place] [address] Care Team Providers Care Boilermaker Fitter Name Role Phone Kimani Canada P.A.-C. Primary Care Provider Encounter Details Date Type Department Care Team (Late st Contact Info) Description 01/10/2025 6:20 AM WOOD BARREL RECONDITIONER Ancillary Procedure Department of General Surgery Social History Tobacco Use Types Packs/Day Years Used Date Smoking Tobacco: Former Cigarettes Q uit: 1984 Smokeless Tobacco: Never Alcohol Use Standard Drinks/Week Comments Not Currently 0 (1 standard drink = 0.6 oz pur e alcohol) [facility] Utilities Answer Date Recorded In the past 12 months has [employer], gas, oil, or water [employer] threatened to shut off services in your [...] 03/20/2023 How often do you attend chur ch or sikh services? More than 4 times per year 03/20/2023 Do you belong to any clubs o r organizations such as mu-ism groups, unions, fraternal or athletic groups, or [...] Answer Date Recorded PHQ-2 Score 0 06/22/2024 [facility] [place] of Occupat ional Health - Occupational Stress [...] your living situation today? I have a [facility] place to live 03/26/2024 Education Answer Date Recorded What is the highest level of school you have completed or the highest degree you have received? 11th grade 05/01/2021 Sex and Gender Information Value Date Recorded Sex Assigned at Male 08/20/2021 9:04 AM CDT Legal Sex Male 12:46 AM WOOD BARREL RECONDITIONER Gender Identity Not on file Sexual Orientation Not on file documented as of this encounter Plan of Treatment Upcoming Encounters Date Type Department Care Team (Late st Contact Info) Description 01/19/2025 9:00 AM WOOD BARREL RECONDITIONER Procedure visit Department of Urology in [address] [phone] Laurence Wilkins M.D. [address] [place] [phone] 02/14/2025 10:00 AM CDT Comprehensive Visit Department of Neurologic Surgery in [place], [place] [address] [place] [phone] Lalit Deshpande M.D. [address] [place] [phone] 02/14/2025 11:00 AM CDT Office Visit Division of Pain Medicine in [place], [place] [address] [place] [phone] Donita Arevalo, FLAVOR MAKER, C.N.P., M.S. [address] [place] [phone] 06/23/2025 8:10 AM CDT Appointment Department of Laboratory Medicine in [place], [place] 300 [place] [phone] Kimani Canada P.A.-C. 300 [place] [phone] 06/26/2025 10:00 AM CDT Office Visit Department of Family Medicine, [facility], in [place], [place] 300 [place] [address] Kimani Canada P.A.-C. 300 [place] [phone] documented as of this encounter Procedures Procedure Name Priority Date/Time Associated Diagnosis Comments SURGERY IMAGE EXAM Routine 01/10/2025 6: 20 AM WOOD BARREL RECONDITIONER documented in this encounter Results * Urol-Surgery Image Exam (01/10/2025 6:20 AM WOOD BARREL RECONDITIONER) 01/10/2025 6:20 AM WOOD BARREL RECONDITIONER Narrative IIMS - 01/10/2025 9:39 AM WOOD BARREL RECONDITIONER This order has been created and auto-finalized to support the import of images acquired without order. The clinical documentation to support these images can be found on the encounter that produced images. us Provider Not In System IMG NON RAD IMAGING PROCE DURES Final Result IICO NA documented in this encounter Visit Diagnoses Not on filedocumented in this encounter Additional Health Concerns Assessment Noted Time PHQ-9 Depression Total Score: 0 09/15/20 10:46 AM CDT documented as of this encounter Care Teams Boilermaker Fitter Relationship Specialty Start Date End Date Kimani Canada P.A.-C. 300 [place] [phone] PCP - General Family Medicine 05/09/20 [facility] [place] [facility] [address] [facility] [address] External Dentist Dentistry 06/22/24 [facility] 2019 [address] [facility] [address] Pants Maker Ophthalmology 06/22/24 documented as of this encounter
--- OUTSIDE RECORDS SUMMARY | 2025-01-14 02:59 | XMS_ITS ---
Author Organization [facility] Address [address] [place] [address] Care Team Providers Care Produce Assistant Name Role Phone Kimani Canada P.A.-C. Primary Care Provider Active Problems * This document contains information received from the source organization and may not represent a complete record from that organization. Patient Care Coordination No te Formatting of this note migh t be different from the original. JUANA on file for: spouse malissa argueta Cell #: [phone] JUANA good for life time unless patients [...] frozen section by Dr. Timothy Garcia in [place], [place]. 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 Past Treatment and Therapy Plans No past plan information found. 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
--- OUTSIDE RECORDS SUMMARY | 2025-01-14 02:59 | XMS_ITS | Encounter Summary ---
Author Organization [facility] Address [address] [place] [address] Care Team Providers Care Cw Operator Name Role Phone Kimani Canada P.A.-C. Primary Care Provider Reason for Visit * Reason Onset Date Comments Rx Prior Authorization 12/02/2024 budesonid e (Pulmicort) 0.5 mg/2 mL nebulizer solution Encounter Details Date Type Department Care Team (Latest Contact Info) Description 12/02/2024 Clinical Communication Department of Family Medicine, [facility], in [place], [place] 300 [place] [phone] Kimani Canada P.A.-C. 300 [place] [phone] Rx Prior Authorization (budesonide (Pulmicort) 0.5 mg/2 mL nebulizer solution) Social History Tobacco Use Types Packs/Day Years Used Date Smoking Tobacco: Former Cigarettes Q uit: 1983 Smokeless Tobacco: Never Alcohol Use Standard Drinks/Week Comments Not Currently 0 (1 standard drink = 0.6 oz pur e alcohol) [facility] Utilities Answer Date Recorded In the past 12 months has e [employer], gas, oil, or water [employer] threatened to shut off services in your [...] often do you attend chur ch or zoroastrian services? More than 4 times per year 03/20/2023 Do you belong to any clubs o r organizations such as mormon groups, unions, fraternal or athletic groups, or [...] Answer Date Recorded PHQ-2 Score 0 06/22/2024 [facility] [place] of Occupat ional Health - Occupational Stress [...] AM CDT Legal Sex Male 12:46 AM GAME ADVISOR Gender Identity Not on file Sexual Orientation Not on file documented as of this encounter Plan of Treatment Upcoming Encounters Date Type Department Care Team (Late st Contact Info) Description 01/19/2025 9:00 AM GAME ADVISOR Procedure visit Department of Urology in [place], [place] 200 [place] [address] Laurence Wilkins M.D. 200 [place] [phone] 02/14/2025 10:00 AM CDT Comprehensive Visit Department of Neurologic Surgery in [place], [place] [address] [place] [phone] Lalit Deshpande M.D. [address] [place] [phone] 02/14/2025 11:00 AM CDT Office Visit Division of Pain Medicine in [place], [place] [address] [place] [phone] Donita Arevalo, NAEEM, C.N.P., M.S. [address] [place] [phone] 06/23/2025 8:10 AM CDT Appointment Department of Laboratory Medicine in [place], [place] 300 [place] [phone] Kimani Canada P.A.-C. 300 [place] [phone] 06/26/2025 10:00 AM CDT Office Visit Department of Family Medicine, [facility], in [place], [place] 300 [place] [phone] Kimani Canada P.A.-CAlexandra 300 [place] [phone] documented as of this encounter Visit Diagnoses Diagnosis Congestion Nasal- Primary Cough Unspecified Type documented in this encounter Additional Health Concerns Assessment Noted Time PHQ-9 Depression Total Score: 0 09/15/20 18 10:46 AM CDT documented as of this encounter Care Teams Cw Operator Relationship Specialty Start Date End Date Kimani Canada P.A.-CAlexandra 300 [place] [phone] PCP - General Family Medicine 05/09/20 [facility] 2011 [facility] [address] External Dentist Dentistry 06/22/24 [facility] [address] [employer] [address] Fitter Up Ophthalmology 06/22/24 documented as of this encounter
--- OUTSIDE RECORDS SUMMARY | 2025-01-14 02:59 | XMS_ITS | Encounter Summary ---
Author Organization [facility] Address [address] [place] [address] Care Team Providers Care Terrazzo Helper Name Role Phone Kimani Canada P.A.-C. Primary Care Provider Reason for Visit * Reason Onset Date Comments uro opc proc 01/05/2025 Encounter Details Date Type Department Care Team (Late st Contact Info) Description 01/05/2025 Clinical Communication Department of Urology in [place], [place] [address] [place] [phone] Lorene Ramsay uro opc proc Social History Tobacco Use Types Packs/Day Years Used Date Smoking Tobacco: Former Cigarettes Q uit: 1984 Smokeless Tobacco: Never Alcohol Use Standard Drinks/Week Comments Not Currently 0 (1 standard drink = 0.6 oz pur e alcohol) [facility] Utilities Answer Date Recorded In the past 12 months has [facility] [employer], gas, oil, or water [employer] threatened to shut off services in your [...] How often do you attend chur or muslim services? More than 4 times per year 03/20/2023 Do you belong to any clubs o r organizations such as yazidi groups, unions, fraternal or athletic groups, or [...] Answer Date Recorded PHQ-2 Score 0 06/22/2024 [facility] - Occupational Stress Questionnaire Answer Date Recorded [...] your living situation today? I have a [facility] place to live 03/26/2024 Education Answer Date Recorded What is the highest level of school you have completed or the highest degree you have received? 11th grade 05/01/2021 Sex and Gender Information Value Date Recorded Sex Assigned at Male 08/20/2021 9:04 AM CDT Legal Sex Male 12:46 AM SHOP TEACHER Gender Identity Not on file Sexual Orientation Not on file documented as of this encounter Plan of Treatment Upcoming Encounters Date Type Department Care Team (Late st Contact Info) Description 01/19/2025 9:00 AM SHOP TEACHER Procedure visit Department of Urology in [place], [place] 200 [place] [address] Laurence Wilkins M.D. [address] [place] [phone] 02/14/2025 10:00 AM CDT Comprehensive Visit Department of Neurologic Surgery in [place], [place] 200 [place] [phone] Lalit Deshpande M.D. [address] [place] [phone] 02/14/2025 11:00 AM CDT Office Visit Division of Pain Medicine in [place], [place] [address] [place] [address] Donita Arevalo APRN, C.N.P., M.S. [address] [place] [phone] 06/23/2025 8:10 AM CDT Appointment Department of Laboratory Medicine in [place], [place] 300 [place] [phone] Kimani Canada P.A.-C. 300 [place] [phone] 06/26/2025 10:00 AM CDT Office Visit Department of Family Medicine, [facility], in [place], [place] 300 [place] [phone] Kimani Canada P.A.-C. 300 [place] [phone] documented as of this encounter Visit Diagnoses Not on filedocumented in this encounter Additional Health Concerns Assessment Noted Time PHQ-9 Depression Total Score: 0 09/15/20 18 10:46 AM CDT documented as of this encounter Care Teams Terrazzo Helper Relationship Specialty Start Date End Date Kimani Canada, P.A.-C. 300 [place] [phone] PCP - General Family Medicine 05/09/20 [facility] [address] [facility] [place] [facility] [address] External Dentist Dentistry 06/22/24 [facility] 2019 [address] [facility] [place] [facility] [address] Claims Adjuster Ophthalmology 06/22/24 documented as of this encounter
--- OUTSIDE RECORDS SUMMARY | 2025-01-14 02:59 | XMS_ITS | Encounter Summary ---
Author Organization [facility] Address [address] [place] [address] Care Team Providers Care Second Hand Name Role Phone Kimani Canada P.A.-C. Primary Care Provider Reason for Visit * Outpatient (Routine) - Closed Specialty Diagnoses / Procedures Referred By Contac t Referred To Contact Anesthesiology Diagnoses Hematuria Tylor Campa M.D., M.P.H. [address] [place] [phone] Phone: tel: fax: [facility] Referral ID Status Reason Start Date Expiration Date Visits Re quested Visits Authorized [id number] Closed 12/09/2024 06/10/2026 1 1 Encounter Details Date Type Department Care Team (Latest Contact Info) Description 12/29/2024 2:15 PM [facility] Comprehensive Visit Preoperative Evaluation Center in [place], [place] [address] [place] [phone] Tylor Campa M.D., M.P.H. [address] [place] [phone] Harman Ratliff M.D. 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); Peripheral Arterial Disease (HCC); Parkinson's Disease Without Dyskinesia, Without Mention Of Fluctuations (HCC); Apnea Sleep Obstructive; Spinal Stenosis Lumbosacral Region; Preanesthetic Medical Exam; Mass Bladder Social History Tobacco Use Types Packs/Day Years Used Date Smoking Tobacco: Former Cigarettes Q uit: 1984 Smokeless Tobacco: Never Alcohol Use Standard Drinks/Week Comments Not Currently 0 (1 standard drink = 0.6 oz pur e alcohol) [facility] Utilities Answer Date Recorded In the past 12 months has e [employer], gas, oil, or water [employer] threatened to shut off services in your [...] How often do you attend chur or gnosticist services? More than 4 times per year 03/20/2023 Do you belong to any clubs o r organizations such as latter-day groups, unions, fraternal or athletic groups, or [...] [facility] - Occupational Stress Questionnaire Answer Date Recorded [...] your living situation today? I have a [facility] place to live 03/26/2024 Education Answer Date Recorded What is the highest level of school you have completed or the highest degree you have received? 11th grade 05/01/2021 Sex and Gender Information Value Date Recorded Sex Assigned at Male 08/20/2021 9:04 AM CDT Legal Sex Male 12:46 AM GENETIC COUNSELOR Gender Identity Not on file Sexual Orientation Not on file documented as of this encounter Last Filed Vital Signs Vital Sign Reading Time Taken Comments Blood Pressure 169/82 12/29/2024 2:08 PM GENETIC COUNSELOR Pulse 66 12/29/2024 2:08 PM GENETIC COUNSELOR Temperature 36.6 C (97.9 F) 12/29/2024 2:08 PM GENETIC COUNSELOR Respiratory Rate - - Oxygen Saturation 100% 12/29/2024 2:08 PM GENETIC COUNSELOR Inhaled Oxygen Concentration - - Weight 86.2 kg (190 lb) 12/29/2024 2:08 PM GENETIC COUNSELOR Height 172.7 cm (5' 8) 12/29/2024 2:08 PM GENETIC COUNSELOR Body Mass Index 28.89 12/29/2024 2:08 PM GENETIC COUNSELOR documented in this encounter H&P Notes * Harman Ratliff M.D. - 12/29/2024 2:15 PM CST REASON FOR VISIT: Preoperative Medical Evaluation REFERRING PHYSICIAN: Tylor Campa M.D., M.P.H. 01/10/2025: CYSTOSCOPY WITH TRANSURETHRAL RESECTION LESION BLADDER; Ya Sahu D.O. Surgery Specific Risk Classification: Intermediate Risk SUBJECTIVE HISTORY OF PRESENT ILLNESS Herbie Argueta is a 84 y.o. male who is here for preanesthetic medical examination prior to the planned procedure as listed above. REVIEW OF SYSTEMS Respiratory: Positive for dry cough. - Negative for coughing up blood, coughing up mucus (phlegm), shortness of breath and wheezing. Cardiovascular: Positive for swelling in the legs or feet, pain in the calf muscles when walking and shortness of breath when lying flat. - Negative for chest pain, pressure or tightness, rapid or fluttering heart beat and concerns for appearing blue or pale. Gastrointestinal: Positive for heartburn. - Negative for nausea and vomiting. OBJECTIVE OBJECTIVE PHYSICAL EXAMINATION General/Constitutional Old appearing Constitutional Assessment: Obese Airway (HEENT) Mallampati: II TM Distance: >3 FB Neck ROM: Limited Mouth Opening: > 3 cm Upper Lip Bite Test: II Dental Assessment: Upper dentures and dentition in poor repair Cardiovascular Rhythm: Regular Rate: Normal Cardiovascular Assessment: Normal Pulmonary Pulmonary Assessment: Clear and non labored Neurological Neurologic Assessment: Alert Musculoskeletal MSK Assessment: Kyphosis Gait: Antalgic Ambulate with: Wheelchair Psychiatric Psychiatric Assessment: Calm Dermatology Skin Assessment: normal ASSESSMENT / PLAN Anesthesia: Patient reports previous anesthesia related complications. SOME NAUSEA Airway Hx: Upper denture. 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 No chest pain now. No NTG for years. Inactive. Risk factors modified. He will stay on his amlodipine, losartan and carvedilol. ECG 08-10-2024 shows He has had 47 ECGs at [place]. No changes in recent years. Q waves in II, III, and aVF since at least 1999. I will not repeat #3 Spinal Stenosis Lumbosacral Region Surgical opinion scheduled for 02-14-2025 #4 Peripheral Arterial Disease (HCC) Stents 10 years ago. He is not impressed with symptomatic relief #5 Parkinson's Disease Without Dyskinesia, Without Mention Of Fluctuations (HCC) He will stay on his carbidopa-levodopa the day of surgery #6 Apnea Sleep Obstructive Compliant with CPAP #7 Preanesthetic Medical Exam Anesthesia and monitoring discussed Cr 0.75 on 12-05-2024. Mild hematuria on UA OKA RECOMMENDATIONS: Patient medically optimized for planned procedure: Yes Further Recommendations: None TIC COUNSELOR documented in this encounter Plan of Treatment Upcoming Encounters Date Type Department Care Team (Late st Contact Info) Description 01/19/2025 9:00 AM GENETIC COUNSELOR Procedure visit Department of Urology in [place], [place] [address] [place] [phone] Laurence Wilkins M.D. [address] [place] [phone] 02/14/2025 10:00 AM CDT Comprehensive Visit Department of Neurologic Surgery in [place], [place] [address] [place] [phone] Lalit Deshpande M.D. [address] [place] [phone] 02/14/2025 11:00 AM CDT Office Visit Division of Pain Medicine in [place], [place] [address] [place] [address] Donita Arevalo APRN, C.N.P., M.S. [address] [place] [phone] 06/23/2025 8:10 AM CDT Appointment Department of Laboratory Medicine in [place], [place] 300 [place] [address] Kimani Canada, P.A.-C. 300 [place] [phone] 06/26/2025 10:00 AM CDT Office Visit Department of Family Medicine, [facility], in [place], [place] 300 [place] [phone] Kimani Canada, P.A.-C. 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 300 [place] [phone] PCP - General Family Medicine 05/09/20 [facility] [address] [facility] [phone] External Dentist Dentistry 06/22/24 [facility] [address] [facility] [address] Marketing Planner Ophthalmology 06/22/24 documented as of this encounter
--- OUTSIDE RECORDS SUMMARY | 2025-01-14 02:59 | XMS_ITS | Encounter Summary ---
Author Organization [facility] Address [address] [place] [address] Care Team Providers Care Painter Touch Up Name Role Phone Kimani Canada P.A.-C. Primary Care Provider Encounter Details Date Type Department Care Team (Late st Contact Info) Description 01/10/2025 7:49 AM STOPPER MAKER Anesthesia Event Outpatient Procedure Center in [place], [place] [address] [place] [phone] Bakari Wang, NAEEM, PHARMACY AIDE, DNAP [address] [place] [phone] Christofer Fall M.D. [address] [place] [phone] Anesthesia Record Procedure Summary Procedure Name Responsible Anesthesiologist Anesthesia Start Time Anesthesia Stop Time CYSTOSCOPY WITH TRANSURETHRAL RESECTION LESION BLADDER (Bladder) Bakari Wang APRN, PHARMACY AIDE, DNAP 01/10/25 0749 01/10/25 0931 Events Date Time Event Comment 01/10/2025 0749 An Start Machine/Equipme nt Checked Infection Precautions Followed Procedure/Site Verified NPO Status Verified Supine Standard ASA Monitors Applied 0753 An Induction 0759 An Intubation 0801 Turnover to Proceduralist 0814 Proc Start 0919 Proc Fin 0920 Turnover to ANE Staff 0922 Airway Removal Criteria Met 0922 Extubation/Airway Removed 0923 an stop data 0931 An End I completed my handoff to the receiving staff during which we 1. Identified the patient 2. Identified the responsible provider 3. Reviewed the pertinent medical history 4. Discussed the surgical course 5. Reviewed intra-op anesthesia management and issues during anesthesia 6. Set expectations for post-procedure period 7. Allowed opportunity for questions and acknowledgement of understanding. Meds Name Total fentanyl injection 50 mcg/mL 100 mcg lidocaine 2% (mg) injection 100 mg rocuronium 10 mg/mL injection 50 mg phenylephrine 100 mcg/mL injection 550 m cg ondansetron 4 mg/2 mL injection 4 mg propofol 10 mg/mL injection 170 mg dexAMETHasone (Decadron) injection 4 mg/ mL 4 mg ceFAZolin (Ancef) injection 1 g/5 mL 2 g sugammadex (Bridion) injection 100 mg/mL 150 mg Lactated Ringers Free Drip 900 mL * Agents No agents on file. * Blood No blood administrations on file. Lines, Drains, and Airways Type Details Placement Removal Indwelling Urinary Catheter Placement Date: 01/10/25; Inserted by: Dr. Melissa; Size: 20 Fr.; Balloon Size: 5 mL (10ml sterile water in balloon); Urine Returned: Yes; Removal Date: 01/13/25; Removal Time: 09; Removal Reason: Per order 01/10/25 0000 by Veronica Duong R.NAlexandra 01/13/25 0907 by Jayshree Albright RChristy Peripheral IV Placement Date: 01/10/25; Placement Time: 07; Catheter Size: 22 G; Orientation: Left, Posterior; Location: Hand; Site Prep: Chlorhexidine (Preferred); Insertion Attempts: 1; Removal Date: 01/10/25; Removal Time: 112; Removal Reason: Patient discharged 01/10/25 0731 by Cristy Tarango, R.NAlexandra 01/10/25 1129 by Shreya Saldaña RAlexandraNAlexandra ETT Placement Date: 01/10/25; Placement Time: 075 (created via procedure documentation); Mask Ventilation: Easy mask; Technique: Video laryngoscopy; Type: Standard ETT; Single Lumen Tube Size: 7.5 mm; Cuffed: Yes; Location: Oral; Grade View: Grade 1; Placement Verification: Bilateral breath sounds, Positive ETCO2, Symmetrical chest wall movement; Removal Date: 01/10/25; Removal Time: 0901/10/25 0759 by Bakari Wang, BOBBIN PRESSER, PHARMACY AIDE, DNAP 01/10/25 0922 by Bakari Wang APRN, CRNA, DNAP documented in this encounter Social History Tobacco Use Types Packs/Day Years Used Date Smoking Tobacco: Former Cigarettes Q uit: 1984 Smokeless Tobacco: Never Alcohol Use Standard Drinks/Week Comments Not Currently 0 (1 standard drink = 0.6 oz pur e alcohol) [facility] Utilities Answer Date Recorded In the past 12 months has e [place], gas, oil, or water [employer] threatened to shut off services in your [...] How often do you attend chur or taoism services? More than 4 times per year 03/20/2023 Do you belong to any clubs o r organizations such as druze groups, unions, fraternal or athletic groups, or [...] Answer Date Recorded PHQ-2 Score 0 06/22/2024 [facility] - Occupational Stress Questionnaire Answer Date Recorded [...] AM CDT Legal Sex Male 12:46 AM STOPPER MAKER Gender Identity Not on file Sexual Orientation Not on file documented as of this encounter OR Notes * Anesthesia Postprocedure Evaluation - Bakari Wang APRN, CRNA, DNAP - 01/10/2025 9:31 AM CST Patient: Herbie Argueta Procedure Summary Date: 01/10/25 Room / Location: [address] / [facility] in [place], [place] Anesthesia Start: 748 Anesthesia Stop: 930 Procedures: CYSTOSCOPY WITH TRANSURETHRAL RESECTION LESION BLADDER (Bladder) RETROGRADE PYELOGRAM (Left: Ureter) CYSTOURETHROSCOPY WITH PLACEMENT URETERAL STENT (Left: Ureter) Diagnosis: Hematuria (Hematuria [R31.9].) Surgeons: Ya Sahu D.O. Responsible Provider: Bakari Wang APRN, CRNA, DNAP Anesthesia Type: general ASA Status: 3 Anesthesia Type: general Last vitals Vitals Value Taken Time BP Temp Pulse Resp 15 01/10/25 0930 SpO2 Vitals shown include unfiled device data. Please reference Vitals flowsheet for most recent vital signs. Anesthesia Post Evaluation Patient Disposition: dismissal Cardiovascular status: hemodynamics (HR & BP) acceptable Respiratory status: patent airway with spontaneous effort Temperature: normothermic Oxygen requirements: room air Level of consciousness: awake Pain score: pain adequately controlled and/or at baseline Post Op nausea/vomiting: none Hydration status: euvolemic Notable Events No notable events documented. PER MAKER * Anesthesia Procedure Notes - Bakari Wang APRN, CRNA, DNAP - 01/10/2025 8:02 AM CSTAssociated Order(s): Airway Airway Date/Time: 01/10/2025 7:59 AM Performed by: Bakari Wang APRN, CRNA, DNAP Authorized by: Bakari Wang APRN, CRNA, DNAP Patient location during procedure: OR / Procedure Area PROCEDURE DETAILS: Mask difficulty assessment: easy mask Final airway type: video laryngoscope Laryngeal Manipulation: no Final best view of glottic structures - Cormack/Lehane Score: grade 1 ETT location: oral VL device: glide scope [place] scope blade size: 4 Tube size: 7.5 [...] anesthesia POST PROCEDURE DETAILS: Procedure outcome: successful PER MAKER * Anesthesia Preprocedure Evaluation - Christofer Fall M.D. - 01/10/2025 7:39 AM CST Preprocedure Anesthesia & H&P Assessment Procedure Summary Date/Time: 01/10/25729 Procedure: CYSTOSCOPY WITH TRANSURETHRAL RESECTION LESION BLADDER, proceed as indicated. (Bladder) Diagnosis: Hematuria [R31.9] Pre-op diagnosis: Hematuria [R31.9]. Location: [place] [address] / [facility] in [place], [place] Surgeons: Ya Sahu D.O. Pertinent components of the patient's history including current problem list, medical history, surgical history, family history, social history, medications and allergies were reviewed. Present illness and pre-op diagnosis were confirmed. The planned surgery / procedure was verified with the patient / legal guardian. 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) (+) Peripheral Arterial Disease (HCC) ONC (+) Cancer Skin Squamous Cell Personal History Other (+) Obesity Body Mass Index 30-39.9 Adult OBJECTIVE PHYSICAL EXAMINATION Airway (HEENT) Mallampati: III TM Distance: >3 FB Neck ROM: Full Mouth Opening: >3 cm Upper Lip Bite Test Class: I Cardiovascular Rhythm: Regular Rate: Normal Cardiovascular Assessment: cardiovascular normal and weak pulses Functional Capacity: <4 METS Pulmonary Pulmonary Assessment: Clear and diminished General / Constitutional Constitutional Assessment: Normal General State of Health:: calm and ill appearing Neurological Neurologic Assessment: alert Dental Dental Assessment: dentition in poor repair and upper dentures Abdomen Normal Musculoskeletal Normal Skin Normal ASSESSMENT / PLAN ANESTHESIA PLAN ASA: 3 Anesthesia Plan: general Patient seen and allergies reviewed, anesthesia plan and risks discussed directly with patient /legal guardian or through an asl interpreter. The use of blood products not discussed Approval to Proceed: approved for anesthesia PER MAKER documented in this encounter Plan of Treatment Upcoming Encounters Date Type Department Care Team (Late st Contact Info) Description 01/19/2025 9:00 AM STOPPER MAKER Procedure visit Department of Urology in [place], [place] [address] [place] [phone] Laurence Wilkins M.D. [address] [place] [phone] 02/14/2025 10:00 AM CDT Comprehensive Visit Department of Neurologic Surgery in [place], [place] [address] [place] [phone] Lalit Deshpande M.D. [address] [place] [phone] 02/14/2025 11:00 AM CDT Office Visit Division of Pain Medicine in [place], [place] [address] [place] [phone] Donita Arevalo APRN, C.N.P., M.S. [address] [place] [phone] 06/23/2025 8:10 AM CDT Appointment Department of Laboratory Medicine in [address] [phone] Kimani Canada, P.A.-C. [address] [place] [phone] 06/26/2025 10:00 AM CDT Office Visit Department of Family Medicine, [facility], in [place], [place] [address] [place] [phone] Kimani Canada P.A.-C. 300 [place] [phone] documented as of this encounter Procedures Procedure Name Priority Date/Time Associated Diagnosis Comments LDA ANE ENDOTRACHEAL AIRWAY Routine 01/10/2025 7:59 AM STOPPER MAKER documented in this encounter Results * LDA ANE ENDOTRACHEAL AIRWAY (01/10/2025 7:59 AM STOPPER MAKER) Narrative Bakari Wang APRN, CRNA DNAJo-Ann - 01/10/2025 7:59 AM STOPPER MAKER Bakari Wang APRN, CRNA, DNAP 01/10/2025 8:03 AM Airway Date/Time: 01/10/2025 7:59 AM Performed by: Bakari Wang APRN, CRNA DNAJo-Ann Authorized by: Bakari Wang APRN, CRNA, DNAP Patient location during procedure: OR / Procedure Area PROCEDURE DETAILS: Mask difficulty assessment: easy mask Final airway type: video laryngoscope Laryngeal Manipulation: no Final best view of glottic structures - Cormack/Lehane Score: grade 1 ETT location: oral VL device: glide scope [place] scope blade size: 4 Tube size: 7.5 [...] DETAILS: Procedure outcome: successful Bakari Wang APRN, CRNA DNAP ANESTHESIA OR DERABLES Final Result documented in this encounter Visit Diagnoses Not on filedocumented in this encounter Administered Medications Inactive Administered Medications - up to 3 most recent administrations Medication Order MAR Action Action Date Dose Rate Site ceFAZolin injection (Ancef) intravenous, As needed, Starting on Thu01/10/25 at 0813, Anesthesia Intra-op Given 01/10/2025 8:13 AM STOPPER MAKER 2 g dexAMETHasone injection (Decadron) intravenous, As needed, Starting on Thu01/10/25 at 0807, Anesthesia Intra-op Given 01/10/2025 8:07 AM STOPPER MAKER 4 mg fentaNYL injection (Sublimaze) intravenous, As needed, Starting on Thu01/10/25 at 0756, Anesthesia Intra-op Given 01/10/2025 8:28 AM STOPPER MAKER 25 mcg Given 01/10/2025 8:14 AM STOPPER MAKER 50 mcg Given 01/10/2025 7:56 AM STOPPER MAKER 25 mcg Lactated Ringer's intravenous, Continuous Infusion: Per Instructions PRN, Starting on Thu01/10/25 at 0749, Anesthesia Intra-op New Bag 01/10/2025 7:49 AM STOPPER MAKER lidocaine (PF) (cardiac) injection intravenous, As needed, Starting on Thu01/10/25 at 0756, Anesthesia Intra-op Given 01/10/2025 7:58 AM STOPPER MAKER 40 mg Given 01/10/2025 7:56 AM STOPPER MAKER 60 mg ondansetron (PF) injection (Zofran) intravenous, As needed, Starting on Thu01/10/25 at 0807, Anesthesia Intra-op Given 01/10/2025 8:07 AM STOPPER MAKER 4 mg phenylephrine injection intravenous, As needed, Starting on Thu01/10/25 at 0817, Anesthesia Intra-op Given 01/10/2025 9:13 AM STOPPER MAKER 100 mcg Given 01/10/2025 8:55 AM STOPPER MAKER 100 mcg Given 01/10/2025 8:43 AM STOPPER MAKER 100 mcg propofoL injection (Diprivan) intravenous, As needed, Starting on Thu01/10/25 at 0757, Anesthesia Intra-op Given 01/10/2025 8:31 AM STOPPER MAKER 20 mg Given 01/10/2025 7:57 AM STOPPER MAKER 150 mg rocuronium injection (Zemuron) intravenous, As needed, Starting on Thu01/10/25 at 0757, Anesthesia Intra-op Given 01/10/2025 8:26 AM STOPPER MAKER 20 mg Given 01/10/2025 7:57 AM STOPPER MAKER 30 mg sugammadex injection (Bridion) intravenous, As needed, Starting on Thu01/10/25 at 0920, Anesthesia Intra-op Given 01/10/2025 9:20 AM STOPPER MAKER 150 mg documented in this encounter Additional Health Concerns Assessment Noted Time PHQ-9 Depression Total Score: 0 09/15/20 18 10:46 AM CDT documented as of this encounter Care Teams Painter Touch Up Relationship Specialty Start Date End Date Kimani Canada P.A.-C. 300 [facility] [place] [phone] PCP - General Family Medicine 05/09/20 [facility] Dental Care [address] [facility] [address] External Dentist Dentistry 06/22/24 [facility] [address] [facility] [address] Director Decision Support Ophthalmology 06/22/24 documented as of this encounter
--- OUTSIDE RECORDS SUMMARY | 2025-01-14 02:59 | XMS_ITS | Encounter Summary ---
Author Organization [facility] Address [address] [place] [address] Care Team Providers Care Game Trapper Name Role Phone Kimani Canada P.A.-C. Primary Care Provider Encounter Details Date Type Department Care Team (Latest Contact Info) Description 12/27/2024 9:55 AM TABLE KEEPER - 12/27/2024 11:59 PM [facility] Hospital Encounter Department of Laboratory Medicine in [address] [phone] Tylor Campa M.D., M.P.H. [address] [place] [phone] Hematuria Discharge Disposition: Home or Self Care Social History Tobacco Use Types Packs/Day Years Used Date Smoking Tobacco: Former Cigarettes Q uit: 1984 Smokeless Tobacco: Never Alcohol Use Standard Drinks/Week Comments Not Currently 0 (1 standard drink = 0.6 oz pur e alcohol) [facility] Utilities Answer Date Recorded In the past 12 months has e [employer], gas, oil, or water [employer] threatened to shut off services in your [...] How often do you attend chur or gnosticism services? More than 4 times per year 03/20/2023 Do you belong to any clubs o r organizations such as roman catholic groups, unions, fraternal or athletic groups, or [...] Answer Date Recorded PHQ-2 Score 0 06/22/2024 [facility] - Occupational Stress [...] your living situation today? I have a [facility] place to live 03/26/2024 Education Answer Date Recorded What is the highest level of school you have completed or the highest degree you have received? 11th grade 05/01/2021 Sex and Gender Information Value Date Recorded Sex Assigned at Male 08/20/2021 9:04 AM CDT Legal Sex Male 12:46 AM TABLE KEEPER Gender Identity Not on file Sexual Orientation Not on file documented as of this encounter Medications at Time of Discharge acetaminophen (for_TYLENOL) 500 mg tablet Take 1,000 mg by mouth as needed. 04/18/2009 ALPRAZolam (XANAX) 0.25 mg tablet Take 1 tablet (0.25 mg total) by mouth 2 (two) times a day as needed for anxiety. 15 tablet 03/18/2024 amLODIPine (Norvasc) 2.5 mg tablet Take 1 tablet (2.5 mg total) by mouth daily. 90 tablet 3 06/22/2024 ascorbic acid, vitamin C, (VITAMIN C) 500 mg tablet Take 500 mg by mouth daily. aspirin [address] tablet Take 1 tablet by mouth daily with breakfast. 07/27/2013 budesonide (Pulmicort) 0.5 mg/2 mL nebulizer solution ADMINISTER 2 ML INTO NOSTRILS TWICE DAILY RINSE MOUTH WITH WATER AFTER USE REDUCE AFTERTASTE AND INCIDENCE OF CANDIDIASIS DO NOT SWALLOW. Code R09.81 nasal congestion and R05.9 cough 360 mL 12/05/2024 carbidopa-levodop a (Sinemet) 25-100 mg per tablet Take 1 tablet by mouth 3 (three) times a day. 270 tablet 3 10/27/2024 carboxymethylce-g lycerin-polysorba te 80 (Refresh Digital) 0.5-1-0.5 % ophthalmic solution Administer 1 drop into both eyes 2 (two) times a day as needed. carvediloL (Coreg) 12.5 mg tablet Take 1 tablet (12.5 mg total) by mouth 2 (two) times a day with meals. 180 tablet 3 06/22/2024 cholecalciferol, vitamin D3, 25 mcg (1,000 Unit) tablet Take 25 mcg by mouth daily. ciprofloxacin (Cipro) 500 mg tablet Take 500 mg by mouth 2 (two) times a day before morning and evening meals. codeine-guaiFENes in (ROBITUSSIN-AC) 10-100 mg/5 mL liquid As needed diphenhydrAMINE (BenadryL) 25 mg capsule 1 hour prior to pain procedure 1 capsule 09/27/2024 DME CPAPIndications:A pnea Sleep Obstructive DME Order 1 each 07/18/2021 fluticasone propionate (Flonase) 50 mcg/actuation nasal spray Administer 2 sprays into each nostril daily. 16 g 11 12/28/2024 losartan (Cozaar) 100 mg tablet Take 1 tablet (100 mg total) by mouth daily. 90 tablet 3 06/22/2024 lovastatin (Mevacor) 40 mg tablet Take 1 tablet (40 mg total) by mouth daily. 90 tablet 3 06/22/2024 5 multivitamin capsule Take 1 tablet by mouth daily. 07/13/2017 nitroglycerin (Nitrostat) 0.[address] 1 tablet (0.4 mg total) under the tongue every 5 (five) minutes as needed for chest pain. 25 tablet 11 06/22/2024 omega-3 fatty acids 300 mg capsule Take by mouth daily. polyethylene glycol (MIRALAX) 17 gram powder packet Take 17 g by mouth as needed for constipation. Dissolve each 17 g dose in 240 mLs (8 ounces) of beverage. tamsulosin (Flomax) 0.4 mg 24 hr capsule Take 1 capsule (0.4 mg total) by mouth daily. 90 capsule 3 06/22/2024 HYDROcodone-aceta minophen ([place]) 5-325 mg per tabletIndications :Chronic Pain/Nonacute Pain Take 1 tablet by mouth every 4 (four) hours as needed for pain Indication: Chronic Pain/Nonacute Pain. 30 tablet 09/27/2024 5 oxyCODONE (Roxicodone) 5 mg immediate release tabletIndications :Chronic Pain/Nonacute Pain Take 0.5-1 tablets (2.5-5 mg total) by mouth at bedtime as needed for pain Indication: Chronic Pain/Nonacute Pain. 7 tablet 12/28/2024 5 trospium (Sanctura) 20 mg tablet Take 1 tablet (20 mg total) by mouth 2 (two) times a day as needed (As needed for bladder spasms). 60 tablet 01/10/2025 5 documented as of this encounter Plan of Treatment Upcoming Encounters Date Type Department Care Team (Late st Contact Info) Description 01/19/2025 9:00 AM TABLE KEEPER Procedure visit Department of Urology in [place], [place] [address] [place] [phone] Laurence Wilkins M.D. [address] [place] [phone] 02/14/2025 10:00 AM CDT Comprehensive Visit Department of Neurologic Surgery in [place], [place] [address] [place] [phone] Lalit Deshpande M.D. [address] [place] [phone] 02/14/2025 11:00 AM CDT Office Visit Division of Pain Medicine in [place], [place] [address] [place] [phone] Donita Arevalo APRN, C.N.P., M.S. [address] [place] [phone] 06/23/2025 8:10 AM CDT Appointment Department of Laboratory Medicine in [place], [place] [address] [place] [phone] Kimani Canada P.A.-CAlexandra 300 [place] [phone] 06/26/2025 10:00 AM CDT Office Visit Department of Family Medicine, [facility], in [place], [place] [address] [place] [phone] Kimani Canada, P.A.-CAlexandra 300 [place] [phone] documented as of this encounter Procedures Procedure Name Priority Date/Time Associated Diagnosis Comments BACTERIAL CULTURE, AEROBIC + SUSC, URINE Routine 12/27/2024 10:00 AM TABLE KEEPER Hematuria URINALYSIS WITH MICROSCOPIC Routine 12/27/2024 10:00 AM TABLE KEEPER Hematuria documented in this encounter Results * Bacterial Culture, Aerobic + Susceptibility, Urine (12/27/2024 10:00 AM TABLE KEEPER) Urine Culture No growth after 1 day of incubation. 12/28/2024 12:27 PM TABLE KEEPER MKTO Urine (Urine, Midstream) 12/27/2024 10:00 AM TABLE KEEPER 12/27/2024 6:56 PM TABLE KEEPER Comment:Specimen Source Site : Urine us Tylor Campa M.D., M.P.H. LAB MICROBIOLOGY - GENERA L ORDERABLES Final Result [facility] [address] [place] [address], [facility] MKTO [facility] [place] [address] [place] [address] * (ABNORMAL) Urinalysis, with Microscopic: Urine, Midstream (12/27/2024 10:00 AM TABLE KEEPER) Source Urine, Urine, Midstream 12/27/2024 10:08 AM TABLE KEEPER FB60 Clarity Clear Clear 12/27/2024 10:10 AM TABLE KEEPER FB60 Color Yellow 12/27/2024 10:10 AM TABLE KEEPER FB60 Comment: ----REFERENCE VALUE---- Colorless Yellow Urvashi Blood Trace(A) Negative 12/27/2024 10:10 AM TABLE KEEPER FB60 Nitrite Negative Negative 12/27/2024 10:10 AM TABLE KEEPER FB60 Leukocyte Esterase Negative Negative 12/27/2024 10:10 AM TABLE KEEPER FB60 Protein 100(A) mg/dL 12/27/2024 10:10 AM TABLE KEEPER FB60 Comment: ----REFERENCE VALUE---- Negative Trace Glucose Negative Negative mg/dL 12/27/2024 10:10 AM TABLE KEEPER FB60 Ketones, QI(U) Negative Negative mg/dL 12/27/2024 10:10 AM TABLE KEEPER FB60 Bilirubin Negative Negative 12/27/2024 10:10 AM TABLE KEEPER FB60 pH 6.5 5.0 - 8.0 12/27/2024 10:10 AM TABLE KEEPER FB60 Specific [place] 1.020 1.001 - 1.035 12/27/2024 10:10 AM TABLE KEEPER FB60 Urobilinogen 0.2 0.2 - 1.0 mg/dL 12/27/2024 10:10 AM TABLE KEEPER FB60 White Blood Cells Occ-3 /hpf 12/27/2024 10:44 AM TABLE KEEPER FB60 Comment: ----REFERENCE VALUE---- Males: 0-3 Females: 0-10 Unknown: 0-10 Red Blood Cells Occ-2 0 - 2 /hpf 10:44 AM TABLE KEEPER FB60 Squamous Cells Occ-3 /hpf 12/27/2024 10:44 AM TABLE KEEPER FB60 Urine (Urine, Midstream) 12/27/2024 10:00 AM TABLE KEEPER 12/27/2024 10:07 AM TABLE KEEPER us Tylor Campa M.D., M.P.H. LAB URINE ORDERABLES Merlyn l Result [facility] [address] [place] [address], [facility] FB60 [facility] in [place] [address] [place] [address] documented in this encounter Visit Diagnoses Diagnosis Hematuria documented in this encounter Additional Health Concerns Assessment Noted Time PHQ-9 Depression Total Score: 0 09/15/20 18 10:46 AM CDT documented as of this encounter Care Teams Game Trapper Relationship Specialty Start Date End Date Kimani Canada PAlexandraA.Tod. 300 [place] [phone] PCP - General Family Medicine 05/09/20 [facility] Dental Care [address] [facility] [phone] External Dentist Dentistry 06/22/24 [facility] [address] [facility] [phone] Tailercpa Ophthalmology 06/22/24 documented as of this encounter
--- OUTSIDE RECORDS SUMMARY | 2025-01-14 02:59 | XMS_ITS | Encounter Summary ---
Author Organization [facility] Address [address] [place] [id number] Care Team Providers Care Mobility Architect Name Role Phone Kimani Canada P.A.-C. Primary Care Provider Reason for Visit * Reason Onset Date Comments Med Refill 01/06/2025 Encounter Details Date Type Department Care Team (Late st Contact Info) Description 01/06/2025 Refill Division of Pain Medicine in [place], [place] [address] [place] [phone] Donita Arevalo, NAEEM, C.N.P., M.S. [address] [place] [phone] Med Refill Social History Tobacco Use Types Packs/Day Years Used Date Smoking Tobacco: Former Cigarettes Q uit: 1984 Smokeless Tobacco: Never Alcohol Use Standard Drinks/Week Comments Not Currently 0 (1 standard drink = 0.6 oz pur e alcohol) [facility] Utilities Answer Date Recorded In the past 12 months has [employer], gas, oil, or water [employer] threatened to shut off services in your [...] often do you attend chur ch or yazidi services? More than 4 times per year 03/20/2023 Do you belong to any clubs o r organizations such as jew groups, unions, fraternal or athletic groups, or [...] Answer Date Recorded PHQ-2 Score 0 06/22/2024 [facility] - Occupational Stress [...] your living situation today? I have a [facility] place to live 03/26/2024 Education Answer Date Recorded What is the highest level of school you have completed or the highest degree you have received? 11th grade 05/01/2021 Sex and Gender Information Value Date Recorded Sex Assigned at Male 08/20/2021 9:04 AM CDT Legal Sex Male 12:46 AM LOGISTICS SERVICE REPRESENTATIVE Gender Identity Not on file Sexual Orientation Not on file documented as of this encounter Plan of Treatment Upcoming Encounters Date Type Department Care Team (Late st Contact Info) Description 01/19/2025 9:00 AM LOGISTICS SERVICE REPRESENTATIVE Procedure visit Department of Urology in [place], [place] [address] [place] [phone] Laurence Wilkins M.D. [address] [place] [phone] 02/14/2025 10:00 AM CDT Comprehensive Visit Department of Neurologic Surgery in [place], [place] [address] [place] [phone] Lalit Deshpande M.D. [address] [place] [phone] 02/14/2025 11:00 AM CDT Office Visit Division of Pain Medicine in [place], [place] [address] [place] [address] Donita Arevalo APRN C.N.P., M.S. [address] [place] [address] 06/23/2025 8:10 AM CDT Appointment Department of Laboratory Medicine in [place], [place] 300 [place] [address] Kimani Canada P.A.-CAlexandra 300 [place] [phone] 06/26/2025 10:00 AM CDT Office Visit Department of Family Medicine, [facility], in [place], [place] 300 [place] [phone] Kimani Canada P.AAlexandra-CAlexandra 300 [place] [phone] documented as of this encounter Visit Diagnoses Not on filedocumented in this encounter Additional Health Concerns Assessment Noted Time PHQ-9 Depression Total Score: 0 09/15/20 18 10:46 AM CDT documented as of this encounter Care Teams Mobility Architect Relationship Specialty Start Date End Date Kimani Canada P.A.-C. 300 [place] [phone] PCP - General Family Medicine 05/09/20 [facility] [address] [facility] [address] External Dentist Dentistry 06/22/24 [facility] [address] [facility] [id number] Director Database Ophthalmology 06/22/24 documented as of this encounter
--- OUTSIDE RECORDS SUMMARY | 2025-01-14 02:59 | XMS_ITS | Encounter Summary ---
Author Organization [facility] Address 200 [place] [address] Care Team Providers Care Rn Heart Name Role Phone Kimani Canada P.A.-C. Primary Care Provider Reason for Referral * Outpatient (Routine) - Authorized Specialty Diagnoses / Procedures Referred By Contac t Referred To Contact Diagnoses Mass Bladder Procedures Cysto w/stent removal Laurence Wilkins M.D. 200 [place] [address] Phone: tel: fax: [facility] Referral ID Status Reason Start Date Expiration Date V isits Requested Visits Authorized [id number] Authorized 01/10/2025 04/12/2026 1 1 BBER MACHINE TENDER * Outpatient (Routine) - Closed Specialty Diagnoses / Procedures Referred By Contac t Referred To Contact Diagnoses Mass Bladder Procedures URO Urethral cath fill / remove / voiding trial (fill / pull) Laurence Wilkins M.D. 200 [place] [address] Phone: tel: fax: [facility] Referral ID Status Reason Start Date Expiration Date Visits Re quested Visits Authorized [id number] Closed 01/10/2025 04/12/2026 1 1 BBER MACHINE TENDER Encounter Details Date Type Department Care Team (Latest Contact Info) Description 01/10/2025 6:16 AM SCRUBBER MACHINE TENDER - 01/10/2025 11:31 AM SCRUBBER MACHINE TENDER Hospital Encounter Outpatient Procedure Center in [place], [place] 200 [place] [address] Ya Sahu D.O. 200 [place] [address] Mass Bladder (Primary Dx); Hematuria Discharge Disposition: Home or Self Care Social History Tobacco Use Types Packs/Day Years Used Date Smoking Tobacco: Former Cigarettes Q uit: 1983 Smokeless Tobacco: Never Alcohol Use Standard Drinks/Week Comments Not Currently 0 (1 standard drink = 0.6 oz pur e alcohol) [facility] Utilities Answer Date Recorded In the past 12 months has e [employer], gas, oil, or water [employer] threatened to shut off services in your [...] often do you attend chur ch or uatsdin services? More than 4 times per year 03/20/2023 Do you belong to any clubs o r organizations such as yarsanism groups, unions, fraternal or athletic groups, or [...] Answer Date Recorded PHQ-2 Score 0 06/22/2024 [facility] Occupat ional Health - Occupational Stress [...] AM CDT Legal Sex Male 12:46 AM SCRUBBER MACHINE TENDER Gender Identity Not on file Sexual Orientation Not on file documented as of this encounter Last Filed Vital Signs Vital Sign Reading Time Taken Comments Blood Pressure 141/59 01/10/2025 11:00 AM SCRUBBER MACHINE TENDER Pulse 94 01/10/2025 11:10 AM SCRUBBER MACHINE TENDER Temperature 36.5 C (97.7 F) 01/10/2025 9:37 AM SCRUBBER MACHINE TENDER Respiratory Rate 14 01/10/2025 11:10 AM SCRUBBER MACHINE TENDER Oxygen Saturation 60% 01/10/2025 11:10 AM SCRUBBER MACHINE TENDER Inhaled Oxygen Concentration - - Weight - - Height - - Body Mass Index - - documented in this encounter Discharge Instructions * Attachments The following attachments cannot be sent through Care Everywhere. * Indwelling Catheter Care With Drainage Bag Instructions documented in this encounter Medications at Time of Discharge [...] pnea Sleep Obstructive DME Order 1 each 11 07/18/2021 fluticasone propionate (Flonase) 50 mcg/actuation nasal spray Administer 2 sprays into each nostril daily. 16 g 11 12/28/2024 losartan (Cozaar) 100 mg tablet Take 1 tablet (100 mg total) by mouth daily. 90 tablet 3 06/22/2024 5 lovastatin (Mevacor) 40 mg tablet Take 1 [...] by mouth daily. 90 capsule 3 06/22/2024 trospium (Sanctura) 20 mg tablet TAKE 1 TABLET(20 MG) BY MOUTH TWICE DAILY NEEDED FOR BLADDER SPASMS 180 tablet 2 01/11/2025 HYDROcodone-aceta minophen ([place]) 5-325 mg per tabletIndications :Chronic Pain/Nonacute Pain Take 1 tablet by mouth every 4 (four) hours as needed for pain Indication: Chronic Pain/Nonacute Pain. 30 tablet 09/27/2024 5 oxyCODONE (Roxicodone) 5 mg immediate release tabletIndications :Chronic Pain/Nonacute Pain Take 0.5-1 tablets (2.5-5 mg total) by mouth at bedtime as needed for pain for up to 8 days Indication: Chronic Pain/Nonacute Pain. 8 tablet 01/09/2025 5 trospium (Sanctura) 20 mg tablet Take 1 tablet (20 mg total) by mouth 2 (two) times a day as needed (As needed for bladder spasms). 60 tablet 01/10/2025 5 documented as of this encounter H&P Notes * Laurence Wilkins M.D. - 01/10/2025 7:17 AM CST INTERVAL HISTORY AND PHYSICAL PRE-PROCEDURE UPDATE H&P reviewed. The patient was examined and there are no significant changes to the H&P. Ally Wilkins M.D. BBER MACHINE TENDER Source Note - Harman Ratliff M.D. 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 No chest pain now. No NTG for years. Inactive. Risk factors modified. He will stay on his amlodipine, losartan and carvedilol. ECG 08-10-2024 shows He has had 47 ECGs at [facility]. No changes in recent years. Q waves in II, III, and aVF since at least 1999. I will not repeat #3 Spinal Stenosis Lumbosacral Region Surgical opinion scheduled for 02-14-2025 #4 Peripheral Arterial Disease (HCC) Stents 10 years ago. 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 Mild hematuria on UA OKA RECOMMENDATIONS: Patient medically optimized for planned procedure: Yes Further Recommendations: None BBER MACHINE TENDER documented in this encounter OR Notes * Op Note - Ya Sahu D.O. - 01/10/2025 8:14 AM CST Pre-op Diagnosis Hematuria Post-op Diagnosis Hematuria Personal Fitness Trainer A web production assistant actively participated and was necessary for one or more of the following: opening, exposure and visualization, maintaining hemostasis, wound closure resulting in its safe and expeditious completion. Findings FINDINGS: 1. Cystoscopy demonstrated 3.5 cm papillary lesion on the left side of the trigone adjacent to the left UO. Left UO was not involved. 2. Uncomplicated resection of bladder lesion enbloc. ??Visually complete resection down to muscle. ??No concern for perforation. 3. Uncomplicated left ureteral stent placement; 4.8 x 24 cm 4. Excellent hemostasis at the conclusion of the procedure 5. Bimanual exam was performed and negative for evidence of T3 or T4 disease 6. Placement of 20 Trinidadian Tong catheter with 10 cc in the balloon. Plan: - Return to urology clinic for UCO/VT on 01/13/2025 - Stent removal in a week in the clinic Complications Bladder Tumor Removal Details Greatest diameter of tumor: 3.5 cm Operative Note Narrative After appropriate patient identification and verification of informed consent, the patient was brought into the OR and placed under general anesthesia. The patient was then prepped and draped in the standard sterile fashion in the dorsal lithotomy position. After surgical pause and confirmation of antibiotic administration, we proceeded with a rigid cystoscopy. The anterior urethra appeared normal. The sphincter coapted appropriately. The prostatic urethra was moderately obstructing in nature. The bladder was systematically examined which demonstrated approximately 3.5 cm papillary tumor on the left trigone close to left UO. Left UO was not involved. There were no cellules, diverticula, or t rabeculations. The left and right ureteral orifices were identified in their orthotopic position. No additional lesions were identified. ?? We then proceeded with transurethral resection. The urethra was first serially dilated using Abhi sounds from 24- to 30-Trinidadian. ??A continuous-flow bipolar resectoscope was placed. ??Bladder tumor was resected enbloc. Papillary changes were noted in the urothelium on the left side of the bladder as well as bladder wall anterior. The resection bed was fulgurated extensively, and hemostasis was excellent. The patient's bladder was drained. ??The resection fragments were grasped using stent grasper and removed in pieces through the urethra and sent as a specimen labeled bladder tumor. Reinspection of the bladder revealed excellent hemostasis. ??The ureteral orifices were again examined and no concernof ureteral orifice injury but no clear efflux of urine was noted. ??As such, decision was made forureteral stent placement. After laterality pause, a 0.035 sensor-tip wire was advanced through the Left UO without difficulty until the tip was visualized up in the renal collecting system. Next, a tigertail was advanced, the wire was withdrawn, and a limited retrograde pyelogram was performed which demonstrated no filling defects or contrast extravasation. Ureteral length was measured with the tigertail. Next a 4.8- Trinidadian x 24-cm double-J ureteral stent was advanced up to the level of the Left renal pelvis. The wire was removed, and a good proximal curl was confirmed fluoroscopically and excellent distal curl confirmed cystoscopically. Next, a 20-Trinidadian Tong catheter was placed with 10 cc in the balloon. ??The patient's bladder was irrigated to clear. A bimanual exam was performed and was negative for evidence of T3 or T4 disease.B&O suppository was placed in the patient's rectum. The patient tolerated the procedure well and was transferred to the recovery room in satisfactory condition. Adalberto Baxter, B.Ch. BBER MACHINE TENDER BBER MACHINE TENDER BBER MACHINE TENDER documented in this encounter Plan of Treatment Upcoming Encounters Date Type Department Care Team (Late st Contact Info) Description 01/19/2025 9:00 AM SCRUBBER MACHINE TENDER Procedure visit Department of Urology in [place], [place] [address] [place] [address] Laurence Wilkins M.D. [address] [place] [phone] 02/14/2025 10:00 AM CDT Comprehensive Visit Department of Neurologic Surgery in [place], [place] [address] [place] [phone] Lalit Deshpande M.D. [address] [place] [phone] 02/14/2025 11:00 AM CDT Office Visit Division of Pain Medicine in [place], [place] [address] [place] [phone] Donita Arevalo APRN, C.N.P., M.S. [address] [place] [phone] 06/23/2025 8:10 AM CDT Appointment Department of Laboratory Medicine in [address] [phone] Kimani Canada, P.A.-C. 300 [place] [address] 06/26/2025 10:00 AM CDT Office Visit Department of Family Medicine, [facility], in [address] [phone] Kimani Canada, P.A.-C. [address] [place] [address] Scheduled Orders Name Type Priority Associated Diagnoses Orde r Schedule URO Urethral cath fill / remove / voiding trial (fill / pull) Procedure Routine Mass Bladder Expected: 01/13/2025, Expires: 04/09/2026 documented as of this encounter Procedures Procedure Name Priority Date/Time Associated Diagnosis Comments FL FLUORO LESS THAN 1 HOUR RAD - Routine (most inpatients and all outpatients) 01/10/2025 9:25 AM SCRUBBER MACHINE TENDER SURGICAL PATHOLOGY Routine 01/10/2025 8: 15 AM SCRUBBER MACHINE TENDER Hematuria CYSTOURETHROSCOPY WITH PLACEMENT URETERAL STENT 01/10/2025 7:33 AM SCRUBBER MACHINE TENDER Hematuria Special Needs Katheryn primary. RETROGRADE PYELOGRAM 01/10/2025 7:33 AM SCRUBBER MACHINE TENDER Hematuria Special Needs Katheryn primary. CYSTOSCOPY WITH TRANSURETHRAL RESECTION LESION BLADDER 01/10/2025 7:33 AM SCRUBBER MACHINE TENDER Hematuria Special Needs Katheryn primary. documented in this encounter Results * FL Fluoro Less Than 1 Hour (01/10/2025 9:25 AM SCRUBBER MACHINE TENDER) Narrative [id number] - 01/10/2025 9:26 AM SCRUBBER MACHINE TENDER This exam does not require a radiologist review or interpretation. Please refer to the patient's medical record on this date for clinical details. Ya Sahu D.O. IMVandana FLUOROSCOPY PROCEDURES Final Result [id number] NA * Surgical Pathology (01/10/2025 8:15 AM SCRUBBER MACHINE TENDER) 01/11/2025 11:39 AM SCRUBBER MACHINE TENDER DTL Report electronically signed by Malorie Haro M.D., Ph.D. I verify that I have examined all relevant slides/materials for the specimen(s) and rendered or confirmed the diagnosis. 01/11/2025 11:39 AM SCRUBBER MACHINE TENDER DTL Gross Description Received in formalin, labeled with the patient's name, medical record number, and designated bladder tumor is an 11.8 gram, 5 x 4.7 x 0.9 cm aggregate of pink-aly papillary soft tissue admixed with yellow-aly fibrous material, submitted entirely in cassettes A1-A5. Grossed by [email or web address]. 01/11/2025 11:39 AM SCRUBBER MACHINE TENDER DTL Interpretation FINAL DIAGNOSIS Urinary bladder, tumor, transurethral resection: Noninvasive high-grade papillary urothelial carcinoma. Muscularis propria is present and uninvolved. Digital imaging was used in the diagnostic assessment of this case. 01/11/2025 11:39 AM SCRUBBER MACHINE TENDER DTL Tissue (Bladder) 01/10/2025 8:15 AM SCRUBBER MACHINE TENDER us Ya Sahu D.O. LAB SURG PATH ORDERABLES Fi nal Result [facility] [address] [place] [address], [facility] DTL [address] [place] [address] documented in this encounter Visit Diagnoses Diagnosis Hematuria- Primary Hematuria Mass Bladder documented in this encounter Admitting Diagnoses Diagnosis Hematuria documented in this encounter Administered Medications Inactive Administered Medications - up to 3 most recent administrations Medication Order MAR Action Action Date Dose Rate Site acetaminophen tablet 1,000 mg (TylenoL) 1,000 mg, oral, Once, On Thu01/10/25 at 0715, For 1 dose, Pre-Op, PreOp give in preprocedural area. Given 01/10/2025 7:32 AM SCRUBBER MACHINE TENDER 1,000 mg chlorhexidine 0.12 % mouthwash 15 mL (Peridex) 15 mL, swish & spit, Once as needed, Chlorhexidine mouthwash (Peridex) should be given if patient did not complete oral care, if completion is greater than 4 hours prior to surgery or procedure start time and they do not have the opportunity to brush their teeth now (or at this time)., Starting on Thu01/10/25 at 0653, For 1 dose, Pre-Op, Instruct patient to swish entire content of Chlorhexidine 0.12% mouthwash (PERIDEX) 15 mL cup for 30 seconds, then spit, swish & spit. If patient is at risk for aspiration, apply Chlorhexidine 0.12% mouthwash to a swab and gently swab the patient's teeth and gums. Ensure swab is not oversaturated. sodium chloride 0.9 % injection 10 mL 10 mL, intravenous, As needed, line care, Starting on Thu01/10/25 at 0653, Pre-Op, Peripheral Intravenous Catheter and Rapid Infusion Catheter, prior to blood sampling, post blood transfusion or post blood sampling sodium chloride 0.9 % injection 3 mL 3 mL, intravenous, As needed, line care, Starting on Thu01/10/25 at 0653, Pre-Op, Prior to and following infusion and between multiple consecutive infusions: sodium chloride 0.9 % injection sodium chloride 0.9 % injection 3 mL 3 mL, intravenous, Every 12 hours scheduled, First dose on Thu01/10/25 at 0900, Pre-Op, Peripheral Intravenous Catheter and Rapid Infusion Catheter, when no infusion to maintain patency documented in this encounter Active and Recently Administered Medications Times are shown in SCRUBBER MACHINE TENDER. Scheduled Medication Order 01/08/2025 01/09/2025 01/10/2025 acetaminophen tablet 1,000 mg (TylenoL) (COMPLETED) 1,000 mg, oral, Once, On Thu01/10/25 at 0715, For 1 dose, Pre-Op, PreOp give in preprocedural area. 0732 (Given - Provid er: Cristy Tarango R.N.) sodium chloride 0.9 % injection 3 mL 3 mL, intravenous, Every 12 hours scheduled, First dose on Thu01/10/25 at 0900, Pre-Op, Peripheral Intravenous Catheter and Rapid Infusion Catheter, when no infusion to maintain patency 0900 (Due) sodium chloride 0.9 % injection 3 mL 3 mL, intravenous, Every 12 hours scheduled, First dose on Thu01/10/25 at 0900, Pre-Op, Peripheral Intravenous Catheter and Rapid Infusion Catheter, when no infusion to maintain patency 0900 (Due) Continuous Medication Order 01/08/2025 01/09/2025 01/10/2025 Lactated Ringer's 20 mL/hr, intravenous, Continuous, Starting on Thu01/10/25 at 0715, Pre-Op 0715 (Due) PRN Medication Order 01/08/2025 01/09/2025 01/10/2025 belladonna alkaloids-opium 16.2-60 mg suppository (B&O Supprettes) (CANCELED) As needed, Starting on Thu01/10/25 at 0919, Intra-Op 0919 (Given - Provid er: Adalberto Vargas, B.Ch.) chlorhexidine 0.12 % mouthwash 15 mL (Peridex) 15 mL, swish & spit, Once as needed, Chlorhexidine mouthwash (Peridex) should be given if patient did not complete oral care, if completion is greater than 4 hours prior to surgery or procedure start time and they do not have the opportunity to brush their teeth now (or at this time)., Starting on Thu01/10/25 at 0653, For 1 dose, Pre-Op, Instruct patient to swish entire content of Chlorhexidine 0.12% mouthwash (PERIDEX) 15 mL cup for 30 seconds, then spit, swish & spit. If patient is at risk for aspiration, apply Chlorhexidine 0.12% mouthwash to a swab and gently swab the patient's teeth and gums. Ensure swab is not oversaturated. iohexoL 300 mg iodine/mL solution (Omnipaque) (CANCELED) As needed, Starting on Thu01/10/25 at 0909, Intra-Op 0909 (Given - Provid er: Ya Sahu D.O. - Comment: ok per Dr. Sahu) sodium chloride 0.9 % injection 10 mL 10 mL, intravenous, As needed, line care, Starting on Thu01/10/25 at 0653, Pre-Op, Peripheral Intravenous Catheter and Rapid Infusion Catheter, prior to blood sampling, post blood transfusion or post blood sampling sodium chloride 0.9 % injection 10 mL 10 mL, intravenous, As needed, line care, Starting on Thu01/10/25 at 0653, Pre-Op, Peripheral Intravenous Catheter and Rapid Infusion Catheter, prior to blood sampling, post blood transfusion or post blood sampling sodium chloride 0.9 % injection 3 mL 3 mL, intravenous, As needed, line care, Starting on Thu01/10/25 at 0653, Pre-Op, Prior to and following infusion and between multiple consecutive infusions: sodium chloride 0.9 % injection sodium chloride 0.9 % injection 3 mL 3 mL, intravenous, As needed, line care, Starting on Thu01/10/25 at 0653, Pre-Op, Prior to and following infusion and between multiple consecutive infusions: sodium chloride 0.9 % injection documented in this encounter Additional Health Concerns Assessment Noted Time PHQ-9 Depression Total Score: 0 09/15/20 18 10:46 AM CDT documented as of this encounter Care Teams Rn Heart Relationship Specialty Start Date End Date Kimani Canada P.A.-C. [address] [place] [phone] PCP - General Family Medicine 05/09/20 [facility] [address] [facility] [address] External Dentist Dentistry 06/22/24 [facility] [address] [facility] [address] Shot Polisher Ophthalmology 06/22/24 documented as of this encounter
--- OUTSIDE RECORDS SUMMARY | 2025-01-14 02:59 | XMS_ITS | Encounter Summary ---
Author Organization [facility] Address [address] [place] [address] Care Team Providers Care Bucket Turner Name Role Phone Kimani Canada P.A.-C. Primary Care Provider Encounter Details Date Type Department Care Team (Late st Contact Info) Description 01/10/2025 7:30 AM SPORTING GOODS SALESPERSON - 01/10/2025 9:47 AM [facility] Surgery Outpatient Procedure Center in [place], [place] [address] [place] [address] Ya Sahu D.O. [address] [place] [phone] CYSTOSCOPY WITH TRANSURETHRAL RESECTION LESION BLADDER Social History Tobacco Use Types Packs/Day Years Used Date Smoking Tobacco: Former Cigarettes Q uit: 1984 Smokeless Tobacco: Never Alcohol Use Standard Drinks/Week Comments Not Currently 0 (1 standard drink = 0.6 oz pur e alcohol) [facility] Utilities Answer Date Recorded In the past 12 months has e [employer] gas, oil, or water [employer] threatened to shut off services in [...] often do you attend chur ch or church services? More than 4 times per year 03/20/2023 Do you belong to any clubs o r organizations such as rastafarian groups, unions, fraternal or athletic groups, or [...] AM CDT Legal Sex Male 12:46 AM SPORTING GOODS SALESPERSON Gender Identity Not on file Sexual Orientation Not on file documented as of this encounter Last Filed Vital Signs Vital Sign Reading Time Taken Comments Blood Pressure 137/57 01/10/2025 9:37 AM SPORTING GOODS SALESPERSON Pulse 59 01/10/2025 9:45 AM SPORTING GOODS SALESPERSON Temperature 36.5 C (97.7 F) 01/10/2025 9:37 AM SPORTING GOODS SALESPERSON Respiratory Rate 13 01/10/2025 9:45 AM SPORTING GOODS SALESPERSON Oxygen Saturation 94% 01/10/2025 9:45 AM SPORTING GOODS SALESPERSON Inhaled Oxygen Concentration - - Weight - [...] SPASMS 180 tablet 2 01/11/2025 HYDROcodone-aceta minophen (Hopkins) 5-325 mg per tabletIndications :Chronic Pain/Nonacute Pain [...] changes to the H&P. Ally Wilkins M.D. TING GOODS SALESPERSON Source Note - Harman Ratliff M.D. 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 No chest pain now. No NTG for years. Inactive. Risk factors modified. He will stay on his amlodipine, losartan and carvedilol. ECG 08-10-2024 shows He has had 47 ECGs at [facility]. No changes in recent years. Q waves [...] for planned procedure: Yes Further Recommendations: None TING GOODS SALESPERSON documented in this encounter OR Notes * Op Note - Ya Sahu D.O. 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 Placement of 20 South African Tong catheter with 10 cc in the [...] dilated using Abhi sounds from 24- to 30-South African. ??A continuous-flow bipolar resectoscope was placed. ??Bladder [...] measured with the tigertail. Next a 4.8- South African x 24-cm double-J ureteral stent was advanced up to the level of the Left renal pelvis. The wire was removed, and a good proximal curl was confirmed fluoroscopically and excellent distal curl confirmed cystoscopically. Next, a 20-South African Tong catheter was placed with 10 cc in the balloon. ??The patient's bladder was irrigated to clear. A bimanual exam was performed and was negative for evidence of T3 or T4 disease.B&O suppository was placed in the patient's rectum. The patient tolerated the procedure well and was transferred to the recovery room in satisfactory condition. Adalberto Baxter, B.Ch. TING GOODS SALESPERSON TING GOODS SALESPERSON TING GOODS SALESPERSON documented in this encounter Plan of Treatment Upcoming Encounters Date Type Department Care Team (Late st Contact Info) Description 01/19/2025 9:00 AM SPORTING GOODS SALESPERSON Procedure visit Department of Urology in [address] [address] Laurence Wilkins M.D. [address] [place] [phone] 02/14/2025 10:00 AM CDT Comprehensive Visit Department of Neurologic Surgery in [address] [address] Lalit Deshpande M.D. [address] [place] [phone] 02/14/2025 11:00 AM CDT Office Visit Division of Pain Medicine in [address] [address] Donita Arevalo, NAEEM, C.N.P., M.S. [address] [place] [phone] 06/23/2025 8:10 AM CDT Appointment Department of Laboratory Medicine in [address] [phone] Kimani Canada, PAlexandraAAlejandro [address] [place] [phone] 06/26/2025 10:00 AM CDT Office Visit Department of Family Medicine, [facility], in [place], [place] 300 [facility] [place] [address] Kimani Canada P.A.-C. 300 [facility] [place] [address] Scheduled Orders Name Type Priority Associated Diagnoses Orde r Schedule URO Urethral cath fill / remove / voiding trial (fill / pull) Procedure Routine Mass Bladder Expected: 01/13/2025, Expires: 04/09/2026 documented as of this encounter Procedures Procedure Name Priority Date/Time Associated Diagnosis Comments FL FLUORO LESS THAN 1 HOUR RAD - Routine (most inpatients and all outpatients) 01/10/2025 9:25 AM SPORTING GOODS SALESPERSON SURGICAL PATHOLOGY Routine 01/10/2025 8: 15 AM SPORTING GOODS SALESPERSON Hematuria CYSTOURETHROSCOPY WITH PLACEMENT URETERAL STENT 01/10/2025 7:33 AM SPORTING GOODS SALESPERSON Hematuria Special Needs Katheryn primary. RETROGRADE PYELOGRAM 01/10/2025 7:33 AM SPORTING GOODS SALESPERSON Hematuria Special Needs Katheryn primary. CYSTOSCOPY WITH TRANSURETHRAL RESECTION LESION BLADDER 01/10/2025 7:33 AM SPORTING GOODS SALESPERSON Hematuria Special Needs Katheryn primary. documented in this encounter Results * FL Fluoro Less Than 1 Hour (01/10/2025 9:25 AM SPORTING GOODS SALESPERSON) Narrative [id number] - 01/10/2025 9:26 AM SPORTING GOODS SALESPERSON This exam does not require a radiologist review or interpretation. Please refer to the patient's medical record on this date for clinical details. us Ya Sahu D.O. IMVandana FLUOROSCOPY PROCEDURES Final Result [id number] NA * Surgical Pathology (01/10/2025 8:15 AM SPORTING GOODS SALESPERSON) 01/11/2025 11:39 AM SPORTING GOODS SALESPERSON DTL Report electronically signed by Pingchuan Haro, M.D., Ph.D. I verify that I have examined all relevant slides/materials for the specimen(s) and rendered or confirmed the diagnosis. 01/11/2025 11:39 AM SPORTING GOODS SALESPERSON DTL Gross Description Received in formalin, labeled with the patient's name, medical record number, and designated bladder tumor is an 11.8 gram, 5 x 4.7 x 0.9 cm aggregate of pink-aly papillary soft tissue admixed with yellow-aly fibrous material, submitted entirely in cassettes A1-A5. Grossed by [email or web address]. 01/11/2025 11:39 AM SPORTING GOODS SALESPERSON DTL Interpretation FINAL DIAGNOSIS Urinary bladder, tumor, transurethral resection: Noninvasive high-grade papillary urothelial carcinoma. Muscularis propria is present and uninvolved. Digital imaging was used in the diagnostic assessment of this case. 01/11/2025 11:39 AM SPORTING GOODS SALESPERSON DTL Tissue (Bladder) 01/10/2025 8:15 AM SPORTING GOODS SALESPERSON Ya Sahu D.O. LAB SURG PATH ORDERABLES nal Result [facility] [address] [place] [address], [facility] DTL [address] [facility] 200 [place] [address] documented in this encounter Visit Diagnoses Diagnosis Hematuria- Primary Hematuria Mass Bladder Hematuria documented in this encounter Admitting Diagnoses Diagnosis Hematuria documented in this encounter Administered Medications Inactive Administered Medications - up to 3 most recent administrations Medication Order MAR Action Action Date Dose Rate Site acetaminophen tablet 1,000 mg (TylenoL) 1,000 mg, oral, Once, On Thu01/10/25 at 0715, For 1 dose, Pre-Op, PreOp give in preprocedural area. Given 01/10/2025 7:32 AM SPORTING GOODS SALESPERSON 1,000 mg belladonna alkaloids-opium 16.2-60 mg suppository (B&O Supprettes) As needed, Starting on Thu01/10/25 at 0919, Intra-Op Given 01/10/2025 9:19 AM SPORTING GOODS SALESPERSON 1 suppository chlorhexidine 0.12 % mouthwash 15 mL (Peridex) [...] oversaturated. iohexoL 300 mg iodine/mL solution (Omnipaque) As needed, Starting on Thu01/10/25 at 0909, Intra-Op Given 01/10/2025 9:09 AM SPORTING GOODS SALESPERSON 4 mL Left Ureter sodium chloride 0.9 % injection 10 mL [...] Recently Administered Medications Times are shown in SPORTING GOODS SALESPERSON. Scheduled Medication Order 01/08/2025 01/09/2025 01/10/2025 acetaminophen [...] documented as of this encounter Care Teams Bucket Turner Relationship Specialty Start Date End Date Kimani Canada P.A.-C. [address] [place] [address] [place] [phone] PCP - General Family Medicine 05/09/20 [facility] [address] [facility] [address] External Dentist Dentistry 06/22/24 [facility] [address] [facility] [address] Bunch Maker Ophthalmology 06/22/24 documented as of this encounter
--- OUTSIDE RECORDS SUMMARY | 2025-01-14 03:00 | XMS_ITS | Encounter Summary ---
Author Organization [facility] Address [address] [place] [address] Care Team Providers Care Television Installer Name Role Phone Kimani Canada P.A.-C. Primary Care Provider Reason for Referral * Outpatient (Routine) - Closed Specialty Diagnoses / Procedures Referred By Ray cruz Referred To Contact Diagnoses Mass Bladder Procedures URO Residual urine - ultrasound Marques Reynolds M.D. 200 [place] [address] Phone: tel: fax: [facility] Referral ID Status Reason Start Date Expiration Date Visits Re quested Visits Authorized [id number] Closed 01/13/2025 04/15/2026 1 1 O PLANT TECHNICIAN Reason for Visit * Outpatient (Routine) - Closed Specialty Diagnoses / Procedures Referred By Ray cruz Referred To Contact Diagnoses Mass Bladder Procedures URO Urethral cath fill / remove / voiding trial (fill / pull) Laurence Wilkins M.D. 200 [place] [address] Phone: tel: fax: [facility] Referral ID Status Reason Start Date Expiration Date Visits Re quested Visits Authorized [id number] Closed 01/10/2025 04/12/2026 1 1 Encounter Details Date Type Department Care Team ([facility] st Contact Info) Description 01/13/2025 9:00 AM HYDRO PLANT TECHNICIAN Procedure visit Department of Urology in [place], [place] 200 [place] [address] Laurence Wilkins M.D. 200 [place] [phone] Jayshree Albright R.N. 200 [place] [address] Mass Bladder Social History Tobacco Use Types Packs/Day Years Used Date Smoking Tobacco: Former Cigarettes Q uit: 1984 Smokeless Tobacco: Never Alcohol Use Standard Drinks/Week Comments Not Currently 0 (1 standard drink = 0.6 oz pur e alcohol) [facility] [employer]ities Answer Date Recorded In the past 12 months has e [employer], gas, oil, or water [employer] threatened to shut off services in your [...] often do you attend chur ch or jain services? More than 4 times per year 03/20/2023 Do you belong to any clubs o r organizations such as anabaptist groups, unions, fraternal or athletic groups, or [...] Answer Date Recorded PHQ-2 Score 0 06/22/2024 [facility] Clarence of Occupat ional Health - Occupational Stress [...] Date Recorded Dental: Regular Dentist Yes 11/22/20 22 Employment Answer Date Recorded Employment status Retired 03/26/2024 Housing Stability Answer Date Recorded What is your living situation today? I have a jonathan place to live 03/26/2024 Education Answer Date Recorded What is the highest level of school you have completed or the highest degree you have received? 11th grade 05/01/2021 Sex and Gender Information Value Date Recorded Sex Assigned at Male 08/20/2021 9:04 AM CDT Legal Sex Male 12:46 AM HYDRO PLANT TECHNICIAN Gender Identity Not on file Sexual Orientation Not on file documented as of this encounter Progress Notes * Jayshree Albright R.N. - 01/13/2025 9:00 AM CST CHIEF COMPLAINT Reason for visit, urinary catheter removal post: TURBT and left stent placement by Dr. Ya Sahu on January 10, 2025. IMPRESSION/REPORT/PLAN Nursing Intervention: Patient instilled with 200 mL's sterile normal saline prior to catheter removal. Patient able to void 100 mL's clear pink urine with an ultrasound PVR of 221 mL's. Patient tolerated procedure well. Patient education: to push fluids , hematuria , burning with urination , increased frequency/urgency , to return for a voiding check at 1100 , and to urinate often . Patient also instructed to check back in sooner if he is unable to void, has signs of urinary retention or has pain and/or abdominal pressure. O PLANT TECHNICIAN O PLANT TECHNICIAN documented in this encounter Plan of Treatment Upcoming Encounters Date Type Department Care Team (Late st Contact Info) Description 01/19/2025 9:00 AM HYDRO PLANT TECHNICIAN Procedure visit Department of Urology in [place], [place] [address] [place] [phone] Laurence Wilkins M.D. [address] [place] [phone] 02/14/2025 10:00 AM CDT Comprehensive Visit Department of Neurologic Surgery in [place], [place] [address] [place] [address] Lalit Deshpande M.D. [address] [place] [address] 02/14/2025 11:00 AM CDT Office Visit Division of Pain Medicine in [place], [place] [address] [place] [address] Donita Arevalo APRN, C.N.P., M.S. [address] [place] [phone] 06/23/2025 8:10 AM CDT Appointment Department of Laboratory Medicine in [place], [place] 300 [place] [address] Kimani Canada P.A.-CAlexandra 300 [place] [address] 06/26/2025 10:00 AM CDT Office Visit Department of Family Medicine, [facility], in [place], [place] [address] [place] [address] Kimani Canada, P.A.-C. 300 [place] [address] Scheduled Orders Name Type Priority Associated Diagnoses Orde r Schedule URO Residual urine - ultrasound Procedure Routine Mass Bladder Expected: 01/13/2025, Expires: 04/12/2026 documented as of this encounter Visit Diagnoses Diagnosis Mass Bladder documented in this encounter Additional Health Concerns Assessment Noted Time PHQ-9 Depression Total Score: 0 09/15/20 18 10:46 AM CDT documented as of this encounter Care Teams Television Installer Relationship Specialty Start Date End Date Kimani Canada, P.A.-C. [address] [place] [address] PCP - General Family Medicine 05/09/[address] [facility] [address] External Dentist Dentistry 06/22/24 [facility] [address] [facility] [id number] Power Driven Brush Maker Ophthalmology 06/22/24 documented as of this encounter
--- OUTSIDE RECORDS SUMMARY | 2025-01-14 03:00 | XMS_ITS | Encounter Summary ---
Author Organization [facility] Address [address] [place] [address] Care Team Providers Care Aluminum Sheet Cutter Name Role Phone Kimani Canada P.A.-C. Primary Care Provider Reason for Referral * MRI/CAT/PET Scan (Routine) - Closed Specialty Diagnoses / Procedures Referred By Ray cruz Referred To Contact Radiology Diagnoses Hematuria Procedures MR Abdomen Pelvis Urogram without and with IV Contrast Kimani Canada P.A.-C. [address] [place] [address] Phone: tel: fax: [facility] Referral ID Status Reason Start Date Expiration Date Visits Re quested Visits Authorized [id number] Closed 12/05/2024 12/05/2025 1 1 ARCH GROUP DIRECTOR * Outpatient (Routine) - Authorized Specialty Diagnoses / Procedures Referred By Contbelgica t Referred To Contact Diagnoses Hematuria Procedures URO Cystoscopy (general) Kimani Canada P.A.-C. [address] [place] [address] Phone: tel: fax: [facility] Referral ID Status Reason Start Date Expiration Date V isits Requested Visits Authorized [id number] Authorized 12/05/2024 12/05/2025 1 1 ARCH GROUP DIRECTOR * Outpatient (Routine) - Closed Specialty Diagnoses / Procedures Referred By Ray cruz Referred To Contact Urology Diagnoses Hematuria Kimani Canada P.A.-C. [address] [place] [address] Phone: tel: fax: [facility] Referral ID Status Reason Start Date Expiration Date Visits Re quested Visits Authorized [id number] Closed 12/05/2024 06/06/2026 1 1 ARCH GROUP DIRECTOR Reason for Visit * Reason Comments Follow-up [place] [facility]- blood in urine * Appointment Request (Routine) - Closed Specialty Diagnoses / Procedures Referred By Ray cruz Referred To Contact Family Medicine Referral ID Status Reason Start Date Expiration Date Visits Re quested Visits Authorized [id number] Closed 12/02/2024 12/02/2025 1 1 Encounter Details Date Type Department Care Team (Late st Contact Info) Description 12/05/2024 2:30 PM RESEARCH GROUP DIRECTOR Office Visit Department of Family Medicine, [facility], in [place], [place] [address] [place] [address] Kimani Canada P.A.-C. [address] [place] [address] Hematuria (Primary Dx); Parkinson's Disease Without Dyskinesia, Without Mention Of Fluctuations (HCC); 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); Peripheral Arterial Disease (HCC) Social History Tobacco Use Types Packs/Day Years Used Date Smoking Tobacco: Former Cigarettes Q uit: 1984 Smokeless Tobacco: Never Tobacco Cessation:Counseling Given: Not Answered Alcohol Use Standard Drinks/Week Comments Not Currently 0 (1 standard drink = 0.6 oz pur e alcohol) [facility] Utilities Answer Date Recorded In the past 12 months has e [employer], gas, oil, or water [employer] threatened to shut off services in your [...] week 03/20/2023 How often do you attend [facility] or mandaeism services? More than 4 times per year 03/20/2023 Do you belong to any clubs o r organizations such as voodoo groups, unions, fraternal or athletic groups, or [...] Answer Date Recorded PHQ-2 Score 0 06/22/2024 [facility] of Occupat ional Health - Occupational Stress [...] your living situation today? I have a [facility] place to live 03/26/2024 Education Answer Date Recorded What is the highest level of school you have completed or the highest degree you have received? 11th grade 05/01/2021 Sex and Gender Information Value Date Recorded Sex Assigned at Male 08/20/2021 9:04 AM CDT Legal Sex Male 12:46 AM RESEARCH GROUP DIRECTOR Gender Identity Not on file Sexual Orientation Not on file documented as of this encounter Last Filed Vital Signs Vital Sign Reading Time Taken Comments Blood Pressure 146/75 12/05/2024 2:26 PM RESEARCH GROUP DIRECTOR Pulse 67 12/05/2024 2:26 PM RESEARCH GROUP DIRECTOR Temperature 36.5 C (97.7 F) 12/05/2024 2:09 PM RESEARCH GROUP DIRECTOR Respiratory Rate - - Oxygen Saturation - - Inhaled Oxygen Concentration - - Weight 89 kg (196 lb 3.4 oz) 12/05/2024 2:09 PM RESEARCH GROUP DIRECTOR Height 172 cm (5' 7.72) 12/05/2024 2:09 PM RESEARCH GROUP DIRECTOR Body Mass Index 30.08 12/05/2024 2:09 PM RESEARCH GROUP DIRECTOR documented in this encounter Progress Notes * Kimani Canada P.A.-C. - 12/05/2024 2:30 PM CST SUBJECTIVE CHIEF COMPLAINT / REASON FOR VISIT Herbie Argueta is a 84 y.o. male who presents for evaluation of Follow-up ([place] [facility]- blood in urine). HISTORY OF PRESENT ILLNESS Herbie presents today following a recent emergency room visit. He was seen for sudden onset hematuria. He was evaluated in the emergency room and a urinalysis confirmed probable infection he had a culture but I do not have the results of this. He was treated with ciprofloxacin and he said his symptoms have improved significantly. He has a history of urosepsis in the past as well. He also has multiple other medical comorbidities. He is scheduled for further evaluation of his back with possible surgery to come. He has Parkinson's that has been pretty stable. He also has a history of peripheral artery disease status post surgical intervention in the past. He says that after the treatment with antibiotics his gross hematuria seems to have improved. 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 PHYSICAL EXAMINATION In general he appears in no acute distress Heart: Regular rate rhythm Lungs: Clear to auscultation Abdomen: Soft no discomfort to palpation specifically over his suprapubic region. Back: No CVA tenderness to percussion ASSESSMENT / PLAN #1 Parkinson's Disease Without Dyskinesia, Without Mention Of Fluctuations (HCC) He will continue on his current medical regimen he was recently seen by Neurology #2 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) Blood pressure has been pretty well controlled. He is in a fair amount of discomfort today and it is slightly elevated. I will not make any changes to this at this time #3 Peripheral Arterial Disease (HCC) This is previously been treated surgically. No further recommendations at this time we will continue to follow with vascular Medicine #4 Hematuria He has a history urosepsis in the past. This current episode of hematuria should be evaluated further. I would like him to see Urology. He has a history of urticaria with contrast dye. I am going to have him follow-up with urology I ordered a urinalysis as well as cystoscopy as well as other blood work to assess his kidney function and urine cytology. I held off on the CT urogram because of his history of urticaria with contrast dye. This can be done at the discretion of Urology. Addendum: Urology would like imaging done before they see him so I will order an MRI as requested. Total time spent 40 minutes Kimani Canada P.A.-C. ARCH GROUP DIRECTOR documented in this encounter Plan of Treatment Upcoming Encounters Date Type Department Care Team (Late st Contact Info) Description 01/19/2025 9:00 AM RESEARCH GROUP DIRECTOR Procedure visit Department of Urology in [place], [place] [address] [place] [phone] Laurence Wilkins M.D. [address] [place] [phone] 02/14/2025 10:00 AM CDT Comprehensive Visit Department of Neurologic Surgery in [place], [place] [address] [place] [phone] Lalit Deshpande M.D. [address] [place] [phone] 02/14/2025 11:00 AM CDT Office Visit Division of Pain Medicine in [place], [place] [address] [place] [phone] Donita Arevalo APRN C.N.P., M.S. [address] [place] [address] 06/23/2025 8:10 AM CDT Appointment Department of Laboratory Medicine in [place], [place] [address] [place] [phone] Kimani Canada, P.A.-C. [address] [place] [address] 06/26/2025 10:00 AM CDT Office Visit Department of Family Medicine, [facility], in [place], [place] [address] [place] [address] Kimani Canada, P.A.-C. [address] [place] [address] Scheduled Referrals Name Type Priority Associated Diagnoses Orde r Schedule Urology - General - hematuria / abnormal cytology consult (clinic) Outpatient Referral Routine Hematuria Expected: 12/05/2024, Expires: 03/05/2026 documented as of this encounter Results * MR Abdomen Pelvis Urogram without and with IV Contrast (12/07/2024 1:50 PM RESEARCH GROUP DIRECTOR) Anatomical Region Laterality Modality Abdomen, Pelvis, Abdominal R ST LOS, Abdominal ARZ LOS, Abdominal FLA LOS N/A Magnetic Resonance Impressions 12/07/2024 3:09 PM RESEARCH GROUP DIRECTOR 1. Exophytic enhancing mass along the left [...] suspicious renal lesion. Narrative 12/07/2024 3:09 PM RESEARCH GROUP DIRECTOR EXAM: MR ABDOMEN PELVIS UROGRAM WITHOUT AND [...] upper tracts. 4. No suspicious renal lesion. Kimani Canada P.A.-C. IMG MRI PROCEDURES Fin al Result * Creatinine with Estimated GFR (12/05/2024 3:14 PM RESEARCH GROUP DIRECTOR) Creatinine 0.75 0.74 - 1.35 mg/dL 12/05/2024 6:12 PM RESEARCH GROUP DIRECTOR OWAT Estimated GFR (eGFR) 90 >=60 mL/min/BSA 12/05/2024 6:12 PM RESEARCH GROUP DIRECTOR OWAT Comment: Estimated GFR calculated using the 2020 CKD_EPI creatinine equation. Blood (Blood, Venous) 12/05/2024 3:14 PM RESEARCH GROUP DIRECTOR 12/05/2024 5:51 PM RESEARCH GROUP DIRECTOR Kimani Canada P.A.-C. LAB BLOOD ADD-ON Final Result Performing Organization Address City/[facility]/ZIP Co de Phone Number [facility] [address] [place] [phone], [facility] OWAT [facility] in [place] [address] [place] [phone] * Bacterial Culture, Aerobic + Susceptibility, Urine (12/05/2024 3:00 PM RESEARCH GROUP DIRECTOR) Urine Culture No growth after 1 day of incubation. 12/06/2024 12:21 PM RESEARCH GROUP DIRECTOR [facility] Urine (Urine, Midstream) 12/05/2024 3:00 PM RESEARCH GROUP DIRECTOR 12/05/2024 6:45 PM RESEARCH GROUP DIRECTOR Comment:Specimen Source Site : Urine Kimani Canada P.A.-C. LAB MICROBIOLOGY - GEN ERAL ORDERABLES Final Result [facility] [address] [place] [address], [facility] in [place] [address] [place] [address] * Cytology Non-CIGAR PACKER (Scheduled) (12/05/2024 3:00 PM RESEARCH GROUP DIRECTOR) 12/06/2024 9:49 AM RESEARCH GROUP DIRECTOR [facility] Fixative yes 12/06/2024 9:49 AM RESEARCH GROUP DIRECTOR [facility] Report electronically signed by Jayson Whipple MD I verify that I have examined all relevant slides/materi als for the specimen(s) and rendered or confirmed the diagnosis. 12/06/2024 9:49 AM RESEARCH GROUP DIRECTOR [facility] Gross Description Received 60 ml of clear, hutchinson yellow alcohol fixed fluid. 12/06/2024 9:49 AM RESEARCH GROUP DIRECTOR [facility] Collection Procedure voided 12/06/2024 9:49 AM RESEARCH GROUP DIRECTOR [facility] Source A. Urine, Midstream, voided 12/06/2024 9:49 AM RESEARCH GROUP DIRECTOR [facility] Clinical History hematuria 12/06/19 9:49 AM RESEARCH GROUP DIRECTOR [facility] Interpretation A. Urine, Midstream, voided (cytospin): Negative for High-Grade Urothelial Carcinoma. 12/06/2024 9:49 AM RESEARCH GROUP DIRECTOR [facility] Urine 12/05/2024 3:00 PM RESEARCH GROUP DIRECTOR 12/06/2024 7:14 AM RESEARCH GROUP DIRECTOR us Kimani Canada P.A.-C. LAB SURG PATH ORDERABL ES Final Result Performing Organization Address [facility]/State/ZIP Co de Phone Number [facility] [address] [place] [address], [place] [facility] [address] [address] * (ABNORMAL) Urinalysis, with Microscopic: Urine, Midstream (12/05/2024 3:00 PM RESEARCH GROUP DIRECTOR) Source Urine, Urine, Midstream 12/05/2024 3:24 PM RESEARCH GROUP DIRECTOR FB60 Clarity Cloudy(A) Clear 12/05/2024 3:25 PM RESEARCH GROUP DIRECTOR FB60 Color Yellow 12/05/2024 3:25 PM RESEARCH GROUP DIRECTOR FB60 Comment: ----REFERENCE VALUE---- Colorless Yellow Urvashi Blood Large(A) Negative 12/05/2024 3:25 PM RESEARCH GROUP DIRECTOR FB60 Nitrite Negative Negative 12/05/2024 3:25 PM RESEARCH GROUP DIRECTOR FB60 Leukocyte Esterase Negative Negative 12/05/2024 3:25 PM RESEARCH GROUP DIRECTOR FB60 Protein 100(A) mg/dL 12/05/2024 3:25 PM RESEARCH GROUP DIRECTOR FB60 Comment: ----REFERENCE VALUE---- Negative Trace Glucose Negative Negative mg/dL 12/05/2024 3:25 PM RESEARCH GROUP DIRECTOR FB60 Ketones, QI(U) Negative Negative mg/dL 12/05/2024 3:25 PM RESEARCH GROUP DIRECTOR FB60 Bilirubin Negative Negative 12/05/2024 3:25 PM RESEARCH GROUP DIRECTOR FB60 pH 6.0 5.0 - 8.0 12/05/2024 3:25 PM RESEARCH GROUP DIRECTOR FB60 Specific [place] 1.025 1.001 - 1.035 12/05/2024 3:25 PM RESEARCH GROUP DIRECTOR FB60 Urobilinogen 0.2 0.2 - 1.0 mg/dL 12/05/2024 3:25 PM RESEARCH GROUP DIRECTOR FB60 White Blood Cells Occ-3 /hpf 12/05/2024 3:46 PM RESEARCH GROUP DIRECTOR FB60 Comment: ----REFERENCE VALUE---- Males: 0-3 Females: 0-10 Unknown: 0-10 Red Blood Cells >100(A) 0 - 2 /hpf 3:46 PM RESEARCH GROUP DIRECTOR FB60 Dysmorphic Red Blood Cells <=25 <=25 % 12/05/2024 3:46 PM RESEARCH GROUP DIRECTOR FB60 Urine (Urine, Midstream) 12/05/2024 3:00 PM RESEARCH GROUP DIRECTOR 12/05/2024 3:18 PM RESEARCH GROUP DIRECTOR us Kimani Canada P.A.-C. LAB URINE ORDERABLES F inal Result [facility] [address] [place] [address], [facility] FB60 [facility] in [place] [address] [place] [address] documented in this encounter Visit Diagnoses Diagnosis Hematuria- Primary Parkinson's Disease Without Dyskinesia, Without Mention Of Fluctuations (HCC) 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) Peripheral Arterial Disease (HCC) Hematuria documented in this encounter Additional Health Concerns Assessment Noted Time PHQ-9 Depression Total Score: 0 09/15/20 18 10:46 AM CDT documented as of this encounter Care Teams Aluminum Sheet Cutter Relationship Specialty Start Date End Date Kimani Canada P.A.-C. [address] [place] [address] [place] [phone] PCP - General Family Medicine 05/09/20 [facility] [address] [facility] [address] External Dentist Dentistry 06/22/24 [facility] [address] [facility] [address] Return To Service Inspector Ophthalmology 06/22/24 documented as of this encounter
--- OUTSIDE RECORDS SUMMARY | 2025-01-14 03:00 | XMS_ITS | Encounter Summary ---
Author Organization [facility] Address [address] [place] [phone] Care Team Providers Care Er Registrar Name Role Phone Kimani Canada P.A.-C. Primary Care Provider Encounter Details Date Type Department Care Team (Latest Contact Info) Description 12/05/2024 2:58 PM [facility] Encounter Department of Laboratory Medicine in [place], [place] [address] [place] [phone] Kimani Canada P.A.-C. [address] [place] [phone] Hematuria Discharge Disposition: Home or Self Care Social History Tobacco Use Types Packs/Day Years Used Date Smoking Tobacco: Former Cigarettes Q uit: 1984 Smokeless Tobacco: Never Alcohol Use Standard Drinks/Week Comments Not Currently 0 (1 standard drink = 0.6 oz pur e alcohol) [facility] Utilities Answer Date Recorded In the past 12 months has e [employer] gas, oil, or water [employer] threatened to shut off services in your [...] often do you attend chur ch or rastafari services? More than 4 times per year 03/20/2023 Do you belong to any clubs o r organizations such as faith groups, unions, fraternal or athletic groups, or [...] Answer Date Recorded PHQ-2 Score 0 06/22/2024 [facility] of Occupat ional Health - Occupational [...] your living situation today? I have a [facility] place to live 03/26/2024 Education Answer Date Recorded What is the highest level of school you have completed or the highest degree you have received? 11th grade 05/01/2021 Sex and Gender Information Value Date Recorded Sex Assigned at Male 08/20/2021 9:04 AM CDT Legal Sex Male 12:46 AM ROTARY SCREEN PRINTING MACHINE OPERATOR Gender Identity Not on file Sexual Orientation [...] tablet by mouth daily with breakfast. 07/27/2013 carbidopa-levodop a (Sinemet) 25-100 mg per tablet [...] Obstructive DME Order 1 each 11 07/18/2021 losartan (Cozaar) 100 mg tablet Take 1 [...] daily. 90 capsule 3 06/22/2024 HYDROcodone-aceta minophen ([place]) 5-325 mg per tabletIndications :Chronic Pain/Nonacute Pain Take 1 tablet by mouth every 4 (four) hours as needed for pain Indication: Chronic Pain/Nonacute Pain. 30 tablet 09/27/2024 documented as of this encounter Plan of Treatment Upcoming Encounters Date Type Department Care Team (Late st Contact Info) Description 01/19/2025 9:00 AM ROTARY SCREEN PRINTING MACHINE OPERATOR Procedure visit Department of Urology in [place], [place] [address] [place] [phone] Laurence Wilkins M.D. [address] [place] [phone] 02/14/2025 10:00 AM CDT Comprehensive Visit Department of Neurologic Surgery in [place], [place] [address] [place] [phone] Lalit Deshpande M.D. [address] [place] [phone] 02/14/2025 11:00 AM CDT Office Visit Division of Pain Medicine in [place], [place] [address] [place] [phone] Donita Arevalo, NAEEM, C.N.P., M.S. [address] [place] [phone] 06/23/2025 8:10 AM CDT Appointment Department of Laboratory Medicine in [address] [phone] Kimani Canada, P.A.-C. [address] [place] [phone] 06/26/2025 10:00 AM CDT Office Visit Department of Family Medicine, [facility], in [place], [place] [address] [place] [phone] Kimani Canada, P.A.-C. [address] [place] [phone] documented as of this encounter Procedures Procedure Name Priority Date/Time Associated Diagnosis Comments CYTOLOGY NON-REAL ESTATE PROCESSOR (SCHEDULED) Routine 12/05/2024 3:00 PM ROTARY SCREEN PRINTING MACHINE OPERATOR Hematuria BACTERIAL CULTURE, AEROBIC + SUSC, URINE Routine 12/05/2024 3:00 PM ROTARY SCREEN PRINTING MACHINE OPERATOR Hematuria URINALYSIS WITH MICROSCOPIC Routine 12/05/2024 3:00 PM ROTARY SCREEN PRINTING MACHINE OPERATOR Hematuria documented in this encounter Results * Bacterial Culture, Aerobic + Susceptibility, Urine (12/05/2024 3:00 PM ROTARY SCREEN PRINTING MACHINE OPERATOR) Urine Culture No growth after 1 day of incubation. 12/06/2024 12:21 PM ROTARY SCREEN PRINTING MACHINE OPERATOR MK Urine (Urine, Midstream) 12/05/2024 3:00 PM ROTARY SCREEN PRINTING MACHINE OPERATOR 12/05/2024 6:45 PM ROTARY SCREEN PRINTING MACHINE OPERATOR Comment:Specimen Source Site : Urine us Kimani Canada P.A.-C. LAB MICROBIOLOGY - GEN ERAL ORDERABLES Final Result [facility] [address] [place] [address], [facility] in [place] [address] [place] [address] * Cytology Non-REAL ESTATE PROCESSOR (Scheduled) (12/05/2024 3:00 PM ROTARY SCREEN PRINTING MACHINE OPERATOR) 12/06/2024 9:49 AM ROTARY SCREEN PRINTING MACHINE OPERATOR [facility] Fixative yes 12/06/2024 9:49 AM ROTARY SCREEN PRINTING MACHINE OPERATOR [facility] Report electronically signed by Jayson Whipple MD I verify that I have examined all relevant slides/materi als for the specimen(s) and rendered or confirmed the diagnosis. 12/06/2024 9:49 AM ROTARY SCREEN PRINTING MACHINE OPERATOR [facility] Gross Description Received 60 ml of clear, hutchinson yellow alcohol fixed fluid. 12/06/2024 9:49 AM ROTARY SCREEN PRINTING MACHINE OPERATOR [facility] Collection Procedure voided 12/06/2024 9:49 AM ROTARY SCREEN PRINTING MACHINE OPERATOR [facility] Source A. Urine, Midstream, voided 12/06/2024 9:49 AM ROTARY SCREEN PRINTING MACHINE OPERATOR [facility] Clinical History hematuria 12/06/19 9:49 AM ROTARY SCREEN PRINTING MACHINE OPERATOR [facility] Interpretation A. Urine, Midstream, voided (cytospin): Negative for High-Grade Urothelial Carcinoma. 12/06/2024 9:49 AM ROTARY SCREEN PRINTING MACHINE OPERATOR [facility] Urine 12/05/2024 3:00 PM ROTARY SCREEN PRINTING MACHINE OPERATOR 12/06/2024 7:14 AM ROTARY SCREEN PRINTING MACHINE OPERATOR us Kimani Canada P.A.-C. LAB SURG PATH ORDERABL ES Final Result [facility] [address] [place] [address], [place] [facility] [address] [address] * (ABNORMAL) Urinalysis, with Microscopic: Urine, Midstream (12/05/2024 3:00 PM ROTARY SCREEN PRINTING MACHINE OPERATOR) Source Urine, Urine, Midstream 12/05/2024 3:24 PM ROTARY SCREEN PRINTING MACHINE OPERATOR FB60 Clarity Cloudy(A) Clear 12/05/2024 3:25 PM ROTARY SCREEN PRINTING MACHINE OPERATOR FB60 Color Yellow 12/05/2024 3:25 PM ROTARY SCREEN PRINTING MACHINE OPERATOR FB60 Comment: ----REFERENCE VALUE---- Colorless Yellow Urvashi Blood Large(A) Negative 12/05/2024 3:25 PM ROTARY SCREEN PRINTING MACHINE OPERATOR FB60 Nitrite Negative Negative 12/05/2024 3:25 PM ROTARY SCREEN PRINTING MACHINE OPERATOR FB60 Leukocyte Esterase Negative Negative 12/05/2024 3:25 PM ROTARY SCREEN PRINTING MACHINE OPERATOR FB60 Protein 100(A) mg/dL 12/05/2024 3:25 PM ROTARY SCREEN PRINTING MACHINE OPERATOR FB60 Comment: ----REFERENCE VALUE---- Negative Trace Glucose Negative Negative mg/dL 12/05/2024 3:25 PM ROTARY SCREEN PRINTING MACHINE OPERATOR FB60 Ketones, QI(U) Negative Negative mg/dL 12/05/2024 3:25 PM ROTARY SCREEN PRINTING MACHINE OPERATOR FB60 Bilirubin Negative Negative 12/05/2024 3:25 PM ROTARY SCREEN PRINTING MACHINE OPERATOR FB60 pH 6.0 5.0 - 8.0 12/05/2024 3:25 PM ROTARY SCREEN PRINTING MACHINE OPERATOR FB60 Specific [place] 1.025 1.001 - 1.035 12/05/2024 3:25 PM ROTARY SCREEN PRINTING MACHINE OPERATOR FB60 Urobilinogen 0.2 0.2 - 1.0 mg/dL 12/05/2024 3:25 PM ROTARY SCREEN PRINTING MACHINE OPERATOR FB60 White Blood Cells Occ-3 /hpf 12/05/2024 3:46 PM ROTARY SCREEN PRINTING MACHINE OPERATOR FB60 Comment: ----REFERENCE VALUE---- Males: 0-3 Females: 0-10 Unknown: 0-10 Red Blood Cells >100(A) 0 - 2 /hpf 3:46 PM ROTARY SCREEN PRINTING MACHINE OPERATOR FB60 Dysmorphic Red Blood Cells <=25 <=25 % 12/05/2024 3:46 PM ROTARY SCREEN PRINTING MACHINE OPERATOR FB60 Urine (Urine, Midstream) 12/05/2024 3:00 PM ROTARY SCREEN PRINTING MACHINE OPERATOR 12/05/2024 3:18 PM ROTARY SCREEN PRINTING MACHINE OPERATOR us Kimani Canada P.A.-C. LAB URINE ORDERABLES F inal Result [facility] [address] [place] [address], [facility] FB60 [facility] in [place] [address] [place] [address] documented in this encounter Visit Diagnoses Diagnosis Hematuria documented in this encounter Additional Health Concerns Assessment Noted Time PHQ-9 Depression Total Score: 0 09/15/20 18 10:46 AM CDT documented as of this encounter Care Teams Er Registrar Relationship Specialty Start Date End Date Kimani Canada P.A.-C. [address] [place] [phone] PCP - General Family Medicine 05/09/20 [facility] [address] [facility] [address] External Dentist Dentistry 06/22/24 [facility] [address] [facility] [address] Blade Worker Ophthalmology 06/22/24 documented as of this encounter
--- OUTSIDE RECORDS SUMMARY | 2025-01-14 03:00 | XMS_ITS | Encounter Summary ---
Author Organization [facility] Address [address] [place] [address] Care Team Providers Care Animal Rehabilitator Name Role Phone Kimani Canada P.A.-C. Primary Care Provider Encounter Details Date Type Department Care Team (Late st Contact Info) Description 01/14/2025 Clinical Communication Department of Urology in [place], [place] [address] [place] [phone] Marga Green M.D., M.S. [address] [place] [phone] Social History Tobacco Use Types Packs/Day Years Used Date Smoking Tobacco: Former Cigarettes Q uit: 1984 Smokeless Tobacco: Never Alcohol Use Standard Drinks/Week Comments Not Currently 0 (1 standard drink = 0.6 oz pur e alcohol) [facility] Utilities Answer Date Recorded In the past 12 months has [employer], gas, oil, or water [employer] threatened to shut off services in your [...] often do you attend chur ch or jewish services? More than 4 times per year [...] Answer Date Recorded PHQ-2 Score 0 06/22/2024 [facility] ionmn Health - Occupational Stress Questionnaire Answer Date [...] your living situation today? I have a [facility] place to live 03/26/2024 Education Answer Date Recorded What is the highest level of school you have completed or the highest degree you have received? 11th grade 05/01/2021 Sex and Gender Information Value Date Recorded Sex Assigned at Male 08/20/2021 9:04 AM CDT Legal Sex Male 12:46 AM FLATBED STITCHER Gender Identity Not on file Sexual Orientation Not on file documented as of this encounter Miscellaneous Notes * Telephone Encounter - Marga Green M.D., M.S. - 01/14/2025 1:32 AM CST I received a call through the urology on-call line from Mr. Argueta's . He is an 84-year-old man, patient of Dr. Campa, who is status post TURBT with left ureteral stent placement on 01/[address] Sahu. He underwent a UCO/VT in clinic on 01/13; PVR at that time was 270 cc. His calls in now with concern for urinary retention. Patient has an urge to void, is unable to, and has abdominal discomfort. I recommended presenting to nearest emergency department now for evaluation, likely catheter placement. The patient is scheduled for a cystoscopy with stent removal on 01/19; we can coordinate UCO for that same day. All questions answered. Marga Green M.D., M.S. BED STITCHER documented in this encounter Plan of Treatment Upcoming Encounters Date Type Department Care Team (Late st Contact Info) Description 01/19/2025 9:00 AM FLATBED STITCHER Procedure visit Department of Urology in [place], [place] [address] [place] [phone] Laurence Wilkins M.D. [address] [place] [phone] 02/14/2025 10:00 AM CDT Comprehensive Visit Department of Neurologic Surgery in [place], [place] [address] [place] [phone] Lalit Deshpande M.D. [address] [place] [phone] 02/14/2025 11:00 AM CDT Office Visit Division of Pain Medicine in [place], [place] [address] [place] [phone] Donita Arevalo APRN, C.N.P., M.S. [address] [place] [phone] 06/23/2025 8:10 AM CDT Appointment Department of Laboratory Medicine in [address] [phone] Kimani Canada, PAlexandraAAlejandro 300 [place] [address] 06/26/2025 10:00 AM CDT Office Visit Department of Family Medicine, [facility], in [place], [place] 300 [place] [address] Kimani Canada P.A.-C. 300 [facility] [place] [phone] documented as of this encounter Visit Diagnoses Not on filedocumented in this encounter Additional Health Concerns Assessment Noted Time PHQ-9 Depression Total Score: 0 09/15/20 18 10:46 AM CDT documented as of this encounter Care Teams Animal Rehabilitator Relationship Specialty Start Date End Date Kimani Canada P.A.-C. 300 [facility] [place] [address] PCP - General Family Medicine 05/09/20 [facility] [address] [facility] [address] External Dentist Dentistry 06/22/24 [facility] [address] A [facility] [address] Supply Officer Ophthalmology 06/22/24 documented as of this encounter
--- OUTSIDE RECORDS SUMMARY | 2025-01-14 03:00 | XMS_ITS | Encounter Summary ---
Author Organization [facility] Address [address] [place] [address] Care Team Providers Care Camera Tuning Engineer Name Role Phone Kimani Canada P.A.-C. Primary Care Provider Encounter Details Date Type Department Care Team (Late st Contact Info) Description 01/09/2025 Clinical Communication Division of Pain Medicine in [place], [place] [address] [place] [phone] Donita Arevalo, NAEEM, C.N.P., M.S. [address] [place] [phone] Social History Tobacco Use Types Packs/Day Years Used Date Smoking Tobacco: Former Cigarettes Q uit: 1984 Smokeless Tobacco: Never Alcohol Use Standard Drinks/Week Comments Not Currently 0 (1 standard drink = 0.6 oz pur e alcohol) [facility] Utilities Answer Date Recorded In the past 12 months has [employer], gas, oil, or water [employer] threatened to shut off services in your [...] often do you attend chur ch or christian services? More than 4 times per year 03/20/2023 Do you belong to any clubs o r organizations such as jain groups, unions, fraternal or athletic groups, or [...] Answer Date Recorded PHQ-2 Score 0 06/22/2024 [facility] of Occupat ional Health - Occupational [...] your living situation today? I have a [facility] place to live 03/26/2024 Education Answer Date Recorded What is the highest level of school you have completed or the highest degree you have received? 11th grade 05/01/2021 Sex and Gender Information Value Date Recorded Sex Assigned at Male 08/20/2021 9:04 AM CDT Legal Sex Male 12:46 AM SCIENCE PROFESSOR Gender Identity Not on file Sexual Orientation Not on file documented as of this encounter Miscellaneous Notes * Telephone Encounter - Lulu Kemp RAlexandraN. - 01/09/2025 4:20 PM SCIENCE PROFESSOR SUBJECTIVE CHIEF COMPLAINT / REASON FOR CALL No chief complaint on file. Information Discussed Notified Mr. Argueta that a prescription was sent for him to [facility] in [place]. He will call the pain clinic when he has only 4 tablets remaining. PLAN Disposition/Recommendation: recommended continue engagement in self-management activities Information/Education: patient/caller able to teach back Caller agreeable to plan of care: yes The following references were used: nursing clinical judgement NCE PROFESSOR documented in this encounter Plan of Treatment Upcoming Encounters Date Type Department Care Team (Late st Contact Info) Description 01/19/2025 9:00 AM SCIENCE PROFESSOR Procedure visit Department of Urology in [place], [place] [address] [place] [phone] Laurence Wilkins M.D. [address] [place] [phone] 02/14/2025 10:00 AM CDT Comprehensive Visit Department of Neurologic Surgery in [place], [place] [address] [place] [phone] Lalit Deshpande M.D. [address] [place] [phone] 02/14/2025 11:00 AM CDT Office Visit Division of Pain Medicine in [place], [place] [address] [place] [phone] Donita Arevalo, NAEEM, C.N.P., M.S. [address] [place] [phone] 06/23/2025 8:10 AM CDT Appointment Department of Laboratory Medicine in [place], [place] 300 [place] [address] Kimani Canada, P.A.-C. 300 [place] [address] 06/26/2025 10:00 AM CDT Office Visit Department of Family Medicine, [facility], in [place], [place] 300 [place] [address] Kimani Canada, P.A.-C. 300 [place] [address] documented as of this encounter Visit Diagnoses Not on filedocumented in this encounter Additional Health Concerns Assessment Noted Time PHQ-9 Depression Total Score: 0 09/15/20 18 10:46 AM CDT documented as of this encounter Care Teams Camera Tuning Engineer Relationship Specialty Start Date End Date Kimani Canada P.A.-C. 300 [facility] [place] [address] PCP - General Family Medicine 05/09/20 [facility] [address] [facility] [address] External Dentist Dentistry 06/22/24 [facility] [address] [facility] [address] Chef Manager Ophthalmology 06/22/24 documented as of this encounter
--- OUTSIDE RECORDS SUMMARY | 2025-01-14 03:00 | XMS_ITS | Clinical Summary ---
Author Organization [facility] Address [address] [place] [address] Care Team Providers Care Family Helper Name Role Phone Kimani Canada Primary Care Provider [phone] Allergies Active Allergy Reactions Criticality Noted Date Comments Adhesive Tape-Silicones Erythema 09/02/2018 Atorvastatin *Unknown 04/24/2014 Lisinopril *Unknown 04/24/2014 Fbrnlnd-Yuc-Rhv Reductase Inhibitors *Unknown 03/10/2012 Simvastatin *Unknown 04/24/2014 Medications metoprolol (LOPRESSOR) 100 mg tabletIndicatio ns:hypertension & heart rate control Take 100 mg by mouth 2 times daily. Active ALPRAZolam (XANAX) 0.25 mg tabletIndicatio ns:anxiety Take 0.25 mg by mouth 3 times daily if needed. Active lovastatin (MEVACOR) 40 mg tabletIndicatio ns:hypercholest erolemia Take 40 mg by mouth at bedtime. Active ACETAMINOPHEN ORAL Take 1,000 mg by mouth 4 times daily if needed (pain or headache). Active nitroglycerin (NITROSTAT) 0.[address] 0.4 mg under the tongue every 5 minutes if needed for Chest Pain. Active DOCOSAHEXANOIC ACID/EPA (EPA FISH OIL ORAL)Indication s:for heart health Take 300 mg by mouth once daily. Active losartan (COZAAR) 100 mg tabletIndicatio ns:hypertension Take 100 mg by mouth once daily. In the AM Active rOPINIRole (REQUIP) 1 mg tabletIndicatio ns:restless leg syndrome Take 2 mg by mouth at bedtime if needed. Active aspirin 325 mg tabletIndicatio ns:myocardial infarction prevention Take 325 mg by mouth once daily with a meal. Active fluticasone (50 mcg per actuation) nasal solution (FLONASE)Indica tions:nasal congestion Inhale 2 Sprays in the nostril(s) once daily. Active multivitamin (MVI) tabletIndicatio ns:vitamin deficiency prevention Take 1 tablet by mouth once daily. Active DULCOLAX, BISACODYL, ORAL Take by mouth once daily. Active Active Problems Problem Noted Date Diagnosed Date Muscle weakness 10/04/2020 Status post shoulder joint replacement 0 Stiffness of shoulder joint 10/04/2020 Recurrent urinary tract infection 03/30/2017 Hypercholesterolemia 06/13/2016 Obstructive sleep apnea syndrome 06/13/2016 Spinal stenosis 04/10/2015 Anxiety 10/16/2014 Atherosclerosis of arteries of extremities 09/28 Stenosis of carotid artery 06/30/2012 Restless leg syndrome 06/05/2009 Osteoarthritis of knee 05/08/2009 Social History Tobacco Use Types Packs/Day Years Used Date Smoking Tobacco: Former Cigarettes Q uit: 02/22/1984 Smokeless Tobacco: Never Alcohol Use Standard Drinks/Week Comments No 0 (1 standard drink = 0.6 oz pur e alcohol) Sex and Gender Information Value Date Recorded Sex Assigned at Not on file Legal Sex Male 6:52 AM LINER INSERTER Gender Identity Not on file Sexual Orientation Not on file Obstetrics History Last Filed Vital Signs Vital Sign Reading Time Taken Comments Blood Pressure 160/88 10/04/2020 6:01 PM LINER INSERTER Pulse 71 10/04/2020 6:01 PM LINER INSERTER Temperature 36.8 C (98.3 F) 10/04/2020 4:52 PM LINER INSERTER Respiratory Rate 16 10/04/2020 4:52 PM LINER INSERTER Oxygen Saturation 98% 10/04/2020 6:01 PM LINER INSERTER Inhaled Oxygen Concentration - - Weight 93 kg (205 lb) 10/04/2020 4:52 PM LINER INSERTER Height 172.7 cm (5' 8) 10/04/2020 4:52 PM LINER INSERTER Body Mass Index 31.17 10/04/2020 4:52 PM LINER INSERTER Plan of Treatment Health Maintenance Due Date Last Done Comments Tdap 1952 Depression screening for age 12+ 1953 BMI (ht and wt on same day) for age 18+ 1959 Tetanus booster 1961 Pneumococcal series for age 50+ (1 of 1 - PCV) 1991 Zoster (shingles) series for age 50+ (1 of 2) 1991 RSV vaccine for adults or (1 - 1-dose 75+ series) 2016 COVID-19 vaccine series (2023- season) 2024 09/19/2022, 03/03/2022, 01/19/2021, Additional history exists Influenza for age 65+ 07/24/2024 Insurance MEDICARE PART B HB ONLY BLUE CROSS COMANCHE BLUE HB ONLY BLUE CROSS COMANCHE BLUE MR PB ONLY [employer] CHOICE PPO MR MEDICARE PART A HB ONLY MEDICARE PART B HB ONLY Advance Directives * Full Code (Latest Code Status on File) Date Activated Date Inactivated Comments 09/06/2018 10:52 AM 09/06/2018 5:00 PM * Full Code Date Activated Date Inactivated Comments 06/25/2017 9:42 AM 06/25/2017 3:41 PM * Full Code Date Activated Date Inactivated Comments 04/26/2014 9:07 AM 04/26/2014 3:27 PM Care Teams Family Helper Relationship Specialty Start Date End Date Kimani Canada PA PCP - General Physician Drum Sander Setter 11/12/20
--- OUTSIDE RECORDS SUMMARY | 2025-01-14 03:00 | XMS_ITS | Data Portability ---
Author Organization [facility], MAIN OFFICE Address [address] [place] [address] Assessment Encounter Date Assessment Date Assessment LastModified [...] Initial Evaluation (01/08/16): 1) Current Status = A7381-FK-ZF; 2) Goal Status = D7098-AS-PC (UEFI, clinical judgment) Reporting Period (date): 1) [...] Decrease pain level by 2 grades. PATIENT TECHNICAL INTERNSHIP GOALS: 1.Painfree AROM, left: sh flexion 130 [...] Initial Evaluation (01/08/16): 1) Current Status = D8333-RB-AC; 2) Goal Status = L4373-CI-BQ (UEFI, clinical judgment) Reporting Period (date): 1) [...] Decrease pain level by 2 grades. PATIENT LONGTERM GOALS: 1.Painfree AROM, left: sh flexion 130 [...] Initial Evaluation (01/08/16): 1) Current Status = G9214-SA-EW; 2) Goal Status = A6068-AT-IM (UEFI, clinical judgment) Discharge (01/15/16): 1) Goal Status = U9210-EH-AP; 2) Discharge Status = Z8009-RO-TA PRIOR LEVEL OF FUNCTION: Independent CURRENT LEVEL [...] Floyd BallesterosT. [address], [place], [address], Jose Alejandro Renee 6 14:07:56 Shoulder stiff 662830325 Active Floyd Ranjan BallesterosT. [address], [place], [address], [facility] Jose Alejandro Borden 6 14:07:56 Muscle weakness 18155816 Active Floyd Ranjan Busch.T. [address], [place], [address], [facility] Jose Alejandro Borden 6 14:07:56 Problem Notes None recorded. Procedures Surgical History Date Name Laterality Status Provider Name and Address Organization Details Recorded Time 01/15/20 16 [place] [address] completed Floyd BallesterosTAlexandra [address], [place], [address], Jose Alejandro Renee 01/15/2016 12:06:10 01/15/20 16 Therapeutic Procedure/Activ ities, Gait completed Floyd BallesterosTAlexandra [address], [place], [address], Jose Alejandro Renee 01/15/2016 12:06:10 01/11/20 16 [place] [address] completed Floyd BallesterosTAlexandra [address], [place], [address], [facility] - Jose Alejandro Borden 01/11/2016 14:46:54 01/11/20 16 Therapeutic Procedure/Activ ities, Gait completed Floyd BallesterosT. [address], [place], [address], Jose Alejandro Renee 01/11/2016 14:46:54 01/08/20 16 Initial Evaluation/Re-E valuation completed Floyd BallesterosTAlexandra [address], [place], [address], [place] [facility] - Jose Alejandro Borden 01/08/2016 13:55:09 01/08/20 16 Therapeutic Procedure/Activ ities, Gait completed Floyd Ranjan Menjivar [address], [place], [address], [place] Jose Alejandro Renee 01/08/2016 13:55:09 Imaging Results None recorded. Procedure Notes None recorded. Medical Equipment None Reported. Allergies Allergen ID Allergen Name Allergen Category Reaction Reaction Severity Criticality Documentation Date Start Date Code Code System Note Provider Name and Address Organization Details Recorded Time 62215 Zocor medicatio n Not available Not available Not available 01/11/2016 47736 3 RxNorm Sore muscl es Not Available [...] Smoking Status Former Smoker pt said quit 1986 [facility] 09/25/2020 03:15:50 What Is Your Occupation? Retired [id number] Information not available 09/25/2020 Therapeutic Exercises (1) [...] SNOMED-CT Code Diagnosis ICD10 Code Diagnosis Note [id number] Floyd Woodruff P.T. MAIN OFFICE [address] [place] [address] 01/08/2016 12:32:14 01/08/2016 13:35:51 Total shoulder replacement 73617499 Z96.612 Muscle weakness 42302232 M62.81 Shoulder stiff 421270760 M25.612 [id number] Samanta Marcano MAIN OFFICE [address] [place] [address] 01/11/2016 13:51:18 01/11/2016 15:01:44 Total shoulder replacement 16809506 Z96.612 Muscle weakness 54134835 M62.81 Shoulder stiff 614543673 M25.612 [id number] Floyd Woodruff P.T. MAIN OFFICE [address] [place] [address] 01/15/2016 11:19:02 01/15/2016 12:15:07 Total shoulder replacement 79428680 Z96.612 Muscle weakness 68466655 M62.81 Shoulder stiff 810405546 M25.612 Health Concerns Section Related Observation LastModified by Organization Detai ls LastModified Time None Recorded Concern Status LastModified by Organization Details LastModified Time None Recorded Advance Directives Directive None Recorded Payers Encounter Date Sequence Insurance Name Policy Number Policy Shetty Covered Member ID Shetty Member ID Guarantor Name 01/08/2016 1 [place] [employer] Herbie T Argueta [id number] Herbie Argueta 01/08/2016 2 [place] [id number] Herbie Argueta [id number] Herbie Argueta 01/11/2016 1 [place] [employer] Herbie T Argueta [id number] Herbie Argueta 01/11/2016 2 [place] [id number] Herbie Argueta [id number] Herbie Argueta 01/15/2016 1 [place] [employer] Herbie T Argueta [id number] Herbie Argueta 01/15/2016 2 [place] [id number] Herbie Argueta [id number] Herbie Argueta Notes Date Note Type [...] Woodruff P.T. [address], [place], [address], Jose Alejandro Renee 01/08/2016 16:26:59 01/11/2016 text/html Pt comes in toda y with 0/10 pain to L shoulder. He did not c/o pain higher than 3/10 during today's activities and exercises. Floyd Woodruff P.T. [address], [place], [address], Jose Alejandro Renee 01/11/2016 14:51:22 01/15/2016 text/html 1) Pt comes in t alistair with 0/10 pain to the left GH-upper arm area. Pain is intermittent, and the pain happens occasionally only. Worst pain today = 2/10 (during shoulder ROM tests). Floyd Woodruff P.T. [address], [place], [address], Jose Alejandro Renee 01/15/2016 14:08:40
--- OUTSIDE RECORDS SUMMARY | 2025-01-14 03:00 | XMS_ITS | Encounter Summary ---
Author Organization [facility] Address [address] [place] [address] Care Team Providers Care Hardwood Floor Layer Name Role Phone Kimani Canada P.A.-C. Primary Care Provider Encounter Details Date Type Department Care Team (Late st Contact Info) Description 11/28/2024 Clinical Communication Pharmacy Prior Auth [phone] Aurora Adrian I. Social History Tobacco Use Types Packs/Day Years Used Date Smoking Tobacco: Former Cigarettes Q uit: 1984 Smokeless Tobacco: Never Alcohol Use Standard Drinks/Week Comments Not Currently 0 (1 standard drink = 0.6 oz pur e alcohol) [facility] Utilities Answer Date Recorded In the past 12 months has e electric, gas, oil, or water [employer] threatened to shut off services in your [...] often do you attend chur ch or yarsani services? More than 4 times per year 03/20/2023 Do you belong to any clubs o r organizations such as methodist groups, unions, fraternal or athletic groups, or [...] Answer Date Recorded PHQ-2 Score 0 06/22/2024 [employer] of Occupat ional Health - Occupational Stress [...] your living situation today? I have a [facility] place to live 03/26/2024 Education Answer Date Recorded What is the highest level of school you have completed or the highest degree you have received? 11th grade 05/01/2021 Sex and Gender Information Value Date Recorded Sex Assigned at Male 08/20/2021 9:04 AM CDT Legal Sex Male 12:46 AM REAL ESTATE INVESTMENT ANALYST Gender Identity Not on file Sexual Orientation Not on file documented as of this encounter Plan of Treatment Upcoming Encounters Date Type Department Care Team (Late st Contact Info) Description 01/19/2025 9:00 AM REAL ESTATE INVESTMENT ANALYST Procedure visit Department of Urology in [place], [place] [address] [place] [phone] Laurence Wilkins M.D. [address] [place] [phone] 02/14/2025 10:00 AM CDT Comprehensive Visit Department of Neurologic Surgery in [place], [place] [address] [place] [phone] Lalit Deshpande M.D. [address] [place] [phone] 02/14/2025 11:00 AM CDT Office Visit Division of Pain Medicine in [place], [place] [address] [place] [phone] Emde, Donita Sutherland APRN CAlexandraN.Favian, M.S. [address] [place] [address] 06/23/2025 8:10 AM CDT Appointment Department of Laboratory Medicine in [place], [place] 300 [place] [address] Kimani Canada P.A.-C. 300 [place] [address] 06/26/2025 10:00 AM CDT Office Visit Department of Family Medicine, [facility], in [place], [place] 300 [place] [address] Kimani Canada P.A.-CAlexandra 300 [place] [address] documented as of this encounter Visit Diagnoses Not on filedocumented in this encounter Additional Health Concerns Assessment Noted Time PHQ-9 Depression Total Score: 0 09/15/20 18 10:46 AM CDT documented as of this encounter Care Teams Hardwood Floor Layer Relationship Specialty Start Date End Date Kimani Canada P.A.-C. 300 [place] [address] PCP - General Family Medicine 05/09/20 [facility] [address] [facility] [address] External Dentist Dentistry 06/22/24 [facility] [address] [facility] [address] Billing And Insurance Coordinator Ophthalmology 06/22/24 documented as of this encounter
--- OUTSIDE RECORDS SUMMARY | 2025-01-14 03:00 | XMS_ITS | Encounter Summary ---
Author Organization [facility] Address [address] [place] [address] Care Team Providers Care High Lead Yarder Name Role Phone Kimani Canada P.A.-C. Primary Care Provider Reason for Visit * Reason Comments residual check * Outpatient (Routine) - Closed Specialty Diagnoses / Procedures Referred By Ray cruz Referred To Contact Diagnoses Mass Bladder Procedures URO Residual urine - ultrasound Marques Reynolds M.D. [address] [place] [phone] Phone: tel: fax: Health System Referral ID Status Reason Start Date Expiration Date Visits Re quested Visits Authorized [id number] Closed 01/13/2025 04/15/2026 1 1 Encounter Details Date Type Department Care Team (Late st Contact Info) Description 01/13/2025 11:00 AM DAIRY HAND Procedure visit Department of Urology in [place], [place] [address] [place] [phone] Marques Reynolds M.D. [address] [place] [phone] Jayshree Albright R.N. [address] [place] [phone] Mass Bladder Social History Tobacco Use Types Packs/Day Years Used Date Smoking Tobacco: Former Cigarettes Q uit: 1983 Smokeless Tobacco: Never Alcohol Use Standard Drinks/Week Comments Not Currently 0 (1 standard drink = 0.6 oz pur e alcohol) [facility] Utilities Answer Date Recorded In the past 12 months has th e electric, gas, oil, or water company threatened to shut off services in your [...] any clubs o r organizations such as tenriism groups, unions, fraternal or athletic groups, or [...] Answer Date Recorded PHQ-2 Score 0 06/22/2024 [facility] [place] of Occupat ional Health - Occupational Stress [...] your living situation today? I have a [facility] place to live 03/26/2024 Education Answer Date Recorded What is the highest level of school you have completed or the highest degree you have received? 11th grade 05/01/2021 Sex and Gender Information Value Date Recorded Sex Assigned at Male 08/20/2021 9:04 AM CDT Legal Sex Male 12:46 AM DAIRY HAND Gender Identity Not on file Sexual Orientation Not on file documented as of this encounter Progress Notes * Jayshree Albright R.N. - 01/13/2025 11:00 AM CST CHIEF COMPLAINT/REASON FOR VISIT Residual Urine by ultrasound ASSESSMENT / PLAN Herbie Argueta is here for residual check via ultrasound. Herbie Argueta voided X 3 sinceUCO this morning with an ultrasound residual of 270 mls. Urine is clear yellow, no sediment present. Patient also states, he needs to have a bowel movement but did not take anything since he was coming here today. Educated patient if he is unable to void or has signs or symptoms of urinary retention he will need to go to local ED after hours or over weekend. Questions answered. Jayshree Albright R.N. Y HAND Y HAND documented in this encounter Plan of Treatment Upcoming Encounters Date Type Department Care Team (Late st Contact Info) Description 01/19/2025 9:00 AM DAIRY HAND Procedure visit Department of Urology in [address] [phone] Laurence Wilkins M.D. [address] [place] [phone] 02/14/2025 10:00 AM CDT Comprehensive Visit Department of Neurologic Surgery in [place], [place] [address] [place] [phone] Lalit Deshpande M.D. [address] [place] [phone] 02/14/2025 11:00 AM CDT Office Visit Division of Pain Medicine in [place], [place] [address] [place] [phone] Donita Arevalo, NAEEM, C.N.P., M.S. [address] [place] [phone] 06/23/2025 8:10 AM CDT Appointment Department of Laboratory Medicine in [address] [phone] Kimani Canada P.A.-C. 300 [facility] [place] [phone] 06/26/2025 10:00 AM CDT Office Visit Department of Family Medicine, [facility], in [place], [place] 300 [facility] [phone] Kimani Canada P.A.-C. 300 [facility] [place] [phone] documented as of this encounter Visit Diagnoses Diagnosis Mass Bladder documented in this encounter Additional Health Concerns Assessment Noted Time PHQ-9 Depression Total Score: 0 09/15/20 18 10:46 AM CDT documented as of this encounter Care Teams High Lead Yarder Relationship Specialty Start Date End Date Kimani Canada P.A.-C. 300 [facility] [place] [phone] PCP - General Family Medicine 05/09/20 [facility] [address] [facility] [phone] External Dentist Dentistry 06/22/24 [facility] 2019 [address] [facility] [phone] Order Planner Ophthalmology 06/22/24 documented as of this encounter
--- OUTSIDE RECORDS SUMMARY | 2025-01-14 03:00 | XMS_ITS | Encounter Summary ---
Author Organization [facility] Address [address] [place] [address] Care Team Providers Care Wire Straightening Machine Operator Name Role Phone Kimani Canada P.A.-C. Primary Care Provider Reason for Visit * Reason Comments Med Refill Encounter Details Date Type Department Care Team (Late st Contact Info) Description 01/10/2025 Refill Outpatient Procedure Center in [place], [place] [address] [place] [phone] Laurence Wilkins M.D. [address] [place] [phone] Med Refill Social History Tobacco Use Types Packs/Day Years Used Date Smoking Tobacco: Former Cigarettes Q uit: 1984 Smokeless Tobacco: Never Alcohol Use Standard Drinks/Week Comments Not Currently 0 (1 standard drink = 0.6 oz pur e alcohol) [facility] Utilities Answer Date Recorded In the past 12 months has [employer], gas, oil, or water [employer] threatened to shut off services in your [...] often do you attend chur ch or amish services? More than 4 times per year 03/20/2023 Do you belong to any clubs o r organizations such as hoahaoism groups, unions, fraternal or athletic groups, or [...] your living situation today? I have a [facility] place to live 03/26/2024 Education Answer Date Recorded What is the highest level of school you have completed or the highest degree you have received? 11th grade 05/01/2021 Sex and Gender Information Value Date Recorded Sex Assigned at Male 08/20/2021 9:04 AM CDT Legal Sex Male 12:46 AM EDUCATIONAL/DEVELOPMENT ASSISTANT Gender Identity Not on file Sexual Orientation Not on file documented as of this encounter Plan of Treatment Upcoming Encounters Date Type Department Care Team (Late st Contact Info) Description 01/19/2025 9:00 AM EDUCATIONAL/DEVELOPMENT ASSISTANT Procedure visit Department of Urology in [place], [place] 200 [place] [phone] Laurence Wilkins M.D. 200 [place] [phone] 02/14/2025 10:00 AM CDT Comprehensive Visit Department of Neurologic Surgery in [place], [place] 200 [place] [phone] Lalit Deshpande M.D. 200 [place] [phone] 02/14/2025 11:00 AM CDT Office Visit Division of Pain Medicine in [place], [place] [address] [place] [address] Donita Arevalo APRN, C.N.P., M.S. [address] [place] [phone] 06/23/2025 8:10 AM CDT Appointment Department of Laboratory Medicine in [place], [place] 300 [place] [phone] Kimani Canada P.A.-CAlexandra 300 [place] [phone] 06/26/2025 10:00 AM CDT Office Visit Department of Family Medicine, [facility], in [place], [place] 300 [place] [phone] Kimani Canada, Jo-Ann.A.-CAlexandra 300 [place] [phone] documented as of this encounter Visit Diagnoses Not on filedocumented in this encounter Additional Health Concerns Assessment Noted Time PHQ-9 Depression Total Score: 0 09/15/20 18 10:46 AM CDT documented as of this encounter Care Teams Wire Straightening Machine Operator Relationship Specialty Start Date End Date Kimani Canada, Jo-Ann.A.-C. 300 [place] [phone] PCP - General Family Medicine 05/09/20 [facility] [address] [facility] [address] External Dentist Dentistry 06/22/24 [facility] [address] [facility] [address] Data Integrity Analyst Ophthalmology 06/22/24 documented as of this encounter
--- OUTSIDE RECORDS SUMMARY | 2025-01-14 03:00 | XMS_ITS | Encounter Summary ---
Author Organization [facility] Address 200 [place] [address] Care Team Providers Care Email Deployment Specialist Name Role Phone Kimani Canada P.A.-C. Primary Care Provider Reason for Visit * Outpatient (Routine) - Closed Specialty Diagnoses / Procedures Referred By Contac t Referred To Contact Urology Diagnoses Hematuria Kimani Canada P.A.-C. [address] [place] [phone] Phone: tel: fax: [facility] Referral ID Status Reason Start Date Expiration Date Visits Re quested Visits Authorized [id number] Closed 12/05/2024 06/06/2026 1 1 Encounter Details Date Type Department Care Team (Latest Contact Info) Description 12/09/2024 1:00 PM TOOL FILER HAND Comprehensive Visit Department of Urology in [place], [place] [address] [place] [phone] Tylor Campa M.D., M.P.H. [address] [place] [address] Mass Bladder (Primary Dx); Hematuria Social History Tobacco Use Types Packs/Day Years Used Date Smoking Tobacco: Former Cigarettes Q uit: 1984 Smokeless Tobacco: Never Alcohol Use Standard Drinks/Week Comments Not Currently 0 (1 standard drink = 0.6 oz pur e alcohol) [facility] Utilities Answer Date Recorded In the past 12 months has [employer] gas, oil, or water company threatened to [...] How often do you attend chur or synagogue services? More than 4 times per year 03/20/2023 Do you belong to any clubs o r organizations such as catholic groups, unions, fraternal or athletic groups, [...] Answer Date Recorded PHQ-2 Score 0 06/22/2024 [facility] of Occupat ional Health - Occupational Stress [...] your living situation today? I have a [facility] place to live 03/26/2024 Education Answer Date Recorded What is the highest level of school you have completed or the highest degree you have received? 11th grade 05/01/2021 Sex and Gender Information Value Date Recorded Sex Assigned at Male 08/20/2021 9:04 AM CDT Legal Sex Male 12:46 AM TOOL FILER HAND Gender Identity Not on file Sexual Orientation Not on file documented as of this encounter Consult Notes * Randi Mills M.D., M.S. - 12/09/2024 1:00 PM CST Images from the original note were not included. REFERRAL SOURCE The patient is being seen in consultation at the request of: Kimani Canada P.A.-C. [address] [place] [phone] REASON FOR CONSULT Gross hematuria Seen on Dr. Campa's calendar HISTORY OF PRESENT ILLNESS Mr. Argueta is a 84 y.o. male with a pmhx of parkinson's, HFpEF, PAD s/p stents groin arteries cleaned out, two in heart, abdominal stents, RAMIRO on CPAP, PVCs, CAD, HTN, history of Ecoli urospesis, lumbar spinal stenosis presenting with a imaging results concerning for a bladder tumor. He has been seen in our department before for erectile dysfunction and benign prostatic hyperplasia. The patient was seen in the emergency department on 12/02/2024 for sudden onset gross hematuria. Urinalysis was concerning for infection and patient was provided Ciprofloxacin. He reports that the hematuria improvedwith antibiotic administration. Our department requested an MRU to continue gross hematuria workup.Cytology obtained on 12/05/24 was negative for HG urothelial carcinoma. He takes Aspirin 325 daily. 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 PAST MEDICAL/SURGICAL HISTORY MEDICAL Past Medical History: Diagnosis Date Allergy Unspecified Initial Anxiety Generalized Disorder Apnea Sleep Obstructive Obstructive sleep apnea with sleep study 07/16/2010; he is compliant with CPAP. 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 Cataract Constipation Coronary Artery Disease (Unspecified) Dysfunction Erectile Hypercholesterolemia Hypertension Essential Primary Loss Visual Malignant Primary Neoplasm (Unknown Site) Unspecified (HCC) Osteoarthritis knee and back Peripheral Vascular Disease (HCC) Pneumonia Polyp Colon Restless Leg Syndrome Sepsis Due To Escherichia Coli (E. coli) ([facility]) 02/2017 Hospitalization for E-coli sepsis due to UTI in February 2017 at [facility]. Skin Cancer (Primary) NOS Stenosis Carotid Artery Bilateral Stenosis Spinal SURGICAL Past Surgical History: Procedure Laterality Date ANGIOPLASTY OF VEIN N/A 06/02/2007 APPENDECTOMY N/A 1957 APPENDECTOMY ARTERY SURGERY ARTHROPLASTY OF KNEE N/A 05/08/2009 CAROTID ENDARTERECTOMY Right 07/13/2012 CATARACT EXTRACTION W/ INTRAOCULAR LENS IMPLANT, BILATERAL Bilateral CORONARY ANGIOPLASTY N/A 11/21/2005 Percutaneous Transluminal Coronary Angioplasty [PTCA] or Coronary Atherectomy CYST REMOVAL Right 09/06/2018 Excision of cyst, right external ear helix. ENDOSCOPIC POLYPECTOMY OF LARGE INTESTINE N/A 02/28/2009 Endoscopic Polypectomy of Large Intestine ENDOVASCULAR ILAC STENT GRAFT Right 07/09/2017 Endovascular ilac stent graft FEMORAL ENDARTERECTOMY Left 10/11/2013 Left iliofemoral and superficial femoral artery endarterectomy with bovine pericardial patch FEMORAL ENDARTERECTOMY, PATCH ANGIOPLASTY/INTERPOSITION GRAFT Right 07/09/2017 Right endovascular iliac stent graft, right femoral endarterectomy JOINT REPLACEMENT JOINT REPLACEMENT NASAL SEPTUM SURGERY 1960 RF LUMBAR SPINE INTERLAMINAR EPIDURAL INJECTION LEFT N/A 12/03/2017 multiple steroid injections SHOULDER ARTHROPLASTY TOTAL Left 11/27/2015 SINUS SURGERY ALLERGIES Allergies Allergen Reactions Pollen Extracts Other (see comments) Cough, plugged nose, watery eyes from seasonal allergies per patient report Adhesive Tape-Silicones Rash Atorvastatin Other (see comments) Iodinated Contrast Media Rash on face- been doing medrol before use Lisinopril Other (see comments) Simvastatin Other (see comments) and Myalgia Oyxnyia-Lbo-Rod Reductase Inhibitors Myalgia Statins-muscle aches SOCIAL HISTORY Social History Socioeconomic History Marital status: Spouse name: Not on file Number of children: Not on file Years of education: Not on file Highest education level: 11th grade Occupational History Not on file Tobacco Use Smoking status: Former Current packs/day: 0.00 Types: Cigarettes Quit date: 1983 Years since quittin.0 Smokeless tobacco: Never Vaping Use Vaping status: never used Substance and Sexual Activity Alcohol use: Not Currently Drug use: Never Sexual activity: Not Currently Partners: Female control/protection: None Other Topics Concern Not on file Social History Narrative 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 Caffeine: none Social Drivers of Health Food Insecurity: No Food Insecurity (03/26/2024) Hunger Vital Sign Worried About Running Out of Food in the Last Year: Never true Ran Out of Food in the Last Year: Never true Transportation Needs: No Transportation Needs (03/26/2024) PRAPARE - Transportation Lack of Transportation (Medical): No Lack of Transportation (Non-Medical): No Physical Activity: Inactive (03/26/2024) Exercise Vital Sign Days of Exercise per Week: 0 days Minutes of Exercise per Session: 0 min Intimate Partner Violence: Not At Risk (05/06/2023) Humiliation, Afraid, Rape, and Kick questionnaire Fear of Current or Ex-Partner: No Emotionally Abused: No Physically Abused: No Sexually Abused: No Housing Stability: Low Risk (03/26/2024) Housing Stability Housing: Living Situation: I have a steady place to live FAMILY HISTORY Family History Problem Relation Name Age of Onset Coronary artery disease Mother Angela Foley Peripheral vascular disease Father Abhay Coronary artery disease Father Abhay Stroke Sister Violet Obesity, Unspecified Daughter Gerrilynn Heart disease Son Eusebio Heart valve disorder Son Eusebio Hypertension Son Elroy No Known Problems Son Milo Other (hardening of the arteries) Paternal Grandmother Cancer Half-Brother Sukhdeep Brain cancer Half-Brother Sukhdeep Colon cancer Half-Sister Christy No SYSTEMS REVIEW Genitourinary: Positive for blood in urine. OBJECTIVE PHYSICAL EXAMINATION General: AOx3, NAD Pulm: On room air, normal WOB Abd: soft, nontender, nondistended : negative for b/l flank pain on percussion LABS Lab Results Component Value Date CREATININE 0.75 12/05/2024 EGFR 90 12/05/2024 KSERUM 4.2 10/04/2020 KPLASMA 4.6 07/27/2024 HGB 12.3 (L) 12/24/2023 HCT 37.3 (L) 12/24/2023 HCTPOC 43 10/12/2012 PLT 174 12/24/2023 WBC 7.3 12/24/2023 PSA 0.47 06/19/2023 HGBA1C 6.2 (H) 07/27/2024 IMAGING AND TESTS MR Abdomen Pelvis Urogram without and with IV Contrast Result Date: 12/07/2024 Impression: 1. Exophytic enhancing mass along the left posterior bladder wall measuring up to 3.3 cm compatible with urothelial carcinoma. The mass abuts the left ureterovesicular junction without hydronephrosis or evidence of extension along the left distal ureter. Enhancement of the adjacent leftlateral wall suggest bladder wall invasion. 2. No evidence of metastatic disease in the abdomen or pelvis. 3. No suspicious urothelial finding in the upper tracts. 4. No suspicious renal lesion. IMPRESSION/REPORT/PLAN # hematuria Mr. Argueta is a pleasant 84 y.o. male presenting with gross hematuria in the setting of a 3.3 cm left posterior exophytic enhancing bladder wall mass. It was a pleasure meeting with Mr. Argueta and his to discuss this new finding. We discussed therisk factor of bladder cancer. We discussed the protocol to work up gross hematuria. Finding the abnormal mass in the bladder indicates a need for biopsy to identify and stage the lesion. We discussed the need for a catheter post procedure for about 3d. It will take 5-7 business days to receive theresults at which time Dr. Campa's team will reach out to explain the findings and discuss appropriatenext step Plan: Pancystoscopy and TURBT Confirm with Go-7 anesthesia appropriateness for OPC listing Preoperative urines BRADFORD clearance ordered PATIENT EDUCATION Ready to learn, no apparent learning barriers were identified; learning accepting preferences include listening. Explained diagnosis and treatment plan; patient expressed understanding of the content. Signed by: Randi Mills MD, MS Department of Urology, PGY-2 Pager [phone] 12/09/24 12:58 PM TOOL FILER HAND Answers submitted by the patient for this visit: Urinary Symptoms (Submitted on 12/08/2024) Strong urge to urinate: Yes Straining after urination: Yes None of the above: Yes Are you able to sense when your bladder is full?: Yes How many times daily do you typically urinate during the day?: 8 How many times do you typically wake up and urinate at night?: 2 Have you had a urinary tract infection (UTI) within the past 1 year, and if so how many?: 1 or 2 Have you had any kidney infections or required hospitalized for kidney failure?: No Have you required a catheter placed because you could not empty your bladder?: Yes Do you ever unintentionally leak urine?: No Have you ever or are currently taking any treatments to treat your urinary symptoms?: medications Have you ever had any surgical or office procedures to improve your urinary symptoms?: No (Submitted on 12/08/2024) Did those treatments help your symptoms?: Yes Cosigned by Tylor Campa M.D., M.P.H. at 12/09/2024 5:37 PM TOOL FILER HAND FILER HAND FILER HAND Associated attestation - Tylor Campa M.D., M.P.H. - 12/09/2024 5:37 PM TOOL FILER HAND I discussed the patient with the Resident/GERALD and agree with their note which accurately reflects my plan and management recommendations. Hematuria evaluation demonstrates 3 cm bladder mass, presumed bladder cancer. He will undergo Transurethral resection of bladder tumor in the [facility]. Case was reviewed by [address] anesthesiology team and approved to proceed. documented in this encounter Plan of Treatment Upcoming Encounters Date Type Department Care Team (Late st Contact Info) Description 01/19/2025 9:00 AM TOOL FILER HAND Procedure visit Department of Urology in [address] [phone] Laurence Wilkins M.D. [address] [place] [phone] 02/14/2025 10:00 AM CDT Comprehensive Visit Department of Neurologic Surgery in [address] [phone] Lalit Deshpande M.D. [address] [place] [phone] 02/14/2025 11:00 AM CDT Office Visit Division of Pain Medicine in [address] [phone] Donita Arevalo, NAEEM, C.N.P., M.S. [address] [place] [phone] 06/23/2025 8:10 AM CDT Appointment Department of Laboratory Medicine in [address] [phone] Kimani Canada, PAlexandraA.Tod. [address] [place] [phone] 06/26/2025 10:00 AM CDT Office Visit Department of Family Medicine, [facility], in [place], [place] 300 [facility] [place] [phone] Kimani Canada P.A.-C. 300 [facility] [place] [phone] documented as of this encounter Visit Diagnoses Diagnosis Mass Bladder- Primary Hematuria documented in this encounter Additional Health Concerns Assessment Noted Time PHQ-9 Depression Total Score: 0 09/15/20 18 10:46 AM CDT documented as of this encounter Care Teams Email Deployment Specialist Relationship Specialty Start Date End Date Kimani Canada P.A.-C. 300 [facility] [place] [address] PCP - General Family Medicine 05/09/20 [facility] Dental [facility] [address] [facility] [address] External Dentist Dentistry 06/22/24 [facility] 2019 [address] [facility] [address] Rn Transport Ophthalmology 06/22/24 documented as of this encounter
--- OUTSIDE RECORDS SUMMARY | 2025-01-14 03:00 | XMS_ITS | Encounter Summary ---
Author Organization [facility] Address [address] [place] [address] Care Team Providers Care Mounter Automatic Name Role Phone Kimani Canada P.A.-C. Primary Care Provider Reason for Visit * Reason Onset Date Comments Med Question 01/11/2025 Encounter Details Date Type Department Care Team (Late st Contact Info) Description 01/11/2025 Clinical Communication Department of Urology in [place], [place] [address] [place] [phone] Ya Sahu D.O. [address] [place] [phone] Med Question Social History Tobacco Use Types Packs/Day Years Used Date Smoking Tobacco: Former Cigarettes Q uit: 1984 Smokeless Tobacco: Never Alcohol Use Standard Drinks/Week Comments Not Currently 0 (1 standard drink = 0.6 oz pur e alcohol) [facility] Utilities Answer Date Recorded In the past 12 months has e [place] [employer], gas, oil, or water [employer] threatened to shut off services in your [...] often do you attend chur ch or scientologist services? More than 4 times per year 03/20/2023 Do you belong to any clubs o r organizations such as sabianist groups, unions, fraternal or athletic groups, or [...] your living situation today? I have a [facility] place to live 03/26/2024 Education Answer Date Recorded What is the highest level of school you have completed or the highest degree you have received? 11th grade 05/01/2021 Sex and Gender Information Value Date Recorded Sex Assigned at Male 08/20/2021 9:04 AM CDT Legal Sex Male 12:46 AM FIRER ELECTRIC LOCOMOTIVE Gender Identity Not on file Sexual Orientation Not on file documented as of this encounter Miscellaneous Notes * Telephone Encounter - Erin Henderson R.N. - 01/11/2025 9:06 AM CST SUBJECTIVE CHIEF COMPLAINT / REASON FOR CALL Med Question Information Discussed Called and assessed. Mr. Argueta doesn't feel he is having issues with bladder spasms. Due to this, I've asked him to stop the as needed Trospium. He will do this. He also reports still having blood inhis catheter. We discussed with surgery being just yesterday this will take time. He should drink plenty of fluids over the next several days to clear the urine prior to Thursday. If he still has a lotof blood Thursday, he should call us prior to his appointment so we can assess. Mr. Argueta was in agreement with the plan and had no additional questions. PLAN Disposition/Recommendation: recommend self-care. Information/Education: patient/caller able to teach back Caller agreeable to plan of care: yes The following references were used: nursing clinical judgement R ELECTRIC LOCOMOTIVE documented in this encounter Plan of Treatment Upcoming Encounters Date Type Department Care Team (Late st Contact Info) Description 01/19/2025 9:00 AM FIRER ELECTRIC LOCOMOTIVE Procedure visit Department of Urology in [place], [place] [address] [place] [phone] Laurence Wilkins M.D. [address] [place] [phone] 02/14/2025 10:00 AM CDT Comprehensive Visit Department of Neurologic Surgery in [place], [place] [address] [place] [phone] Lalit Deshpande M.D. [address] [place] [phone] 02/14/2025 11:00 AM CDT Office Visit Division of Pain Medicine in [address] [phone] Donita Arevalo APRN, C.N.P., M.S. [address] [place] [phone] 06/23/2025 8:10 AM CDT Appointment Department of Laboratory Medicine in [address] [phone] Kimani Canada, PAlexandraA.-Taya. 300 [place] [phone] 06/26/2025 10:00 AM CDT Office Visit Department of Family Medicine, [facility], in [place], [place] 300 [place] [phone] Kimani Canada P.A.-C. 300 [facility] [place] [address] documented as of this encounter Visit Diagnoses Not on filedocumented in this encounter Additional Health Concerns Assessment Noted Time PHQ-9 Depression Total Score: 0 09/15/20 18 10:46 AM CDT documented as of this encounter Care Teams Mounter Automatic Relationship Specialty Start Date End Date Kimani Canada P.A.-C. 300 [facility] [place] [phone] PCP - General Family Medicine 05/09/20 [facility] [address] [facility] [address] External Dentist Dentistry 06/22/24 [facility] 2019 [address]z [facility] [address] Dry Transfer Worker Ophthalmology 06/22/24 documented as of this encounter
--- OUTSIDE RECORDS SUMMARY | 2025-01-14 03:00 | XMS_ITS | Encounter Summary ---
Author Organization [facility] Address [address] [place] [address] Care Team Providers Care Physical Chemistry Teacher Name Role Phone Kimani Canada P.A.-C. Primary Care Provider Reason for Visit * Reason Onset Date Comments Communication 12/20/2024 Insurance Encounter Details Date Type Department Care Team (Latest Contact Info) Description 12/20/2024 Clinical Communication Department of Family Medicine, [facility], in [place], [place] 300 [place] [address] Kimani Canada P.A.-C. 300 [place] [phone] Communication (Insurance ) Social History Tobacco Use Types Packs/Day Years Used Date Smoking Tobacco: Former Cigarettes Q uit: 1984 Smokeless Tobacco: Never Alcohol Use Standard Drinks/Week Comments Not Currently 0 (1 standard drink = 0.6 oz pur e alcohol) [facility] Utilities Answer Date Recorded In the past 12 months has e [employer], gas, oil, or water [employer] threatened to shut off services in your [...] How often do you attend chur or yazidism services? More than 4 times per year 03/20/2023 Do you belong to any clubs o r organizations such as gnosticism groups, unions, fraternal or athletic groups, or [...] Answer Date Recorded PHQ-2 Score 0 06/22/2024 [facility] - Occupational Stress [...] living situation today? I have a [facility] place to live 03/26/2024 Education Answer Date Recorded What is the highest level of school you have completed or the highest degree you have received? 11th grade 05/01/2021 Sex and Gender Information Value Date Recorded Sex Assigned at Male 08/20/2021 9:04 AM CDT Legal Sex Male 12:46 AM P D DRIVER Gender Identity Not on file Sexual Orientation Not on file documented as of this encounter Miscellaneous Notes * Telephone Encounter - Gill Solis, RAlexandraN. - 12/28/2024 2:41 PM CST SUBJECTIVE CHIEF COMPLAINT / REASON FOR CALL Communication (Insurance ) Information Discussed Machinist Job Setter updated patient on message from the pharmacy regarding budesonide and message from PCP: The only reason for the budesonide is a nasal steroid. I am not sure really why he uses this instead of Flonase or Nasacort. I believe it originally came from ear nose and throat. He might be able to justuse those instead? Patient stated he is willing to try the medication that Kimani recommends. PLAN Disposition/Recommendation: notified provider and awaiting recommendations Information/Education: patient/caller able to teach back Caller agreeable to plan of care: yes The following references were used: nursing clinical judgement and provider Kimani Canada P D DRIVER * Telephone Encounter - Judy Kathleen Geena - 12/26/2024 2:09 PM CST Images from the original note were not included. Received fax from pharmacy in ENT. Currently prescribed by Kimani Canada P.A.-C. Thank you. P D DRIVER documented in this encounter Plan of Treatment Upcoming Encounters Date Type Department Care Team (Late st Contact Info) Description 01/19/2025 9:00 AM P D DRIVER Procedure visit Department of Urology in [address] [phone] Laurence Wilkins M.D. [address] [place] [phone] 02/14/2025 10:00 AM CDT Comprehensive Visit Department of Neurologic Surgery in [address] [phone] Lalit Deshpande M.D. [address] [place] [phone] 02/14/2025 11:00 AM CDT Office Visit Division of Pain Medicine in [place], [place] [address] [place] [phone] Donita Arevalo, NAEEM, C.N.P., M.S. [address] [place] [phone] 06/23/2025 8:10 AM CDT Appointment Department of Laboratory Medicine in [address] [phone] Kimani Canada P.A.-C. [address] [place] [phone] 06/26/2025 10:00 AM CDT Office Visit Department of Family Medicine, [facility], in [place], [place] 300 [facility] [place] [phone] Kimani Canada P.A.-C. 300 [facility] [place] [phone] documented as of this encounter Visit Diagnoses Not on filedocumented in this encounter Additional Health Concerns Assessment Noted Time PHQ-9 Depression Total Score: 0 09/15/20 18 10:46 AM CDT documented as of this encounter Care Teams Physical Chemistry Teacher Relationship Specialty Start Date End Date Kimani Canada P.A.-C. 300 [facility] [place] [phone] PCP - General Family Medicine 05/09/20 [facility] [address] [facility] [address] External Dentist Dentistry 06/22/24 [facility] 2019 [address]z [facility] [address] Jet Worker Ophthalmology 06/22/24 documented as of this encounter
--- OUTSIDE RECORDS SUMMARY | 2025-01-14 03:00 | XMS_ITS | Encounter Summary ---
Author Organization [facility] Address 200 [place] [address] Care Team Providers Care Drier Operator Name Role Phone Kimani Canada P.A.-C. Primary Care Provider Reason for Referral * Outpatient (Routine) - Authorized Specialty Diagnoses / Procedures Referred By Contac t Referred To Contact Pain Medicine Donita Arevalo APRN C.N.P., M.S. 200 [place] [address] Phone: tel: fax: [facility] Referral ID Status Reason Start Date Expiration Date V isits Requested Visits Authorized [id number] Authorized 01/11/2025 07/13/2026 1 1 Scheduling Instructions 11 am, OK to schedule while EMDE on MIPS--pt is aware FINISHER Reason for Visit * Outpatient (Routine) - Closed Specialty Diagnoses / Procedures Referred By Contac t Referred To Contact Pain Medicine Donita Arevalo APRN, C.N.P., M.S. 200 [place] [address] Phone: tel: fax: [facility] Referral ID Status Reason Start Date Expiration Date Visits Re quested Visits Authorized [id number] Closed 12/13/2024 06/14/2026 1 1 Encounter Details Date Type Department Care Team (Late st Contact Info) Description 01/11/2025 11:30 AM WET FINISHER Virtual Visit Division of Pain Medicine in [place], [place] 200 [place] [phone] Donita Arevalo APRN C.N.P., M.S. 200 [place] [address] Stenosis Spinal (Primary Dx); Spondylosis Lumbar Without Myelopathy Social History Tobacco Use Types Packs/Day Years Used Date Smoking Tobacco: Former Cigarettes Q uit: 1984 Smokeless Tobacco: Never Alcohol Use Standard Drinks/Week Comments Not Currently 0 (1 standard drink = 0.6 oz pur e alcohol) [facility] Utilities Answer Date Recorded In the past 12 months has e [employer], gas, oil, or water [employer] threatened to shut off services in your [...] often do you attend chur ch or roman catholic services? More than 4 times per year 03/20/2023 Do you belong to any clubs o r organizations such as yazidism groups, unions, fraternal or athletic groups, or [...] Answer Date Recorded PHQ-2 Score 0 06/22/2024 [facility] - Occupational Stress Questionnaire Answer Date [...] Answer Date Recorded Dental: Regular Dentist Yes 12/31/20 22 Employment Answer Date Recorded Employment status [...] AM CDT Legal Sex Male 12:46 AM WET FINISHER Gender Identity Not on file Sexual Orientation Not on file documented as of this encounter Progress Notes * Donita Arevalo, NAEEM, C.N.P., M.S. - 01/11/2025 11:30 AM CST Images from the original note were not included. VIRTUAL VISIT - TELEPHONE SUBJECTIVE CHIEF COMPLAINT / REASON FOR VISIT Virtual visit to address: 1. Stenosis Spinal 2. Spondylosis Lumbar Without Myelopathy HISTORY OF PRESENT ILLNESS Herbie Argueta is a 84 y.o. male with a history of Parkinson's, HFePF, PAD s/p stents, RAMIRO on CPAP, CAD, HTN, Ecoli urosepsis, followed in the Pain Clinic to address chronic back pain, leg pain,radicular symptoms. He has been treated with multiple injection therapies, non opioid therapies, conservative cares, and low-dose intermittent opioids. He had been on hydrocodone-acetaminophen daily a s needed, which seemed to lose effect. Also, he likes to take tylenol as well, which became confusing with the dosing. We decided to opioid rotate, to oxycodone. He feels he is sleeping better now with the oxycodone. He is taking Tylenol 1000 mg twice a day-three times a day. His primary pain issueis the low back, which is the most problematic at night, when getting into bed. He has to lay on the left side, which is the more painful area. Daytime he is not as bothered. He had the cystoscopy yesterday. He has an indwelling catheter. He was able to sleep on his back last night, which is not typical for him. He feels much more rested being able to manage the back pain for sleep. Pain Score: 3/10. OBJECTIVE History was reviewed including allergies, current medications, and problem list. PHYSICAL EXAM Speech clear and coherent, mentation intact. Able to provide adequate history. 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 male with a history of low back and leg pain following up today todiscuss his response to the oxycodone trial. He is noting more restful sleep and less pain interference at night. He has no side effects. He has found the 5 mg dose to be more effective than the 2.5 mg. He would like to continue the oxycodone. MEDICAL DECISION MAKING 1. I sent a refill for oxycodone 5 mg, 1 tablet at bedtime as needed, 30 tablets to [facility]. When I see him in January, we can put him on a controlled substance agreement. 2. He will keep the neurosurgery visit in January. 3. I will follow up with him after he sees Neurosurgery. FOLLOW-UP January 2025 Total time: 15 minutes. PATIENT EDUCATION Ready to learn, no apparent learning barriers were identified; learning preferences included listening. Explained diagnosis and treatment plan; patient expressed understanding of the content. FINISHER documented in this encounter Plan of Treatment Upcoming Encounters Date Type Department Care Team (Late st Contact Info) Description 01/19/2025 9:00 AM WET FINISHER Procedure visit Department of Urology in [place], [place] [address] [place] [phone] Laurence Wilkins M.D. [address] [place] [phone] 02/14/2025 10:00 AM CDT Comprehensive Visit Department of Neurologic Surgery in [place], [place] [address] [place] [phone] Lalit Deshpande M.D. [address] [place] [phone] 02/14/2025 11:00 AM CDT Office Visit Division of Pain Medicine in [place], [place] [address] [place] [address] Donita Arevalo APRN, C.N.P., M.S. [address] [place] [address] 06/23/2025 8:10 AM CDT Appointment Department of Laboratory Medicine in [place], [place] 300 [place] [phone] Kimani Canada P.AAlexandra-CAlexandra 300 [place] [phone] 06/26/2025 10:00 AM CDT Office Visit Department of Family Medicine, [facility], in [place], [place] 300 [place] [phone] Kimani Canada P.A.-CAlexandra 300 [place] [phone] Scheduled Referrals Name Type Priority Associated Diagnoses Orde r Schedule Pain Medicine office visit (clinic) Outpatient Referral Routine Expected: 02/14/2025, Expires: 04/10/2026 documented as of this encounter Visit Diagnoses Diagnosis Stenosis Spinal- Primary Spondylosis Lumbar Without Myelopathy documented in this encounter Additional Health Concerns Assessment Noted Time PHQ-9 Depression Total Score: 0 09/15/20 18 10:46 AM CDT documented as of this encounter Care Teams Drier Operator Relationship Specialty Start Date End Date Kimani Canada P.A.-C. 300 [place] [phone] PCP - General Family Medicine 05/09/20 [facility] [address] [facility] [address] External Dentist Dentistry 06/22/24 [facility] [address] [facility] [address] [place] Fishing Crew Member Ophthalmology 06/22/24 documented as of this encounter
--- OUTSIDE RECORDS SUMMARY | 2025-01-14 03:00 | XMS_ITS | Encounter Summary ---
Author Organization [facility] Address [address] [place] [address] Care Team Providers Care Batch Freezer Name Role Phone Kimani Canada P.A.-C. Primary Care Provider Reason for Referral * Outpatient (Routine) - Closed Specialty Diagnoses / Procedures Referred By Contac t Referred To Contact Pain Medicine Donita Arevalo APRN C.N.P., M.S. [address] [place] [phone] Phone: tel: fax: [facility] Referral ID Status Reason Start Date Expiration Date Visits Re quested Visits Authorized [id number] Closed 12/13/2024 06/14/2026 1 1 D MECHANIC/SITE LEAD Reason for Visit * Outpatient (Routine) - Closed Specialty Diagnoses / Procedures Referred By Contac t Referred To Contact Pain Medicine Donita Arevalo APRN, C.N.P., M.S. [address] [place] [phone] Phone: tel: fax: [facility] Referral ID Status Reason Start Date Expiration Date Visits Re quested Visits Authorized [id number] Closed 11/22/2024 05/24/2026 1 1 Encounter Details Date Type Department Care Team (Late st Contact Info) Description 12/13/2024 9:30 AM FIELD MECHANIC/SITE LEAD Office Visit Division of Pain Medicine in [place], [place] 200 [place] [address] Donita Arevalo APRN, C.N.P., M.S. 200 [place] [address] Stenosis Spinal (Primary Dx); Spondylosis Lumbar Without Myelopathy; Radiculopathy Social History Tobacco Use Types Packs/Day Years Used Date Smoking Tobacco: Former Cigarettes Q uit: 1984 Smokeless Tobacco: Never Alcohol Use Standard Drinks/Week Comments Not Currently 0 (1 standard drink = 0.6 oz pur e alcohol) [facility] Utilities Answer Date Recorded In the past 12 months has e [employer], gas, oil, or water [employer] threatened to shut off services in your [...] any clubs o r organizations such as scientologist groups, unions, fraternal or athletic groups, or [...] Answer Date Recorded PHQ-2 Score 0 06/22/2024 [facility] of Occupat ional Health - Occupational Stress [...] AM CDT Legal Sex Male 12:46 AM FIELD MECHANIC/SITE LEAD Gender Identity Not on file Sexual Orientation Not on file documented as of this encounter Progress Notes * Donita Arevalo, NAEEM, C.N.P., M.S. - 12/13/2024 9:30 AM CST SUBJECTIVE CHIEF COMPLAINT / REASON FOR VISIT Herbie Argueta presents today in follow-up of 1. Stenosis Spinal 2. Spondylosis Lumbar Without Myelopathy 3. Radiculopathy HISTORY OF PRESENT ILLNESS Herbie Argueta is a 84 y.o. male with a history of Parkinson's, HFePF, PAD s/p stents, RAMIRO on CPAP, CAD, HTN, Ecoli urosepsis, followed in the Pain Clinic to address chronic back pain, leg pain,radicular symptoms. He has been treated with multiple injection therapies, non opioid therapies, conservative cares, and low-dose intermittent opioids. Last visit took place 10/03/24, to follow up aft er MRI and aborted epidural procedure. An e-consult was completed with Dr. Deshpande 10/10/24, and he was approved for an in person visit with surgery. Recent diagnosis of bladder mass, pending biopsy on01/10/2025.He requested a follow up today. He presents with , Kimberlyn. The pain is localized to the low back, below the level of the belt line radiating around the hips and into the bilateral lower extremities. As reported previously, the right lower extremity is numb, tingling. The left lower extremity pain travels down the lateral aspect into the ankle, stopping at the level of the ankle. He is able to sit relatively comfortably. Weight-bearing and lying down for sleep are the most uncomfortable. He states sleep has been very poor over the last few weeks. He had3 sessions of acupuncture, and feels with each session the pain was progressing. The last session around new years included the use of electrical stimulation, which he felt to exacerbate his symptomssignificantly. He is not doing routine exercise or stretching. He takes Tylenol daily, though is not consistent with his dosing. He is using Marseilles, typically when he wakes for the restroom at 3:00 a.m., as he does not feel he can get comfortable in bed again. He has an adjustable bed, but has been needing to put it in a recumbent position for sleep. He expresses frustration. He is worried about the bladder mass and potential for cancer. He has hematuria. Of note, I refilled the hydrocodone-acetaminophen 5-325 mg, 30 tablets in September. He performed a pill count prior to today's appointment, noting he has 10 tablets remaining. There is some confusionabout using the hydrocodone- acetaminophen in combination with regular acetaminophen. He seems to beover compensating, to avoid over use of the acetaminophen. His feels he waits too long to takepain medication, and does not feel it is as effective. Pain score today: 6/10. OBJECTIVE REVIEW OF SYSTEMS: Herbie Argueta's history was reviewed including allergies, current medications, and problem list. PHYSICAL EXAM GENERAL: Pleasant, 84 y.o. male, in no acute distress. HEAD: Normocephalic and atraumatic. EYES: Pupils 3 mm. LUNGS: Unlabored respirations. SKIN: general absent of erythema, lesions, rashes, or infections. GAIT: Non-antalgic. Using a cane for ambulation. NEURO: STRENGTH: Gross motor strength in the lower extremities intact. MENTAL: Alert, oriented, appropriate mood and affect, recent and remote memory intact. ASSESSMENT / PLAN #1 Stenosis Spinal #2 Spondylosis Lumbar Without Myelopathy #3 Radiculopathy Herbie Argueta is a 84 y.o. male with a history of Lumbar spinal stenosis, refractory to interventional spine procedures, with last procedure being aborted due to difficult access related to thelevel of stenosis. He requested the visit today to discuss his pain, especially the interference itis having on his sleep. We are limited on interventional treatments at this time, as he has a new bladder mass and will be undergoing biopsy in 3 weeks as well as a pending neurosurgery consult. I informed him that steroid in the surgical field would limit the timing for surgery, Should be offered.With the current pending medical issues, I would recommend optimizing medication management for now. We can revisit options after his biopsy and there is a clear diagnosis. He seems to be somewhat confused about the use of Marseilles with extra-strength Tylenol, and we have agreed to trial oxycodone so he can use his Tylenol in a more regular fashion. I will provide a trial prescription. He will put the Marseilles to the side for now. MEDICAL DECISION MAKING 1. Oxycodone 2.5-5 mg at bedtime for pain. I recommended dosing a half tablet 30-60 minutes prior to sleep and reducing with another 1/2 tablet if he wakes in the night and can not get comfortable. If this is not effective, I recommend 1 full tablet 30-60 minutes prior to sleep without re-dosing inthe middle of the night for now. We will reconsider this once we understand his response to the medication. Goals would be for no more than 2 full tablets per day. Prescription sent to [facility] in [place]. I provided 15 tablets. 2. As tolerated, continue home exercise program and multiple, short distance walks with in the homethroughout the day to maintain strength and balance. 3. Continue with Neurosurgery consultation in January, they have the phone number to check for cancellations and a sooner appointment. 4. Pending the results of the Neurosurgery consultation, could consider repeating the epidural, as he has had various responses to epidurals in the past. I have had a thorough discussion regarding the anatomical changes with spinal stenosis in the limitations we see with epidural steroid injectionsfor this indication. I would not expect more than 30%-50% improvement with these injections moving forward. All questions answered to the best of my abilities. FOLLOW-UP I will arrange a phone call visit with him after he has had the bladder procedure. Total time: 60 minutes PATIENT EDUCATION Ready to learn, no apparent learning barriers were identified; learning preferences included listening. Explained diagnosis and treatment plan; patient expressed understanding of the content. D MECHANIC/SITE LEAD documented in this encounter Plan of Treatment Upcoming Encounters Date Type Department Care Team (Late st Contact Info) Description 01/19/2025 9:00 AM FIELD MECHANIC/SITE LEAD Procedure visit Department of Urology in [place], [place] [address] [place] [phone] Laurence Wilkins M.D. [address] [place] [phone] 02/14/2025 10:00 AM CDT Comprehensive Visit Department of Neurologic Surgery in [place], [place] [address] [place] [phone] Lalit Deshpande M.D. [address] [place] [phone] 02/14/2025 11:00 AM CDT Office Visit Division of Pain Medicine in [place], [place] [address] [place] [phone] Donita Arevalo, NAEEM, C.N.P., M.S. [address] [place] [phone] 06/23/2025 8:10 AM CDT Appointment Department of Laboratory Medicine in [address] [phone] Kimani Canada, P.A.-C. 300 [place] [phone] 06/26/2025 10:00 AM CDT Office Visit Department of Family Medicine, [facility], in [address] [phone] Kimani Canada, P.A.-C. 300 [place] [phone] Scheduled Referrals Name Type Priority Associated Diagnoses Orde r Schedule Pain Medicine office visit (clinic) Outpatient Referral Routine Expected: 01/11/2025, Expires: 03/13/2026 documented as of this encounter Visit Diagnoses Diagnosis Stenosis Spinal- Primary Spondylosis Lumbar Without Myelopathy Radiculopathy documented in this encounter Additional Health Concerns Assessment Noted Time PHQ-9 Depression Total Score: 0 09/15/20 18 10:46 AM CDT documented as of this encounter Care Teams Batch Freezer Relationship Specialty Start Date End Date Kimani Canada P.A.-C. 300 [place] [phone] PCP - General Family Medicine 05/09/20 [facility] [address] [facility] [address] External Dentist Dentistry 06/22/24 [facility] 2019 Elkin Diet[address] [facility] [address] Manager Of It Ophthalmology 06/22/24 documented as of this encounter
--- OUTSIDE RECORDS SUMMARY | 2025-01-14 03:00 | XMS_ITS | Encounter Summary ---
Author Organization [facility] Address [address] [place] [address] Care Team Providers Care Panelbeater Name Role Phone Kimani Canada P.A.-C. Primary Care Provider Reason for Visit * Reason Onset Date Comments Urinary Problem 12/02/2024 Encounter Details Date Type Department Care Team (Late st Contact Info) Description 12/02/2024 Nurse Triage Department of Family Medicine, [facility], in [address] [phone] Arleth Orta M.S., R.N. [address] [place] [phone] Urinary Problem Social History Tobacco Use Types Packs/Day Years Used Date Smoking Tobacco: Former Cigarettes Q uit: 1984 Smokeless Tobacco: Never Alcohol Use Standard Drinks/Week Comments Not Currently 0 (1 standard drink = 0.6 oz pur e alcohol) [facility] Utilities Answer Date Recorded In the past 12 months has e [employer], gas, oil, or water [employer] threatened to shut off services in your [...] often do you attend chur ch or confucianism services? More than 4 times per year 03/20/2023 Do you belong to any clubs o r organizations such as rastafari groups, unions, fraternal or athletic groups, or [...] Answer Date Recorded PHQ-2 Score 0 06/22/2024 [facility] of Occupat ional Health - Occupational Stress [...] living situation today? I have a [facility] place to live 03/26/2024 Education Answer Date Recorded What is the highest level of school you have completed or the highest degree you have received? 11th grade 05/01/2021 Sex and Gender Information Value Date Recorded Sex Assigned at Male 08/20/2021 9:04 AM CDT Legal Sex Male 12:46 AM SOLUTION DEVELOPER Gender Identity Not on file Sexual Orientation Not on file documented as of this encounter Miscellaneous Notes * Telephone Encounter - Arleth Orta M.S., R.N. - 12/02/2024 12:16 PM SOLUTION DEVELOPER Chief Complaint / Reason for Call Patient is a 84 y.o. male calling regarding Urinary Problem. Assessment Concern: Pain with urination and passing large blood clots. Present for: today Home cares tried: none Calling to request: advice The recommended disposition is Go to ED Now. Reason for Disposition Passing pure blood or large blood clots (i.e., size > a dime) (Exception: Nicole or small strands.) Protocols used: Urine - Blood In-Adult- Care Advice Patient/Caregiver understands and will follow care advice?: Yes, able to teach back Urine - Blood In-Adult- Nurse Arleth Peters Dec 02, 2024 12:17 PM Care Advice GO TO ED NOW: * You need to be seen in the Emergency Department. * Go to the ED at local Hospital. * Leave now. Drive carefully. ANOTHER ADULT SHOULD DRIVE: * It is better and safer if another adult drives instead of you. TION DEVELOPER documented in this encounter Plan of Treatment Upcoming Encounters Date Type Department Care Team (Late st Contact Info) Description 01/19/2025 9:00 AM SOLUTION DEVELOPER Procedure visit Department of Urology in [place], [place] [address] [place] [phone] Laurence Wilkins M.D. [address] [place] [phone] 02/14/2025 10:00 AM CDT Comprehensive Visit Department of Neurologic Surgery in [place], [place] [address] [place] [phone] Lalit Deshpande M.D. [address] [place] [phone] 02/14/2025 11:00 AM CDT Office Visit Division of Pain Medicine in [place], [place] [address] [place] [phone] Donita Arevalo, CAR WORKER HELPER, C.N.P., M.S. [address] [place] [phone] 06/23/2025 8:10 AM CDT Appointment Department of Laboratory Medicine in [place], [place] 300 [place] [phone] Kimani Canada, PAlexandraAAntonio. 300 [place] [phone] 06/26/2025 10:00 AM CDT Office Visit Department of Family Medicine, [facility], in [place], [place] 300 [place] [phone] Kimani Canada P.A.-C. 300 [place] [phone] documented as of this encounter Visit Diagnoses Not on filedocumented in this encounter Additional Health Concerns Assessment Noted Time PHQ-9 Depression Total Score: 0 09/15/20 18 10:46 AM CDT documented as of this encounter Care Teams Panelbeater Relationship Specialty Start Date End Date Kimani Canada P.A.-C. 300 [facility] [place] [phone] PCP - General Family Medicine 05/09/20 [facility] 2010 [address] [facility] [address] External Dentist Dentistry 06/22/24 [facility] 2019 [address] Dietz [facility] [address] Audit Analyst Ophthalmology 06/22/24 documented as of this encounter
--- OUTSIDE RECORDS SUMMARY | 2025-01-14 03:01 | XMS_ITS | Encounter Summary ---
Author Organization [facility] Address [address] [place] [address] Care Team Providers Care Poultry Hatchery Manager Name Role Phone Kimani Canada P.A.-C. Primary Care Provider Reason for Visit * Reason Onset Date Comments Pre-visit Intake 12/08/2024 Encounter Details Date Type Department Care Team (Latest Contact Info) Description 12/08/2024 12:45 PM MECHANOTHERAPIST Clinical Communication Virtual Review in [place], [place] 200 [place] [address] Pre-visit Intake Social History Tobacco Use Types Packs/Day Years Used Date Smoking Tobacco: Former Cigarettes Q uit: 1984 Smokeless Tobacco: Never Alcohol Use Standard Drinks/Week Comments Not Currently 0 (1 standard drink = 0.6 oz pur e alcohol) [facility] Utilities Answer Date Recorded In the past 12 months has [facility] [employer], gas, oil, or water [employer] threatened to shut off services in your [...] often do you attend chur ch or congregation services? More than 4 times per year 03/20/2023 Do you belong to any clubs o r organizations such as amish groups, unions, fraternal or athletic groups, or [...] Answer Date Recorded PHQ-2 Score 0 06/22/2024 [facility] of Occupat ional Health - Occupational Stress [...] your living situation today? I have a [facility] place to live 03/26/2024 Education Answer Date Recorded What is the highest level of school you have completed or the highest degree you have received? 11th grade 05/01/2021 Sex and Gender Information Value Date Recorded Sex Assigned at Male 08/20/2021 9:04 AM CDT Legal Sex Male 12:46 AM MECHANOTHERAPIST Gender Identity Not on file Sexual Orientation Not on file documented as of this encounter Plan of Treatment Upcoming Encounters Date Type Department Care Team (Late st Contact Info) Description 01/19/2025 9:00 AM MECHANOTHERAPIST Procedure visit Department of Urology in [place], [place] [address] [place] [phone] Laurence Wilkins M.D. [address] [place] [phone] 02/14/2025 10:00 AM CDT Comprehensive Visit Department of Neurologic Surgery in [place], [place] [address] [place] [phone] Lalit Deshpande M.D. [address] [place] [phone] 02/14/2025 11:00 AM CDT Office Visit Division of Pain Medicine in [place], [place] [address] [place] [phone] Donita Arevalo APRN, C.N.P., M.S. [address] [place] [phone] 06/23/2025 8:10 AM CDT Appointment Department of Laboratory Medicine in [place], [place] 300 [place] [phone] Kimani Canada P.A.-C. 300 [place] [phone] 06/26/2025 10:00 AM CDT Office Visit Department of Family Medicine, [facility], in [place], [place] [address] [place] [phone] Kimani Canada, P.A.-C. 300 [place] [phone] documented as of this encounter Visit Diagnoses Not on filedocumented in this encounter Additional Health Concerns Assessment Noted Time PHQ-9 Depression Total Score: 0 09/15/20 18 10:46 AM CDT documented as of this encounter Care Teams Poultry Hatchery Manager Relationship Specialty Start Date End Date Kimani Canada, P.A.-C. 300 [place] [phone] PCP - General Family Medicine 05/09/20 [facility] 2011 [address] [facility] [address] External Dentist Dentistry 06/22/24 [facility] 2019 [address]z [facility] [address] [employer] Ophthalmology 06/22/24 documented as of this encounter
--- OUTSIDE RECORDS SUMMARY | 2025-01-14 03:01 | XMS_ITS | Encounter Summary ---
Author Organization [facility] Address [address] [place] [address] Care Team Providers Care Machine Tech Name Role Phone Kimani Canada P.A.-C. Primary Care Provider Reason for Referral * MRI/CAT/PET Scan (Routine) - Closed Specialty Diagnoses / Procedures Referred By Ray cruz Referred To Contact Radiology Diagnoses Hematuria Procedures MR Abdomen Pelvis Urogram without and with IV Contrast Kimani Canada P.A.-C. [address] [place] [address] Phone: tel: fax: [facility] Referral ID Status Reason Start Date Expiration Date Visits Re quested Visits Authorized [id number] Closed 12/05/2024 12/05/2025 1 1 DETAILER Reason for Visit * MRI/CAT/PET Scan (Routine) - Closed Specialty Diagnoses / Procedures Referred By Ray t Referred To Contact Radiology Diagnoses Hematuria Procedures MR Abdomen Pelvis Urogram without and with IV Contrast Kimani Canada P.A.-C. [address] [place] [address] Phone: tel: fax: [facility] Region Referral ID Status Reason Start Date Expiration Date Visits Re quested Visits Authorized [id number] Closed 12/05/2024 12/05/2025 1 1 Encounter Details Date Type Department Care Team (Latest Contact Info) Description 12/07/2024 12:11 PM RV DETAILER - 12/07/2024 11:59 PM RV DETAILER Hospital Encounter Department of Radiology in [place], [place] [address] [place] [phone] Kimani Canada P.A.-C. [address] [place] [address] Hematuria Discharge Disposition: Home or Self Care Social History Tobacco Use Types Packs/Day Years Used Date Smoking Tobacco: Former Cigarettes Q uit: 1984 Smokeless Tobacco: Never Alcohol Use Standard Drinks/Week Comments Not Currently 0 (1 standard drink = 0.6 oz pur e alcohol) [facility] Utilities Answer Date Recorded In the past 12 months has e [employer], gas, oil, or water [employer] threatened to shut off services in your [...] How often do you attend chur or sabianism services? More than 4 times per year [...] PHQ-2 Score 0 06/22/2024 [facility] - [facility]ational Stress Questionnaire Answer Date [...] your living situation today? I have a [facility] place to live 03/26/2024 Education Answer Date Recorded What is the highest level of school you have completed or the highest degree you have received? 11th grade 05/01/2021 Sex and Gender Information Value Date Recorded Sex Assigned at Male 08/20/2021 9:04 AM CDT Legal Sex Male 12:46 AM RV DETAILER Gender Identity Not on file Sexual Orientation [...] Sleep Obstructive DME Order 1 each 07/18/2021 losartan (Cozaar) 100 mg tablet Take 1 tablet (100 mg total) by mouth daily. 90 tablet 3 06/22/2024 lovastatin (Mevacor) 40 mg tablet Take 1 tablet (40 mg total) by mouth daily. 90 tablet 3 06/22/2024 multivitamin capsule Take 1 tablet by mouth [...] daily. 90 capsule 3 06/22/2024 HYDROcodone-aceta minophen ([place]) 5-325 mg per tabletIndications :Chronic Pain/Nonacute Pain Take 1 tablet by mouth every 4 (four) hours as needed for pain Indication: Chronic Pain/Nonacute Pain. 30 tablet 09/27/2024 5 documented as of this encounter Plan of Treatment Upcoming Encounters Date Type Department Care Team (Late st Contact Info) Description 01/19/2025 9:00 AM RV DETAILER Procedure visit Department of Urology in [place], [place] [address] [place] [address] Laurence Wilkins M.D. [address] [place] [address] 02/14/2025 10:00 AM CDT Comprehensive Visit Department of Neurologic Surgery in [place], [place] [address] [place] [phone] Lalit Deshpande M.D. [address] [place] [phone] 02/14/2025 11:00 AM CDT Office Visit Division of Pain Medicine in [place], [place] [address] [place] [phone] Donita Arevalo APRN, C.N.P., M.S. [address] [place] [phone] 06/23/2025 8:10 AM CDT Appointment Department of Laboratory Medicine in [address] [phone] Kimani Canada, P.A.-C. [address] [place] [address] 06/26/2025 10:00 AM CDT Office Visit Department of Family Medicine, [facility], in [address] [phone] Kimani Canada, P.A.-C. [address] [place] [phone] documented as of this encounter Procedures Procedure Name Priority Date/Time Associated Diagnosis Comments MR ABDOMEN PELVIS UROGRAM WITHOUT AND WITH IV CONTRAST RAD - Routine (most inpatients and all outpatients) 12/07/2024 1:50 PM RV DETAILER Hematuria documented in this encounter Results * MR Abdomen Pelvis Urogram without and with IV Contrast (12/07/2024 1:50 PM RV DETAILER) Anatomical Region Laterality Modality Abdomen, Pelvis, Abdominal R ST LOS, Abdominal ARZ LOS, Abdominal FLA LOS N/A Magnetic Resonance Impressions 12/07/2024 3:09 PM RV DETAILER 1. Exophytic enhancing mass along the left [...] suspicious renal lesion. Narrative 12/07/2024 3:09 PM RV DETAILER EXAM: MR ABDOMEN PELVIS UROGRAM WITHOUT AND [...] P.A.-C. IMG MRI PROCEDURES Fin al Result documented in this encounter Visit Diagnoses Diagnosis Hematuria documented in this encounter Administered Medications Inactive Administered Medications - up to 3 most recent administrations Medication Order MAR Action Action Date Dose Rate Site furosemide injection 5-20 mg (Lasix) 5-20 mg, intravenous, Once, On Thu12/07/24 at 1245, For 1 dose, Imaging Protocol Orders, Dose per Radiant Medication Guidelines Given 12/07/2024 1:28 PM RV DETAILER 18 mg gadobutrol injection 0.5-15 mL (Gadavist) 0.5-15 mL, intravenous, Once in imaging, contrast, Starting on Thu12/07/24 at 1228, For 1 dose, Dose per Radiant Medication Guidelines Intrathecal doses greater than 0.25 mL not recommended. Given 12/07/2024 1:30 PM RV DETAILER 9 mL sodium chloride 0.9 % injection 1-250 mL 1-250 mL, intravenous, Once in imaging, line care, Starting on Thu12/07/24 at 1228, For 1 dose Given 12/07/2024 1:30 PM RV DETAILER 30 mL documented in this encounter Additional Health Concerns Assessment Noted Time PHQ-9 Depression Total Score: 0 09/15/20 18 10:46 AM CDT documented as of this encounter Care Teams Machine Tech Relationship Specialty Start Date End Date Kimani Canada P.A.-C. [address] [place] [phone] PCP - General Family Medicine 05/09/20 [facility] [address] [facility] [id number] External Dentist Dentistry 06/22/24 [facility] [address] [facility] [address] Investment Recovery Technician Ophthalmology 06/22/24 documented as of this encounter
--- OUTSIDE RECORDS SUMMARY | 2025-01-14 03:01 | XMS_ITS | Encounter Summary ---
Author Organization [facility] Address [address] [place] [address] Care Team Providers Care Mannequin Refinisher Name Role Phone Kimani Canada P.A.-C. Primary Care Provider Reason for Visit * Reason Comments Med Refill Encounter Details Date Type Department Care Team (Late st Contact Info) Description 12/06/2024 Refill Department of Family Medicine, [facility], in [place], [place] [address] [place] [address] Kimani Canada P.A.-C. [address] [place] [phone] Med Refill Social History Tobacco Use Types Packs/Day Years Used Date Smoking Tobacco: Former Cigarettes Q uit: 1984 Smokeless Tobacco: Never Alcohol Use Standard Drinks/Week Comments Not Currently 0 (1 standard drink = 0.6 oz pur e alcohol) [facility] Utilities Answer Date Recorded In the past 12 months has [facility] [employer], gas, oil, or water [employer] threatened to shut off services in your [...] any clubs o r organizations such as protestant groups, unions, fraternal or athletic groups, or [...] Answer Date Recorded PHQ-2 Score 0 06/22/2024 [facility]at ional [facility] - Occupational Stress [...] your living situation today? I have a [facility] place to live 03/26/2024 Education Answer Date Recorded What is the highest level of school you have completed or the highest degree you have received? 11th grade 05/01/2021 Sex and Gender Information Value Date Recorded Sex Assigned at Male 08/20/2021 9:04 AM CDT Legal Sex Male 12:46 AM HOTEL MANAGER Gender Identity Not on file Sexual Orientation Not on file documented as of this encounter Miscellaneous Notes * Telephone Encounter - Cynthia Kirby - 12/07/2024 2:10 PM CST Dup request L MANAGER documented in this encounter Plan of Treatment Upcoming Encounters Date Type Department Care Team (Late st Contact Info) Description 01/19/2025 9:00 AM HOTEL MANAGER Procedure visit Department of Urology in [place], [place] [address] [place] [address] Laurence Wilkins M.D. 200 [place] [address] 02/14/2025 10:00 AM CDT Comprehensive Visit Department of Neurologic Surgery in [place], [place] [address] [place] [phone] Lalit Deshpande M.D. [address] [place] [phone] 02/14/2025 11:00 AM CDT Office Visit Division of Pain Medicine in [place], [place] [address] [place] [phone] Donita Arevalo APRN, C.N.P., M.S. [address] [place] [phone] 06/23/2025 8:10 AM CDT Appointment Department of Laboratory Medicine in [place], [place] [address] [place] [address] Kimani Canada, P.A.-C. [address] [place] [phone] 06/26/2025 10:00 AM CDT Office Visit Department of Family Medicine, [facility], in [place], [place] [address] [place] [address] Kimani Canada, P.A.-CAlexandra [address] [place] [phone] documented as of this encounter Visit Diagnoses Not on filedocumented in this encounter Additional Health Concerns Assessment Noted Time PHQ-9 Depression Total Score: 0 09/15/20 18 10:46 AM CDT documented as of this encounter Care Teams Mannequin Refinisher Relationship Specialty Start Date End Date Kimani Canada, Jo-Ann.A.-C. [address] [place] [phone] PCP - General Family Medicine 05/09/20 [facility] [address] [facility] [address] External Dentist Dentistry 06/22/24 [facility] [address] [facility] [address] Senior Financial Analyst Ophthalmology 06/22/24 documented as of this encounter
--- OUTSIDE RECORDS SUMMARY | 2025-01-14 03:01 | XMS_ITS | Encounter Summary ---
Author Organization [facility] Address [address] [place] [address] Care Team Providers Care Numerical Control Operator Name Role Phone Kimani Canada P.A.-C. Primary Care Provider Encounter Details Date Type Department Care Team (Latest Contact Info) Description 12/05/2024 2:59 PM SUSPENDER CUTTER - 12/05/2024 11:59 PM SUSPENDER CUTTER Hospital Encounter Department of Laboratory Medicine in [place], [place] [address] [place] [phone] Kimani Canada P.A.-C. [address] [place] [phone] Hematuria Discharge Disposition: Home or Self Care Social History Tobacco Use Types Packs/Day Years Used Date Smoking Tobacco: Former Cigarettes Q uit: 1984 Smokeless Tobacco: Never Alcohol Use Standard Drinks/Week Comments Not Currently 0 (1 standard drink = 0.6 oz pur e alcohol) [facility] Utilities Answer Date Recorded In the past 12 months has e [facility], gas, oil, or water [employer] threatened to shut off services in your [...] How often do you attend chur or mandaen services? More than 4 times per year 03/20/2023 Do you belong to any clubs o r organizations such as adventism groups, unions, fraternal or athletic groups, or [...] Answer Date Recorded PHQ-2 Score 0 06/22/2024 [facility] of Occupat ional Health - Occupational Stress [...] your living situation today? I have a [facility] place to live 03/26/2024 Education Answer Date Recorded What is the highest level of school you have completed or the highest degree you have received? 11th grade 05/01/2021 Sex and Gender Information Value Date Recorded Sex Assigned at Male 08/20/2021 9:04 AM CDT Legal Sex Male 12:46 AM SUSPENDER CUTTER Gender Identity Not on file Sexual Orientation [...] daily. 90 capsule 3 06/22/2024 HYDROcodone-aceta minophen ([place]) 5-325 mg per tabletIndications :Chronic Pain/Nonacute Pain Take 1 tablet by mouth every 4 (four) hours as needed for pain Indication: Chronic Pain/Nonacute Pain. 30 tablet 09/27/2024 documented as of this encounter Plan of Treatment Upcoming Encounters Date Type Department Care Team (Late st Contact Info) Description 01/19/2025 9:00 AM SUSPENDER CUTTER Procedure visit Department of Urology in [place], [place] [address] [place] [phone] Laurence Wilkins M.D. [address] [place] [phone] 02/14/2025 10:00 AM CDT Comprehensive Visit Department of Neurologic Surgery in [place], [place] [address] [place] [phone] Lalit Deshpande M.D. [address] [place] [phone] 02/14/2025 11:00 AM CDT Office Visit Division of Pain Medicine in [place], [place] [address] [place] [phone] Donita Arevalo APRN, C.N.P., M.S. [address] [place] [phone] 06/23/2025 8:10 AM CDT Appointment Department of Laboratory Medicine in [place], [place] [address] [place] [phone] Kimani Canada, PAlexandraAAlejandro [address] [place] [phone] 06/26/2025 10:00 AM CDT Office Visit Department of Family Medicine, [facility], in [place], [place] 300 [facility] [phone] Kimani Canada P.A.-C. 300 [facility] [place] [phone] documented as of this encounter Procedures Procedure Name Priority Date/Time Associated Diagnosis Comments CREATININE WITH EGFR, S/P Routine 12/05/2024 3:14 PM SUSPENDER CUTTER Hematuria documented in this encounter Results * Creatinine with Estimated GFR (12/05/2024 3:14 PM SUSPENDER CUTTER) Creatinine 0.75 0.74 - 1.35 mg/dL 12/05/2024 6:12 PM SUSPENDER CUTTER OWAT Estimated GFR (eGFR) 90 >=60 mL/min/BSA 12/05/2024 6:12 PM SUSPENDER CUTTER OWAT Comment: Estimated GFR calculated using the 2020 CKD_EPI creatinine equation. Blood (Blood, Venous) 12/05/2024 3:14 PM SUSPENDER CUTTER 12/05/2024 5:51 PM SUSPENDER CUTTER us Kimani Canada P.A.-C. LAB BLOOD ADD-ON Final Result [facility] [address] [place] [address], [facility] OWAT [facility] in [place] [address] [place] [address] documented in this encounter Visit Diagnoses Diagnosis Hematuria documented in this encounter Additional Health Concerns Assessment Noted Time PHQ-9 Depression Total Score: 0 09/15/20 18 10:46 AM CDT documented as of this encounter Care Teams Numerical Control Operator Relationship Specialty Start Date End Date Kimani Canada P.A.-C. 300 [facility] [place] [phone] PCP - General Family Medicine 05/09/20 [facility] [address] [facility] [address] External Dentist Dentistry 06/22/24 [facility] [address] [facility] [address] Lead Net Software Developer Ophthalmology 06/22/24 documented as of this encounter
--- OUTSIDE RECORDS SUMMARY | 2025-01-14 03:02 | XMS_ITS | Data Portability ---
Author Organization [place] [facility], [employer] Address [address] [place] [address] Assessment Encounter Date Assessment Date Assessment LastModified [...] DR Matson completed CASSANDRA FULLER DPM [address] [place], [phone], [facility] 10/24/2024 12:11:[address] Huyen FULLER DPM [address] [place], [phone], [facility] 10/17/2024 20:41:14 [...] Not available Not available Not available 10/17/2024 [id number] SNOMED Yanira montaño [facility] 12:15:18 Medications [...] APPLICATI ON TO BIOPSY SITE ON RIGHT CATHOLIC TWICE DAILY FOR 3 WEEKS THEN TAKE [...] Updated DateTime 10/17/2024 170.18 cm 30.9 kg/m2 74635.7 g Yanira Franks [place] [facility] 10/17/2024 12:13:55 Social History None recorded. Functional Status None recorded. Mental Status None recorded. Family History Nothing Reported. Medical History No medical history recorded. Past Encounters Encounter ID Performer Location Encounter Start Date Encounter Closed Date Diagnosis/Indication Diagnosis SNOMED-CT Code Diagnosis ICD10 Code Diagnosis Note CASSANDRA FULLER [facility] Office [address] [place] [phone] 10/17/2024 12:10:28 10/18/2024 09:38:11 Ingrowing nail 259294934 L60.0 Peripheral vascular disease 892945059 I73.89 [facility] [address] [place] [phone] 10/24/2024 11:01:14 10/24/2024 16:31:12 Ingrowing nail 328450818 L60.0 Peripheral vascular disease 247856455 I73.89 Onychomycosis 259367912 B35.1 Pain of to e of right foot 9845444436 16051 M79.674 Pain of to e of left foot 4672804721 38713 M79.675 Health Concerns Section Related Observation LastModified by Organization Detai ls LastModified Time None Recorded Concern Status LastModified by Organization Details LastModified Time None Recorded Advance Directives Directive None Recorded Payers Encounter Date Sequence Insurance Name Policy Number Policy Shetty Covered Member ID Shetty Member ID Guarantor Name 10/17/2024 1 [facility] (MEDICARE REPLACEMENT/A DVANTAGE - PPO) [id number] Herbie Argueta [id number] Herbie Argueta 10/24/2024 1 [employer] (MEDICARE REPLACEMENT/A DVANTAGE - PPO) [id number] Herbie Argueta [id number] Herbie Argueta Notes Date Note Type Note [...] has Parkinson's disease. CASSANDRA FULLER, CASSANDRA [address] [place], [phone], [facility] 10/17/2024 20:45:22 [...] has Parkinson's disease. CASSANDRA FULLER, CASSANDRA [address] [place], [phone], [facility] 10/24/2024 12:13:25
== END 2025-01-14 02:55 | disposition home or self-care (01) ==
LOC: ED 02:54
PROVIDERS: Emergency Provider Family Medicine; PCP Physician Assistant
DX: R33.9 Retention of urine, unspecified (principal)
CPT/HCPCS: 51798; 81001; 87086; 99282; 99283